=== PATIENT | male | born 1950 | race Caucasian/White ===

== ENCOUNTER 2017-09-24 17:10 | Emergency (ER) | payer OTHER, SELFPAY ==
[2017-09-24 17:11] VITALS: BP 136/81; PULSE 107; RESP 22; TEMP 36.9; O2SAT 94; BMI 23.0
--- NOTE | 2017-09-24 17:20 | EKG12_ITS ---
Test Reason : CP Blood Pressure : / mmHG Vent. Rate : 101 BPM Atrial Rate : 101 BPM P-R Int : 166 ms QRS Dur : 080 ms QT Int : 342 ms P-R-T Axes : 084 075 076 degrees QTc Int : 443 ms Sinus tachycardia Otherwise normal ECG Confirmed by MILLA AYALA, SAMMY ([id number]), editorial manager CLEO MORRISON ([id number] on 09/25/2017 2:25:14 PM Referred By: FABIAN/KRISTOPHER Confirmed By:SAMMY LOYOLA MD
[2017-09-24 17:27] VITALS: O2SAT 95
--- NOTE | 2017-09-24 17:33 | RAD_ITS ---
XR Chest 1 View INDICATION: chest pain COMPARISON: CT chest January 2017 TECHNIQUE: Portable chest x-ray FINDINGS: Severe centrilobular emphysematous changes are again noted. Markingsatthelungbasesareincreased.TherightlowerlobepulmonarynodulewhichwasseenonpriorCTisnotwellseen onplainfilm.Heartsizeiswithinnormallimits. RAD/Chest 1 View (Portable) IMPRESSION: COPD/emphysema. Subcentimeter right lower lobe pulmonary micronodule, follow-up is clinically warranted. at 1759 Reported and signed by: Elisabeth Mancilla MD Electronically Signed: Elisabeth Mancilla MD at 16:58 EST Tel , Service support ,
[2017-09-24 17:41] LABS: Absolute Lymphocyte Count 1.47 X10^3/ul (0.83-4.51); Basophil# 0.02 X10^3/uL; Basophil% 0.3 % (0-1); Eosinophil# 0.18 X10^3/uL; Eosinophils% 2.4 % (0-5); Hematocrit 42.7 % (40-54); Hemoglobin 13.9 g/dl (13.0-16.5); Lymphocyte # 1.47 X10^3/ul (4.0); Lymphocyte % 19.5 % (19-41); Mean Corp Hgb Conc 32.6 g/gl (32-36); Mean Corpuscular Hgb 29.8 pg (27.0-32.0); Mean Corpuscular Volume 91.6 fL (80-94); Mean Platelet Vol. 9.2 fl (6.2-12.0); Monocyte# 0.89 X10^3/uL; Monocyte% 11.8 % (0-10); Neutrophil # 4.98 X10^3/uL (2.7-7.7); Neutrophil % 65.9 % (47-70); POSITIVE COUNT NO; POSITIVE DIFFERENTIAL NO; POSITIVE MORPHOLOGY NO; Platelet Count 264 K/mm3 (150-450); RBC Distribution Width CV 13.2 % (11.6-14.6); RBC Distribution Width SD 43.7 fl (35.1-43.9); Red Blood Count 4.66 M/mm3 (4.6-6.2); White Blood Count 7.6 K/mm3 (4.4-11.0)
--- NOTE | 2017-09-24 17:46 | CT_ITS ---
CTA Chest WO/W Contrast INDICATION: THORACIC AORTIC ANEURYSM COMPARISON: February 01, 2016 TECHNIQUE: High resolution axial CT imaging of the chest during intravenous contrast administration, CTA protocol. Multiplanar and MIP 3D reformatted images. 100 mL of Isovue-370 were given intraveniously. Radiation dose optimization technique applied. FINDINGS: The heart size is within normal limits. Ascending aorta measures 3.2 cm in diameter, aortic arch measures 2.6 cm in diameter, descending aorta measures 3.4 cm in diameter. At the midportion of the descending thoracic aorta there is a focal outpouching up to 4.2 cm in size, the outpouching extends over 2.5 cm craniocaudal dimension. Finding is unchanged compared to January 2016. There is no evidence of pulmonary arterial filling defect to suggest PE. Multiple small mediastinal lymph nodes are again noted. Calcified granulomas again noted in the left lower lobe. A ovoid shaped well-circumscribed pulmonary micronodule in the right lower lobe measures 5 mm on today's study, similar compared to February 01, 2016 and January 15, 2015, likely benign. Diffuse centrilobular emphysematous changes are again noted. No evidence of pneumothorax or pleural effusion. No evidence of pneumonia. CT/CTA Chest W/WO Contrast IMPRESSION: Stable 4.2 cm thoracic aortic aneurysm. Stable centrilobular emphysema. Stable right lower lobe micronodule. at 1856 Reported and signed by: Elisabeth Mancilla MD Electronically Signed: Elisabeth Mancilla MD at 17:55 EST Tel , Service support ,
[2017-09-24 17:55] LABS: Anion Gap 6 (5-15); BUN 14 mg/dL (7-18); BUN/Creat Ratio 14.1 RATIO (10-20); Calcium,Total 8.8 mg/dL (8.5-10.1); Chloride 104 mmol/L (98-107); EST Glomerular Filtration Rate 79 mL/min (>60); Est Glom Filt Rate - Afr Amer 96 mL/min (>60); Glucose 112 mg/dL (74-106); Potassium 3.5 mmol/L (3.5-5.1); Sodium Level 138 mmol/L (136-145)
[2017-09-24 18:19] VITALS: PULSE 90; RESP 21; O2SAT 93
[2017-09-24] MEDS: Ipratropium/Albuterol Sulfate 3 ML AMPUL.NEB INHALATION (18:31)
--- NOTE | 2017-09-24 19:24 | ED.VISSUMM ---
- ER Visit Summary Date of Service: 09/24/17 Chief Complaint: Chest pain History of Present Illness: The patient is a [address] Hay. He reports that he has a cough that began 3 days ago. Is productive brown sputum without blood. Reports he has been short of breath with this. He denies any fever or chills. Patient reports that today at approximately 330 he had the onset of a substernal pressure at rest. 7 out of 10 at worst and 3 out of 10 currently. Is worsened by walking around or coughing. Is relieved by rest and albuterol. He does report that he is short of breath with this. He denies any associated nausea, vomiting, or diaphoresis. Reports this is similar to when he had pneumonia in the past. Physical Examination: Vitals: Stable. Afebrile. General: Well-nourished and well-developed. Head: Normocephalic atraumatic. Neck: Supple, no lymphadenopathy. No JVD. Nontender. Cardiovascular: Regular rate and rhythm. No murmurs. Respiratory: No respiratory distress. Minimal wheezing bilaterally with greatly decreased air movement. Abdominal: Soft, nontender, nondistended, normal bowel sounds. No guarding, rebound, or peritoneal signs. Back: Nontender. Extremities: Nontender, no edema. Skin: Normal color, no rash. Neurologic: Alert and oriented ?3. Cranial nerves II through XII are intact. Normal strength and sensation. Psych: Normal affect. Test Results: EKG is sinus tach at [address] changes and artifact. Troponin is negative. Chem-7 is more for glucose 112. CBC is more for monocytes 12. Chest x-ray shows a less than 1 cm right lower lobe nodule. CTA of the chest shows a thoracic aortic aneurysm that is unchanged since January 2016. Also shows right lower lobe nodule that is unchanged since December 2014 and January 2016. There is no PE or dissection. Emergency Department Course and Treatment: She was given albuterol and Atrovent aerosol with solution of his chest pain. He was treated with prednisone p.o. and Levaquin p.o. Treatment Plan: She feels well and would like to go home. He will be discharged on prednisone and Levaquin. Instructed to follow-up his primary care physician in 3-5 days if not improving. Return to emerge from for any worsening symptoms. Disposition: To home in improved and stable condition. Impression: 1. COPD exacerbation. 2. Atypical chest pain. 3. Thoracic aortic aneurysm. 4. Stable right lower lobe nodule. This note was generated with [employer] dictation software. It may contain incorrect words, spelling, and punctuation that were not noted in review of the chart prior to signing ED Disposition - Plan for ED Patient: Disposition: Home or Assisted Living Chief Complaint: Chest Pain Instructions: ED Chest Pain Atypical Unkn Cause Prescriptions: Levofloxacin [Levaquin] 750 mg PO DAILY #7 tablet Prednisone [Deltasone] 60 mg PO DAILY #15 tablet Referrals: Bashir Hay DO [Primary Care Provider] - 3-5 Days
[2017-09-24 19:31] VITALS: BP 118/82; PULSE 85; RESP 15; O2SAT 94
[2017-09-24 19:32] VITALS: BP 113/80; PULSE 82; RESP 14; O2SAT 93
[2017-09-24] MEDS: levoFLOXacin 750 MG Tablet PO (19:32)
[2017-09-24] MEDS: Albuterol 2.5 MG/3 ML VIAL.NEB. INHALATION (19:50)
[2017-09-24 19:51] VITALS: PULSE 86; RESP 18
== END 2017-09-24 20:01 | disposition home or self-care (01) ==
PROVIDERS: Emergency Provider Emergency Medicine; Family Provider Family Medicine; PCP Family Medicine
DX: J44.1 Chronic obstructive pulmonary disease with (acute) exacerbation (principal); R07.89 Other chest pain; I71.2 Thoracic aortic aneurysm, without rupture; R91.1 Solitary pulmonary nodule; Z87.01 Personal history of pneumonia (recurrent); Z87.891 Personal history of nicotine dependence
CPT/HCPCS: 71045; 71275; 80048; 84484; 85025; 93005; 94640; 99285; Q9967; A4216

== ENCOUNTER → 2018-02-08 16:06 | Outpatient (CLI) | payer OTHER, SELFPAY ==
--- NOTE | 2018-02-08 16:08 | CT_ITS ---
STUDY: CT CHEST WITHOUT CONTRAST REASON FOR EXAM: Male, 68 years old. Thoracic aneurysm RADIATION DOSAGE (If Supplied By Facility): CTDIvol = ( 11.90 ) mGy, DLP = ( 502.56 ) mGycm TECHNIQUE: Transaxial imaging was performed without the administration of intravenous contrast material. Multiplanar coronal and sagittal images were reformatted. Individualized dose optimization techniques were used for this CT. COMPARISON: 09/24/2017. FINDINGS: Right lower lung pulmonary nodule measuring 6 mm. Scattered emphysematous changes. No acute infiltrate. There is no demonstrated pleural abnormality. Normal heart and pericardium. Normal mediastinum. Normal hilar regions. Normal unenhanced pulmonary arteries. No aortic aneurysm. Ascending thoracic aorta measures 3.5 cm. Aortic arch measures 3 cm. Descending thoracic aorta measures 4.0 cm. Normal osseous structures. There is no demonstrated abnormality of the visualized upper abdomen. CT/Chest without Contrast IMPRESSION: Stable dilatation descending thoracic aorta measuring up to 4 cm. Right lower lung pulmonary nodule measuring 6 mm. Emphysematous changes. Electronically Signed: Panchito Rolon DO at 10:11 EDT , Service support ,
== END ==
PROVIDERS: Family Provider Family Medicine; PCP Family Medicine
DX: I71.2 Thoracic aortic aneurysm, without rupture (principal)
CPT/HCPCS: 71250

== ENCOUNTER → 2018-10-17 12:51 | Outpatient (CLI) | payer OTHER, SELFPAY ==
--- NOTE | 2018-10-17 13:06 | CT_ITS ---
STUDY: CTA CHEST REASON FOR EXAM: Male, 68 years old. History of abdominal aortic aneurysm. RADIATION DOSAGE (If Supplied By Facility): CTDIvol = ( 13.59 ) mGy, DLP = ( 905.52 ) mGycm TECHNIQUE: The examination was performed with the intravenous administration of 100 IV Isovue 370. Post-processing of the angiographic images was performed, with multiplanar reformation and 3D reconstruction. Individualized dose optimization techniques were used for this CT. COMPARISON: Comparison is made with prior study dated September 24, 2017. FINDINGS: Normal enhancement of the main pulmonary artery and right and left pulmonary arteries. Normal enhancement of the bilateral peripheral pulmonary arteries. There is no demonstrated pulmonary embolism. The ascending aorta measures 3.2 cm in transverse dimension. Once again, there is a focal outpouching in the midportion of the descending thoracic aorta with a transverse dimension of 4.2 cm. This is unchanged. There is no demonstrated aortic dissection. Normal heart and pericardium. There are visualized mediastinal lymph nodes, which are within normal size limits, and with normal morphology. Normal hilar regions. Normal visualized trachea and bronchi. The lungs are well expanded. Stable nodular density in the peripheral aspect of the right lower lobe as seen on axial image #91. Stable emphysematous changes in both lungs with bullous formation. Normal pleura. Normal chest wall structures. Normal osseous structures. Normal visualized upper abdomen. CT/CTA Chest W/WO Contrast IMPRESSION: Stable examination. Electronically Signed: Andrae Hopper, at 14:09 EDT , Service support ,
--- NOTE | 2018-10-17 13:06 | CT_ITS ---
STUDY: CT ABDOMEN AND PELVIS WITH CONTRAST REASON FOR EXAM: Male, 68 years old. History of abdominal aortic aneurysm. RADIATION DOSAGE (If Supplied By Facility): CTDIvol = ( 13.59 ) mGy, DLP = ( 905.52 ) mGycm TECHNIQUE: Transaxial images were obtained from the dome of the diaphragm to the symphysis pubis without oral contrast. 100 IV Isovue 370 was administered. Sagittal and coronal images were reconstructed. Individualized dose optimization techniques were used for this CT. COMPARISON: None. FINDINGS: There is a 5.4 mm noncalcified nodule in the peripheral lateral aspect of the right lower lobe as seen on axial image #2. Mild emphysematous changes at the lung bases with bullous formation in the left midlung. The visualized portions of the heart are within normal limits. There is a 1.6 cm x 1.1 cm cyst in the peripheral inferior aspect of the right lobe of the liver. Normal gallbladder and extrahepatic biliary system. Normal spleen. Normal pancreas. Normal bilateral adrenal glands. Normal right kidney. There is a 1.6 x 1.9 cm cyst in the upper lateral aspect of the left kidney. Normal visualized stomach. Normal small intestine. Normal colon. The appendix is visualized and appears normal. There is evidence of a fusiform infrarenal abdominal aortic aneurysm with a transverse dimension of 7.3 cm. There is evidence of mural clot. This extends down into the aortic bifurcation. There is evidence of calcified plaques involving the common iliac arteries bilaterally. Normal inferior vena cava. There is borderline retroperitoneal lymphadenopathy with enlarged nodes no greater than 10mm in the short axis diameter. Normal urinary bladder. There is enlargement of the prostate gland. This measures 5.2 cm by 4.5 cm. Prostatic calcification. There is a right-sided inguinal hernia containing adipose tissue. Normal osseous structures. CT/CT ANGIO ABD&PEL W/O&W/DYE IMPRESSION: Fusiform infrarenal abdominal aortic aneurysm with a transverse dimension of 7.3 cm. There is evidence of mural thrombus. 5.4 mm noncalcified nodule in the posterolateral aspect of the right lower lobe. Small hepatic cyst as well as cyst in the left kidney. Electronically Signed: Andrae Hopper, at 14:04 EDT , Service support ,
[2018-10-17 13:23] LABS: Anion Gap 3 (5-15); BUN 18 mg/dL (7-18); BUN/Creat Ratio 16.4 RATIO (10-20); Calcium,Total 8.9 mg/dL (8.5-10.1); Chloride 107 mmol/L (98-107); EST Glomerular Filtration Rate 70 mL/min (>60); Est Glom Filt Rate - Afr Amer 85 mL/min (>60); Glucose 81 mg/dL (74-106); Sodium Level 141 mmol/L (136-145)
== END ==
PROVIDERS: Family Provider Family Medicine; PCP Family Medicine; Referring Provider Surgery Vascular Surgery; Visit Provider Surgery Vascular Surgery
DX: Z01.818 Encounter for other preprocedural examination (principal); Z13.89 Encounter for screening for other disorder; I71.2 Thoracic aortic aneurysm, without rupture
CPT/HCPCS: 36415; 71275; 74174; 80048; Q9967

== ENCOUNTER → 2018-12-26 | Outpatient (CLI) | payer OTHER, SELFPAY ==
--- NOTE | 2018-12-26 15:04 | CT_ITS ---
STUDY: CT ABDOMEN AND PELVIS WITH CONTRAST REASON FOR EXAM: Male, 68 years old. History of abdominal aortic aneurysm. RADIATION DOSAGE (If Supplied By Facility): CTDIvol = ( 15.97 ) mGy, DLP = ( 882.33 ) mGycm TECHNIQUE: Transaxial images were obtained from the dome of the diaphragm to the symphysis pubis without oral contrast. 100 IV Isovue 370 was administered. Sagittal and coronal images were reconstructed. Individualized dose optimization techniques were used for this CT. COMPARISON: Comparison is made with prior examination of October 17, 2018. FINDINGS: Stable emphysematous changes at the lung bases. Stable 5.7 mm nodule in the peripheral lateral aspect of the right lower lobe as seen on axial image #89. The visualized portions of the heart are within normal limits. Normal liver. Normal gallbladder and extrahepatic biliary system. Normal spleen. Normal pancreas. Normal bilateral adrenal glands. Normal right kidney. Stable 1.7 cm cyst in the upper aspect of the left kidney. Normal visualized stomach. Normal small intestine. Normal colon. The appendix is visualized and appears normal. Stable appearance of the [place] abdominal aortic infrarenal aneurysm measuring 7.3 cm in transverse dimension. An aortic stent graft is seen from the level of the renal arteries down to the aortic bifurcation. Both limbs of the graft are seen in the common iliac arteries bilaterally and are widely patent. There is no evidence of aneurysmal leak. Normal inferior vena cava. Normal retroperitoneum. Normal urinary bladder. There is enlargement of the prostate gland. This causes indentation of the bladder base. This measures 5.2 size by 4.5 cm. There is a right-sided inguinal hernia containing adipose tissue. Normal osseous structures. IMPRESSION: Stable examination. Electronically Signed: Andrae Hopper, at 15:44 EDT , Service support , STUDY: CTA CHEST REASON FOR EXAM: Male, 68 years old. Abdominal aortic aneurysm. RADIATION DOSAGE (If Supplied By Facility): CTDIvol = ( 15.97 ) mGy, DLP = ( 882.33 ) mGycm TECHNIQUE: The examination was performed with the intravenous administration of 100 IV Isovue 370. Post-processing of the angiographic images was performed, with multiplanar reformation and 3D reconstruction. Individualized dose optimization techniques were used for this CT. COMPARISON: Comparison is made with prior study dated October 17, 2018. FINDINGS: Normal enhancement of the main pulmonary artery and right and left pulmonary arteries. Normal enhancement of the bilateral peripheral pulmonary arteries. There is no demonstrated pulmonary embolism. Stable focal outpouching in the midportion of the descending thoracic aorta. There is no demonstrated aortic dissection. Normal heart and pericardium. There are visualized mediastinal lymph nodes, which are within normal size limits, and with normal morphology. Normal hilar regions. Normal visualized trachea and bronchi. The lungs are well expanded. Stable nodular density peripheral lateral aspect of the right lower lobe. Stable emphysematous changes. Normal pleura. Normal chest wall structures. There are degenerative changes of thoracic spine. Normal visualized upper abdomen. CT/CTA Chest W/WO Contrast IMPRESSION: Stable examination. Electronically Signed: Andrae Hopper, at 15:45 EDT , Service support ,
--- NOTE | 2018-12-26 15:04 | CT_ITS ---
STUDY: CT ABDOMEN AND PELVIS WITH CONTRAST REASON FOR EXAM: Male, 68 years old. History of abdominal aortic aneurysm. RADIATION DOSAGE (If Supplied By Facility): CTDIvol = ( 15.97 ) mGy, DLP = ( 882.33 ) mGycm TECHNIQUE: Transaxial images were obtained from the dome of the diaphragm to the symphysis pubis without oral contrast. 100 IV Isovue 370 was administered. Sagittal and coronal images were reconstructed. Individualized dose optimization techniques were used for this CT. COMPARISON: Comparison is made with prior examination of October 17, 2018. FINDINGS: Stable emphysematous changes at the lung bases. Stable 5.7 mm nodule in the peripheral lateral aspect of the right lower lobe as seen on axial image #89. The visualized portions of the heart are within normal limits. Normal liver. Normal gallbladder and extrahepatic biliary system. Normal spleen. Normal pancreas. Normal bilateral adrenal glands. Normal right kidney. Stable 1.7 cm cyst in the upper aspect of the left kidney. Normal visualized stomach. Normal small intestine. Normal colon. The appendix is visualized and appears normal. Stable appearance of the [place] abdominal aortic infrarenal aneurysm measuring 7.3 cm in transverse dimension. An aortic stent graft is seen from the level of the renal arteries down to the aortic bifurcation. Both limbs of the graft are seen in the common iliac arteries bilaterally and are widely patent. There is no evidence of aneurysmal leak. Normal inferior vena cava. Normal retroperitoneum. Normal urinary bladder. There is enlargement of the prostate gland. This causes indentation of the bladder base. This measures 5.2 size by 4.5 cm. There is a right-sided inguinal hernia containing adipose tissue. Normal osseous structures. IMPRESSION: Stable examination. Electronically Signed: Andrae Hopper, at 15:44 EDT , Service support , STUDY: CTA CHEST REASON FOR EXAM: Male, 68 years old. Abdominal aortic aneurysm. RADIATION DOSAGE (If Supplied By Facility): CTDIvol = ( 15.97 ) mGy, DLP = ( 882.33 ) mGycm TECHNIQUE: The examination was performed with the intravenous administration of 100 IV Isovue 370. Post-processing of the angiographic images was performed, with multiplanar reformation and 3D reconstruction. Individualized dose optimization techniques were used for this CT. COMPARISON: Comparison is made with prior study dated October 17, 2018. FINDINGS: Normal enhancement of the main pulmonary artery and right and left pulmonary arteries. Normal enhancement of the bilateral peripheral pulmonary arteries. There is no demonstrated pulmonary embolism. Stable focal outpouching in the midportion of the descending thoracic aorta. There is no demonstrated aortic dissection. Normal heart and pericardium. There are visualized mediastinal lymph nodes, which are within normal size limits, and with normal morphology. Normal hilar regions. Normal visualized trachea and bronchi. The lungs are well expanded. Stable nodular density peripheral lateral aspect of the right lower lobe. Stable emphysematous changes. Normal pleura. Normal chest wall structures. There are degenerative changes of thoracic spine. Normal visualized upper abdomen. CT/CT ANGIO ABD&PEL W/O&W/DYE IMPRESSION: Stable examination. Electronically Signed: Andrae Hopper, at 15:45 EDT , Service support ,
[2018-12-26 15:26] LABS: CREATININE FINGERSTICK 1.3 mg/dL (0.70-1.30)
== END | disposition home or self-care (01) ==
PROVIDERS: Family Provider Family Medicine; PCP Family Medicine; Referring Provider Nurse Practitioner Primary Care; Visit Provider Nurse Practitioner Primary Care
DX: I71.4 Abdominal aortic aneurysm, without rupture (principal); I71.2 Thoracic aortic aneurysm, without rupture
CPT/HCPCS: 71275; 74174; Q9967

== ENCOUNTER → 2019-03-10 | Outpatient (CLI) | payer OTHER, SELFPAY ==
--- NOTE | 2019-03-10 14:51 | US_ITS ---
STUDY: SUPERFICIAL ULTRASOUND - LIMITED. REASON FOR EXAM: Male, 69 years old. Right groin pain and swelling status post AAA bifurcation graft. TECHNIQUE: A superficial ultrasound was performed with real-time and static bahena-scale imaging. COMPARISON: Report of CTA abdomen and pelvis December 26, 2018. FINDINGS: As per flight engineer performance qualified worksheet there is pain, swelling and a palpable lump in the area superior to the graft site in the right groin. The area of abnormality demonstrates a heterogeneous nodule measuring 1.1 x 0.9 x 0.5 cm. There is a small focus of vascularity along the periphery of the nodule. Otherwise the nodule is avascular. US/Ext Non Vasc Limited/Soft Tiss IMPRESSION: 1.1 cm solid nodule anterior to the aortic stent graft in the right groin. Electronically Signed: Pepe Collado MD at 0:06 EDT , Service support ,
== END | disposition home or self-care (01) ==
LOC: US 14:50
PROVIDERS: Family Provider Family Medicine; PCP Family Medicine; Referring Provider Nurse Practitioner Primary Care; Visit Provider Nurse Practitioner Primary Care
DX: R10.31 Right lower quadrant pain (principal); Z86.79 Personal history of other diseases of the circulatory system; Z95.828 Presence of other vascular implants and grafts
CPT/HCPCS: 76882

== ENCOUNTER 2019-04-19 14:47 | Emergency (ER) | payer OTHER, SELFPAY ==
[2019-04-19 14:48] VITALS: BP 116/89; PULSE 93; RESP 16; TEMP 36.7; O2SAT 97; BMI 24.4
--- NOTE | 2019-04-19 15:20 | CT_ITS ---
STUDY: CT ABDOMEN AND PELVIS WITH CONTRAST REASON FOR EXAM: Male, 69 years old. Left groin pain. Recent stent placement. RADIATION DOSAGE (If Supplied By Facility): CTDIvol = ( 13.08 ) mGy, DLP = ( 1065.67 ) mGycm TECHNIQUE: Transaxial images were obtained from the dome of the diaphragm to the symphysis pubis without oral contrast. IV 100mL Isovue-300 100 was administered. Sagittal and coronal images were reconstructed. Individualized dose optimization techniques were used for this CT. COMPARISON: 10/17/2018. FINDINGS: Mild emphysematous changes in the lung bases. Heart size is normal. 1.2 cm posterior segment hepatic cyst inferomedially. No significant change from the prior study. Additional low-attenuation lesions at the dome of the liver are too small to characterize. The gallbladder is unremarkable. Solitary granulomatous calcification in the spleen. The pancreas is unremarkable. The adrenal glands are normal. 1.7 cm upper pole left renal cyst. No significant change from the prior study. The kidneys are otherwise unremarkable. No stones or hydronephrosis. Infrarenal abdominal aortic aneurysm with stent in place. Stent is patent. [place] aneurysm measures 6.1 x 7.1 cm. No evidence of leak. Diverticulosis. There is mild pericolonic stranding around the distal descending colon consistent with acute diverticulitis. No free fluid, free air, or organized collection. Normal appendix. Urinary bladder is unremarkable. Normal abdominal wall. Minimal lumbar retrolisthesis at L2-3 and L3-4. Mild degenerative changes. CT/Abdomen/Pelvis W IV Cont ONLY IMPRESSION: 1. Acute, uncomplicated diverticulitis of the distal descending colon. 2. Patent aortic stent with 7.1 cm [place] aneurysm. 3. Hepatic cyst. Additional hypodensities are too small to characterize. 4. Mild emphysematous changes in the lung bases. 5. Left renal cyst. Electronically Signed: Bisi Ovalles MD at 17:20 EDT Tel , Service support ,
[2019-04-19 15:21] VITALS: BP 112/69; PULSE 71; RESP 16; O2SAT 95
[2019-04-19 15:50] LABS: Absolute Lymphocyte Count 1.99 X10^3/uL (0.83-4.51); Absolute Neutrophil Count 8.4 X10^3/uL (2.0-7.7); Basophil# 0.03 X10^3/uL; Basophil% 0.3 % (0-1); Eosinophil# 0.22 X10^3/uL; Eosinophils% 1.8 % (0-5); Hemoglobin 12.9 g/dL (13.0-16.5); Lymphocyte # 1.99 X10^3/ul (4.0); Lymphocyte % 16.7 % (19-41); Mean Corp Hgb Conc 32.3 g/dL (32-36); Mean Corpuscular Hgb 29.3 pg (27.0-32.0); Mean Corpuscular Volume 90.9 fL (80-94); Mean Platelet Vol. 8.7 fl (6.2-12.0); Monocyte# 1.24 X10^3/uL; Monocyte% 10.4 % (0-10); NRBC Flagged by Analyzer 0 % (0-5); Neutrophil # 8.38 X10^3/uL (2.7-7.7); Neutrophil % 70.5 % (47-70); Platelet Count 376 K/mm3 (150-450); RBC Distribution Width CV 12.8 % (11.6-14.6); RBC Distribution Width SD 42.5 fl (35.1-43.9); White Blood Count 11.9 K/mm3 (4.4-11.0)
[2019-04-19 15:59] LABS: Anion Gap 4 (5-15); BUN 14 mg/dL (7-18); BUN/Creat Ratio 16.8 RATIO (10-20); Calcium,Total 9.2 mg/dL (8.5-10.1); Chloride 102 mmol/L (98-107); Creatinine, Serum 0.83 mg/dL (0.70-1.30); EST Glomerular Filtration Rate 97 mL/min (>60); Est Glom Filt Rate - Afr Amer 117 mL/min (>60); Estimated Creatinine Clearance 86.94 ml/min; Glucose 84 mg/dL (74-106); Potassium 3.9 mmol/L (3.5-5.1); Sodium Level 136 mmol/L (136-145)
[2019-04-19] MEDS: 0.9% Normal Saline 1,000 ML 1000 ML IV (16:03)
[2019-04-19 17:00] LABS: Bacteria 0 SEEN /hpf (None Seen); Mucous, Urine 0 SEEN /hpf (<or=2+); Red Blood Cells-Urine 0 SEEN /hpf (0-5); Squamous Epithelial Cells - UA 0 SEEN /hpf (0-5); White Blood Cells 0 SEEN /hpf (0-5)
[2019-04-19 17:03] LABS: Color, Urine Yellow (Yellow); Glucose, Dipstick Normal (Normal); Ketone-Dipstick Negative (Negative); Leukocyte Esterase-Dipstick Negative /ul (Negative); Nitrite-Dipstick Negative (Negative); Occult Blood-Urine Negative /ul (Negative); Protein-Dipstick Negative (Negative); Urine Bilirubin Dipstick Negative (Negative); Urine Clarity Clear (Clear); Urine Urobilinogen Normal (Normal)
[2019-04-19 18:58] VITALS: BP 119/89; PULSE 85; RESP 18; O2SAT 95
--- NOTE | 2019-04-19 18:59 | ED.DCSUM_ITS ---
- ER Visit Summary Date of Service: 04/19/19 Chief Complaint: Lower quadrant abdominal pain. History of Present Illness: The patient is a 69 M history of abdominal aortic aneurysm with stent. Patient states he has had left lower quadrant abdominal pain since yesterday. Last night. He denies any nausea, vomiting, diarrhea, constipation or dysuria. No fever or chills. He describes it as stabbing. Better with sitting worse with standing better with walking. He denies any back pain. He does not feel lightheaded or dizzy. Physical Examination: Male no acute distress vital signs stable afebrile. HEENT exam unremarkable. Neck nontender. Lungs are clear. Heart regular rhythm no murmur. Abdomen is soft. The left lower quadrant with deep palpation. No pulsatile mass at this time. Right upper right lower quadrant unremarkable. No signs of obstruction. Positive bowel sounds. Patient moving all 4 extremities. There is no edema. He has positive DP pulses. Back nontender. Neurologically is awake and alert. Test Results: White count 11 hemoglobin 12 adequate 40. Electrolytes unremarkable normal creatinine gap. UA normal. CT abdomen pelvis shows a large abdominal aortic aneurysm with an infra renal stent. No leak. Acute diverticulitis in the left lower quadrant. No fluid or abscess. Normal appendix. Read by the radiologist reviewed by me. Emergency Department Course and Treatment: Repeat exam at 1900 patient doing well. All labs were gone over with the patient and family. He will be started on Cipro and Flagyl for the next 10 days. And follow-up with primary care physician. Treatment Plan: Cipro and Flagyl for 10 days. Follow-up with PCP. Return if worse. Disposition: Discharge Impression: Acute left lower quadrant diverticulitis History of known abdominal aortic aneurysm with stent This note was generated with [employer]ISUALPL[employer]ation software. It may contain incorrect words, spelling, and punctuation that were not noted in review of the chart prior to signing ED Disposition - Plan for ED Patient: Referrals: Care Physician,No Primary [Primary Care Provider] -
--- NOTE | 2019-04-19 19:01 | ED.DEP ---
ED Disposition - Plan for ED Patient: Disposition: Home or Assisted Living Instructions: Diverticulitis Prescriptions: Ciprofloxacin [Cipro] 500 mg PO BID #20 tab Prescription Printed metroNIDAZOLE [Flagyl] 500 mg PO Q6H #40 tab Prescription Printed Referrals: Care Physician,No Primary [Primary Care Provider] - 1 Week Additional Instructions: Cipro 1 pill twice a day for 10 days. Flagyl 1 pill 4 times a day for 10 days. Tylenol for pain. You have left lower quadrant diverticulitis which is an infection of your colon. Follow-up with your primary care physician if not improving or return if worse.
[2019-04-19] MEDS: Ciprofloxacin 500 MG Tablet PO (19:13)
[2019-04-19] MEDS: metroNIDAZOLE 500 MG Tablet PO (19:13)
== END 2019-04-19 19:16 | disposition home or self-care (01) ==
PROVIDERS: Emergency Provider Emergency Medicine
DX: K57.32 Diverticulitis of large intestine without perforation or abscess without bleeding (principal); I71.4 Abdominal aortic aneurysm, without rupture; I25.10 Atherosclerotic heart disease of native coronary artery without angina pectoris; Z95.828 Presence of other vascular implants and grafts; Z79.82 Long term (current) use of aspirin; Z79.02 Long term (current) use of antithrombotics/antiplatelets; Z79.899 Other long term (current) drug therapy
CPT/HCPCS: 74177; 80048; 81001; 85025; 96360; 96361; 99284; J7030; Q9967; A4216

== ENCOUNTER 2019-05-08 15:00 | Outpatient (RCR) | payer OTHER, SELFPAY ==
--- NOTE | 2019-04-14 16:01 | HP.PTEVAL_ITS ---
Patient's Visit Information SIMONE COX is a 69 year old M referred to Physical Therapy by Pipe Fernandes DO with a diagnosis of LOW BACK PAIN. Date of Evaluation: 04/14/19 Physical Therapist: Rodrigo Bolton, PT, Cert MDT, OCS - Visit Plan Frequency: 2x /Week Duration: 4 Weeks Plan: PT INTERVENTIONS LUMBAR FLEXION,DLS ,FLEXABLITY LE -HAMSTRINGS,POSTURAL EX,US/CP/MHP - Subjective Findings: This male presents to physical therapy with low back pain . Patient has had back 2 weeks ago. Patient had stent in heart [facility] on back 36 hours ,then 2 days later developed. Patient pain located L-S region posterior buttucks to hamstrinds. Patient aggravating factors bending,sitting to elevate,lifting. Alleviating factors on feet or walking for a certain distance. Denies parathesia/tingling. Coughing/sneezing -. Bowel/bladder -. Patient has h/o sciatica.Patient symptoms described as a ache. Patient seen chiropractor. No x-rays. 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 Patient pain affectS QOL. SOCIAL: . VOCATION: retired - Pain Bilateral Back Pain Intensity (Out of 10): 3 Pain Intensity Range: 10 Bilateral Lower Extremity Pain Intensity (Out of 10): 8 Pain Intensity Range: 10 Comment: bending - Objective POSTURE: mild foward posture,decrease lumbar lordosis. GAIT: reciprocal pattern. NEURO: denies parathesia/tingling,reflexes L3-4,L4-5,L5-S1 2/3. SYMMTRIES : algin. LUMBAR ROM: flexion mod loss pain,extension mod loss decfrease segmental motion,side glides mod loss. FLEXABLITY: hams mod loss. MMT: quads3+/5 + ANR,HAMS 4/5 ,HIP FLEXION 4-/5,ANKLE 4/5 - Special Tests L/S Slump test left side: Positive L/S Slump test right side: Positive L/S Left Straight Leg Raise: Positive L/S Right Straight Leg Raise: Positive Lumbar Standing: Flexion - Mechanical Response: No effect Lumbar Standing: Flexion - Symptoms During Testing: Produces Lumbar Standing: Flexion - Symptoms After Testing: No worse Comments:: HAMS Lumbar Standing: Extension - Mechanical Response: No effect Lumbar Standing: Extension - Symptoms During Testing: Increases Lumbar Standing: Extension - Symptoms After Testing: No worse Comments:: BACK Lumbar Lying: Flexion - Mechanical Response: No effect Lumbar Lying: Flexion - Symptoms During Testing: Decreases Lumbar Lying: Flexion - Symptoms After Testing: Better Lumbar Lying: Extension - Mechanical Response: No effect Lumbar Lying: Extension - Symptoms During Testing: Increases Lumbar Lying: Extension - Symptoms After Testing: Worse - Goals Goal 1:: Independant with HEP Goal Time Frame: 4-6 Weeks Goal 2:: Improve posture for ADL'S Goal Time Frame: 4-6 Weeks Goal 3:: Patient to decrease lumbar symptoms by 50% or > to improve function. Goal Time Frame: 4-6 Weeks Goal 4:: Patient to improve lumbar ROM for function of recovery Goal Time Frame: 4-6 Weeks Goal 5:: Pateint improve back owestry score by 5 points or> to improve QOL. Goal Time Frame: 4-6 Weeks Goal 6:: Patient to be d/c to prophalaxis Goal Time Frame: 4-6 Weeks - Rehabilitation Potential Physical Therapy Diagnosis: This patient has symmrical lumbar pain to hamstrings worse with bending,sitting,better with walking and standing ,causes deficits with ROM ,pain weakness thus benifit from skilled PT Rehabilitation Potential: Good - Anticipated Interventions Patient/Client Instruction: Educate patient on: Condition, Plan of Care For the Purpose of:: To decrease pain, To increase ROM, To improve muscle performance and motor function, To improve ability to perform ADL's, To increase tolerance to activity/condition/position, To improve ability of physical actions for home/community/work/leisure, To improve health of tissue, To decrease soft tissue restriction, To increase flexibility/ROM, To reduce risk of recurrence, To improve ability to perform tasks related to life management Therapeutic Exercise to Include: Strength training, Postural training, Flexibilty training, Active ROM, Dynamic Lumbar Stabilization For the Purpose of:: To decrease pain, To increase ROM, To improve muscle performance and motor function, To increase tolerance to activity/condition/position, To improve ability of physical actions for home/community/work/leisure, To improve health of tissue, To decrease soft tissue restriction, To increase flexibility/ROM, To improve ability to perform tasks related to life management TENS: Yes IF ES: Yes Cryotherapy (ice pack, ice massage): Yes Thermo therapy (hot pack): Yes Ultrasound (thermal/non thermal): Yes For the Purpose of:: To decrease pain, To increase ROM, To improve nutrient delivery to tissue, To increase oxygenation perfusion, To improve health of tissue, To decrease soft tissue restriction Thank you for the opportunity to evaluate your patient. For Medicare and Medicare HMO plans, please review the plan of care and approve it. It will need to be FAXED BACK to us at [phone] for Medicare purposes. For Medicare only, by signing this I certify the plan of care. Please let me know if there are questions or concerns regarding this plan of care. Physician S ignature: Date:
--- NOTE | 2019-08-08 13:19 | HP.PTDCNRP_ITS ---
HP - Discharge Summary (1) - Patient Information SIMONE COX was seen in my office for initial evaluation on 04/14/19. The following Plan of Care was established for this patient: Initial Frequency: 2x /Week Initial Duration: 4 Weeks - Anticipated Interventions Patient/Client Instruction: Educate patient on: Condition, Plan of Care For the Purpose of:: To decrease pain, To increase ROM, To improve muscle perfor clarissa and motor function, To improve ability to perform ADL's, To increase tolerance to activity/condition/position, To improve ability of physical actions for home/community/work/leisure, To improve health of tissue, To decrease soft tissue restriction, To increase flexibility/ROM, To reduce risk of recurrence, To improve ability to perform tasks related to life management Therapeutic Exercise to Include: Strength training, Postural training, Flexibilty training, Active ROM, Dynamic Lumbar Stabilization For the Purpose of:: To decrease pain, To increase ROM, To improve muscle performance and motor function, To increase tolerance to activity/condition/position, To improve ability of physical actions for home/community/work/leisure, To improve health of tissue, To decrease soft tissue restriction, To increase flexibility/ROM, To improve ability to perform tasks related to life management TENS: Yes IF ES: Yes Cryotherapy (ice pack, ice massage): Yes Thermo therapy (hot pack): Yes Ultrasound (thermal/non thermal): Yes For the Purpose of:: To decrease pain, To increase ROM, To improve nutrient delivery to tissue, To increase oxygenation perfusion, To improve health of tissue, To decrease soft tissue restriction This patient was last seen in our office 05/08/19. Pertinent comments regarding their Physical therapy will appear below: Patient seen for low back pain focusing on treatment with DLS,postural ex's . Patient doing well d/c to HEP. At this point I will be discontinuing this patient from physical therapy. I would be happy to see this patient again in the future if found appropriate by the physician. Thank you! Rodrigo Bolton, PT, Cert MDT, OCS
== END 2019-05-08 19:00 | disposition home or self-care (01) ==
LOC: PT 15:00
PROVIDERS: Family Provider Family Medicine; PCP Family Medicine; Referring Provider Family Medicine; Visit Provider Family Medicine
DX: M54.5 Low back pain (principal)
CPT/HCPCS: 97110; 97162

== ENCOUNTER → 2019-05-14 14:52 | Outpatient (CLI) | payer OTHER, SELFPAY ==
[2019-04-19 14:48] VITALS: BMI 24.4
--- NOTE | 2019-05-14 14:54 | CT_ITS ---
STUDY: CTA OF THE ABDOMINAL AORTA AND BILATERAL LOWER EXTREMITIES REASON FOR EXAM: Male, 69 years old. Abdominal aortic aneurysmal repair RADIATION DOSAGE (If Supplied By Facility): CTDIvol = ( 11.94 ) mGy, DLP = ( 878.17 ) mGycm TECHNIQUE: Axial CT angiography multi-detector data acquisition was obtained from the hemidiaphragm to the pubic symphysis following intravenous administration of IV Isovue 300 100ml. Axial images and MIP images were reconstructed from the axial data set. Post-processing of the angiographic images was performed, with multiplanar reformation and 3D reconstruction. Individualized dose optimization techniques were used for this CT. TECHNICAL QUALITY: Good COMPARISON: None. Descriptors of Narrowing: None (0%) Mild (< 50%) Moderate (50-70%) Severe (70-90%) Subtotal/Total Occlusion (90-100%) Non-Evaluable (technically non-diagnostic FINDINGS: Abdominal aorta: There is calcified atherosclerotic disease throughout the aorta. The patient is status post endograft repair of the infrarenal aorta with aortobiiliac graft seen, upper end of the graft seen at the level of the renal arteries. The maximum diameter at the level of the abdominal aortic aneurysm is 6.9 x 5.9 cm (previously measuring at the same level approximately 7.6 x 7.4 cm). Celiac and superior mesenteric arteries: No demonstrated narrowing. Inferior mesenteric artery: Not visualized. Right renal artery(arteries): No demonstrated narrowing. Left renal artery(arteries): No demonstrated narrowing. Right common iliac artery: 1.4 cm, no demonstrated narrowing and stable. Right external iliac artery: Mild atherosclerotic disease, no demonstrated narrowing. Right internal iliac artery: Mild calcified atherosclerotic disease, no significant narrowing. Left common iliac artery: 1.2 cm with no demonstrated narrowing and stable. Left external iliac artery: Mild atherosclerotic disease, no narrowing. Left internal iliac artery: Mild atherosclerotic disease with no evidence of significant narrowing. There is diffuse intimal thickening with no significant narrowing involving the bilateral common femoral arteries. No significant narrowing involving the proximal superficial femoral arteries. The visualized lung bases reveal bilateral emphysematous changes. Heart maintains normal size. Normal liver. Normal gallbladder and extrahepatic biliary system. Normal spleen. Normal pancreas. Normal bilateral adrenal glands. Normal right kidney. Normal left kidney. The stomach is decompressed otherwise unremarkable. Normal small intestine. There is diverticulosis throughout the colon with no signs of diverticulitis. There is non-visualization of the appendix. Normal inferior vena cava. Normal retroperitoneum. Incompletely distended urinary bladder. Enlargement the prostate gland and seminal vesicles. Minimal bilateral fat-containing inguinal for hernia seen. There are diffuse degenerative changes of the visualized lumbar spine along with osteopenia. CT/CT ANGIO ABD&PEL W/O&W/DYE IMPRESSION: Abdominal aortic aneurysm as described above with endograft stent, overall slightly decreased in size in the interval. No evidence of endoleak visualized. Electronically Signed: Zoya Gaston MD at 6:14 EDT , Service support ,
--- NOTE | 2019-05-14 14:54 | CT_ITS ---
STUDY: CTA CHEST REASON FOR EXAM: Male, 69 years old. Thoracicoabdominal aortic aneurysm repair. RADIATION DOSAGE (If Supplied By Facility): CTDIvol = ( 11.94 ) mGy, DLP = ( 878.17 ) mGycm TECHNIQUE: The examination was performed with the intravenous administration of IV Isovue 300 100ml. Post-processing of the angiographic images was performed, with multiplanar reformation and 3D reconstruction. Individualized dose optimization techniques were used for this CT. COMPARISON: 12/26/2018. FINDINGS: Normal enhancement of the main pulmonary artery and right and left pulmonary arteries. Normal enhancement of the bilateral peripheral pulmonary arteries. There is no demonstrated pulmonary embolism. Interval thoracic abdominal aneurysmal repair with vascular endograft seen. Maximum aneurysmal dilatation of the descending thoracic aorta reaches 4.4 x 3.7 cm at the site of previous maximum dilatation of 4.3 x 3.6 cm. The opacified portion of the descending thoracic aorta at the level of the aneurysmal dilatation measures approximately 3.6 x 3.2 cm. The thoracic aorta below the endograft measures 3.1 x 3.2 cm. The ascending thoracic aorta measures approximately 3.1 x 3.5 cm. There is no demonstrated aortic dissection. There are calcifications of the coronary arteries. Heart maintains normal size. Normal mediastinum. Normal hilar regions. Normal visualized trachea and bronchi. The lungs are slightly overexpanded. There are diffuse bullous disease/emphysema involving the lung parenchyma, more severe in the lung apices. Otherwise lung albright are clear. Normal pleura. Normal chest wall structures. Diffuse osteopenia along with multilevel degenerative disease. Unchanged calcification along the right side of the thecal sac the upper thoracic spine. Upper abdominal structures are described in detail the accompanying CT angiogram of the abdomen and pelvis. CT/CTA Chest W/WO Contrast IMPRESSION: Postoperative changes of previously demonstrated focal aneurysmal dilatation of the descending thoracic aorta with ivonne or minimal change in the diameter at the site of initial aneurysm. Otherwise negative CTA chest examination, without a demonstrated pulmonary embolism or arterial dissection. Diffuse emphysematous changes otherwise no acute cardiac pulmonary process seen. Electronically Signed: Zoya Gaston MD at 6:00 EDT , Service support ,
== END ==
PROVIDERS: Referring Provider Nurse Practitioner Primary Care; Visit Provider Nurse Practitioner Primary Care
DX: I71.2 Thoracic aortic aneurysm, without rupture (principal); I71.4 Abdominal aortic aneurysm, without rupture; Z95.828 Presence of other vascular implants and grafts; Z98.890 Other specified postprocedural states; Z86.79 Personal history of other diseases of the circulatory system; I71.6 Thoracoabdominal aortic aneurysm, without rupture; Z13.89 Encounter for screening for other disorder
CPT/HCPCS: 71275; 74174; Q9967

== ENCOUNTER 2019-07-21 01:52 | Emergency (ER) | payer OTHER, SELFPAY ==
[2019-07-21] VITALS (7 sets, daily range): BP systolic 114–122; BP diastolic 70–77; PULSE 98–114; RESP 13–24; TEMP 37.6; O2SAT 89–94; BMI 24.7
--- NOTE | 2019-07-21 02:10 | RAD_ITS ---
HISTORY: INCREASED SOBHX OF COPD EXAM: XR Chest 1 View: COMPARISON: September 24, 2017 FINDINGS: # of images incl. paperwork: 2 Stent graft device within the descending thoracic aorta is new Pulmonary hyperexpansion persists. Interstitial lung disease persists. Heart is not enlarged. Degenerative disc disease remains. Pulmonary vascularity is distinct. No effusions. RAD/Chest 1 View (Portable) IMPRESSION: No acute cardiopulmonary disease. Interval placement of descending thoracic aorta stent graft device. Emphysema.. at 0306 Reported and signed by: Isaac Padgett MD Electronically Signed: Isaac Padgett MD at 3:05 EST Tel , Service support ,
--- NOTE | 2019-07-21 03:15 | EKG12_ITS ---
Test Reason : SOB Blood Pressure : / mmHG Vent. Rate : 096 BPM Atrial Rate : 096 BPM P-R Int : 160 ms QRS Dur : 076 ms QT Int : 324 ms P-R-T Axes : 084 063 070 degrees QTc Int : 409 ms Normal sinus rhythm Normal ECG Confirmed by MILLA AYALA, SAMMY ([id number]), image editor MURPHY GALVEZ ([id number]) on 07/22/2019 9:49:43 AM Referred By: REBECCA Confirmed By:SAMMY LOYOLA MD
--- NOTE | 2019-07-21 03:16 | ED.VIS.GEN ---
History of Present Illness Chief Complaint: Shortness of Breath Informant: Patient Narrative: Stated he has had cough nasal congestion and shortness of breath for the last 2 and half days. He has been using [id number]. No sick contacts. History of COPD. Having dyspnea on exertion. Has been using his inhaler. No sick contacts. No flu shot this year. No fevers or chills. Current severity is moderate. Past Medical History - Allergies and Home Meds Allergies/Adverse Reactions: Allergies No Known Allergies Allergy (Verified 07/21/19 01:52) Primary Care Physician: Pipe Fernandes DO [Primary Care Provider] - Prior records reviewed: Yes Past Medical History: - - Thoracic aortic aneurysm, COPD Surgical History: - - Reviewed Lives: With Family Smoking Status: Former smoker Alcohol: None Drugs: None Review of Systems General: Denies: Chills, Fever, Sweats Eyes: Denies: Visual changes - bilaterally, Diplopia ENT: Denies: Rhinorrhea, Sore throat Cardiovascular: Denies: Chest pain, Palpitations Respiratory: Reports: Dyspnea, Cough. Denies: Dyspnea on exertion Gastrointestinal: Denies: Abdominal pain, Nausea, Vomiting, Diarrhea, Melena, Hematochezia Genitourinary: Denies: Dysuria, Hematuria, Frequency Musculoskeletal: Reports: Myalgias. Denies: Back pain, Extremity Pain Skin: Denies: Rash, Wounds Neurological: Denies: Headache, Weakness, Numbness Physical Exam Vital Signs/Narrative: Vital Signs Temp Pulse Resp BP Pulse Ox 07/21/19 02:12 89 07/21/19 01:55 99.6 F H 105 H 19 H 114/70 94 07/21/19 01:53 99.6 F H 114 H 24 H 114/70 89 General: Well nourished, Well developed, No Acute Distress Head: Normocephalic, Atraumatic Eyes: Perrl, EOMI ENT: Moist mucous membranes, No rhinorrhea Neck: Supple, Nontender Cardiovascular: Regular rate, Regular rhythm, No murmurs Respiratory: No distress, CTA bilaterally, Chest nontender Abdomen: Soft, Nontender, Nondistended, Normal bowel sounds Back: Nontender, Normal Inspection Extremities: Nontender, No edema Skin: Normal color, No rash Neurological: Alert, Oriented x3, Cranial nerves II-XII grossly intact, Normal Strength, Normal Sensation Psychological: Normal affect, Normal Mood Diagnostic/Tx/Re-eval - Medical Decision Making Chest x-ray shows nothing acute. Patient given a breathing treatment. Lab work obtained. Showed mild leukocytosis. Troponin negative. EKG shows sinus rhythm at a rate of 96 with no ischemia. Patient felt much better after breathing treatment DuoNeb. Given prednisone and levofloxacin for home for COPD exacerbation. Rapid flu negative. We will follow-up as an outpatient. ED Disposition - Plan for ED Patient: Disposition: Home or Assisted Living Diagnosis: COPD exacerbation Instructions: Copd Flare Prescriptions: Levofloxacin [Levaquin] 750 mg PO DAILY #7 tab Prescription Printed predniSONE tablet 60 mg PO DAILY #15 tab Prescription Printed Referrals: Pipe Fernandes DO [Primary Care Provider] -
[2019-07-21 03:29] LABS: Absolute Lymphocyte Count 1.34 X10^3/uL (0.83-4.51); Absolute Neutrophil Count 11.8 X10^3/uL (2.0-7.7); Basophil# 0.02 X10^3/uL; Basophil% 0.1 % (0-1); Eosinophil# 0.05 X10^3/uL; Eosinophils% 0.3 % (0-5); Hematocrit 40.8 % (40-54); Hemoglobin 13.5 g/dL (13.0-16.5); Lymphocyte # 1.34 X10^3/ul (4.0); Lymphocyte % 9.1 % (19-41); Mean Corp Hgb Conc 33.1 g/dL (32-36); Mean Corpuscular Hgb 29.3 pg (27.0-32.0); Mean Corpuscular Volume 88.7 fL (80-94); Mean Platelet Vol. 9.1 fl (6.2-12.0); Monocyte# 1.46 X10^3/uL; NRBC Flagged by Analyzer 0 % (0-5); Neutrophil # 11.75 X10^3/uL (2.7-7.7); Neutrophil % 80.2 % (47-70); Platelet Count 298 K/mm3 (150-450); RBC Distribution Width CV 12.9 % (11.6-14.6); RBC Distribution Width SD 41.7 fl (35.1-43.9); White Blood Count 14.7 K/mm3 (4.4-11.0)
[2019-07-21] MEDS: Ipratropium/Albuterol Sulfate 3 ML AMPUL.NEB INHALATION (03:29)
[2019-07-21 03:43] LABS: Anion Gap 6 (5-15); BUN 16 mg/dL (7-18); BUN/Creat Ratio 17.3 RATIO (10-20); Chloride 102 mmol/L (98-107); Creatinine, Serum 0.93 mg/dL (0.70-1.30); EST Glomerular Filtration Rate 85 mL/min (>60); Est Glom Filt Rate - Afr Amer 103 mL/min (>60); Estimated Creatinine Clearance 77.59 ml/min; Glucose 118 mg/dL (74-106); Potassium 4.1 mmol/L (3.5-5.1); Sodium Level 135 mmol/L (136-145)
[2019-07-21] MEDS: levoFLOXacin 750 MG Tablet PO (04:24)
[2019-07-21] MEDS: predniSONE 20 MG Tablet 40 MG PO (04:24)
== END 2019-07-21 04:32 | disposition home or self-care (01) ==
PROVIDERS: Emergency Provider Emergency Medicine; Family Provider Family Medicine; PCP Family Medicine
DX: J44.1 Chronic obstructive pulmonary disease with (acute) exacerbation (principal); Z79.82 Long term (current) use of aspirin; Z79.899 Other long term (current) drug therapy; Z87.891 Personal history of nicotine dependence
CPT/HCPCS: 71045; 80048; 84484; 85025; 87804; 93005; 94640; 94760; 99285; A4216

== ENCOUNTER → 2019-12-09 13:29 | Outpatient (CLI) | payer OTHER, SELFPAY ==
[2019-07-21 01:53] VITALS: BMI 24.7
--- NOTE | 2019-12-09 13:39 | CT_ITS ---
STUDY: CTA OF THE ABDOMINAL AORTA REASON FOR EXAM: Male, 69 years old. TAA REPAIR 6 MONTHS AGO, AAA REPAIR 1 YEAR AGO RADIATION DOSAGE (If Supplied By Facility): CTDIvol = ( 12.74 ) mGy, DLP = ( 764.53 ) mGycm TECHNIQUE: Axial CT angiography multi-detector data acquisition was obtained from the lung bases to the pubic symphysis following intravenous administration of 100 CC ISOVUE 300. Axial images and MIP images were reconstructed from the axial data set. Post-processing of the angiographic images was performed, with multiplanar reformation and 3D reconstruction. Individualized dose optimization techniques were used for this CT. TECHNICAL QUALITY: Good COMPARISON: 05/14/2019 Descriptors of Narrowing: None (0%) Mild (< 50%) Moderate (50-70%) Severe (70-90%) Subtotal/Total Occlusion (90-100%) Non-Evaluable (technically non-diagnostic FINDINGS: Abdominal aorta: No change in the 7.0 cm aneurysm of the infrarenal by order treated with an aortic stent graft with mural thrombus surrounding the graft. Both iliac limbs appear widely patent. No abnormal contrast enhancement used just endoleak. Celiac and superior mesenteric arteries: No demonstrated narrowing. Inferior mesenteric artery: Excluded by the aneurysm. Right renal artery(arteries): No demonstrated narrowing. Left renal artery(arteries): No demonstrated narrowing. Right common iliac artery: No demonstrated narrowing. Right external iliac artery: No demonstrated narrowing. Right internal iliac artery: There is mild diffuse narrowing. Left common iliac artery: No demonstrated narrowing. Left external iliac artery: No demonstrated narrowing. Left internal iliac artery: There is mild diffuse narrowing. CT/CT ANGIO ABD&PEL W/O&W/DYE IMPRESSION: No change in 7.0 cm aneurysm of the infrarenal abdominal aorta treated with an aortic stent graft without evidence of endoleak. Electronically Signed: Ramo Perdue MD at 14:46 EDT Tel , Service support ,
--- NOTE | 2019-12-09 13:43 | CT_ITS ---
STUDY: CTA CHEST REASON FOR EXAM: Male, 69 years old. TAA REPAIR 6 MONTHS AGO, AAA REPAIR 1 YEAR AGO RADIATION DOSAGE (If Supplied By Facility): CTDIvol = ( 12.74 ) mGy, DLP = ( 764.53 ) mGycm TECHNIQUE: The examination was performed with the intravenous administration of 100 CC ISOVUE 300. Post-processing of the angiographic images was performed, with multiplanar reformation and 3D reconstruction. Individualized dose optimization techniques were used for this CT. COMPARISON: 05/14/2019 FINDINGS: Normal enhancement of the main pulmonary artery and right and left pulmonary arteries. Normal enhancement of the bilateral peripheral pulmonary arteries. There is no demonstrated pulmonary embolism. Short stent graft in the mid descending thoracic aorta with a maximal diameter 3.5 cm which is unchanged. No evidence of endoleak. There is no demonstrated aortic dissection. Normal heart and pericardium. Normal mediastinum. Normal hilar regions. Normal visualized trachea and bronchi. The lungs are well expanded. Moderate emphysematous changes. Moderate right apical scarring which is unchanged. Focal alveolar density within the anterior right upper lobe the lungs consistent with pneumonitis. There is no change in a 6 mm noncalcified nodule peripherally in the right lower lobe lungs on image 85 and follow-up CT the chest is recommended in 6 months document stability. Normal pleura. Normal chest wall structures. Normal osseous structures. Normal visualized upper abdomen. CT/CTA Chest W/WO Contrast IMPRESSION: 1. Stent graft in the mid descending thoracic aorta with a maximal diameter 3.5 cm which is unchanged. No evidence of endoleak. 2. Moderate emphysema with some focal right upper lobe pneumonitis. 3. No change in 6 cm noncalcified right lower lobe nodule and follow-up CT is recommended in 6 months document stability. Electronically Signed: Ramo Perdue MD at 14:37 EDT Tel , Service support ,
[2019-12-09 14:00] LABS: CREATININE FINGERSTICK 0.9 mg/dL (0.70-1.30); EGFR FINGERSTICK > 60.0000 mL/min (>60)
== END ==
PROVIDERS: PCP Family Medicine; Referring Provider Nurse Practitioner Primary Care; Visit Provider Nurse Practitioner Primary Care
DX: I71.6 Thoracoabdominal aortic aneurysm, without rupture (principal)
CPT/HCPCS: 71275; 74174; Q9967

== ENCOUNTER → 2019-12-31 13:22 | Outpatient (CLI) | payer OTHER, SELFPAY ==
[2019-07-21 01:53] VITALS: BMI 24.7
--- NOTE | 2019-12-31 13:55 | RAD_ITS ---
STUDY: X-RAY - RIGHT HAND REASON FOR EXAM: Male, 69 years old. DISTAL 3RD PHALANX STS AND PAIN X4 DAYS, NKI TECHNIQUE: 3 view(s) of the hand. COMPARISON: None. FINDINGS: Normal radiocarpal articulation. Normal distal radioulnar joint. Normal visualized carpal bones. Normal carpal articulations Normal carpometacarpal articulation of the thumb. Normal second through fifth carpometacarpal joints. Normal metacarpi. Normal metacarpophalangeal joint of the thumb. Normal interphalangeal joint of the thumb. Normal proximal and distal phalanges of the thumb. Normal metacarpophalangeal joints of the second through fifth fingers. Normal proximal and distal interphalangeal joints of the second through fifth fingers. Normal phalanges of the second through fifth fingers. Soft tissue swelling. RAD/Hand Min 3 Views IMPRESSION: Soft tissue swelling. Electronically Signed: Andrae Hopper, at 15:35 EDT , Service support ,
[2019-12-31 14:53] LABS: Hematocrit 43.6 % (40-54); Hemoglobin 13.8 g/dL (13.0-16.5); Mean Corp Hgb Conc 31.7 g/dL (32-36); Mean Corpuscular Hgb 29.2 pg (27.0-32.0); Mean Corpuscular Volume 92.2 fL (80-94); Mean Platelet Vol. 9.3 fl (6.2-12.0); Platelet Count 329 K/mm3 (150-450); RBC Distribution Width CV 13.5 % (11.6-14.6); RBC Distribution Width SD 45.7 fl (35.1-43.9); Red Blood Count 4.73 M/mm3 (4.6-6.2); White Blood Count 7.7 K/mm3 (4.4-11.0)
== END ==
LOC: LAB.FUTURE 13:24 → LAB 13:25
PROVIDERS: PCP Family Medicine; Referring Provider Student in an Organized Health Care Education/Training Program; Visit Provider Student in an Organized Health Care Education/Training Program
DX: M79.89 Other specified soft tissue disorders (principal)
CPT/HCPCS: 36415; 73130; 84550; 85027

== ENCOUNTER → 2020-09-20 14:54 | Outpatient (CLI) | payer OTHER, SELFPAY ==
[2019-07-21 01:53] VITALS: BMI 24.7
--- NOTE | 2020-09-20 14:56 | CT_ITS ---
STUDY: CT CHEST WITHOUT CONTRAST REASON FOR EXAM: Male, 70 years old. Worsening shortness of breath, pulmonary nodule RADIATION DOSAGE (If Supplied By Facility): CTDIvol = ( 11.03 ) mGy, DLP = ( 443.74 ) mGycm TECHNIQUE: Transaxial imaging was performed without the administration of intravenous contrast material. Multiplanar coronal and sagittal images were reformatted. Individualized dose optimization techniques were used for this CT. COMPARISON: 12/09/2019 FINDINGS: There is severe underlying emphysema with stable fibrotic scarring in the right apex. There is nonspecific pleural thickening in both hemithoraces. A previously described noncalcified pleural-based nodule in the left lower lobe on axial image 82 is not seen on current study. Stable appearance of a 6 mm noncalcified nodule in the right lower lobe on axial image 84. There is a new noncalcified 0.8 cm nodule in the left lower lobe also seen on axial image 84. Normal heart and pericardium. Normal mediastinum. Normal hilar regions. Normal unenhanced pulmonary arteries. Stable descending thoracic aortic stent. There are multi-level degenerative changes of the thoracic spine. Limited cuts through the upper abdomen do not show any suspicious abnormality CT/Chest without Contrast IMPRESSION: Severe underlying emphysema with new noncalcified 8 mm noncalcified nodule in the left lower lobe on axial image 84. Stable 6 mm nodule in the right lower lobe also seen on axial image 84. Six-month follow-up recommended to share stability No organized infiltrate, or effusion Aortic stent graft remains stable Degenerative bony changes Electronically Signed: Brady Reddy MD at 17:17 EST , Service support ,
== END ==
PROVIDERS: PCP Student in an Organized Health Care Education/Training Program; Referring Provider Student in an Organized Health Care Education/Training Program; Visit Provider Student in an Organized Health Care Education/Training Program
DX: R91.1 Solitary pulmonary nodule (principal)
CPT/HCPCS: 71250

== ENCOUNTER → 2020-11-03 16:32 | Outpatient (CLI) | payer OTHER, SELFPAY ==
[2019-07-21 01:53] VITALS: BMI 24.7
--- NOTE | 2020-11-03 16:34 | US_ITS ---
STUDY: SCROTUM ULTRASOUND REASON FOR EXAM: Male, 70 years old. SWELLING/MASS LT TESTICLE TECHNIQUE: Ultrasound evaluation of the scrotum was performed with color Doppler and static bahena-scale imaging. COMPARISON: None. FINDINGS: RIGHT TESTICLE INTRATESTICULAR: There is a normal size of the right testicle. The right testicle measures 4.1 x 3.1 x 2.3 cm. There is a homogenous echotexture. There is normal arterial and normal venous vascularity. There is no demonstrated right testicular mass or cyst. EXTRATESTICULAR: The epididymis is normal in size. The epididymis head measures 1.0 x 0.8 x 0.8 cm. There is normal vascularity of the epididymis. 3 x 2 x 2 mm simple cyst of the epididymis. There is a small hydrocele. There is no demonstrated varicocele. There is no demonstrated extratesticular mass or cyst. LEFT TESTICLE INTRATESTICULAR: There is a normal size of the left testicle. The left testicle measures 4.4 x 3.4 x 2.1 cm. There is a homogenous echotexture. There is normal arterial and normal venous vascularity. There is no demonstrated left testicular mass or cyst. EXTRATESTICULAR: The epididymis is enlarged. The epididymis head measures 1.4 x 1.7 x 1.3 cm. There is normal vascularity of the epididymis. There is a loculated cystic space with low level internal debris measuring 4.3 x 4.3 x 1.7 cm that is juxtaposed and partially surrounded by the epididymal head on the testicular surface. There is a small hydrocele. There is no demonstrated varicocele. There is no demonstrated extratesticular mass or cyst. US/Testicular with Arterial Flow IMPRESSION: Normal size of the testicles bilaterally with normal DOPPLER flow. Normal size of the right epididymis with a 3 x 2 x 2 mm simple cyst of the epididymis. Small right hydrocele. Normal size of the left epididymis. There is a cystic collection with low level debris that is loculated in appearance and measures 4.3 x 4.3 x 1.7 cm which occurs primarily above the testicle and epididymis and is more closely associated with the epididymis which is partially wrapped around the cystic collection. This has low level internal echoes unlike the small hydrocele present which is entirely anechoic. It is uncertain whether this represents a encysted or funicular hydrocele (identified usually in infants and children) versus a large cyst of the epididymis, probably the latter. Negative for varicocele. Electronically Signed: Kaitlin Dai MD at 23:27 EDT , Service support ,
== END ==
PROVIDERS: PCP Student in an Organized Health Care Education/Training Program; Referring Provider Student in an Organized Health Care Education/Training Program; Visit Provider Student in an Organized Health Care Education/Training Program
DX: N50.89 Other specified disorders of the male genital organs (principal)
CPT/HCPCS: 76870; 93976

== ENCOUNTER → 2021-01-26 16:02 | Outpatient (CLI) | payer OTHER, SELFPAY ==
[2019-07-21 01:53] VITALS: BMI 24.7
--- NOTE | 2021-01-26 16:07 | CT_ITS ---
HISTORY: ASCENDING AORTA DILATION/THORACIC ANEURYSM WITHOUT RUPTURE EXAMINATION: CTA Chest W/ Contrast Injection TECHNIQUE: Helically acquired images were obtained of the chest following IV contrast as per chest angiogram protocol with MIP reconstructions. A radiation dose optimization technique was used for this scan. IV Contrast dosage and agent: 100mL Isovue-370 COMPARISON: Unenhanced chest CT from 09/20/20 and CTA chest from 10/17/18. FINDINGS: Patient is status post stenting of the descending thoracic aorta. 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 Incompletely imaged infrarenal abdominal aortic aneurysm measuring up to 5.5 cm AP diameter, status post abdominal aortic endo-stenting. No thoracic aortic dissection, periaortic inflammation or periaortic hematoma. Great vessels are patent. Heart normal size. No significant pericardial effusion. No pathologically enlarged mediastinal or hilar lymph nodes. No pulmonary arterial filling defects identified. Hyperexpanded lungs and severe centrilobular pulmonary emphysematous changes again noted. Mild right apical scarring. Well-circumscribed 7 mm nodule within lateral right lower lobe is stable. 5 mm nodule within anterolateral left lower lobe measures 3 mm on most recent exam and was not present on exam from 2019. Stable small scarlike nodular opacity within anterolateral left lower lobe abutting pulmonary fissure. No pulmonary edema or consolidation. No pneumothorax or pleural effusion. No acute findings within the imaged upper abdomen. Small exophytic simple appearing cyst at upper pole left kidney. Osseous structures are intact. CT/CTA Chest W/WO Contrast IMPRESSION: 1. Postop changes of thoracic and abdominal aorta with stable thoracic aortic ectasia, abdominal aortic aneurysm and no aortic dissection. 2. Pulmonary emphysema with stable 7 mm right lower lobe pulmonary nodule and interval increased size of 5 mm left lower lobe pulmonary nodule. Recommend repeat chest CT imaging in 6-12 months to reassess left lower lobe pulmonary nodule. Individualized dose optimization techniques were used for this CT. at 2232 Reported and signed by: Roberto Carlos Tripathi MD Electronically Signed: Roberto Carlos Tripathi MD at 22:31 EDT Tel , Service support ,
[2021-01-26 16:20] LABS: EGFR FINGERSTICK > 60.0000 mL/min (>60)
== END ==
PROVIDERS: PCP Student in an Organized Health Care Education/Training Program; Referring Provider Nurse Practitioner Primary Care; Visit Provider Nurse Practitioner Primary Care
DX: I77.810 Thoracic aortic ectasia (principal); I71.6 Thoracoabdominal aortic aneurysm, without rupture; Z76.89 Persons encountering health services in other specified circumstances; Z98.890 Other specified postprocedural states
CPT/HCPCS: 71275; Q9967

== ENCOUNTER 2021-10-21 16:11 | Outpatient (CLI) | payer OTHER, SELFPAY ==
--- NOTE | 2021-10-21 16:20 | CT_ITS ---
STUDY: CT Chest W/O Contrast Injection 10/21/2021 8:30 PM REASON FOR EXAM: Male, 71 years old. PULM NODULE Individualized dose optimization techniques were used for this CT. TECHNIQUE: Transaxial imaging was performed withoutIV contrast material. COMPARISON: Jan 26 2021 4:16pm FINDINGS: There are degenerative changes of the shoulders. There is no pneumothorax. There is no demonstrated pleural abnormality. There are scattered blebs and bullae. This can be seen in pulmonary emphysema. stable 6.1 mm right lower lobe pulmonary nodule and interval increased size of 3.5 mm left lower lobe pulmonary nodule (se 4 IM: 93). 2.6 mm left lower lobe nodule. SE 4 IM: 106. 4.3 mm left lower lobe nodule. SE 4 IM: 99. There are calcifications of the coronary arteries. Normal mediastinum. Normal hilar regions. Normal pulmonary arteries. There is atherosclerotic calcification of the aortic arch with tortuosity and elongation of the aortic arch and descending thoracic aorta. There is aneurysmal dilatation of the descending aorta. The transverse diameter of the descending aorta measures (in mm): 36. There is a stent graft of the descending thoracic aorta. There are multi-level degenerative changes of the thoracic spine. There are no acute findings of the upper abdomen. CT/Chest without Contrast IMPRESSION: There is aneurysmal dilatation of the descending Thoracic aorta. There is a stent graft of the descending thoracic aorta. There are stable bilateral pulmonary nodules. Electronically Signed: Donavan Yepez MD at 20:36 EDT ,
--- NOTE | 2021-10-21 16:20 | CT_ITS ---
STUDY: CTA Abdomen and Pelvis WO/W Contrast Injection REASON FOR EXAM: Male, 71 years old. AAA W/O RUPTURE History: AAA W/O RUPTURE ABDOMINAL STENTS TECHNIQUE: Axial CT angiography multi-detector data acquisition was obtained following intravenous administration of IV 100mL Isovue-370 contrast. Axial images and MIP images were reconstructed from the axial data set. Post-processing of the angiographic images was performed, with multiplanar reformation and 3D reconstruction. MIPS images were obtained. Individualized dose optimization techniques were used for this CT. COMPARISON: 12.09.19 Descriptors of Narrowing: None (0%) Mild (< 50%) Moderate (50-70%) Severe (70-90%) Subtotal/Total Occlusion (90-100%) Non-Evaluable (technically non-diagnostic FINDINGS: The visualized lung bases are unremarkable. The visualized portions of the heart are within normal limits. Normal liver. Normal gallbladder and extrahepatic biliary system. Normal spleen. Normal pancreas. Normal bilateral adrenal glands. Normal right kidney. Normal left kidney. Normal visualized stomach. Normal small intestine. There are multiple colonic diverticula consistent with diverticulosis. The appendix is visualized and appears normal. Normal inferior vena cava. Normal retroperitoneum. Normal urinary bladder. There is enlargement of the prostate gland. There is a small umbilical hernia containing fat. There are diffuse degenerative changes of the visualized lumbar spine. There is an unremarkable-appearing IVC. Abdominal aorta: There are calcifications of the abdominal aorta. This is consistent for atherosclerotic disease. There is 69 mm [place] abdominal aortic aneurysm. Patent aorto bi iliac stent. Celiac and superior mesenteric arteries: No demonstrated narrowing. Inferior mesenteric artery: Not seen Right renal artery(arteries): No demonstrated narrowing. Left renal artery(arteries): No demonstrated narrowing. Right common iliac artery: There is mild diffuse narrowing. Right external iliac artery: There is mild diffuse narrowing. Right internal iliac artery: There is mild diffuse narrowing. Left common iliac artery: There is mild diffuse narrowing. Left external iliac artery: There is mild diffuse narrowing. Left internal iliac artery: There is mild diffuse narrowing. IMPRESSION: (NOT LISTED IN ORDER OF SIGNIFICANCE) 69 mm [place] abdominal aortic aneurysm. There are multiple colonic diverticula consistent with diverticulosis. Patent aorto bi iliac stent. No endoleak. Other findings as above. Electronically Signed: Donavan Yepez MD at 21:57 EDT , CT/CT ANGIO ABD&PEL W/O&W/DYE
[2021-10-21 16:37] LABS: CREATININE FINGERSTICK 0.9 mg/dL (0.70-1.30); EGFR FINGERSTICK > 60.0000 mL/min (>60)
== END 2021-10-21 23:59 | disposition home or self-care (01) ==
LOC: CT 16:14
PROVIDERS: PCP Family Medicine; Referring Provider Internal Medicine Pulmonary Disease; Visit Provider Internal Medicine Pulmonary Disease
DX: I71.4 Abdominal aortic aneurysm, without rupture (principal); R91.1 Solitary pulmonary nodule
CPT/HCPCS: 71250; 74174; Q9967; A4216

== ENCOUNTER 2021-11-10 07:04 | Outpatient (CLI) | payer OTHER, SELFPAY ==
--- NOTE | 2021-11-10 10:11 | STRESSREP_ITS ---
Stress Test Report Date: 11-10-2021 Procedure: Pharmacologic stress nuclear imaging study Indications: Shortness of breath/dyspnea on exertion; CAD; PCI Consent: Per the patient Procedure: The patient underwent pharmacologic (Regadenoson 0.4mg ) evaluation as the patient was reported as unable to adequately walk on the treadmill with a peak heart rate of 94 beats per minute (63%predicted maximal heart rate) and a peak blood pressure of 122/80 mmHg. The baseline ECG demonstrated normal sinus rhythm. The peak pharmacologic ECG demonstrated no obvious ECG changes. There were no cardiac dysrhythmias pretest, during pharmacologic infusion, or recovery. There was no complaint of chest discomfort during pharmacologic infusion or recovery. The examination was discontinued secondary to completion of protocol. Impression: 1. Pharmacologic (Regadenoson) evaluation 2. Peak pharmacologic ECG with no obvious ECG changes. 3. There were no cardiac dysrhythmias pretest, during pharmacologic infusion, or recovery. 4. Nuclear images pending Myocardial perfusion imaging study: Technique: The patient was injected with 11.9 millicuries of technetium 99m Cardiolite and subsequently rest SPECT Cardiolite nuclear imaging was obtained in the horizontal long, vertical long, and short axis views. The patient underwent pharmacologic (Regadenoson) evaluation with a peak heart rate of 94 beats per minute (63% percent predicted maximal heart rate) and a peak blood pressure of 122/80 mmHg. The patient was injected with 33.5 millicuries of technetium 99m Cardiolite and subsequently stress SPECT Cardiolite nuclear imaging was obtained in the horizontal long, vertical long, and short axis views. A gated Cardiolite study at peak stress was obtained. Interpretation: Rest and stress SPECT Cardiolite nuclear imaging status post realignment, normalization, and attenuation correction demonstrate the appearance of body motion during image acquisition and otherwise relative uniform tracer uptake and myocardial perfusion appearing within normal limits. There is end systolic thickening and brightening. The gated Cardiolite study demonstrates myocardial thickening and inward wall motion. The reported LVEF is 74%. Impression: 1. Rest and stress SPECT Cardiolite nuclear imaging demonstrate relative uniform tracer uptake and myocardial perfusion appearing within normal limits. 2. The gated Cardiolite study reports an LVEF of 74%. This note was generated with Windationation software. It may contain incorrect words, spelling, and punctuation that were not noted in checking the note before signing.
== END 2021-11-10 23:59 | disposition home or self-care (01) ==
LOC: CVS 07:04
PROVIDERS: PCP Family Medicine; Referring Provider Family Medicine; Visit Provider Family Medicine
DX: R06.02 Shortness of breath (principal)
CPT/HCPCS: 78452; 93017; A9500; A4216; J2785

== ENCOUNTER → 2021-12-01 | Outpatient (CLI) | payer OTHER, SELFPAY ==
[2021-12-01 15:17] LABS: Absolute Lymphocyte Count 1.61 X10^3/uL (0.83-4.51); Absolute Neutrophil Count 4.1 X10^3/uL (2.0-7.7); Basophil# 0.02 X10^3/uL; Basophil% 0.3 % (0-1); Eosinophil# 0.17 X10^3/uL; Eosinophils% 2.5 % (0-5); Hematocrit 43.6 % (40-54); Hemoglobin 14.1 g/dL (13.0-16.5); Lymphocyte # 1.61 X10^3/ul (0.83-4.51); Lymphocyte % 23.9 % (19-41); Mean Corp Hgb Conc 32.3 g/dL (32-36); Mean Corpuscular Hgb 29.6 pg (27.0-32.0); Mean Corpuscular Volume 91.4 fL (80-94); Mean Platelet Vol. 9.6 fl (6.2-12.0); Monocyte# 0.85 X10^3/uL; Monocyte% 12.6 % (0-10); NRBC Flagged by Analyzer 0 % (0-5); Neutrophil # 4.07 X10^3/uL (2.7-7.7); Neutrophil % 60.6 % (47-70); Platelet Count 257 K/mm3 (150-450); RBC Distribution Width CV 12.8 % (11.6-14.6); RBC Distribution Width SD 42.8 fl (35.1-43.9); Red Blood Count 4.77 M/mm3 (4.6-6.2); White Blood Count 6.7 K/mm3 (4.4-11.0)
[2021-12-01 15:42] LABS: ALB/GLOB Ratio 0.9 RATIO (0.9-2.4); AST(SGOT) 16 U/L (15-37); Alanine Aminotransfer ALT/SGPT 21 U/L (16-61); Albumin, Serum 3.5 g/dL (3.2-5.0); Alkaline Phosphatase 49 U/L (45-117); Anion Gap 5 (5-15); BUN 27 mg/dL (7-18); BUN/Creat Ratio 29.2 RATIO (10-20); Chloride 107 mmol/L (98-107); Creatinine, Serum 0.92 mg/dL (0.70-1.30); EST Glomerular Filtration Rate 85 mL/min (>60); Est Glom Filt Rate - Afr Amer 103 mL/min (>60); Globulin 3.9 g/dL (2.2-4.2); Glucose 116 mg/dL (74-106); Potassium 3.5 mmol/L (3.5-5.1); Protein, Total 7.4 g/dL (6.4-8.2); Sodium Level 140 mmol/L (136-145)
== END | disposition home or self-care (01) ==
LOC: MFPLAB 11:33
PROVIDERS: PCP Family Medicine; Referring Provider Family Medicine; Visit Provider Family Medicine
DX: R10.32 Left lower quadrant pain (principal)
CPT/HCPCS: 36415; 80053; 85025

== ENCOUNTER → 2021-12-01 | Outpatient (CLI) | payer OTHER, SELFPAY ==
--- NOTE | 2021-12-01 11:42 | CT_ITS ---
STUDY: CT ABDOMEN AND PELVIS WITH CONTRAST REASON FOR EXAM: Male, 71 years old. LLQ ABDOMINAL PAIN RADIATION DOSAGE (If Supplied By Facility): CTDIvol = ( 18.69 ) mGy, DLP = ( 870.30 ) mGycm TECHNIQUE: Transaxial images were obtained from the dome of the diaphragm to the symphysis pubis with oral contrast. Oral and amp; IV Gastrografin and amp; 100mL Isovue-300 was administered. Sagittal and coronal images were reconstructed. Individualized dose optimization techniques were used for this CT. COMPARISON: Comparison is made with prior study 04/19/2019. FINDINGS: Stable 3 cm x 4 cm bulla in the medial aspect of the right lower lobe. The visualized portions of the heart are within normal limits. Stable 1.2 cm cyst in the posterior medial aspect of the lower right lobe of the liver. Normal gallbladder and extrahepatic biliary system. Normal spleen. Normal pancreas. Normal bilateral adrenal glands. Normal right kidney. Stable small left renal cyst. There is a small hiatal hernia. Normal small intestine. There are scattered colonic diverticula consistent with diverticulosis. No radiographic and subcutaneous inflammatory changes at this time. The appendix is visualized and appears normal. The patient is status post covered stent placement of the abdominal aortic aneurysm. The distal limbs are in the common iliac arteries. The [place] aorta has a transverse dimension of 7 cm. This is unchanged. There is no evidence of a perigraft leak. Normal inferior vena cava. Normal retroperitoneum. Normal urinary bladder. There is enlargement of the prostate gland. The prostate is lobulated and causes indentation of the bladder base. The prostate measures 5.6 cm x 4.8 cm. There is also evidence of a enlargement of the seminal vesicles bilaterally. Normal abdominal wall. There are diffuse degenerative changes of the visualized lumbar spine. CT/Abdomen/Pelvis WITH Contrast IMPRESSION: Sigmoid diverticulosis. No evidence of diverticulitis at this time. The remainder of the examination is unchanged. Enlargement of the prostate gland with indentation at the bladder base. Prominence of the seminal vesicles bilaterally. Electronically Signed: Andrae Hopper MD at 14:39 EDT ,
[2021-12-01 14:21] LABS: CREATININE FINGERSTICK < 0.9 mg/dL (0.70-1.30); EGFR FINGERSTICK > 60.0000 mL/min (>60)
== END | disposition home or self-care (01) ==
LOC: CT 11:40
PROVIDERS: PCP Family Medicine; Referring Provider Family Medicine; Visit Provider Family Medicine
DX: R10.32 Left lower quadrant pain (principal)
CPT/HCPCS: 74177; Q9967

== ENCOUNTER → 2022-03-06 | Outpatient (CLI) | payer OTHER, SELFPAY | END | disposition home or self-care (01) | LOC: LAB 15:37 | PROVIDERS: PCP Family Medicine; Visit Provider Urology | DX: Z12.5 Encounter for screening for malignant neoplasm of prostate (principal) | CPT/HCPCS: 36415; 84153; G0103 ==

== ENCOUNTER → 2022-05-03 | Outpatient (CLI) | payer OTHER, SELFPAY ==
[2022-05-03 10:15] LABS: Absolute Lymphocyte Count 2.61 X10^3/uL (0.83-4.51); Basophil# 0.04 X10^3/uL; Basophil% 0.6 % (0-1); Eosinophil# 0.24 X10^3/uL; Eosinophils% 3.6 % (0-5); Hematocrit 45.6 % (40-54); Hemoglobin 14.5 g/dL (13.0-16.5); Lymphocyte # 2.61 X10^3/ul (0.83-4.51); Lymphocyte % 38.7 % (19-41); Mean Corp Hgb Conc 31.8 g/dL (32-36); Mean Corpuscular Hgb 29.5 pg (27.0-32.0); Mean Corpuscular Volume 92.7 fL (80-94); Mean Platelet Vol. 9.2 fl (6.2-12.0); Monocyte# 0.84 X10^3/uL; Monocyte% 12.5 % (0-10); NRBC Flagged by Analyzer 0 % (0-5); Neutrophil # 2.99 X10^3/uL (2.7-7.7); Neutrophil % 44.3 % (47-70); Platelet Count 289 K/mm3 (150-450); RBC Distribution Width CV 13.1 % (11.6-14.6); RBC Distribution Width SD 44.5 fl (35.1-43.9); Red Blood Count 4.92 M/mm3 (4.6-6.2); White Blood Count 6.7 K/mm3 (4.4-11.0)
[2022-05-03 11:04] LABS: Anion Gap 4 (5-15); BUN 18 mg/dL (7-18); BUN/Creat Ratio 19.3 RATIO (10-20); Calcium,Total 9.3 mg/dL (8.5-10.1); Chloride 104 mmol/L (98-107); Cholesterol 186 mg/dL (200); Creatinine, Serum 0.93 mg/dL (0.70-1.30); EST Glomerular Filtration Rate 84 mL/min (>60); Est Glom Filt Rate - Afr Amer 102 mL/min (>60); Glucose 95 mg/dL (74-106); High Density Lipoprotein 55 mg/dL; Potassium 4.3 mmol/L (3.5-5.1); Sodium Level 138 mmol/L (136-145); Thyroid Stim Hormone (TSH) 2.91 uIU/mL (0.358-3.74); Triglycerides 85 mg/dL; Very Low Density Lipoprotein 17 mg/dL (5-40)
== END | disposition home or self-care (01) ==
LOC: MFPLAB 08:11
PROVIDERS: PCP Family Medicine; Referring Provider Family Medicine; Visit Provider Family Medicine
DX: R06.02 Shortness of breath (principal)
CPT/HCPCS: 36415; 80048; 80061; 84443; 85025

== ENCOUNTER → 2022-07-14 | Outpatient (CLI) | payer OTHER, SELFPAY ==
--- NOTE | 2022-07-14 10:47 | RAD_ITS ---
STUDY: X-RAY - UNILATERAL RIBS ( RIGHT ) REASON FOR EXAM: Male, 72 years old. Right anterior rib pain for 5 days. No history of trauma. TECHNIQUE: 4 view(s) of the ribs. COMPARISON: None. FINDINGS: Normal visualized ribs without a demonstrated fracture. Increased markings seen in the lateral aspect of the right lower lobe. RAD/Ribs Unil 2V No CXR IMPRESSION: Normal x-ray examination of the ribs. Increased markings in the peripheral lateral aspect of the right lower lobe. Electronically Signed: Andrae Hopper MD at 14:36 EST ,
== END | disposition home or self-care (01) ==
LOC: MTRAD 10:41
PROVIDERS: PCP Family Medicine; Referring Provider Family Medicine; Visit Provider Family Medicine
DX: R07.81 Pleurodynia (principal)
CPT/HCPCS: 71100

== ENCOUNTER → 2022-10-17 | Outpatient (CLI) | payer OTHER, SELFPAY ==
--- NOTE | 2022-10-17 15:47 | CT_ITS ---
INDICATION: HX OF ABDOMINAL AORTIC ANEURYSM AND THORACIC AORTIC ANEURYSM. FORMER SMOKER. EMPHYSEMA. EXAMINATION: CTA CHEST, ABDOMEN AND PELVIS WITH CONTRAST - TECHNIQUE: A CTA of the chest, abdomen, and pelvis is obtained with sagittal and coronal reconstructed MIP views. Three-dimensional surface rendered sequence of the thoracic and abdominal aorta was obtained. A radiation dose optimization technique was used for this scan. 100 mL of Isovue-370. Oral contrast: None. COMPARISON: Comparison is made with prior study dated January 26, 2021. FINDINGS: CT CHEST: THORACIC AORTA: Once again, the patient is status post endoluminal stent grafting of the descending thoracic aorta from the proximal thoracic aorta just distal to the aortic arch down to its distal portion. The transverse dimension measures 4.7 cm. There is evidence of mural thrombus. There is no evidence of endoluminal stent leakage. There has been a progression of the mural thrombus as compared to prior study. ABDOMINAL AORTA: The patient is status post endoluminal stent grafting of the abdominal aorta from just distal to the origin of the superior mesenteric artery down to the aortic bifurcation. The distal limbs of the stent graft are seen within the common iliac arteries. The [place] abdominal aorta as a transverse dimension of 6.8 cm. There is no evidence of endoluminal stent leakage. LUNGS: Hyperinflation. Diffuse emphysematous changes worse in the upper lobes with evidence of bullous formation. Stable linear scarring in the anterior aspect of the right upper lobe. Stable 7 mm nodule in the lateral aspect of the right lower lobe as seen on axial image #90. Stable 5 mm noncalcified nodule within the anterolateral aspect of the left lower lobe MEDIASTINUM: The thyroid gland is normal. No mediastinal or hilar adenopathy. HEART: Heart is normal size. No pericardial effusion. No CAD. CT ABDOMEN AND PELVIS: LIVER: The liver enhances homogeneously. No masses identified. GALLBLADDER: The CBD is normal. Normal gallbladder. SPLEEN: Normal. PANCREAS: No masses or inflammation. ADRENAL GLANDS: Normal. KIDNEYS AND URETERS: The kidneys both enhance appropriately. There are normal size and shape. No hydronephrosis or nephrolithiasis. No renal masses or cysts. STOMACH: Normal. SMALL BOWEL: No abnormal distention of the small bowel. MESENTERY: No mesenteric inflammation. No ascites. COLON: No significant diverticulosis, masses or inflammation. The colon otherwise is normal. There is a large fatty ileocecal valve. APPENDIX: The appendix is visualized and normal. IVC: Normal. RETROPERITONEUM: No retroperitoneal lymphadenopathy. PELVIC STRUCTURES: Normal bladder. Prostatic enlargement with indentation of the bladder base. SOFT TISSUES ABDOMEN: The anterior abdominal wall is normal. SOFT TISSUE CHEST: The extrathoracic soft tissues are normal. BONES: No fractures or significant degenerative disease. CT/CTA Chst, Abd, Pel W and/or WO IMPRESSION: Status post endoluminal stent grafting of the descending thoracic aorta with a transverse dimension of 4.7 cm. Status post endoluminal stent grafting of the abdominal aorta as described. No endoluminal stent leakage is seen. Electronically Signed: Andrae Hopper MD at 11:09 EDT ,
[2022-10-17 16:31] LABS: CREATININE FINGERSTICK < 0.9 mg/dL (0.70-1.30); EGFR FINGERSTICK > 60.0000 mL/min (>60)
== END | disposition home or self-care (01) ==
LOC: CT 15:44
PROVIDERS: PCP Family Medicine; Visit Provider Nurse Practitioner Primary Care
DX: Z98.890 Other specified postprocedural states (principal); I71.60 Thoracoabdominal aortic aneurysm, without rupture, unspecified; I71.40 Abdominal aortic aneurysm, without rupture, unspecified; Z86.79 Personal history of other diseases of the circulatory system
CPT/HCPCS: 71275; 74174; Q9967; A4216

== ENCOUNTER → 2022-11-11 | Outpatient (CLI) | payer OTHER, SELFPAY ==
--- NOTE | 2022-11-11 08:03 | CT_ITS ---
EXAM: CT CHEST WITHOUT INTRAVENOUS CONTRAST CLINICAL INDICATION: Worsening pain. X-ray negative. TECHNIQUE: Helically acquired images were obtained of the chest without intravenous contrast. This CT exam was performed using one or more of the following dose reduction techniques: automated exposure control, adjustment of the mA and/or kV according to patient size, and/or use of iterative reconstruction technique. This report was created using [employer] report generation technology. RADIATION DOSE: CTDIvol = 11.33 mGy, DLP = 467.23 mGy-cm COMPARISON: CTA chest 10/17/2022 and 01/26/2021. FINDINGS: LUNGS AND PLEURAL SPACES: 6.4 mm noncalcified and indeterminate pulmonary nodule in the superior segment of the right lower lobe. 6 mm noncalcified and indeterminate pulmonary nodule underneath a small fissure in the left anterior lung base (series 602, image 78; series 2, image 107; series 601, image 256). Pulmonary hyperinflation. Coalescence in the upper lobes. Prominent thin-walled cyst in the right medial lung base. No pleural effusion or thickening. No pneumothorax. HEART: Unremarkable. Heart size is normal. No pericardial effusion. No significant coronary artery calcifications. MEDIASTINUM: Unremarkable. No mediastinal or hilar adenopathy. Esophagus is unremarkable. No hiatal hernia. THYROID: Unremarkable. No thyroid lesions. BONES/JOINTS: Unremarkable. No suspicious lytic or blastic abnormality. VASCULATURE: Unremarkable. Thoracic aorta is non-dilated. LIVER: Small cyst in the posterior surface of the right lower hepatic lobe is unchanged. CT/Chest without Contrast IMPRESSION: 1. 6.4 mm noncalcified and indeterminate pulmonary nodule in the superior segment of the right lower and 6 mm noncalcified and indeterminate pulmonary nodule in the left anterior lung base. These were present previously and are unchanged. Fleischner Society Guidelines (MacMahon, et al. Radiology 2017; 284(1):228-43) suggest no follow-up is necessary for patients with low or high risk of malignancy. 2. Coalescent centrilobular emphysema predominant type of COPD. 3. No significant interval change when compared to 10/17/2022 and 01/26/2021. Electronically Signed: Clyde Stapleton MD at 11:53 EDT ,
== END | disposition home or self-care (01) ==
LOC: CT 08:02
PROVIDERS: PCP Family Medicine
DX: I77.810 Thoracic aortic ectasia (principal); R07.81 Pleurodynia
CPT/HCPCS: 71250

== ENCOUNTER → 2023-04-17 | Outpatient (CLI) | payer OTHER, SELFPAY ==
--- NOTE | 2023-04-17 11:00 | PET_ITS ---
PROCEDURE: WHOLE BODY PET/CT SCAN, MID SKULL TO MID THIGH REASON FOR EXAM: Pulmonary nodule, new. COMPARISON EXAMINATION: 11/11/2022. TECHNIQUE: Following the intravenous administration of 14.5 mCi of F-18 FDG, multiplanar imaging acquisitions of the neck, chest, abdomen/pelvis to the mid thigh, obtained at 1 hour post radiopharmaceutical administration. Interpretation is with co-registeration of similar anatomic distribution of CT. Findings: Normal and physiologic distribution of radioisotope identified in the expected intensity of the hepatic and splenic parenchyma, urinary tract and gastrointestinal structures. There is gross anatomic distribution of the intracranial contents. INDEX LESION SIZE SUV INTERPRETATION: 1. 1 mm focal activity (SUV 10.7) along the posterior hilum is seen on image 101 of series 301), although a correlating soft tissue nodules not seen. CT portion of the exam: Round 6 mm nodule in the right lower lobe on image 224 of series 201 without associated FDG activity (below size limitations). Triangular nodule in the anterior left lower lobe abutting the major fissure is not significantly changed without associated FDG activity (below site limitations of PET scan. Calcified granuloma left lower lobe. The spiculated nodule in the left lower lobe evident on prior CT is no longer identified. Focal triangular nodule with adjacent groundglass opacity in the anterior left upper lobe on image 97 of series 202 measures 5.1 mm is stable. There is no demonstrated pleural abnormality. Normal heart and pericardium. Normal mediastinum. Normal hilar regions. Normal unenhanced pulmonary arteries. Thoracic aortic stent. Normal liver. Normal gallbladder and extrahepatic biliary system. Normal spleen. Normal pancreas. Normal bilateral adrenal glands. No hydronephrosis. Normal visualized stomach. No dilated small bowel. There are multiple colonic diverticula consistent with diverticulosis. The appendix is visualized and appears normal. Abdominal aortic aneurysm with aortobiiliac stent graft is not significantly changed. Normal inferior vena cava. Normal urinary bladder. There is enlargement of the prostate gland. No destructive bony process. PET/PET/CT Tumor Base -Thigh Init IMPRESSION: 1. Left lower lobe nodule seen on prior chest CT is NO longer identified (completely resolved) indicating resolution of infection/inflammation. 2. 1 cm focal activity along the posterior left hilum without correlating enlarged lymph node/soft tissue nodule. Recommend correlating with CT of chest with IV contrast in 3 months. 3. Chronic changes, as detailed above. Electronically Signed: Jovan Hollis MD ([place]) at 9:59 EDT ,
== END | disposition home or self-care (01) ==
LOC: ONC 10:39
PROVIDERS: PCP Family Medicine; Referring Provider Nurse Practitioner Family; Visit Provider Nurse Practitioner Family
DX: R91.1 Solitary pulmonary nodule (principal)
CPT/HCPCS: 78815; A9552

== ENCOUNTER → 2023-07-31 | Outpatient (CLI) | payer OTHER, SELFPAY ==
--- NOTE | 2023-07-31 13:33 | CT_ITS ---
STUDY: CT CHEST WITHOUT CONTRAST REASON FOR EXAM: Male, 73 years old. Pulmonary nodule. Former smoker. Emphysema. RADIATION DOSAGE (If Supplied By Facility): CTDIvol = ( 12.10 ) mGy, DLP = ( 492.78 ) mGycm TECHNIQUE: Transaxial imaging was performed without the administration of intravenous contrast material. Individualized dose optimization techniques were used for this CT. COMPARISON: Comparison is made with prior study November 11, 2022. FINDINGS: CHEST Stable 6.4 mm noncalcified nodule in the superior segment of the right lower lobe as seen on axial image #86. The previously seen 6 mm nodule in the superior aspect of the left lower lobe is not seen at this time. Emphysematous changes. Stable linear scarring in the right lung apex. Mild stable scarring in the posterior aspect of the superior aspect of the left lower lobe. There is no demonstrated pleural abnormality. Minimal anterior pericardial thickening. No significant coronary artery calcification is seen. Normal mediastinum. Normal hilar regions. Normal unenhanced pulmonary arteries. Endoluminal stent grafting is seen within the descending thoracic aorta. 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 This is unchanged. Normal osseous structures. The stomach is distended with food particles. Stable cyst in the posterior aspect of the right lobe of the liver. CT/Chest without Contrast IMPRESSION: Hyperinflation and emphysematous changes with scarring in the right lung apex. Stable 6.4 mm noncalcified nodule in the superior segment of the right lower lobe. Electronically Signed: Andrae Hopper MD at 14:28 EST ,
== END | disposition home or self-care (01) ==
LOC: CT 13:31
PROVIDERS: PCP Family Medicine; Referring Provider Internal Medicine Pulmonary Disease; Visit Provider Internal Medicine Pulmonary Disease
DX: R91.1 Solitary pulmonary nodule (principal)
CPT/HCPCS: 71250

== ENCOUNTER → 2023-08-27 | Outpatient (CLI) | payer OTHER, SELFPAY ==
--- OUTSIDE RECORDS SUMMARY | 2023-08-27 20:14 | XMS RPT_ITS | CCD ---
Author Name Unknown Address [address] [place] [address] Organization [facility] Care Team Providers Care Construction Supervisor Name Role Phone Carlitos AYALA, Qasim Gaytan Unavailable Lamont Pereira DO Primary Care Provider [phone] Diaz AYALA, Alexander Conn Primary Care Provider Qasim Hernandez MD Unavailable Alexander Nguyen MD Primary Care Provider [phone] Alexander Nguyen MD Primary Care Provider QASIM HERNANDEZ Attending Unavaila ALEXANDER Schaeffer Primary Care Unavailable ALEXANDER NGUYEN Primary Care Unavailable MERLIN LINDSEY Attending Unavailable Allergies Allergy Classification Reported Allergen(s) Allergy Type Date of Onset Reaction(s) Facility (8 sources) Dust; Translations: [DUST] Propensity to adverse reactions 6 Other: See Comments [facility] Medications Current Medications Medication Drug Class(es) Dates Sig (Normalized) Sig (Original) iv contrast (will be provided with radiology test) (1 source) Start: 11-17-2021 End: 11-18-2021 inject 1 dose intravenously once iv contrast (will be provided with radiology test) Indications: History of AAA (abdominal aortic aneurysm) repair , 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 Discontinue saline lock post exam. If Pt. has a central line or IVAD, may access for administration according to line specific nursing protocol. Once exam is complete flush line and de-access according to line specific nursing protocol in the CT contrast administration guidelines link. 1 Each 0 11/17/2021 11/18/2021 Active Completed/Discontinued Medications Medication Drug Class(es) Dates Sig (Normalized) Sig (Original) [id number] 200 actuat albuterol 0.09 mg/actuat metered dose inhaler (7 sources) beta2-Adrenergic Agonist albuterol HFA (PROVENTIL HFA, VENTOLIN HFA) 90 mcg/actuation inhaler 1 or 2 inhalation(s) By mouth Every 6 Hours prn 0 Active Problems Problem Classification Problem Date Documented Date Episodic/Chronic Aortic; peripheral; and visceral artery aneurysms (20 sources) Aneurysm of descending thoracic aorta; Translations: [Thoracic aortic aneurysm, without rupture] Onset: 02-21-2016 02-21-2016 Chronic Chronic obstructive pulmonary disease and bronchiectasis (7 sources) Chronic obstructive lung disease; Translations: [Chronic obstructive pulmonary disease, unspecified] 06-13-2005 Chronic Other circulatory disease (2 sources) H/O: major vascular surgery; Translations: [Presence of other vascular implants and grafts] Onset: 01-08-2019 01-08-2019 Chronic Other circulatory disease (5 sources) History of repair of aneurysm of abdominal aorta; Translations: [Presence of other vascular implants and grafts] Onset: 01-08-2019 01-08-2019 Chronic Other lower respiratory disease (1 source) Nodule of lung; Translations: [Solitary pulmonary nodule] 03-16-2023 Episodic Residual codes; unclassified (1 source) History of repair of aneurysm of abdominal aorta; Translations: [Other specified postprocedural states] Episodic Residual codes; unclassified (1 source) History of repair of thoracic aortic aneurysm; Translations: [Other specified postprocedural states] Episodic Results Test Name Value Interpretation Reference Range Facil ity Vital Signs Date Time Vital Sign Value Performing Clinician Faci litzehra 11-17-2021 13:16-0400 Body height 180.3 cm Merlin Lindsey APRN.CNP Work Phone: [facility] 11-17-2021 13:16-0400 Body weight 85.28 kg Merlin Lindsey APRN.CNP Work Phone: [facility] 11-17-2021 13:16-0400 Diastolic blood pressure 68 mm[Hg] Merlin Lindsey APRN.CNP Work Phone: [facility] 11-17-2021 13:16-0400 Heart rate 70 /min Merlin Lindsey APRN.CNP Work Phone: [facility] 11-17-2021 13:16-0400 Respiratory rate 16 /min Merlin Lindsey APRN.RECEPTIONIST SECRETARY Work Phone: [facility] 11-17-2021 13:16-0400 SaO2% (BldA) [Mass fraction] 95 % Merlin Lindsey APRN.RECEPTIONIST SECRETARY Work Phone: [facility] 11-17-2021 13:16-0400 Systolic blood pressure 118 mm[Hg] Merlin Lindsey APRN.RECEPTIONIST SECRETARY Work Phone: [facility] Encounters Encounter Date Encounter Type Care Provider Facility Start: 04-06-2023 Telephone encounter Stacy Donovan APRN.RECEPTIONIST SECRETARY Work Phone: [facility] Procedures Date Procedure Procedure Detail Performing Clinician Start: 02-28-2019 Antibody screen Plan of Treatment Date Care Activity Detail Author Start: 03-23-2023 Influenza vaccination C [facility] Start: 03-16-2023 End: 04-14-2024 Ct thorax w/o contrast material CT CHEST WO IVCON Radiology Routine Lung nodule Expected: 03/16/2023, Expires: 04/14/2024 [facility] Work Phone: Immunizations Immunization Date Immunization Notes Care Provider Fa [facility] 07-29-2019 influenza virus vacc ine, unspecified formulation Stacy Donovan APRN.RECEPTIONIST SECRETARY Work Phone: [facility] Payers Date Payer Category Payer Private Health Insurance [employer] [id number] 2022-Present [phone] [address] [place] [address] PPO [id number] 2022 Private Health Insurance [id number] 2019 Unknown MMO MMO [employer]PA [id number] 2019-Present [address] [place] [address] PPO [id number] 2012 Medicare MEDICARE MEDICAR E A [id number] 2012-Present [phone] [address] [place] [address] Medicare [id number] 2012 Medicare MEDICARE MEDICAR E A [id number] 2012-Present [phone] [address] [place] [address] Medicare [id number] Social History Date Type Detail Facility Start: 02-14-2018 End: 12-05-2022 Tobacco smoking status NHIS Ex-smoker [facility] Start: 02-20-1963 End: 02-21-2004 History of tobacco use Current smoker [facility] Start: 02-20-1963 End: 02-21-2004 History of tobacco use Cigarette Smoker [facility] Start: 01-28-2021 End: 12-05-2022 Alcohol intake Current drinker of alcohol (finding) [facility] Start: 02-21-2016 History SDOH Alcohol Comment rarely [facility] Start: 1950 Sex Assigned At Not on file C [facility] Start: 11-07-2021 End: 11-17-2021 Exposure to SARS-CoV-2 (event) Not sure [facility] Start: 02-14-2018 End: 12-05-2022 Cigarettes smoked current (pack per day) - Reported 1.5 [facility] Start: 02-14-2018 End: 12-05-2022 Tobacco use and exposure Smokeless tobacco non-user [facility] Start: 03-26-2019 End: 12-05-2022 Tobacco use panel [facility] PHQ2 Score 0 [facility] Start: 12-05-2022 Tobacco Comment December [facility] Procedure Code Equipment Code Equipment Origin al Text Equipment Identifier Dates Graft Endurant I i 16-13mm 14fr Polyester Nitinol 124mm Stent System - [id number] Start: 11-18-2018 Ohz-Zf-H-Kind Implant - [id number] Start: 11-18-2018 Clinical Notes 02-10-2021 to 04-06-2023 Telephone Encounter - Stacy Donovan APRN.CNP - 04/06/2023 11:28 AM EDTTelephone Encounter - Stacy Donovan APRN.CNP - 04/06/2023 11:11 AM EDT Note Date & Type Note Facility 04-06-2023 Miscellaneous Notes . documented in this encounter [facility] 04-06-2023 Miscellaneous Notes 03/16: Received phone call from reading radiologist, Dr. Clyde Stapleton ([place]). He called to updated on ammended results of CT chest that was previously completed and interpreted 11/11/22. He reports that these images were under board review and it was brought to his attention that there was a new nodule on CT scan 11/11/22 that was not identified or reported. This nodule was not present on CT chest 10/19/22. It is observed to be a 1.7 spiculated posterior left lower lobe nodule thought to be infectious vs neoplastic. He recommends a repeat CT chest without contrast DAILY, with attention for him to read. Case discussed with Dr. Hernandez. CT chest ordered as recommended. Our office scrap crane operator called the patient to relay the order for repeat CT chest. 03/29: pt called in stating he wanted the CT chest to be performed at [facility] for insurance reasons. Order was faxed to their centralized scheduling. TODAY: Called pt to inquire if he was able to get the CT chest done yet. He passed the phone onto his immediately, who questioned why this was ordered and necessity. I explained all of the above. She reports that the pt continues to follow with his forming roll operator Dr. Mas at [facility], and he has a PET scan scheduled for 04/16. At this point I told the patient's that I would call to discuss with Dr. Mas before proceeding further. Phone call placed to Dr. Mas [phone]. Discussed with his RN and requested call back. Provided my [facility] work phone for communication. Received phone call back from Dr. Mas who reports he was aware of the 1.7 spiculated posterior left lower lobe nodule because he personally reviewed the films from 11/11/22, and pt is actually scheduled for PET and CXR at [place] 04/16/23, and continues to follow with him as his forming roll operator. No need for repeat CT chest at this time. Messaged Dr. Clyde Stapleton to provide update, awaiting return call. Called pt/and his to discuss the above and will DC CT chest. They verbalized understanding. Stacy Donovan APRN.DOROTHY documented in this encounter [facility] 03-29-2023 Miscellaneous Notes Pt wants CT Chest wo contrast performed at [facility] for insurance reasons. I faxed order to their Centralized Scheduling [phone] on 03/29/23. They will contact pt for scheduling. [employer] [phone] states no prior auth required for CPT 82725 documented in this encounter [facility] 03-16-2023 Miscellaneous Notes Received phone call from reading radiologist, Dr. Clyde Stapleton ([place]). He called to updated on ammended results of CT chest that was previously completed and interpreted 11/11/22. He reports that these images were under board review and it was brought to his attention that there was a new nodule on CT scan 11/11/22 that was not identified or reported. This nodule was not present on CT chest 10/19/22. It is observed to be a 1.7 spiculated posterior left lower lobe nodule thought to be infectious vs neoplastic. He recommends a repeat CT chest without contrast DAILY, with attention for him to read. Will order CT chest as recommended, and share the above with Dr. Hernandez. Stayc Donovan APRN.CNP documented in this encounter [facility] 12-05-2022 Note HNO ID: [id number] Author: Merlin Lindsey APRN.CNP Service: ? Author Type: Nurse Practitioner Type: Progress Notes Filed: 12/05/2022 1:33 PM Note Text: James Arreaga 72 year old male who presents in follow up. This patient underwent repair of a descending thoracic pseudoaneurysm AND infrarenal abdominal aortic aneurysm using a aortobi-iliac replacement graft [place] [address] Quiroga. James is recovering from a shingles outbreak on his forehead. Thought initially that it was poison marisa. Was seen early and started on the antiviral medication. Plans to get shingles shot once he is fully recovered and it is safe to do so. No new vascular problems have occurred since that time, and he now returns for his annual follow-up exam. Pt just had office visit with Dr. Hernandez for his ascending aorta dilation, and was advised that it is stable and is recommended continued annual surveillance. PAST MEDICAL HISTORY Diagnosis Date AAA (abdominal aortic aneurysm) (HCC) Acute maxillary sinusitis Acute upper respiratory infection of multiple sites Aneurysm of thoracic aorta (HCC) proximal,focal, descending stable 01/15/15 Chronic airway obstruction, not elsewhere classified COPD (chronic obstructive pulmonary disease) (HCC) Displacement of lumbar intervertebral disc without myelopathy Dysfunction of eustachian tube Emphysema lung (HCC) History of repair of aneurysm of abdominal aorta using endovascular stent graft 11/18/2018 at [facility] by Dr. Quiroga Spasm of back muscles PAST SURGICAL HISTORY Procedure Laterality Date ENDOVASC AAA STENT REPAIR 11/18/2018 at [facility] by Dr. Quiroga PAST SURGICAL HISTORY OF Left 2017 index finger Current Outpatient Medications on File Prior to Visit Medication Sig koijrnwgyld-cliwueyrk-jtqkwzlb (TRELEGY ELLIPTA) 100-62.5-25 mcg Inhale 1 Puff as instructed once daily. aspirin, enteric coated (ASPIR-LOW) 81 mg EC tablet Take 1 tablet by mouth once daily. clopidogrel (PLAVIX) 75 mg tablet Take 1 tablet by mouth once daily. albuterol HFA (VENTOLIN HFA) 90 mcg/actuation inhaler 1 or 2 inhalation(s) By mouth Every 6 Hours prn No current facility-administered medications on file prior to visit. ALLERGIES Allergen Reactions Dust Other: See Comments Shortness of breath There were no vitals taken for this visit. PHYSICAL EXAM: General Appearance: Well appearing, alert, in no acute distress, well-hydrated, well nourished. Skin: Skin color, texture, turgor normal, no suspicious rashes or lesions. Head: Normocephalic, no masses, lesions, tenderness or abnormalities. Eyes: Anicteric sclera. Extraocular movements are intact. Ears: External ears normal, hearing is adequate. Lungs: Breathing is easy and unlabored. Extremities: No deformities, edema, skin discoloration, clubbing or cyanosis. No lower extremity aneurysms are palpable. Peripheral Pulses: Capillary refill <2secs, peripheral pulses palpable B. Neurologic: Gait normal. Sensation AND strength grossly intact. Current CTA c/a/p @[facility] done 10/19/22 S/p endoluminal stent grafting of the descending thoracic aorta. S/p endoluminal stent grafting of the abdominal aorta. No endoluminal stent leakage seen. ASSESSMENT/PLAN: (Z98.890) History of AAA (abdominal aortic aneurysm) repair (primary encounter diagnosis), (Z98.890, Z86.79) History of repair of thoracic aortic aneurysm, (I71.6) Comment: Asymptomatic and stable with patent endograft and no evidence of endoleaks on current CTA Plan: Will repeat CTA c/a/p in [address] - [facility] NOT [facility] FOLLOW-UP: James will follow-up in 1 year, after testing. Encouraged pt to call with any question, problems, concerns, or changes. The patient is currently taking a statin: No. Reason: Refer to PCP to initiate and monitor therapy The patient is currently taking aspirin: Yes I spent a total of 30 minutes on the date of the service which included preparing to see the patient, yizg-id-subc patient care, completing clinical documentation, obtaining and/or reviewing separately obtained history, performing a medically appropriate examination, counseling and educating the patient/family/caregiver, ordering medications, tests, or procedures, communicating with other HCPs (not separately reported), independently interpreting results (not separately reported), communicating results to the patient/family/caregiver, and care coordination (not separately reported). Merlin Lindsey APRN.[facility] 12-05-2022 Note HNO ID: [id number] Author: Qasim Hernandez MD Service: ? Author Type: Physician Type: Progress Notes Filed: 12/05/2022 1:25 PM Note Text: Subjective HPI: James Arreaga is a 72 year old year old male that returns to the office today for cardiac surgery continued surveillance of a mildly dilated ascending aorta in a patient with previously stent grafted descending aortic aneurysm and abdominal aortic aneurysm. Remains asymptomatic. Current Outpatient Medications Medication Sig gabapentin (NEURONTIN) 300 mg capsule Take 300 mg by mouth three times daily. tadalafil (CIALIS ORAL) Take by mouth. pcttsdgeyos-loipubafo-yihmoogl (TRELEGY ELLIPTA) 100-62.5-25 mcg Inhale 1 Puff as instructed once daily. aspirin, enteric coated (ASPIR-LOW) 81 mg EC tablet Take 1 tablet by mouth once daily. albuterol HFA (PROVENTIL HFA, VENTOLIN HFA) 90 mcg/actuation inhaler 1 or 2 inhalation(s) By mouth Every 6 Hours prn No current facility-administered medications for this visit. Dust OBJECTIVE PHYSICAL EXAM: BP 130/70 (BP Site: Left Arm, BP Position: Sitting) Pulse 72 Resp 16 Ht 5' 11 (1.803 m) Wt 184 lb (83.5 kg) SpO2 95% BMI 25.66 kg/m? Body mass index is 25.66 kg/m?. Body surface area is 2.05 meters squared. General Appearance: well appearing, in no acute distress, alert and oriented. Lungs: Lungs clear to auscultation. No wheezing, rhonchi, rales.. Heart: Regular Rhythm no pathologic murmur. ASSESSMENT/PLAN: 1. Ascending aorta dilatation (HCC) - ICD9: 447.71, ICD10: I77.810 Stable at 3.6 cm by my measurement. I spent a total of 25 minutes on the date of the service which included preparing to see the patient, lght-gy-qydr patient care, completing clinical documentation, obtaining and/or reviewing separately obtained history, performing a medically appropriate examination, counseling and educating the patient/family/caregiver, and communicating results to the patient/family/caregiver. Qasim Hernandez MD IMPRESSION: James Arreaga has evidence of a minimally dilated ascending aorta. The maximum dimension is 3.6 cm. The aortic size index is 1.76 cm/m2 and the aortic cross-sectional area to height ratio is 5.65. Given this calculation surgical resection and replacement of the ascending aorta is not indicated at this time. I recommend serial surveillance of the aorta with periodic CT scans of the chest, the next scan to be performed in 12 months or whenever he is rescanned by vascular surgery would be fine. Addition of a beta leigh to the medical regimen should be considered. He has been advised to avoid strenuous heavy lifting; to seek immediate medical attention for any episode of severe chest or back pain; and to advise caregivers of the presence of an enlarged thoracic aorta. [facility] 09-25-2022 Miscellaneous Notes CTA Chest, Abdomen, & Pelvis orders faxed to Central Scheduling at [facility] fax [phone]. [facility] not able to schedule these test at their location. Central Scheduling at [facility] protocol is to receive orders and they will contact pt to schedule testing. documented in this encounter [facility] 11-17-2021 History of Presen t illness Narrative James Arreaga 71 year old male who presents in follow up Patient presents with: Follow Up Tests Results This patient underwent repair of a descending thoracic pseudoaneurysm & infrarenal abdominal aortic aneurysm using a aortobi-iliac replacement graft [place] [address] Quiroga. No new vascular problems have occurred since that time, and he now returns for his annual follow-up exam. Pt just had office visit with Dr. Hernandez for his ascending aorta dilation, and was advised that it is stable and is recommended continued annual surveillance. PAST MEDICAL HISTORY Diagnosis Date AAA (abdominal aortic aneurysm) (HCC) Acute maxillary sinusitis Acute upper respiratory infection of multiple sites Aneurysm of thoracic aorta (HCC) proximal,focal, descending stable 01/15/15 Chronic airway obstruction, not elsewhere classified COPD (chronic obstructive pulmonary disease) (HCC) Displacement of lumbar intervertebral disc without myelopathy Dysfunction of eustachian tube Emphysema lung (HCC) History of repair of aneurysm of abdominal aorta using endovascular stent graft 11/18/2018 at [facility] by Dr. Quiroga Spasm of back muscles PAST SURGICAL HISTORY Procedure Laterality Date ENDOVASC AAA STENT REPAIR 11/18/2018 at [facility] by Dr. Quiroga PAST SURGICAL HISTORY OF Left 2017 index finger Current Outpatient Medications on File Prior to Visit Medication Sig nrrdncjkgel-ryxxfhvyg-hakqpvpi (TRELEGY ELLIPTA) 100-62.5-25 mcg Inhale 1 Puff as instructed once daily. aspirin, enteric coated (ASPIR-LOW) 81 mg EC tablet Take 1 tablet by mouth once daily. clopidogrel (PLAVIX) 75 mg tablet Take 1 tablet by mouth once daily. albuterol HFA (VENTOLIN HFA) 90 mcg/actuation inhaler 1 or 2 inhalation(s) By mouth Every 6 Hours prn No current facility-administered medications on file prior to visit. ALLERGIES Allergen Reactions Dust Other: See Comments Shortness of breath BP 118/68 (BP Site: Left Arm, BP Position: Sitting, BP Cuff Size: Large Adult) Pulse 70 Resp 16 Ht 5' 11 (1.803 m) Wt 188 lb (85.3 kg) SpO2 95% BMI 26.22 kg/m PHYSICAL EXAM: General Appearance: Well appearing, alert, in no acute distress, well-hydrated, well nourished. Skin: Skin color, texture, turgor normal, no suspicious rashes or lesions. Head: Normocephalic, no masses, lesions, tenderness or abnormalities. Eyes: Anicteric sclera. Extraocular movements are intact. Ears: External ears normal, hearing is adequate. Lungs: Breathing is easy and unlabored. Extremities: No deformities, edema, skin discoloration, clubbing or cyanosis. No lower extremity aneurysms are palpable. Peripheral Pulses: Capillary refill <2secs, peripheral pulses palpable B. Neurologic: Gait normal. Sensation & strength grossly intact. Current CTA c/a/p @[facility] findings: 10/21/21 IMPRESSION: There is aneurysmal dilation of the descending thoracic aorta. There is a stent graft of the descending thoracic aorta. There are stable bilateral pulmonary nodules. 69mm ekuk abdominal aortic aneurysm. There are multiple colonic diverticula consistent with diverticulosis. Patent aorto bi iliac stent. No endoleak. 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 Encouraged pt to call with any question, problems, concerns, or changes. The patient is currently taking a statin: No. Reason: Refer to PCP to initiate and monitor therapy The patient is currently taking aspirin: Yes I spent 20 minutes in the visit, with more than 50% of the total rirx-bu-nwuk time of the visit in counseling / coordination of care. Merlin Lindsey APRN.RECEPTIONIST SECRETARY documented in this encounter [facility] 10-31-2021 Miscellaneous Notes Left detailed message regarding future appt. Office visit 11/08/21 1:30pm with Dr. Hernandez. Received 10/21/21 CT Chest report and images from [facility]. Report scanned into chart. documented in this encounter [facility] 02-10-2021 Note HNO ID: [id number] Author: Steven Lewis Service: ? Author Type: Rotary Cutter Type: Progress Notes Filed: 02/10/2021 1:59 PM Note Text: Radiology Service Progress Note DATE OF SERVICE: February 10, 2021 TIME: 1:59 PM PATIENT IDENTITY VERIFICATION COMPLETED USING TWO (2) STANDARD IDENTIFIERS: Name and Date of confirmed by patient verbally. FALL SCREENING: Has the patient had 2 falls in the last year or 1 fall with injury or currently using an Ambulatory Assistive Device (Walker, Cane, Wheelchair, Crutches, etc.)? No PATIENT GENDER DATA: Male PATIENT RELEVANT IMPLANT DATA REVIEWED: Yes ALLERGIES: Reviewed and unchanged CONTRAST ALLERGY: NO. EXAM: CT -CONTRAST INDUCED NEPHROPATHY RISK FACTORS: Patient age > 60 years CREATININE: Creatinine Date Value Ref Range Status 03/28/2019 0.68 0.67 - 1.17 mg/dL Final 03/27/2019 0.72 0.67 - 1.17 mg/dL Final 02/27/2019 0.96 0.67 - 1.17 mg/dL Final P.O.C.T. RESULTS: POC done: Yes, See Lab Tab February 10, 2021 TREATMENT: N/A PERIPHERAL IV DATA: Ambulatory: A peripheral IV was started in the Left antecubital site with a Angio cath: 18 gauge. RADIOLOGY DEPARTMENT: CT; Exam(s) Completed: CTA Abdomen Pelvis SIGNATURE: Steven Clemons PATIENT NAME: James Arreaga DATE: February 10, 2021 TIME: 1:59 PM [facility] Lung nodule- Primary Solitary pulmonary nodule documented [facility] this encounter [facility] Summary Purpose Family History No Family History Records FoundNo Family History Records FoundNo Family History Records FoundNo Family History Records FoundNo Family History Records Found Advance Directives No Advanced Directives Records FoundDocuments on File Type Date Recorded Patient Clothes Designer Expl anation Advance Directive(s) 03/26/2019 6:12 AM Documents on File Type Date Recorded Patient Clothes Designer Expl anation Advance Directive(s) 03/26/2019 6:12 AM Reason for Referral Specialty Diagnoses / Procedures Referred By Contac t Referred To Contact CT IMAGING Diagnoses History of AAA (abdominal aortic aneurysm) repair 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) History of repair of thoracic aortic aneurysm Procedures CTA ABD/PEL WO/W IVCON CT ANGIO ABD&PLVIS CNTRST MTRL W/WO CNTRST Merlin Maria, FULL SERVICE SUPERVISOR.RECEPTIONIST SECRETARY [address] [facility] [address] [place] [address] Ct Imaging Referral ID Status Reason Start Date Expiration Date Visits Requested Visits Authorized [id number] Pending Review Auto-Generat ed Referral 11/17/2022 12/17/2022 1 1 Specialty Diagnoses / Procedures Referred By Contac t Referred To Contact CT IMAGING Diagnoses History of AAA (abdominal aortic aneurysm) repair 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) History of repair of thoracic aortic aneurysm Ascending aorta dilatation (HCC) Procedures CTA CHEST (NONGATED) WO/W IVCON CT ANGIOGRAPHY CHEST W/CONTRAST/NONCONTRAST Merlin Lindsey, FULL SERVICE SUPERVISOR.RECEPTIONIST SECRETARY [address] [facility] [address] [place] [address] Ct Imaging Referral ID Status Reason Start Date Expiration Date Visits Requested Visits Authorized [id number] Pending Review Auto-Generat ed Referral 11/17/2022 12/17/2022 1 1 Specialty Diagnoses / Procedures Referred By Contac t Referred To Contact CT IMAGING Diagnoses Lung nodule Procedures CT CHEST WO IVCON DIAGNOSTIC COMPUTED TOMOGRAPHY THORAX W/O CNTRST Stacy Donovan, FULL SERVICE SUPERVISOR.RECEPTIONIST SECRETARY [address] [facility] [employer] [address] [place] [address] [place] [id number] Referral ID Status Reason Start Date Expiration Date Visits Requested Visits Authorized [id number] Pending Review Auto-Generat ed Referral 03/16/2023 04/14/2024 1 1 Additional Source Comments (unrecognized sect ion and content) No Status Records FoundNo Status Records FoundNo Status Records FoundNo Status Records FoundNo Status Records Found INFORMATION SOURCE (unrecogn ized section and content) DATE CREATED AUTHOR AUTHOR'S ORGANIZ ATION 10/09/2019 [facility] ([place]) DATE CREATED AUTHOR AUTHOR'S ORGANIZ ATION 02/27/2020 [facility] DATE CREATED AUTHOR AUTHOR'S ORGANIZ ATION 10/18/2021 [facility] DATE CREATED AUTHOR AUTHOR'S ORGANIZ ATION 04/08/2023 [facility] Source Comments (unrecognize d section and content) In the event this informatio n is protected by the Federal Confidentiality of Alcohol and Drug Abuse Patient Records regulations: The Federal rules restrict any use of the information to criminally investigate or prosecute any alcohol or drug abuse patient.[facility] the event this information is protected by the Federal Confidentiality of Alcohol and Drug Abuse Patient Records regulations: The Federal rules restrict any use of the information to criminally investigate or prosecute any alcohol or drug abuse patient.[facility] System[facility] the event this information is protected by the Federal Confidentiality of Alcohol and Drug Abuse Patient Records regulations: The Federal rules restrict any use of the information to criminally investigate or prosecute any alcohol or drug abuse patient.[facility] System[facility] the event this information is protected by the Federal Confidentiality of Alcohol and Drug Abuse Patient Records regulations: The Federal rules restrict any use of the information to criminally investigate or prosecute any alcohol or drug abuse patient.[facility] System[facility] the event this information is protected by the Federal Confidentiality of Alcohol and Drug Abuse Patient Records regulations: The Federal rules restrict any use of the information to criminally investigate or prosecute any alcohol or drug abuse patient.[facility] System[facility] the event this information is protected by the Federal Confidentiality of Alcohol and Drug Abuse Patient Records regulations: The Federal rules restrict any use of the information to criminally investigate or prosecute any alcohol or drug abuse patient.[facility] System[facility] the event this information is protected by the Federal Confidentiality of Alcohol and Drug Abuse Patient Records regulations: The Federal rules restrict any use of the information to criminally investigate or prosecute any alcohol or drug abuse patient.[facility] Reason for Visit (unrecogniz ed section and content) Reason Comments Follow Up Tests Results Specialty Diagnoses / Procedures Referred By Contac t Referred To Contact Vascular Surgery / VASCULAR SURGERY AG Diagnoses Follow-up exam AAA 10/21/21 CTA A/P @ Jen images were sent electronically Procedures OFFICE/OUTPATIENT ESTABLISHED MOD MDM 30-39 MIN EST PATIENT Randall DO [place] [address] [place] [address] Merlin Lindsey APRN.RECEPTIONIST SECRETARY [address] [facility] [address] [place] [address] Referral ID Status Reason Start Date Expiration Date Visits Re quested Visits Authorized [id number] Closed 07/23/2021 07/22/2022 1 1 Reason Comments Patient Update Reason Comments Results Reason Comments Opened In Error Care Teams (unrecognized sec tion and content) Construction Supervisor Relationship Specialty Start Date End Date Alexander Nguyen MD [address] [facility] [address] [place], [place] [id number] PCP - General Family Practice 11/17/21 Qasim Hernandez MD [address] [place] [address] [place] [phone] Thoracic Surgery 02/21/16 Construction Supervisor Relationship Specialty Start Date End Date Alexander Nguyen MD [address] [facility] [address] [place], [place] [id number] PCP - General Family Medicine 11/17/21 Qasim Hernandez MD [address] [place] [address] [place] [phone] Thoracic Surgery 02/21/16 Construction Supervisor Relationship Specialty Start Date End Date Alexander Nguyen MD [address] [place] [address] [address] [place], [place] [phone] PCP - General Family Medicine 11/17/21 Qasim Hernandez MD [address] [place] [address] [place] [phone] Thoracic Surgery 02/21/16 Construction Supervisor Relationship Specialty Start Date End Date Alexander Nguyen MD [address] [place] [address] [address] [place], [place] [id number] PCP - General Family Medicine 11/17/21 Qasim Hernandez MD [address] [place] [address] [place] [address] Thoracic Surgery 02/21/16 Construction Supervisor Relationship Specialty Start Date End Date Alexander Nguyen MD [address] [facility] [address] [place] [address] PCP - General Family Medicine 11/17/21 Qasim Hernandez MD [address] [facility] [address] [place] [address] Thoracic Surgery 02/21/16 FOR RECORDS PERTAINING TO PATIENTS WHO ARE OR HAVE BEEN ENROLLED IN A CHEMICAL DEPENDENCY/SUBSTANCEABUSE PROGRAM, SOME INFORMATION MAY BE OMITTED. This clinical summary was aggregated from multiple sources. Caution should be exercised in using it in the provision of clinical care. This summary normalizes information from multiple sources, and as a consequence, information in this document may materially change the coding, format and clinical context of patient data. In addition, data may be omitted in some cases. CLINICAL DECISIONS SHOULD BE BASED ON THE PRIMARY CLINICAL RECORDS. [employer] [facility]. provides no warranty or guarantee of the accuracy or completeness of information in this document.
== END | disposition home or self-care (01) ==
LOC: SL 20:11
PROVIDERS: PCP Family Medicine; Referring Provider Internal Medicine Pulmonary Disease; Visit Provider Internal Medicine Pulmonary Disease
DX: G47.10 Hypersomnia, unspecified (principal)
CPT/HCPCS: 95810

== ENCOUNTER → 2023-12-21 | Outpatient (CLI) | payer OTHER, SELFPAY ==
[2023-12-21 17:54] LABS: Absolute Lymphocyte Count 1.78 X10^3/uL (0.83-4.51); Absolute Neutrophil Count 3.5 X10^3/uL (2.0-7.7); Basophil# 0.04 X10^3/uL; Basophil% 0.6 % (0-1); Eosinophil# 0.27 X10^3/uL; Eosinophils% 4.2 % (0-5); Hematocrit 45.3 % (40-54); Hemoglobin 14.3 g/dL (13.0-16.5); Lymphocyte # 1.78 X10^3/ul (0.83-4.51); Lymphocyte % 27.5 % (19-41); Mean Corp Hgb Conc 31.6 g/dL (32-36); Mean Corpuscular Hgb 29.7 pg (27.0-32.0); Mean Platelet Vol. 9.4 fl (6.2-12.0); Monocyte# 0.85 X10^3/uL; Monocyte% 13.1 % (0-10); NRBC Flagged by Analyzer 0 % (0-5); Neutrophil # 3.51 X10^3/uL (2.7-7.7); Neutrophil % 54.3 % (47-70); Platelet Count 290 K/mm3 (150-450); RBC Distribution Width CV 12.7 % (11.6-14.6); Red Blood Count 4.82 M/mm3 (4.6-6.2); White Blood Count 6.5 K/mm3 (4.4-11.0)
[2023-12-21 18:09] LABS: Vitamin D,25 Hydroxy 27.9 ng/mL
[2023-12-21 18:31] LABS: ALB/GLOB Ratio 0.9 RATIO (0.9-2.4); AST(SGOT) 37 U/L (15-37); Alanine Aminotransfer ALT/SGPT 38 U/L (16-61); Albumin, Serum 3.6 g/dL (3.2-5.0); Alkaline Phosphatase 66 U/L (45-117); Anion Gap 5 (5-15); BUN 17 mg/dL (7-18); BUN/Creat Ratio 18.7 RATIO (10-20); Chloride 106 mmol/L (98-107); Cholesterol 170 mg/dL (200); Creatinine, Serum 0.91 mg/dL (0.70-1.30); EST Glomerular Filtration Rate 86 mL/min (>60); Est Glom Filt Rate - Afr Amer 105 mL/min (>60); Globulin 4.1 g/dL (2.2-4.2); Glucose 92 mg/dL (74-106); High Density Lipoprotein 51 mg/dL; PSA,Total - Annual Screen 4.08 ng/mL (0.00-4.00); Protein, Total 7.7 g/dL (6.4-8.2); Sodium Level 140 mmol/L (136-145); Thyroid Stim Hormone (TSH) 1.84 uIU/mL (0.358-3.74); Triglycerides 187 mg/dL; Very Low Density Lipoprotein 37 mg/dL (5-40)
== END | disposition home or self-care (01) ==
LOC: MFPLAB 14:58
PROVIDERS: PCP Family Medicine; Visit Provider Family Medicine
DX: J43.9 Emphysema, unspecified (principal)
CPT/HCPCS: 36415; 80053; 80061; 82306; 84153; 84443; 85025; G0103

== ENCOUNTER → 2024-05-21 | Outpatient (CLI) | payer OTHER, SELFPAY ==
--- NOTE | 2024-05-21 14:30 | CT_ITS ---
HISTORY: COPD SURVEILLANCE. TECHNIQUE: Helically acquired images were obtained of the chest without contrast. A radiation dose optimization technique was used for this scan. 916 images. COMPARISON: 07/31/2023, 04/17/2023, 11/11/2022, 01/26/2021. FINDINGS: LARGE AIRWAYS: Patent. LUNGS: Moderate-severe centrilobular emphysema with mild right apical, right lower lobe, and lingular scarring. Stable 6-7 mm right lower lobe, lingular, and left lower lobe fissural nodules on images 86, 103, and 110 of series 4. New linear 3 to 4 mm opacities in the right upper lobe laterally on images 69 and 76. PLEURA: No pneumothorax or significant pleural effusion. HEART/PERICARDIUM: Heart within normal limits in size with mild coronary artery calcification. Unchanged trace pericardial effusion. VESSELS: Unchanged appearance of 4.1 cm descending thoracic aortic aneurysm stent repair. MEDIASTINUM/JULI: No pathologically enlarged adenopathy. UPPER ABDOMEN: Colonic diverticulosis observed. Calcified splenic granuloma. BONES: Degenerative change. CT/Chest without Contrast IMPRESSION: New 3 to 4 mm right upper lobe nodules. Lung-RADS category 3: Recommend 6 month follow-up low dose CT. Electronically Signed: Mercy Cruz MD at 11:19 EDT ,
== END | disposition home or self-care (01) ==
LOC: CT 14:27
PROVIDERS: PCP Family Medicine
DX: J44.89 Other specified chronic obstructive pulmonary disease (principal)
CPT/HCPCS: 71250

== ENCOUNTER → 2024-07-29 | Outpatient (CLI) | payer OTHER, SELFPAY ==
--- NOTE | 2024-07-29 17:53 | CT_ITS ---
STUDY: CTA ABDOMEN AND PELVIS WITH CONTRAST REASON FOR EXAM: Male, 74 years old. AAA, POST OP RADIATION DOSAGE (If Supplied By Facility): CTDIvol = ( 29.98 ) mGy, DLP = ( 886.45 ) mGycm TECHNIQUE: Transaxial images were obtained from the dome of the diaphragm to the symphysis pubis without oral contrast. IV 100mL Isovue-370 was administered. Sagittal and coronal images were reconstructed. 3-D images were reconstructed. Individualized dose optimization techniques were used for this CT. COMPARISON: Comparison is made with prior study dated October 21, 2021. FINDINGS: There is a new 6 mm noncalcified nodule peripheral aspect of the right lower lobe as seen on axial image #1. Correlation with a CT scan of the thorax recommended for further evaluation. The visualized portions of the heart are within normal limits. Stable 1.7 cm cyst in the inferior medial aspect of the right lobe of the liver. Normal gallbladder and extrahepatic biliary system. Normal spleen. Normal pancreas. Normal bilateral adrenal glands. Normal right kidney. There is a 2.1 cm cyst in the upper lateral aspect of the left kidney. Normal visualized stomach. Normal small intestine. There are scattered colonic diverticula consistent with diverticulosis. The appendix is visualized and appears normal. Endoluminal stent grafting is seen in the abdominal aorta. The distal limbs are seen in the distal portion of the [place] abdominal aorta and proximal portions of the common iliac arteries bilaterally. The [place] aorta as a transverse dimension of 6.6 cm. There is no evidence of endoluminal leakage. Normal inferior vena cava. Normal retroperitoneum. Normal urinary bladder. Heterogeneous enlargement of the prostate with indentation of the bladder base. There is a small umbilical hernia containing fat. There are degenerative changes of the visualized lumbar spine. CT/CTA Abd/Pelvis W/WO Contrast IMPRESSION: Status post endoluminal stent grafting of the infrarenal abdominal aortic aneurysm with a stent. No evidence of endoleak. The [place] abdominal aortic aneurysm measures 6.6 cm transverse dimension. Small left renal cyst and the cyst in the inferior medial portion of the right lobe of the liver. Electronically Signed: Andrae Hopper MD at 13:39 EST ,
[2024-07-29 18:19] LABS: CREATININE FINGERSTICK < 1.0 mg/dL (0.70-1.30); EGFR FINGERSTICK > 60.0000 mL/min (>60)
== END | disposition home or self-care (01) ==
LOC: CT 17:51
PROVIDERS: PCP Family Medicine; Referring Provider Nurse Practitioner Primary Care; Visit Provider Nurse Practitioner Primary Care
DX: I71.40 Abdominal aortic aneurysm, without rupture, unspecified (principal); Z98.890 Other specified postprocedural states
CPT/HCPCS: 74174; Q9967

== ENCOUNTER → 2024-08-07 | Outpatient (CLI) | payer OTHER, SELFPAY ==
[2024-08-07 11:16] LABS: EST Glomerular Filtration Rate 88 mL/min (>60); Est Glom Filt Rate - Afr Amer 106 mL/min (>60)
== END | disposition home or self-care (01) ==
PROVIDERS: PCP Family Medicine; Referring Provider Nurse Practitioner Primary Care; Visit Provider Nurse Practitioner Primary Care
DX: Z98.890 Other specified postprocedural states (principal); J43.2 Centrilobular emphysema; I71.40 Abdominal aortic aneurysm, without rupture, unspecified
CPT/HCPCS: 36415; 82565

== ENCOUNTER → 2024-08-14 | Outpatient (CLI) | payer OTHER, SELFPAY ==
--- NOTE | 2024-08-14 08:05 | PCM.PR.HP ---
History of Present Illness General Arrival date:: 08/14/24 Arrival time:: 08:05 Date of Referral:: 08/08/24 Date of Evaluation: 08/14/24 Referring Physician: Dr. erin Mas Primary Diagnosis: COPD History of Present Pulmonary Event [facility] Breathless Scale: When is the patient short of breath? Y/N Grade: Description of Breathlessness: 0 I only get breathless with strenuous exercise. 1 I get short of breath when hurrying on level ground or walking up a slight hill. 2 On level ground, I walk slower than people of the same age because of breathless, or have to stop for breath when walking at my own pace. 3 I stop for breath after walking 100 yards or after a few minutes on level ground. 4 I am too breathless to leave the house or I am breathless when dressing. Respiratory Problems: Yes Fatigue, Able to Speak in Full Sentences, Ankle Swelling, Anxiety, Panic, Dyspnea with Activity and Cough with Secretions; No Retain Secretions, Limited Range of Motion, Chest Pain, Wheezing, Dizziness, Hoarseness, Dyspnea at Rest or Dyspnea Lying Down Flat Medications Home Medications albuterol sulfate 90 mcg/actuation aerosol inhaler (Ventolin HFA) 2 puff inhalation Q6H PRN PRN Sob &/Or Wheezing 06/26/14 fluticasone 100 mcg-salmeterol 50 mcg/dose blistr powdr for inhalation (Advair Diskus) 1 puff inhalation BID 06/26/14 aspirin 81 mg tablet,delayed release 81 mg PO DAILY@0800 04/19/19 clopidogrel 75 mg tablet 75 mg PO DAILY 04/19/19 levofloxacin 750 mg tablet 750 mg PO DAILY #7 tabs 07/21/19 prednisone 20 mg tablet 60 mg (3 x 20 mg) PO DAILY #15 tabs 07/21/19 gabapentin 100 mg capsule 100 mg PO BID #30 caps 10/29/22 valacyclovir 1 gram tablet 1,000 mg PO Q8H #21 tabs 10/29/22 Allergies Allergies No Known Allergies Allergy (Verified 10/29/22 12:21) Secretions Normal Color:: green or yellow Thick:: Yes Amount/Day:: random PM: Yes Night Time: Yes Sleep Disorder Evaluation Hx of Sleep Apnea: Yes Do you snore loudly (louder than talking or can be heard through closed doors)?: No Do you often feel tired/ fatigued/ sleepy during daytime?: No Has anyone observed you stop breathing during sleep?: No History of Hypertension (for STOP score): No STOP Results: Negative Medical Utilization Medical Devices Do you use a peak flow meter at home?: No Do you use a spacer device with your inhalers?: No Medical Utilization Number of hospital visits in the last year?: 0 Number of emergency room visits in the last year?: 0 Do you see your physician on a regular schedule?: Yes How often?: 4X year Advanced Directives Advanced Directives Power of Director Investor Relations: No Living Will: No Advance Directives Information Provided: No Advance Directives on File: No DNR Order?:: No Past Medical History Covid-19 Screening Physicial Symptoms Other Clinical Concerns Exposure Risk Pertinent Comorbidities 65 years or older:: Yes Has a chronic lung disease or moderate to severe asthma:: Yes Has a serious heart condition:: Yes Social History Smoking History Smoking Status: Former smoker Years Smokin Packs Smoked per Day: 2 (stopped 20 years ago) Occupation Occupation (List type of work in comments):: Employed Hours worked per day:: 4 Functioning ADL/IADL Current Ability Current Ability: Independent: Self-Care (e.g.,grooming, dressing, & bathing), Independent: Ambulation, Independent: Transfer and Independent: Household tasks (e.g., light meal prep, laundry, shopping) Pt Functioning Prior to Problem Prior Functioning: Self-Care (e.g.,grooming, dressing, & bathing): Independent, Ambulation: Independent, Transfer: Independent and Household tasks (e.g., light meal prep, laundry, shopping): Independent Social Environment Status Marital Status: Current Living Arrangements Living Environment:: Spouse Children How many children do you have?: 4 Do any of your children live nearby?: Yes Safety Do you feel safe in your surroundings?: Yes Assistance Do you need any assistance at home?: no Review of Systems Review of Systems Review of Systems Respiratory: Reports Cough, SOB upon Exertion, Sputum production, Appetite, Normal and Fatigue; Denies Hemoptysis, Pleuritic Pain, SOB at Rest, Wheezing, Dizziness/Lightheadedness, PVD, Sexual changes or Sleep, Normal Pain Is Patient Pain Free?: Yes Risk Factor Assessment Chief Complaint Chief Complaint: COPD Vital Signs Pulse Rate: 70 Pulse Ox: 93 Blood Pressure: 104/62 Obesity Height: 5 ft 11 in Weight:: 154 lb Weight in Pounds: 154.0 lbs Body Mass Index (BMI): 21.4 Nutritional Referral for Obesity: No Physical Activity Physical Inactivity: None Risk Stratification Risk Guidelines: Moderate Risk: Risk Factor for Smoking, Risk Factor for Dyslipidemia, Risk Factor for Diabetes, Risk Factor for Obesity, Risk Factor for Hypertension, Risk Factor for Sedentary Lifestyle and Risk Factor for Depression For Smoking Smoking Risk Guidelines For Dyslipidemia Dyslipidemia Risk Guidelines For Diabetes Mellitus Diabetes Risk Guidelines For Obesity/Overweight Obesity/Overweight Risk Guidelines For Hypertension Hypertension Risk Guidelines For Sedentary Lifestyle Sedentary Lifestyle Risk Guidelines For Depression Depression Risk Guidelines Motivation Motivation to Participate On a scale of 1 to 10, how prepared are you to commit to attending program?: 10 What do you see as barriers to successfully being able to complete the program?: nothing What do you see as the benefits of succesfully completing the program? In other words, what do you hope to get out of participating in the program?: breath easier Are there issues you are dealing with that will interfere with completing the program?: no Do you have a spouse or signficant other, family or friends who will help support you to complete the program?: yes
--- NOTE | 2024-08-14 08:10 | PCM.PR.TP ---
General Information2 General Information Admitting Diagnosis: COPD Secondary Diagnosis: centrilobular emphysema Gold Classification:: GOLD 3: Severe PFT FEV1:: 36 FVC:: 87 FEV1/FVC%:: 40 Personal Learning Style/Barriers Personal Learning Style:: Audio/Visual Barriers to Learning: None Stage of change r/t lifestyle modifications: Contemplation Education/Goals CO Patient Goals: Increase muscle strength: Initial Assessment, Experience less dyspnea: Initial Assessment, Improve energy level: Initial Assessment, Participate in home exercise: Initial Assessment, Improve the ability to cope with ADLs: Initial Assessment, Improve knowledge of lung disease: Initial Assessment, Increase knowledge of oxygen use: Initial Assessment, Control panic/anxiety: Initial Assessment, Improve diet and nutrition: Initial Assessment and Improve my quality of life: Initial Assessment Exercise - Initial Assessment Visit Date of Eval: 08/14/24 (initial eval ) Problem/Goals Problems: Deconditioning Goals:: Aerobic exercise 30-60 mins x 12 weeks [36 sessions] Functional Capacity Test Number of feet walked: 1,015 Lowest SPO2 %: 94 (room air) Physician Prescribed Exercise Modalities: Treadmill, Rower, Schwinn Airdyne AD-7, GTIFit Stepper, SeeMore Interactive Pro-II Ergometer and SeeMore Interactive Lateral Back Panel Padder Frequency (days/week): 3 Duration (Minutes):: 30-45 Intensity: 60-80% of age predicted maximum heart rate reserve Current METSs:: 2 Target HR:: 108 (86-108) Resting Blood Pressure: 104/62 Minimum SpO2 with exercise: 93 EKG Type: NSR Plan Plan and Plan to Review:: Benefits of exercise, Core components of exercise, How to measure dyspnea level, How to monitor dyspnea level, Exercise intensity, Exercise safety guideline, Home exercise guidelines and [place]: 3-4/-13 Nutrition/Wt Mgmt - Initial Visit Date of Eval: 08/14/24 (initial eval) Problems/Goals Goals: BMI 21-25 Weight Management Admit Height:: 5 ft 11 in Admit Weight:: 154 lb Admit BMI:: 21.4 Intervention Referral to dietitian:: No Will attend diet classes:: Yes Intervention/Plan: Instruct on ideal BMI & set weight loss goal w/patient, Assist pt to ID & incorporate diet changes for weight loss by S9, Refer to Structured Weight Loss program as appropriate, Encourage goal of using 250-300dcal per session for weight loss and Other additional plan/interventions Plan Nutrition Plan: Yes: Review BMI or WC & identify target wt & strategies for wt control, Yes: Nutrition education class:, Yes: Medication education class [Prednisone]:, Yes: Weight control education class:, Yes: Education re: Need for ongoing weight monitoring, Yes: Food diary: and Yes: Physical activity log: Nutrition/Wt Mgmt - 30-Day Weight Management Height: 5 ft 11 in Weight:: 154 lb BMI: 21.4 Nutrition/Wt Mgmt - 60-Day Weight Management Height: 5 ft 11 in Weight:: 154 lb BMI: 21.4 Nutrition/Wt Mgmt - 90-Day Weight Management Height: 5 ft 11 in Weight:: 154 lb BMI: 21.4 Nutrition/Wt Mgmt - Final Weight Management Height: 5 ft 11 in Weight:: 154 lb BMI: 21.4 Psychosocial - Initial Assess Visit Date of Eval: 08/14/24 (initial eval) Problems/Goals History of Emotional Disorders: Anxious (due to breathing) Psychosocial Goals: 1. Patient is free from overwhelming symtoms of depression (or anxiety, 2. Identifies personal stressors & states the strategies for managing, 3. Identifies activities to decrease isolation and/or symptoms of, 4. Improved psychosocial coping skills., 5. Verbalizes coping strategies., 6. Adequate treatment of depression. and 7. Improved Q.O.L. Self-reported stressors: Recent Illness Psychosocial Test Tool Used:: Pulmonary QOL and PHQ-9 Questionnaire Referred to MD for counseling:: No Referral to Behavioral Health PS - Interventions: Yes: Attend Stress Management Classes Intervention/Plan: See List Interventions/Plan:: Assess stressors,coping strategies & signs of derpression on admission, Instruct/assist pt to develop coping & personal stress Mgt strategies, Refer to Behavioral Health if appropriate, Refer to Physician if appropriate, Instruct patient to recognize signs & symptoms of depression and Instruct patient to recog Psychosocial - 30-Day Problems/Goals History of Emotional Disorders: Anxious (due to breathing) Psychosocial Goals: 1. Patient is free from overwhelming symtoms of depression (or anxiety, 2. Identifies personal stressors & states the strategies for managing, 3. Identifies activities to decrease isolation and/or symptoms of, 4. Improved psychosocial coping skills., 5. Verbalizes coping strategies., 6. Adequate treatment of depression. and 7. Improved Q.O.L. Self-reported stressors: Recent Illness Psychosocial Test Tool Used:: Pulmonary QOL and PHQ-9 Questionnaire Referred to MD for counseling:: No Referral to Behavioral Health PS - Interventions: Yes: Attend Stress Management Classes Plan Interventions/Plan:: Assess stressors,coping strategies & signs of derpression on admission, Instruct/assist pt to develop coping & personal stress Mgt strategies, Refer to Behavioral Health if appropriate, Refer to Physician if appropriate, Instruct patient to recognize signs & symptoms of depression and Instruct patient to recog Psychosocial - 60-Day Problems/Goals History of Emotional Disorders: Anxious (due to breathing) Psychosocial Goals: 1. Patient is free from overwhelming symtoms of depression (or anxiety, 2. Identifies personal stressors & states the strategies for managing, 3. Identifies activities to decrease isolation and/or symptoms of, 4. Improved psychosocial coping skills., 5. Verbalizes coping strategies., 6. Adequate treatment of depression. and 7. Improved Q.O.L. Self-reported stressors: Recent Illness Psychosocial Test Tool Used:: Pulmonary QOL and PHQ-9 Questionnaire Referred to MD for counseling:: No Referral to Behavioral Health PS - Interventions: Yes: Attend Stress Management Classes Plan Interventions/Plan:: Assess stressors,coping strategies & signs of derpression on admission, Instruct/assist pt to develop coping & personal stress Mgt strategies, Refer to Behavioral Health if appropriate, Refer to Physician if appropriate, Instruct patient to recognize signs & symptoms of depression and Instruct patient to recog Psychosocial - 90-Day Problems/Goals History of Emotional Disorders: Anxious (due to breathing) Psychosocial Goals: 1. Patient is free from overwhelming symtoms of depression (or anxiety, 2. Identifies personal stressors & states the strategies for managing, 3. Identifies activities to decrease isolation and/or symptoms of, 4. Improved psychosocial coping skills., 5. Verbalizes coping strategies., 6. Adequate treatment of depression. and 7. Improved Q.O.L. Self-reported stressors: Recent Illness Psychosocial Test Tool Used:: Pulmonary QOL and PHQ-9 Questionnaire Referred to MD for counseling:: No Referral to Behavioral Health PS - Interventions: Yes: Attend Stress Management Classes Plan Interventions/Plan:: Assess stressors,coping strategies & signs of derpression on admission, Instruct/assist pt to develop coping & personal stress Mgt strategies, Refer to Behavioral Health if appropriate, Refer to Physician if appropriate, Instruct patient to recognize signs & symptoms of depression and Instruct patient to recog Psychosocial - Final Assess Problems/Goals History of Emotional Disorders: Anxious (due to breathing) Psychosocial Goals: 1. Patient is free from overwhelming symtoms of depression (or anxiety, 2. Identifies personal stressors & states the strategies for managing, 3. Identifies activities to decrease isolation and/or symptoms of, 4. Improved psychosocial coping skills., 5. Verbalizes coping strategies., 6. Adequate treatment of depression. and 7. Improved Q.O.L. Self-reported stressors: Recent Illness Psychosocial Test Tool Used:: Pulmonary QOL and PHQ-9 Questionnaire Referred to MD for counseling:: No Referral to Behavioral Health PS - Interventions: Yes: Attend Stress Management Classes Plan Interventions/Plan:: Assess stressors,coping strategies & signs of derpression on admission, Instruct/assist pt to develop coping & personal stress Mgt strategies, Refer to Behavioral Health if appropriate, Refer to Physician if appropriate, Instruct patient to recognize signs & symptoms of depression and Instruct patient to recog Oxygen & Oxygen Titration Init Visit Date of Eval: 08/14/24 (initial eval) Initial Assessment Oxygen on Admission: None SpO2:: 93 Patient Reports:: Prod cough daily <1 Tbsp Goal Oxygen & Oxygen Tritration Goals: Effective hypoxemia control Plans Plan: Monitor SpO2 rest & with exercise, Recommend appropriate FiO2 to Pt/MD, Assist to contact DME for O2, Train appropriate O2 use at rest, Train appropriate O2 use with exercise and Train O2 safety & systems Reviewed prescribed medications:: Purpose, Schedule, Side effects and Importance of compliance Instruct correct technique/timing & care:: MDI, DPI, Nebulizer and Return demo use of inhaler Bronchial Hygiene Plan: Controlled cough, CPT, Vibratory PEP device, VEST, Role of exercise in secretion clearance, NS Nasal spray, Hydration, Hand hygiene, Evaluate sputum, When to call MD, Signs/symptoms to report:, Influenza/Pneumovax vaccines and Cleaning of respiratory equipment Oxygen & Oxygen Titration 30D Reassessment SpO2:: 93 Oxygen & Oxygen Titration 60D Reassessment SpO2:: 93 Oxygen & Oxygen Titration 90D Reassessment SpO2:: 93 Oxygen & Oxygen Titration SHERI Reassessment SpO2:: 93 Core Components - Initial Visit Date of Eval: 08/14/24 (initial eval) Hypertension BP: 104/62 [employer] Hypertension Guidelines Outcomes/Goals: Able to verbalize/achieve optimal blood pressure <130/80 and Incorporates diet changes & exercise for blood pressure control by DC Tobacco - Initial Assessment Tobacco Program Goals Stages of Change:: Maintenance Do you have family support?: Yes Tobacco Use: Non-smoker How long ago did you quit using tobacco products?: Greater than or equal to 6 months ago Years Smokin (stopped 20 years ago) Gave Education Materials For:: Tobacco Triggers, Pulmonary Disease, Risk Factors, Breathing Techniques, Medical Compliance, Pulmonary A&P, Exacerbation Signs & Symptoms and Stress & Relaxation Exacerbation Mgmt & Airway Clearance Problems:: Hypoxemia Hypoxemia Goals:: Hypoxemia managed Goals: Pt demonstrates effective cough, effective secretion clearance. and Pt describes signs and symptoms of infection. Patient Reports:: Prod cough daily <1 Tbsp Plan: Monitor SpO2 rest & with exercise, Recommend appropriate FiO2 to Pt/MD, Assist to contact DME for O2, Train appropriate O2 use at rest, Train appropriate O2 use with exercise and Train O2 safety & systems Instruct correct technique/timing & care:: MDI, DPI, Nebulizer and Return demo use of inhaler Bronchial Hygiene Plan: Controlled cough, CPT, Vibratory PEP device, VEST, Role of exercise in secretion clearance, NS Nasal spray, Hydration, Hand hygiene, Evaluate sputum, When to call MD, Signs/symptoms to report:, Influenza/Pneumovax vaccines and Cleaning of respiratory equipment Medication Interventions/plans: Instruct on medication effects & side effects, Review medication list w/patient every two weeks and Instruct importance of taking meds as ordered & assist problem solving Medication Goals: Adherence to prescribed medications and Correct technique/timing & care of MDI, DPI, nebulizer, and spacer. Does pt report taking home meds as prescribed?: Yes Reviewed prescribed medications:: Purpose, Schedule, Side effects and Importance of compliance Diabetes Diabetes:: No Referral to dietitian:: No Will attend diet classes:: Yes Core Components - 30 DAYS Hypertension Resting Blood Pressure:: 104/62 [employer] Hypertension Guidelines Outcomes/Goals: Able to verbalize/achieve optimal blood pressure <130/80 and Incorporates diet changes & exercise for blood pressure control by MD Tobacco - 30-Day Tobacco Program Goals Stages of Change:: Maintenance Do you have family support?: Yes Tobacco Use: Non-smoker Gave Education Materials For:: Tobacco Triggers, Pulmonary Disease, Risk Factors, Breathing Techniques, Medical Compliance, Pulmonary A&P, Exacerbation Signs & Symptoms and Stress & Relaxation Diabetes Diabetes:: No Core Components - 60 DAYS Hypertension Resting Blood Pressure:: 104/62 [employer] Hypertension Guidelines Outcomes/Goals: Able to verbalize/achieve optimal blood pressure <130/80 and Incorporates diet changes & exercise for blood pressure control by DC Tobacco - 60-Day Tobacco Program Goals Stages of Change:: Maintenance Do you have family support?: Yes Tobacco Use: Non-smoker Gave Education Materials For:: Tobacco Triggers, Pulmonary Disease, Risk Factors, Breathing Techniques, Medical Compliance, Pulmonary A&P, Exacerbation Signs & Symptoms and Stress & Relaxation Diabetes Diabetes:: No Core Components - 90 DAYS Hypertension Resting Blood Pressure:: 104/62 [employer] Hypertension Guidelines Outcomes/Goals: Able to verbalize/achieve optimal blood pressure <130/80 and Incorporates diet changes & exercise for blood pressure control by DC Tobacco - 90-Day Tobacco Program Goals Stages of Change:: Maintenance Do you have family support?: Yes Tobacco Use: Non-smoker Gave Education Materials For:: Tobacco Triggers, Pulmonary Disease, Risk Factors, Breathing Techniques, Medical Compliance, Pulmonary A&P, Exacerbation Signs & Symptoms and Stress & Relaxation Diabetes Diabetes:: No Core Components - Final Hypertension Resting Blood Pressure:: 104/62 [employer] Hypertension Guidelines Outcomes/Goals: Able to verbalize/achieve optimal blood pressure <130/80 and Incorporates diet changes & exercise for blood pressure control by MD Tobacco - Final Tobacco Program Goals Stages of Change:: Maintenance Do you have family support?: Yes Tobacco Use: Non-smoker Diabetes Diabetes:: No Patient Health Questionnaire PHQ-9 Screening Initial Assessment: 1. Little interest or pleasure in doing things: Several days 2. Feeling down, depressed, or hopeless: Nearly every day 3. Trouble falling or staying asleep, or sleeping too much: More than half the days 4. Feeling tired or having little energy: Nearly every day 5. Poor appetite or overeating: More than half the days 6. Feeling bad about yourself -- or that you are a failure or have let yourself or your family down: Several days 7. Trouble concentrating on things, such as reading the newspaper or watching television: Not at all 8. Moving or speaking so slowly that other people could have noticed. Or the opposite - being so fidgety or restless that you have been moving around a lot more than usual: Not at all 9. Thoughts that you would be better off , or of hurting yourself in some way: Not at all How difficult have these problems made it for you to do your work, take care of things at home, or get along with other people?: Very difficult Total Score: 12 Knowledge Questionaire (BCKQ) Information Information: [employer] COPD Knowledge Questionnaire (BCKQ) This questionnaire is designed to find out what you know about your lung problem. It should be completed without help form anyone else. This usually takes between 10 and 20 minutes. Your answers will help us to find out what information you need to help you to understand and manage your lung condition. Roberto [employer] the [facility] [facility] which you think is the correct answer. Questions 1. In COPD: b. COPD can only be confirmed by breathing tests: True c. In COPD ther is usually gradual worsening over time: True d. In COPD oxygen levels in the blood are always low: True e. COPD is usually in people less than 40 years old: False 2. COPD: Diana than 80% of COPD cases are caused by cigarette smoking: True b. COPD can be caused by occupational dust exposure: True c. Longstanding asthma can develop into COPD: True d. COPD is commonly an inherited disease: False e. Women are less vunerable to the effects of cigarette than men: False 3. The following symptoms are Common in COPD: a. Swelling of the ankles is common in COPD:: True b. Fatigue [tiredness] is common in COPD: True c. Wheezing is common in COPD: True d. Crushing chest pain is common in COPD: Don't know e. Rapid weight loss is common in COPD: Don't know 4. Breathlessness in COPD: a. Severe breathlessness prevents travel by air: True b. Breathlessness can be worsened by eating large meals: True c. Breathlessness means that your oxygen levels are low: True d. Breathlessness is a normal response to exercise: True e. Breathlessness is primarily caused by a narrowing of the bronchial tubes: Don't know 5. Phlegm (sputum): a. Coughing phlegm is a common symptom in COPD: False b. Clearing phlegm is more difficult if you get dehydrated: True c. Bronchodilator inhalers can help clear phlegm: True d. Phlegm causes harm if swallowed: False e. Clearing phlegm can be assisted by breathing exercises: True 6. Chest infections / exacerbations: a. Chest infections often cause coughing of blood: Don't know b. Chest infection phlegm usually becomes coloured (ylw/grn): True cExerbations (episodes of worsening) can occur in the absence of chest infection: Don't know d. Chest infections are always accompanied by a high temperature: Don't know e. Steroid tablets should be taken whenever there is an exacerbation: Don't know 7. Excercise in COPD: aWalking excercises better than breathing to improve fitness: Don't know b. Exercise should be avoided as it strains the lungs: False c. Exercise can help maintain your bone density: Don't know d. Exercise helps relieve depression: False e. Exercise should be stopped if it makes you breathless: False 8. Smoking: a. Stopping smoking will reduce the risk of heart disease: True b. Stopping smoking will slow down further lung damage: True c. Stopping smoking is pointless as the damage is done: True d.Stopping smoking usually results in improved lung function: Don't know eNicotine replacement therapy only available on prescription: False 9. Vaccination: a. A flu jab is recommended every year: Don't know b. You can get flu from having a flu jab: True c. You can only have a flu jab if you are 65 or over: True d. A pneumonia jab protects against all forms of pneumonia: Don't know e.You can have a pneumonia jab and a flu job on the same day: True 10. Inhaled bronchodilators: a. Bronchodilators act quickly (within 10 minutes): Don't know b. Both short & long acting bronchodilators can be taken on the same day: True c. Spacers (volumatic,nebuhaler,serochamber)should be dried w/atowel after washing: Don't know d. A spacer device increases the medication to the lungs: True e. Tremor may be a side effect of bronchodilators: Don't know 11. Antibiotic treatment in COPD: a. To be effective, the course should last at least 10 days: Don't know b. Excessive use of antibiotics can cause resistant bacteria (germs): Don't know c. Antibiotics will clear all chest infections: Don't know d. Antibiotic treatment is necessary for an exacerbation (worsening) however mild: Don't know e. Seek advice if antibiotics cause severe diarrhoea: Don't know 12. Steroid tablets given for COPD (eg Prednisolone): a. Steroid tablets help strengthen muscles: True b. Steroid tablets should be avoided if there is a chest infection: Don't know c. The risk of long-term side effects due to steroids is less w/short courses then w/continous treatment: Don't know dIndigestion is common side effect from using steroid tablet: Don't know e. Steroid tablets can increase your appetite: Don't know 13. Inhaled steroids (brown, red or orange): a. Inhaled steroids should be stopped if you are given steroid tablets: False bSteroid inhalers can be used for rapid relief breathlessnes: True c. Spacer devices reduce the risk of getting thrush in the mouth: Don't know d.Steroid inhaler should be taken before your bronchodilator: Don't know e. Inhaled steroids improve lung function in COPD: True COPD Assessment Test [CAT] Questions Never cough = 0, Cough all the time = 5: 1 No phlegm = 0, Chest full of phlegm = 5: 3 No chest tightness = 0, Chest very tight = 5: 3 No breathless w/exertion = 0, Very breathless w/exertion = 5: 5 No limitations w/activity = 0, Very limited w/activity = 5: 4 Confident leaving home = 0, Not at all confident = 5: 1 Sleep soundly = 0, Don't sleep soundly = 5: 0 Lots of energy = 0, No energy at all = 5: 5 Total CAT score:: 22 Self-Efficacy 6-Item Scale Initial Assessment: We would like to know how confident you are in doing certain activities. Please select your confidence level for: Fatigue Select Number: 1 Physical Discomfort or Pain Select Number: 1 Emotional Distress Select Number: 6 Other Symptoms or Health Problems Select Number: 4 Different Tasks and Activities Select Number: 1 Medication Select Number: 1 Total Score:: 2 Nutrition Survey Nutrition Survey Instructions Scoring Instructions Nutrition Survey Initial: Have you lost >10 lbs over the past 2 months without trying?: No Are you following a special diet at home for diabetes, low fat, or low salt?: No Are you interested in meeting with a dietitian for help understanding your diet?: No Do you eat less than 3 meals a day?: Yes Do you eat fatty meats (jade, sausage, ribs, etc), fried foods, desserts, large amounts of salad dressings, margarine, butter, or cheese most days?: Yes Do you eat in restaurants more than 3 times a week?: No Do you season food with salt, seasoning salt, or garlic salt?: Yes Do you used canned, boxed, frozen meals, or soups, seasoning packets?: Yes
[2024-08-14 09:04] VITALS: BP 104/62; PULSE 70; O2SAT 93
[2024-08-14 09:09] VITALS: BP 104/62; O2SAT 93; BMI 21.4
[2024-08-14 09:36] VITALS: BMI 21.4
== END | disposition home or self-care (01) ==
LOC: PR 07:58
PROVIDERS: PCP Family Medicine; Referring Provider Internal Medicine Pulmonary Disease; Visit Provider Internal Medicine Pulmonary Disease
DX: J44.9 Chronic obstructive pulmonary disease, unspecified (principal); J43.2 Centrilobular emphysema

== ENCOUNTER 2024-08-22 13:00 | Outpatient (RCR) | payer OTHER, SELFPAY ==
[2024-08-14 09:09] VITALS: BMI 21.4
== END 2024-08-22 23:59 ==
LOC: PR 13:00
PROVIDERS: PCP Family Medicine; Referring Provider Internal Medicine Pulmonary Disease; Visit Provider Internal Medicine Pulmonary Disease
DX: J43.2 Centrilobular emphysema (principal)
CPT/HCPCS: 97150; 94626

== ENCOUNTER 2024-09-17 13:00 | Outpatient (RCR) | payer OTHER, SELFPAY ==
[2024-08-14 09:09] VITALS: BMI 21.4
--- NOTE | 2024-09-11 09:07 | PCM.PR.TP ---
Exercise - Initial Assessment Visit Session Number:: 8 Physician Prescribed Exercise Modalities: Treadmill, [employer] Airdyne AD-7 and Sci[employer] Stepper Current METSs:: 4.9 Target HR:: 108 (86-108) Current RPD:: 2-3 Maximum Exercise HR:: 103 Resting Blood Pressure: 130/70 Maximum Exercise Blood Pressure: 152/80 Minimum SpO2 with exercise: 90 EKG Type: NSR to ST Nutrition/Wt Mgmt - Initial Visit Session Number:: 8 Weight Management Admit Height:: 5 ft 11 in Admit Weight:: 189 lb Admit BMI:: 26.3 Nutrition/Wt Mgmt - 30-Day Visit Date of Eval: 09/11/24 Session Number:: 8 Weight Management Height: 5 ft 11 in Weight:: 189 lb BMI: 26.3 Weight Goals Progress:: Goal met (Pt is at a healthy weight.) Nutrition/Wt Mgmt - 60-Day Visit Session Number:: 8 Weight Management Height: 5 ft 11 in Weight:: 189 lb BMI: 26.3 Nutrition/Wt Mgmt - 90-Day Visit Session Number:: 8 Weight Management Height: 5 ft 11 in Weight:: 189 lb BMI: 26.3 Nutrition/Wt Mgmt - Final Visit Session Number:: 8 Weight Management Height: 5 ft 11 in Weight:: 189 lb BMI: 26.3 Psychosocial - Initial Assess Visit Session Number:: 8 Problems/Goals History of Emotional Disorders: Anxious (due to breathing) Psychosocial Goals: 1. Patient is free from overwhelming symtoms of depression (or anxiety, 2. Identifies personal stressors & states the strategies for managing, 3. Identifies activities to decrease isolation and/or symptoms of, 4. Improved psychosocial coping skills., 5. Verbalizes coping strategies., 6. Adequate treatment of depression. and 7. Improved Q.O.L. Self-reported stressors: Recent Illness Psychosocial Test Tool Used:: Pulmonary QOL Referral to Behavioral Health PS - Interventions: Yes: Attend Stress Management Classes Intervention/Plan: See List Interventions/Plan:: Assess stressors,coping strategies & signs of derpression on admission, Instruct/assist pt to develop coping & personal stress Mgt strategies, Refer to Behavioral Health if appropriate, Refer to Physician if appropriate, Instruct patient to recognize signs & symptoms of depression, Instruct patient to recog and Other additional plan/intervention Psychosocial - 30-Day Visit Date of Eval: 09/11/24 Session Number:: 8 Problems/Goals History of Emotional Disorders: Anxious (due to breathing) Psychosocial Goals: 1. Patient is free from overwhelming symtoms of depression (or anxiety, 2. Identifies personal stressors & states the strategies for managing, 3. Identifies activities to decrease isolation and/or symptoms of, 4. Improved psychosocial coping skills., 5. Verbalizes coping strategies., 6. Adequate treatment of depression. and 7. Improved Q.O.L. Self-reported stressors: Recent Illness Psychosocial Test Tool Used:: Pulmonary QOL Referral to Behavioral Health PS - Interventions: Yes: Attend Stress Management Classes Plan Interventions/Plan:: Assess stressors,coping strategies & signs of derpression on admission, Instruct/assist pt to develop coping & personal stress Mgt strategies, Refer to Behavioral Health if appropriate, Refer to Physician if appropriate, Instruct patient to recognize signs & symptoms of depression, Instruct patient to recog and Other additional plan/intervention Psychosocial - 60-Day Visit Session Number:: 8 Problems/Goals History of Emotional Disorders: Anxious (due to breathing) Psychosocial Goals: 1. Patient is free from overwhelming symtoms of depression (or anxiety, 2. Identifies personal stressors & states the strategies for managing, 3. Identifies activities to decrease isolation and/or symptoms of, 4. Improved psychosocial coping skills., 5. Verbalizes coping strategies., 6. Adequate treatment of depression. and 7. Improved Q.O.L. Self-reported stressors: Recent Illness Psychosocial Test Tool Used:: Pulmonary QOL Referral to Behavioral Health PS - Interventions: Yes: Attend Stress Management Classes Plan Interventions/Plan:: Assess stressors,coping strategies & signs of derpression on admission, Instruct/assist pt to develop coping & personal stress Mgt strategies, Refer to Behavioral Health if appropriate, Refer to Physician if appropriate, Instruct patient to recognize signs & symptoms of depression, Instruct patient to recog and Other additional plan/intervention Psychosocial - 90-Day Visit Session Number:: 8 Problems/Goals History of Emotional Disorders: Anxious (due to breathing) Psychosocial Goals: 1. Patient is free from overwhelming symtoms of depression (or anxiety, 2. Identifies personal stressors & states the strategies for managing, 3. Identifies activities to decrease isolation and/or symptoms of, 4. Improved psychosocial coping skills., 5. Verbalizes coping strategies., 6. Adequate treatment of depression. and 7. Improved Q.O.L. Self-reported stressors: Recent Illness Psychosocial Test Tool Used:: Pulmonary QOL Referral to Behavioral Health PS - Interventions: Yes: Attend Stress Management Classes Plan Interventions/Plan:: Assess stressors,coping strategies & signs of derpression on admission, Instruct/assist pt to develop coping & personal stress Mgt strategies, Refer to Behavioral Health if appropriate, Refer to Physician if appropriate, Instruct patient to recognize signs & symptoms of depression, Instruct patient to recog and Other additional plan/intervention Psychosocial - Final Assess Visit Session Number:: 8 Problems/Goals History of Emotional Disorders: Anxious (due to breathing) Psychosocial Goals: 1. Patient is free from overwhelming symtoms of depression (or anxiety, 2. Identifies personal stressors & states the strategies for managing, 3. Identifies activities to decrease isolation and/or symptoms of, 4. Improved psychosocial coping skills., 5. Verbalizes coping strategies., 6. Adequate treatment of depression. and 7. Improved Q.O.L. Self-reported stressors: Recent Illness Psychosocial Test Tool Used:: Pulmonary QOL Referral to Behavioral Health PS - Interventions: Yes: Attend Stress Management Classes Plan Interventions/Plan:: Assess stressors,coping strategies & signs of derpression on admission, Instruct/assist pt to develop coping & personal stress Mgt strategies, Refer to Behavioral Health if appropriate, Refer to Physician if appropriate, Instruct patient to recognize signs & symptoms of depression, Instruct patient to recog and Other additional plan/intervention Oxygen & Oxygen Titration Init Visit Session Number:: 8 Initial Assessment SpO2:: 90 Oxygen & Oxygen Titration 30D Visit Date of Ev: 09/11/24 Session Number:: 8 Reassessment Reassessment- 30 Days: Demonstrate knowledge of O2 Rx at rest & w/exercise and Using O2 as Rx'd SpO2:: 90 Oxygen & Oxygen Titration 60D Visit Date of Eval: 09/11/24 Session Number:: 8 Reassessment SpO2:: 90 Oxygen & Oxygen Titration 90D Visit Date of Eval: 09/11/24 Session Number:: 8 Reassessment SpO2:: 90 Oxygen & Oxygen Titration SHERI Visit Date of : 09/11/24 Session Number:: 8 Reassessment SpO2:: 90 Core Components - Initial Visit Session Number:: 8 Hypertension BP: 130/70 [employer] [employer] Hypertension Guidelines Blood Pressure: 152/80 Outcomes/Goals: Able to verbalize/achieve optimal blood pressure <130/80 and Incorporates diet changes & exercise for blood pressure control by DC Core Components - 30 DAYS Visit Date of Ev: 09/11/24 Session Number:: 8 Hypertension Resting Blood Pressure:: 130/70 [employer] [employer] Hypertension Guidelines Peak Exercise Blood Pressure:: 152/80 Outcomes/Goals: Able to verbalize/achieve optimal blood pressure <130/80 and Incorporates diet changes & exercise for blood pressure control by DC Interventions/plan: Instruct on optimal blood pressure, hypertension & medications and Instruct on effects of sodium, alcohol, stress, exercise &hypertension 30 day Reassessments:: Progressing Reassessment Notes & Comments:: Pt's BP's are slightly elevated on most days. Will continue to monitor and send report if necessary. Core Components - 60 DAYS Visit Session Number:: 8 Hypertension Resting Blood Pressure:: 130/70 [employer] [employer] Hypertension Guidelines Peak Exercise Blood Pressure:: 152/80 Outcomes/Goals: Able to verbalize/achieve optimal blood pressure <130/80 and Incorporates diet changes & exercise for blood pressure control by DC Interventions/plan: Instruct on optimal blood pressure, hypertension & medications and Instruct on effects of sodium, alcohol, stress, exercise &hypertension 60 day Reassessments:: Progressing Reassessment Notes & Comments:: Pt's BP's are slightly elevated on most days. Will continue to monitor and send report if necessary. Core Components - 90 DAYS Visit Session Number:: 8 Hypertension Resting Blood Pressure:: 130/70 [employer] [employer] Hypertension Guidelines Peak Exercise Blood Pressure:: 152/80 Outcomes/Goals: Able to verbalize/achieve optimal blood pressure <130/80 and Incorporates diet changes & exercise for blood pressure control by DC Interventions/plan: Instruct on optimal blood pressure, hypertension & medications and Instruct on effects of sodium, alcohol, stress, exercise &hypertension 90 day Reassessments:: Progressing Reassessment Notes & Comments:: Pt's BP's are slightly elevated on most days. Will continue to monitor and send report if necessary. Core Components - Final Visit Session Number:: 8 Hypertension Resting Blood Pressure:: 130/70 [employer] [employer] Hypertension Guidelines Peak Exercise Blood Pressure:: 152/80 Outcomes/Goals: Able to verbalize/achieve optimal blood pressure <130/80 and Incorporates diet changes & exercise for blood pressure control by DC Patient Health Questionnaire PHQ-9 Screening 30-Day Re-eval Assessment: 1. Little interest or pleasure in doing things: Several days 2. Feeling down, depressed, or hopeless: Nearly every day 3. Trouble falling or staying asleep, or sleeping too much: More than half the days 4. Feeling tired or having little energy: Nearly every day 5. Poor appetite or overeating: More than half the days 6. Feeling bad about yourself -- or that you are a failure or have let yourself or your family down: Several days 7. Trouble concentrating on things, such as reading the newspaper or watching television: Not at all 8. Moving or speaking so slowly that other people could have noticed. Or the opposite - being so fidgety or restless that you have been moving around a lot more than usual: Not at all 9. Thoughts that you would be better off , or of hurting yourself in some way: Not at all How difficult have these problems made it for you to do your work, take care of things at home, or get along with other people?: Very difficult Total Score: 12 Knowledge Questionaire (BCKQ) Information Information: [place] COPD Knowledge Questionnaire (BCKQ) This questionnaire is designed to find out what you know about your lung problem. It should be completed without help form anyone else. This usually takes between 10 and 20 minutes. Your answers will help us to find out what information you need to help you to understand and manage your lung condition. [place] the [place] which you think is the correct answer. Self-Efficacy 6-Item Scale 30-Day Re-eval Assessment: We would like to know how confident you are in doing certain activities. Please select your confidence level for: Fatigue Select Number: 1 Physical Discomfort or Pain Select Number: 1 Emotional Distress Select Number: 6 Other Symptoms or Health Problems Select Number: 4 Different Tasks and Activities Select Number: 1 Medication Select Number: 1 Total Score:: 2 Nutrition Survey Nutrition Survey Instructions Scoring Instructions
[2024-09-11 09:19] VITALS: BP 130/70; BP 152/80; O2SAT 90; BMI 26.3
== END 2024-09-19 23:59 ==
LOC: PR 13:00
PROVIDERS: PCP Family Medicine; Referring Provider Internal Medicine Pulmonary Disease; Visit Provider Internal Medicine Pulmonary Disease
DX: J44.9 Chronic obstructive pulmonary disease, unspecified (principal); J43.2 Centrilobular emphysema
CPT/HCPCS: 97150; 94626

== ENCOUNTER 2024-10-03 13:00 | Outpatient (RCR) | payer OTHER, SELFPAY ==
[2024-09-11 09:19] VITALS: BMI 26.3
[2024-09-20 00:57] VITALS: BP 130/70; BP 152/80; BMI 26.3
--- NOTE | 2024-10-08 11:22 | PCM.PR.TP ---
Exercise - Initial Assessment Visit Session Number:: 16 Physician Prescribed Exercise Modalities: Treadmill, [employer] Airdyne AD-7 and Sci[employer] Stepper Target HR:: 108 (86-108) Current RPD:: 2 Maximum Exercise HR:: 110 Resting Blood Pressure: 132/80 Maximum Exercise Blood Pressure: 140/70 Minimum SpO2 with exercise: 89 EKG Type: NSR to ST Nutrition/Wt Mgmt - Initial Visit Session Number:: 16 Weight Management Admit Height:: 5 ft 11 in Admit Weight:: 185 lb 14.4 oz Admit BMI:: 25.9 Nutrition/Wt Mgmt - 30-Day Visit Date of Eval: 10/08/24 Session Number:: 16 Weight Management Height: 5 ft 11 in Weight:: 185 lb 14.4 oz BMI: 25.9 Nutrition/Wt Mgmt - 60-Day Visit Date of Eval: 10/08/24 Session Number:: 16 Weight Management Height: 5 ft 11 in Weight:: 185 lb 14.4 oz BMI: 25.9 Weight Goals Progress:: Progressing (Pt has attended nutrition class and understands the importance of a low sodium heart healthy diet.) Nutrition/Wt Mgmt - 90-Day Visit Session Number:: 16 Weight Management Height: 5 ft 11 in Weight:: 185 lb 14.4 oz BMI: 25.9 Weight Goals Progress:: Progressing (Pt has attended nutrition class and understands the importance of a low sodium heart healthy diet.) Nutrition/Wt Mgmt - Final Visit Session Number:: 16 Weight Management Height: 5 ft 11 in Weight:: 185 lb 14.4 oz BMI: 25.9 Psychosocial - Initial Assess Visit Session Number:: 16 Problems/Goals History of Emotional Disorders: Anxious (due to breathing) Self-reported stressors: Recent Illness Psychosocial Test Tool Used:: Pulmonary QOL and PHQ-9 Questionnaire Referral to Behavioral Health PS - Interventions: Yes: Attend Stress Management Classes Intervention/Plan: See List Interventions/Plan:: Assess stressors,coping strategies & signs of derpression on admission, Instruct/assist pt to develop coping & personal stress Mgt strategies, Refer to Behavioral Health if appropriate, Refer to Physician if appropriate, Instruct patient to recognize signs & symptoms of depression and Instruct patient to recog Psychosocial - 30-Day Visit Date of Eval: 10/08/24 Session Number:: 16 Problems/Goals History of Emotional Disorders: Anxious (due to breathing) Self-reported stressors: Recent Illness Psychosocial Test Tool Used:: Pulmonary QOL and PHQ-9 Questionnaire Referral to Behavioral Health PS - Interventions: Yes: Attend Stress Management Classes Plan Interventions/Plan:: Assess stressors,coping strategies & signs of derpression on admission, Instruct/assist pt to develop coping & personal stress Mgt strategies, Refer to Behavioral Health if appropriate, Refer to Physician if appropriate, Instruct patient to recognize signs & symptoms of depression and Instruct patient to recog Psychosocial - 60-Day Visit Date of Eval: 10/08/24 Session Number:: 16 Problems/Goals History of Emotional Disorders: Anxious (due to breathing) Self-reported stressors: Recent Illness Psychosocial Test Tool Used:: Pulmonary QOL and PHQ-9 Questionnaire Referral to Behavioral Health PS - Interventions: Yes: Attend Stress Management Classes Plan Interventions/Plan:: Assess stressors,coping strategies & signs of derpression on admission, Instruct/assist pt to develop coping & personal stress Mgt strategies, Refer to Behavioral Health if appropriate, Refer to Physician if appropriate, Instruct patient to recognize signs & symptoms of depression and Instruct patient to recog Psychosocial - 90-Day Visit Session Number:: 16 Problems/Goals History of Emotional Disorders: Anxious (due to breathing) Self-reported stressors: Recent Illness Psychosocial Test Tool Used:: Pulmonary QOL and PHQ-9 Questionnaire Referral to Behavioral Health PS - Interventions: Yes: Attend Stress Management Classes Plan Interventions/Plan:: Assess stressors,coping strategies & signs of derpression on admission, Instruct/assist pt to develop coping & personal stress Mgt strategies, Refer to Behavioral Health if appropriate, Refer to Physician if appropriate, Instruct patient to recognize signs & symptoms of depression and Instruct patient to recog Psychosocial - Final Assess Visit Session Number:: 16 Problems/Goals History of Emotional Disorders: Anxious (due to breathing) Self-reported stressors: Recent Illness Psychosocial Test Tool Used:: Pulmonary QOL and PHQ-9 Questionnaire Referral to Behavioral Health PS - Interventions: Yes: Attend Stress Management Classes Plan Interventions/Plan:: Assess stressors,coping strategies & signs of derpression on admission, Instruct/assist pt to develop coping & personal stress Mgt strategies, Refer to Behavioral Health if appropriate, Refer to Physician if appropriate, Instruct patient to recognize signs & symptoms of depression and Instruct patient to recog Oxygen & Oxygen Titration Init Visit Session Number:: 16 Initial Assessment SpO2:: 89 Oxygen & Oxygen Titration 30D Visit Date of Eval: 10/08/24 Session Number:: 16 Reassessment SpO2:: 89 Oxygen & Oxygen Titration 60D Visit Date of Eval: 10/08/24 Session Number:: 16 Reassessment Reassessment- 60 Days: Demonstrate knowledge of O2 Rx at rest & w/exercise and Using O2 as Rx'd SpO2:: 89 Oxygen & Oxygen Titration 90D Visit Date of Eval: 10/08/24 Session Number:: 16 Reassessment SpO2:: 89 Oxygen & Oxygen Titration SHERI Visit Date of Eval: 10/08/24 Session Number:: 16 Reassessment SpO2:: 89 Core Components - Initial Visit Session Number:: 16 Hypertension BP: 132/80 [employer] Hypertension Guidelines Blood Pressure: 140/70 Outcomes/Goals: Able to verbalize/achieve optimal blood pressure <130/80 and Incorporates diet changes & exercise for blood pressure control by DC Tobacco - Initial Assessment Tobacco Program Goals Stages of Change:: Maintenance (Pt stopped smoking 20 years ago.) Do you have family support?: Yes Tobacco Use: Non-smoker Core Components - 30 DAYS Visit Date of Eval: 10/08/24 Session Number:: 16 Hypertension Resting Blood Pressure:: 132/80 [employer] Hypertension Guidelines Peak Exercise Blood Pressure:: 140/70 Change in medication: No Outcomes/Goals: Able to verbalize/achieve optimal blood pressure <130/80 and Incorporates diet changes & exercise for blood pressure control by DC Interventions/plan: Instruct on optimal blood pressure, hypertension & medications, Instruct on effects of sodium, alcohol, stress, exercise &hypertension and Other additional plan/interventions 30 day Reassessments:: Progressing (Low sodium diet encouraged to help lower BP) Tobacco - 30-Day Tobacco Program Goals Stages of Change:: Maintenance (Pt stopped smoking 20 years ago.) Learning Barriers: Participates in education Do you have family support?: Yes Tobacco Use: Non-smoker 30-day Reassessments:: Met Reassessment Notes & Comments:: Pt is currently a nonsmoker Exacerbation Mgmt & Airway Clearance Reassessment: Demonstrates knowledge of O2 Rx at rest, Demonstrates knowledge of O2 Rx with exercise and Using O2 as prescribed Bronchial Hygiene Plan: Yes: Pt demonstrates correctly for effective cough, Yes: Pt demo correct for CPT, Yes: Pt demo correct for device, Yes: Pt demo correct for NS nasal spray, Yes: Pt demo correct for sputum management, Yes: Pt demo correct for improved hydration, Yes: Pt demo correct for hand hygiene, Yes: Pt demo correct for evalute sputum, Yes: Pt demo correct for verbalize when to call MD and Yes: Pt demo correct for cleaning of respiratory equipment Medication Medication reassessment: Yes: Pt demonstrates correct technique timing for MDI, Yes: Pt demonstrates correct technique timing for DPI, Yes: Pt demonstrates correct technique timing for NEB and Yes: Pt demonstrates correct technique timing for spacer Core Components - 60 DAYS Visit Date of Eval: 10/08/24 Session Number:: 16 Hypertension Resting Blood Pressure:: 132/80 [employer] Hypertension Guidelines Peak Exercise Blood Pressure:: 140/70 Change in medication: No Outcomes/Goals: Able to verbalize/achieve optimal blood pressure <130/80 and Incorporates diet changes & exercise for blood pressure control by DC Interventions/plan: Instruct on optimal blood pressure, hypertension & medications, Instruct on effects of sodium, alcohol, stress, exercise &hypertension and Other additional plan/interventions 60 day Reassessments:: Progressing (Low sodium diet encouraged to help lower BP) Tobacco - 60-Day Tobacco Program Goals Stages of Change:: Maintenance (Pt stopped smoking 20 years ago.) Learning Barriers: Participates in education Do you have family support?: Yes Tobacco Use: Non-smoker 60-day Reassessments:: Met Reassessment Notes & Comments:: Pt is currently a nonsmoker Exacerbation Mgmt & Airway Clearance Reassessment: Demonstrates knowledge of O2 Rx at rest, Demonstrates knowledge of O2 Rx with exercise and Using O2 as prescribed Bronchial Hygiene Plan: Yes: Pt demonstrates correctly for effective cough, Yes: Pt demo correct for CPT, Yes: Pt demo correct for device, Yes: Pt demo correct for NS nasal spray, Yes: Pt demo correct for sputum management, Yes: Pt demo correct for improved hydration, Yes: Pt demo correct for hand hygiene, Yes: Pt demo correct for evalute sputum, Yes: Pt demo correct for verbalize when to call MD and Yes: Pt demo correct for cleaning of respiratory equipment Medication Medication list reviewed:: Yes Taking medications 100% of the time:: Met Medication reassessment: Yes: Pt demonstrates correct technique timing for MDI, Yes: Pt demonstrates correct technique timing for DPI, Yes: Pt demonstrates correct technique timing for NEB and Yes: Pt demonstrates correct technique timing for spacer Core Components - 90 DAYS Visit Session Number:: 16 Hypertension Resting Blood Pressure:: 132/80 [employer] Hypertension Guidelines Peak Exercise Blood Pressure:: 140/70 Outcomes/Goals: Able to verbalize/achieve optimal blood pressure <130/80 and Incorporates diet changes & exercise for blood pressure control by DC Interventions/plan: Instruct on optimal blood pressure, hypertension & medications, Instruct on effects of sodium, alcohol, stress, exercise &hypertension and Other additional plan/interventions 90 day Reassessments:: Progressing (Low sodium diet encouraged to help lower BP) Tobacco - 90-Day Tobacco Program Goals Stages of Change:: Maintenance (Pt stopped smoking 20 years ago.) Learning Barriers: Participates in education Do you have family support?: Yes Tobacco Use: Non-smoker 90-day Reassessments:: Met Reassessment Notes & Comments:: Pt is currently a nonsmoker Exacerbation Mgmt & Airway Clearance Bronchial Hygiene Plan: Yes: Pt demonstrates correctly for effective cough, Yes: Pt demo correct for CPT, Yes: Pt demo correct for device, Yes: Pt demo correct for NS nasal spray, Yes: Pt demo correct for sputum management, Yes: Pt demo correct for improved hydration, Yes: Pt demo correct for hand hygiene, Yes: Pt demo correct for evalute sputum, Yes: Pt demo correct for verbalize when to call MD and Yes: Pt demo correct for cleaning of respiratory equipment Medication Medication reassessment: Yes: Pt demonstrates correct technique timing for MDI, Yes: Pt demonstrates correct technique timing for DPI, Yes: Pt demonstrates correct technique timing for NEB and Yes: Pt demonstrates correct technique timing for spacer Core Components - Final Visit Session Number:: 16 Hypertension Resting Blood Pressure:: 132/80 [employer] Hypertension Guidelines Peak Exercise Blood Pressure:: 140/70 Outcomes/Goals: Able to verbalize/achieve optimal blood pressure <130/80 and Incorporates diet changes & exercise for blood pressure control by DC Tobacco - Final Tobacco Program Goals Stages of Change:: Maintenance (Pt stopped smoking 20 years ago.) Learning Barriers: Participates in education Do you have family support?: Yes Tobacco Use: Non-smoker Exacerbation Mgmt & Airway Clearance Bronchial Hygiene Plan: Yes: Pt demonstrates correctly for effective cough, Yes: Pt demo correct for CPT, Yes: Pt demo correct for device, Yes: Pt demo correct for NS nasal spray, Yes: Pt demo correct for sputum management, Yes: Pt demo correct for improved hydration, Yes: Pt demo correct for hand hygiene, Yes: Pt demo correct for evalute sputum, Yes: Pt demo correct for verbalize when to call MD and Yes: Pt demo correct for cleaning of respiratory equipment Medication Medication reassessment: Yes: Pt demonstrates correct technique timing for MDI, Yes: Pt demonstrates correct technique timing for DPI, Yes: Pt demonstrates correct technique timing for NEB and Yes: Pt demonstrates correct technique timing for spacer Patient Health Questionnaire PHQ-9 Screening 60-Day Re-eval Assessment: 1. Little interest or pleasure in doing things: Several days 2. Feeling down, depressed, or hopeless: Nearly every day 3. Trouble falling or staying asleep, or sleeping too much: More than half the days 4. Feeling tired or having little energy: Nearly every day 5. Poor appetite or overeating: More than half the days 6. Feeling bad about yourself -- or that you are a failure or have let yourself or your family down: Several days 7. Trouble concentrating on things, such as reading the newspaper or watching television: Not at all 8. Moving or speaking so slowly that other people could have noticed. Or the opposite - being so fidgety or restless that you have been moving around a lot more than usual: Not at all 9. Thoughts that you would be better off , or of hurting yourself in some way: Not at all How difficult have these problems made it for you to do your work, take care of things at home, or get along with other people?: Very difficult Total Score: 12 Knowledge Questionaire (BCKQ) Information Information: [place] COPD Knowledge Questionnaire (BCKQ) This questionnaire is designed to find out what you know about your lung problem. It should be completed without help form anyone else. This usually takes between 10 and 20 minutes. Your answers will help us to find out what information you need to help you to understand and manage your lung condition. Roberto Carlos the yurok which you think is the correct answer. Self-Efficacy 6-Item Scale 60-Day Re-eval Assessment: We would like to know how confident you are in doing certain activities. Please select your confidence level for: Fatigue Select Number: 1 Physical Discomfort or Pain Select Number: 1 Emotional Distress Select Number: 6 Other Symptoms or Health Problems Select Number: 4 Different Tasks and Activities Select Number: 1 Medication Select Number: 1 Total Score:: 2 Nutrition Survey Nutrition Survey Instructions Scoring Instructions
[2024-10-08 11:37] VITALS: BP 132/80; BP 140/70; O2SAT 89; BMI 25.9
== END 2024-10-20 23:59 ==
LOC: PR 13:00
PROVIDERS: PCP Family Medicine; Referring Provider Internal Medicine Pulmonary Disease; Visit Provider Internal Medicine Pulmonary Disease
DX: J44.9 Chronic obstructive pulmonary disease, unspecified (principal); J43.2 Centrilobular emphysema
CPT/HCPCS: 97150; 94626

== ENCOUNTER 2024-11-12 13:00 | Outpatient (RCR) | payer OTHER, SELFPAY ==
[2024-10-08 11:37] VITALS: BMI 25.9
[2024-10-21 00:17] VITALS: BP 132/80; BP 140/70; BMI 25.9
--- NOTE | 2024-11-06 07:14 | PR.ITP_ITS ---
Exercise - Initial Assessment Visit Session Number:: 22 Physician Prescribed Exercise Modalities: Treadmill, [employer] Airdyne AD-7 and [employer] Stepper Current METSs:: 2.7 Target HR:: 115 (86-115) Current RPD:: 2 Maximum Exercise HR:: 105 Resting Blood Pressure: 118/64 Maximum Exercise Blood Pressure: 140/70 Minimum SpO2 with exercise: 90 (0-3 L with exercise) EKG Type: NSR to ST with rare ectopy Nutrition/Wt Mgmt - Initial Visit Session Number:: 22 Weight Management Admit Height:: 5 ft 11 in Admit Weight:: 185 lb 14.4 oz Admit BMI:: 25.9 Nutrition/Wt Mgmt - 30-Day Visit Date of Eval: 11/06/24 Session Number:: 22 Weight Management Height: 5 ft 11 in Weight:: 185 lb 14.4 oz BMI: 25.9 Nutrition/Wt Mgmt - 60-Day Visit Session Number:: 22 Weight Management Height: 5 ft 11 in Weight:: 185 lb 14.4 oz BMI: 25.9 Weight Goals Progress:: Goal met (Pt is at a healthy weight.) Nutrition/Wt Mgmt - 90-Day Visit Date of Eval: 11/06/24 Session Number:: 22 Weight Management Height: 5 ft 11 in Weight:: 185 lb 14.4 oz BMI: 25.9 Weight Goals Progress:: Goal met (Pt is at a healthy weight.) Nutrition/Wt Mgmt - Final Visit Session Number:: 22 Weight Management Height: 5 ft 11 in Weight:: 185 lb 14.4 oz BMI: 25.9 Psychosocial - Initial Assess Visit Session Number:: 22 Problems/Goals History of Emotional Disorders: Anxious (Due to breathing) Psychosocial Goals: 1. Patient is free from overwhelming symtoms of depression (or anxiety, 2. Identifies personal stressors & states the strategies for managing, 3. Identifies activities to decrease isolation and/or symptoms of, 4. Improved psychosocial coping skills., 5. Verbalizes coping strategies., 6. Adequate treatment of depression. and 7. Improved Q.O.L. Self-reported stressors: Recent Illness Psychosocial Test Tool Used:: Pulmonary QOL and PHQ-9 Questionnaire PHQ-9 Score: 12 Referral to Behavioral Health PS - Interventions: Yes: Attend Stress Management Classes Intervention/Plan: See List Interventions/Plan:: Assess stressors,coping strategies & signs of derpression on admission, Instruct/assist pt to develop coping & personal stress Mgt strategies, Refer to Behavioral Health if appropriate, Refer to Physician if appropriate, Instruct patient to recognize signs & symptoms of depression, Instruct patient to recog and Other additional plan/intervention Comments:: Pt appears to be doing well at this time. Pt attended stress management class. Psychosocial - 30-Day Visit Date of Eval: 11/06/24 Session Number:: 22 Problems/Goals History of Emotional Disorders: Anxious (Due to breathing) Psychosocial Goals: 1. Patient is free from overwhelming symtoms of depression (or anxiety, 2. Identifies personal stressors & states the strategies for managing, 3. Identifies activities to decrease isolation and/or symptoms of, 4. Improved psychosocial coping skills., 5. Verbalizes coping strategies., 6. Adequate treatment of depression. and 7. Improved Q.O.L. Self-reported stressors: Recent Illness Psychosocial Test Tool Used:: Pulmonary QOL and PHQ-9 Questionnaire PHQ-9 Score: 12 Referral to Behavioral Health PS - Interventions: Yes: Attend Stress Management Classes Plan Interventions/Plan:: Assess stressors,coping strategies & signs of derpression on admission, Instruct/assist pt to develop coping & personal stress Mgt strategies, Refer to Behavioral Health if appropriate, Refer to Physician if appropriate, Instruct patient to recognize signs & symptoms of depression, Instruct patient to recog and Other additional plan/intervention Comments:: Pt appears to be doing well at this time. Pt attended stress management class. Psychosocial - 60-Day Visit Session Number:: 22 Problems/Goals History of Emotional Disorders: Anxious (Due to breathing) Psychosocial Goals: 1. Patient is free from overwhelming symtoms of depression (or anxiety, 2. Identifies personal stressors & states the strategies for managing, 3. Identifies activities to decrease isolation and/or symptoms of, 4. Improved psychosocial coping skills., 5. Verbalizes coping strategies., 6. Adeq uate treatment of depression. and 7. Improved Q.O.L. Self-reported stressors: Recent Illness Psychosocial Test Tool Used:: Pulmonary QOL and PHQ-9 Questionnaire PHQ-9 Score: 12 Referral to Behavioral Health PS - Interventions: Yes: Attend Stress Management Classes Plan Interventions/Plan:: Assess stressors,coping strategies & signs of derpression on admission, Instruct/assist pt to develop coping & personal stress Mgt strategies, Refer to Behavioral Health if appropriate, Refer to Physician if appropriate, Instruct patient to recognize signs & symptoms of depression, Instruct patient to recog and Other additional plan/intervention Comments:: Pt appears to be doing well at this time. Pt attended stress management class. Psychosocial - 90-Day Visit Date of Eval: 11/06/24 Session Number:: 22 Problems/Goals History of Emotional Disorders: Anxious (Due to breathing) Psychosocial Goals: 1. Patient is free from overwhelming symtoms of depression (or anxiety, 2. Identifies personal stressors & states the strategies for managing, 3. Identifies activities to decrease isolation and/or symptoms of, 4. Improved psychosocial coping skills., 5. Verbalizes coping strategies., 6. Adequate treatment of depression. and 7. Improved Q.O.L. Self-reported stressors: Recent Illness Psychosocial Test Tool Used:: Pulmonary QOL and PHQ-9 Questionnaire PHQ-9 Score: 12 Referral to Behavioral Health PS - Interventions: Yes: Attend Stress Management Classes Plan Interventions/Plan:: Assess stressors,coping strategies & signs of derpression on admission, Instruct/assist pt to develop coping & personal stress Mgt strat egies, Refer to Behavioral Health if appropriate, Refer to Physician if appropriate, Instruct patient to recognize signs & symptoms of depression, Instruct patient to recog and Other additional plan/intervention Comments:: Pt appears to be doing well at this time. Pt attended stress management class. Psychosocial - Final Assess Visit Session Number:: 22 Problems/Goals History of Emotional Disorders: Anxious (Due to breathing) Psychosocial Goals: 1. Patient is free from overwhelming symtoms of depression (or anxiety, 2. Identifies personal stressors & states the strategies for managing, 3. Identifies activities to decrease isolation and/or symptoms of, 4. Improved psychosocial coping skills., 5. Verbalizes coping strategies., 6. Adequate treatment of depression. and 7. Improved Q.O.L. Self-reported stressors: Recent Illness Psychosocial Test Tool Used:: Pulmonary QOL and PHQ-9 Questionnaire PHQ-9 Score: 12 Referral to Behavioral Health PS - Interventions: Yes: Attend Stress Management Classes Plan Interventions/Plan:: Assess stressors,coping strategies & signs of derpression on admission, Instruct/assist pt to develop coping & personal stress Mgt strategies, Refer to Behavioral Health if appropriate, Refer to Physician if appropriate, Instruct patient to recognize signs & symptoms of depression, Instruct patient to recog and Other additional plan/intervention Comments:: Pt appears to be doing well at this time. Pt attended stress management class. Oxygen & Oxygen Titration Init Visit Session Number:: 22 Initial Assessment SpO2:: 90 (0-3 L with exercise) Oxygen & Oxygen Titration 30D Visit Date of Eval: 11/06/24 Session Number:: 22 Reassessment SpO2:: 90 (0-3 L with exercise) Oxygen & Oxygen Titration 60D Visit Date of Eval: 11/06/24 Session Number:: 22 Reassessment SpO2:: 90 (0-3 L with exercise) Oxygen & Oxygen Titration 90D Visit Date of Eval: 11/06/24 Session Number:: 22 Reassessment Oxygen & Oxygen Titration 90 days: Oxygen w/activity SpO2:: 90 (0-3 L with exercise) Oxygen & Oxygen Titration SHERI Visit Date of Eval: 11/06/24 Session Number:: 22 Reassessment SpO2:: 90 (0-3 L with exercise) Core Components - Initial Visit Session Number:: 22 Hypertension BP: 118/64 [employer] Hypertension Guidelines Blood Pressure: 140/70 Outcomes/Goals: Able to verbalize/achieve optimal blood pressure <130/80, Incorporates diet changes & exercise for blood pressure control by DC and Other additional outcomes/goals Core Components - 30 DAYS Visit Date of Eval: 11/06/24 Session Number:: 22 Hypertension Resting Blood Pressure:: 118/64 [employer] Hypertension Guidelines Peak Exercise Blood Pressure:: 140/70 Outcomes/Goals: Able to verbalize/achieve optimal blood pressure <130/80, Incorporates diet changes & exercise for blood pressure control by DC and Other additional outcomes/goals Interventions/plan: Instruct on optimal blood pressure, hypertension & medications, Instruct on effects of sodium, alcohol, stress, exercise &hypertension and Other additional plan/interventions 30 day Reassessments:: Met (Pt's BP's are within AHA normal limits on most days.) Core Components - 60 DAYS Visit Session Number:: 22 Hypertension Resting Blood Pressure:: 118/64 [employer] Hypertension Guidelines Peak Exercise Blood Pressure:: 140/70 Outcomes/Goals: Able to verbalize/achieve optimal blood pressure <130/80, Incorporates diet changes & exercise for blood pressure control by DC and Other additional outcomes/goals Interventions/plan: Instruct on optimal blood pressure, hypertension & medications, Instruct on effects of sodium, alcohol, stress, exercise &hypertension and Other additional plan/interventions 60 day Reassessments:: Met (Pt's BP's are within AHA normal limits on most days.) Core Components - 90 DAYS Visit Date of Eval: 11/06/24 Session Number:: 22 Hypertension Resting Blood Pressure:: 118/64 [employer] Hypertension Guidelines Peak Exercise Blood Pressure:: 140/70 Outcomes/Goals: Able to verbalize/achieve optimal blood pressure <130/80, Incorporates diet changes & exercise for blood pressure control by DC and Other additional outcomes/goals Interventions/plan: Instruct on optimal blood pressure, hypertension & medications, Instruct on effects of sodium, alcohol, stress, exercise &hypertension and Other additional plan/interventions 90 day Reassessments:: Met (Pt's BP's are within AHA normal limits on most days.) Core Components - Final Visit Session Number:: 22 Hypertension Resting Blood Pressure:: 118/64 [employer] Hypertension Guidelines Peak Exercise Blood Pressure:: 140/70 Outcomes/Goals: Able to verbalize/achieve optimal blood pressure <130/80, Incorporates diet changes & exercise for blood pressure control by DC and Other additional outcomes/goals Patient Health Questionnaire PHQ-9 Screening 90-Day Re-eval Assessment: 1. Little interest or pleasure in doing things: Several days 2. Feeling down, depressed, or hopeless: Nearly every day 3. Trouble falling or staying asleep, or sleeping too much: More than half the days 4. Feeling tired or having little energy: Nearly every day 5. Poor appetite or overeating: More than half the days 6. Feeling bad about yourself -- or that you are a failure or have let yourself or your family down: Several days 7. Trouble concentrating on things, such as reading the newspaper or watching television: Not at all 8. Moving or speaking so slowly that other people could have noticed. Or the opposite - being so fidgety or restless that you have been moving around a lot more than usual: Not at all 9. Thoughts that you would be better off , or of hurting yourself in some way: Not at all How difficult have these problems made it for you to do your work, take care of things at home, or get along with other people?: Very difficult Total Score: 12 Knowledge Questionaire (BCKQ) Information Information: [employer] COPD Knowledge Questionnaire (BCKQ) This questionnaire is designed to find out what you know about your lung problem. It should be completed without help form anyone else. This usually takes between 10 and 20 minutes. Your answers will help us to find out what information you need to help you to understand and manage your lung condition. [employer] the pilot station which you think is the correct answer. Self-Efficacy 6-Item Scale 90-Day Re-eval Assessment: We would like to know how confident you are in doing certain activities. Please select your confidence level for: Fatigue Select Number: 1 Physical Discomfort or Pain Select Number: 1 Emotional Distress Select Number: 6 Other Symptoms or Health Problems Select Number: 4 Different Tasks and Activities Select Number: 1 Medication Select Number: 1 Total Score:: 2 Nutrition Survey Nutrition Survey Instructions Scoring Instructions
[2024-11-06 07:25] VITALS: BP 118/64; BP 140/70; O2SAT 90; BMI 25.9
== END 2024-11-19 23:59 ==
LOC: PR 13:00
PROVIDERS: PCP Family Medicine; Referring Provider Internal Medicine Pulmonary Disease; Visit Provider Internal Medicine Pulmonary Disease
DX: J44.9 Chronic obstructive pulmonary disease, unspecified (principal); J43.2 Centrilobular emphysema
CPT/HCPCS: 97150; 94626

== ENCOUNTER 2024-12-17 13:00 | Outpatient (RCR) | payer OTHER, SELFPAY ==
[2024-11-06 07:25] VITALS: BMI 25.9
[2024-11-20 00:09] VITALS: BP 118/64; BP 140/70; BMI 25.9
--- NOTE | 2024-12-05 10:46 | PR.ITP_ITS ---
Exercise - Initial Assessment Visit Session Number:: 32 Physician Prescribed Exercise Modalities: Treadmill, [employer]inn Airdyne AD-7 and [employer] Stepper Current METSs:: 3 Resting Blood Pressure: 138/66 Maximum Exercise Blood Pressure: 146/78 Minimum SpO2 with exercise: 88 EKG Type: NSR to ST with rare PVC's Nutrition/Wt Mgmt - Initial Visit Session Number:: 32 Weight Management Admit Height:: 5 ft 11 in Admit Weight:: 185 lb 14.4 oz Admit BMI:: 25.9 Nutrition/Wt Mgmt - 30-Day Visit Date of Eval: 12/05/24 Session Number:: 32 Weight Management Height: 5 ft 11 in Weight:: 185 lb 14.4 oz BMI: 25.9 Nutrition/Wt Mgmt - 60-Day Visit Session Number:: 32 Weight Management Height: 5 ft 11 in Weight:: 185 lb 14.4 oz BMI: 25.9 Nutrition/Wt Mgmt - 90-Day Visit Session Number:: 32 Weight Management Height: 5 ft 11 in Weight:: 185 lb 14.4 oz BMI: 25.9 Nutrition/Wt Mgmt - Final Visit Date of Eval: 12/05/24 Session Number:: 32 Weight Management Height: 5 ft 11 in Weight:: 185 lb 14.4 oz BMI: 25.9 Weight Goals Progress:: Goal met (Pt is at a healthy weight) Psychosocial - Initial Assess Visit Session Number:: 32 Problems/Goals History of Emotional Disorders: Anxious (due to his breathing) Psychosocial Goals: 1. Patient is free from overwhelming symtoms of depression (or anxiety, 2. Identifies personal stressors & states the strategies for managing, 3. Identifies activities to decrease isolation and/or symptoms of, 4. Improved psychosocial coping skills., 5. Verbalizes coping strategies., 6. Adequate treatment of depression. and 7. Improved Q.O.L. Self-reported stressors: Recent Illness Psychosocial Test Tool Used:: PHQ-9 Questionnaire Pulmonary QOL Score: 12 Referral to Behavioral Health PS - Interventions: Yes: Attend Stress Management Classes Intervention/Plan: See List Interventions/Plan:: Assess stressors,coping strategies & signs of derpression on admission, Instruct/assist pt to develop coping & personal stress Mgt strategies, Refer to Behavioral Health if appropriate, Refer to Physician if appropriate, Instruct patient to recognize signs & symptoms of depression and Instruct patient to recog Comments:: Pt has attended stress management class and is doing well. Psychosocial - 30-Day Visit Date of Eval: 12/05/24 Session Number:: 32 Problems/Goals History of Emotional Disorders: Anxious (due to his breathing) Psychosocial Goals: 1. Patient is free from overwhelming symtoms of depression (or anxiety, 2. Identifies personal stressors & states the strategies for managing, 3. Identifies activities to decrease isolation and/or symptoms of, 4. Improved psychosocial coping skills., 5. Verbalizes coping strategies., 6. Adequate treatment of depression. and 7. Improved Q.O.L. Self-reported stressors: Recent Illness Psychosocial Test Tool Used:: PHQ-9 Questionnaire Pulmonary QOL Score: 12 Referral to Behavioral Health PS - Interventions: Yes: Attend Stress Management Classes Plan Interventions/Plan:: Assess stressors,coping strategies & signs of derpression on admission, Instruct/assist pt to develop coping & personal stress Mgt strategies, Refer to Behavioral Health if appropriate, Refer to Physician if appropriate, Instruct patient to recognize signs & symptoms of depression and Instruct patient to recog Comments:: Pt has attended stress management class and is doing well. Psychosocial - 60-Day Visit Session Number:: 32 Problems/Goals History of Emotional Disorders: Anxious (due to his breathing) Psychosocial Goals: 1. Patient is free from overwhelming symtoms of depression (or anxiety, 2. Identifies personal stressors & states the strategies for managing, 3. Identifies activities to decrease isolation and/or symptoms of, 4. Improved psychosocial coping skills., 5. Verbalizes coping strategies., 6. Adequate treatment of depression. and 7. Improved Q.O.L. Self-reported stressors: Recent Illness Psychosocial Test Tool Used:: PHQ-9 Questionnaire Pulmonary QOL Score: 12 Referral to Behavioral Health PS - Interventions: Yes: Attend Stress Management Classes Plan Interventions/Plan:: Assess stressors,coping strategies & signs of derpression on admission, Instruct/assist pt to develop coping & personal stress Mgt strategies, Refer to Behavioral Health if appropriate, Refer to Physician if appropriate, Instruct patient to recognize signs & symptoms of depression and Instruct patient to recog Comments:: Pt has attended stress management class and is doing well. Psychosocial - 90-Day Visit Session Number:: 32 Problems/Goals History of Emotional Disorders: Anxious (due to his breathing) Psychosocial Goals: 1. Patient is free from overwhelming symtoms of depression (or anxiety, 2. Identifies personal stressors & states the strategies for managing, 3. Identifies activities to decrease isolation and/or symptoms of, 4. Improved psychosocial coping skills., 5. Verbalizes coping strategies., 6. Adequate treatment of depression. and 7. Improved Q.O.L. Self-reported stressors: Recent Illness Psychosocial Test Tool Used:: PHQ-9 Questionnaire Pulmonary QOL Score: 12 Referral to Behavioral Health PS - Interventions: Yes: Attend Stress Management Classes Plan Interventions/Plan:: Assess stressors,coping strategies & signs of derpression on admission, Instruct/assist pt to develop coping & personal stress Mgt strategies, Refer to Behavioral Health if appropriate, Refer to Physician if appropriate, Instruct patient to recognize signs & symptoms of depression and Instruct patient to recog Comments:: Pt has attended stress management class and is doing well. Psychosocial - Final Assess Visit Date of Eval: 12/05/24 Session Number:: 32 Problems/Goals History of Emotional Disorders: Anxious (due to his breathing) Psychosocial Goals: 1. Patient is free from overwhelming symtoms of depression (or anxiety, 2. Identifies personal stressors & states the strategies for managing, 3. Identifies activities to decrease isolation and/or symptoms of, 4. Improved psychosocial coping skills., 5. Verbalizes coping strategies., 6. Adequate treatment of depression. and 7. Improved Q.O.L. Self-reported stressors: Recent Illness Psychosocial Test Tool Used:: PHQ-9 Questionnaire Pulmonary QOL Score: 12 Referral to Behavioral Health PS - Interventions: Yes: Attend Stress Management Classes Plan Interventions/Plan:: Assess stressors,coping strategies & signs of derpression on admission, Instruct/assist pt to develop coping & personal stress Mgt strategies, Refer to Behavioral Health if appropriate, Refer to Physician if appropriate, Instruct patient to recognize signs & symptoms of depression and Instruct patient to recog Comments:: Pt has attended stress management class and is doing well. Oxygen & Oxygen Titration Init Visit Session Number:: 32 Initial Assessment SpO2:: 88 Oxygen & Oxygen Titration 30D Visit Date of Eval: 12/05/24 Session Number:: 32 Reassessment SpO2:: 88 Oxygen & Oxygen Titration 60D Visit Date of Eval: 12/05/24 Session Number:: 32 Reassessment SpO2:: 88 Oxygen & Oxygen Titration 90D Visit Date of Eval: 12/05/24 Session Number:: 32 Reassessment SpO2:: 88 Oxygen & Oxygen Titration SHERI Visit Date of Eval: 12/05/24 Session Number:: 32 Reassessment Oxygen & Oxygen Titration Final: Oxygen w/activity (0-3 L with exercise.) SpO2:: 88 Core Components - Initial Visit Session Number:: 32 Hypertension BP: 138/66 [employer] [employer] Hypertension Guidelines Blood Pressure: 146/78 Outcomes/Goals: Able to verbalize/achieve optimal blood pressure <130/80, Incorporates diet changes & exercise for blood pressure control by DC and Other additional outcomes/goals Tobacco - Initial Assessment Tobacco Program Goals Stages of Change:: Maintenance Do you have family support?: Yes Tobacco Use: Non-smoker Diabetes Diabetes:: No Core Components - 30 DAYS Visit Date of Eval: 12/05/24 Session Number:: 32 Hypertension Resting Blood Pressure:: 138/66 [employer] [employer] Hypertension Guidelines Peak Exercise Blood Pressure:: 146/78 Outcomes/Goals: Able to verbalize/achieve optimal blood pressure <130/80, Incorporates diet changes & exercise for blood pressure control by DC and Other additional outcomes/goals Tobacco - 30-Day Tobacco Program Goals Stages of Change:: Maintenance Do you have family support?: Yes Tobacco Use: Non-smoker Exacerbation Mgmt & Airway Clearance Bronchial Hygiene Plan: Yes: Pt demonstrates correctly for effective cough, Yes: Pt demo correct for CPT, Yes: Pt demo correct for device, Yes: Pt demo correct for NS nasal spray, Yes: Pt demo correct for sputum management, Yes: Pt demo correct for improved hydration, Yes: Pt demo correct for hand hygiene, Yes: Pt demo correct for evalute sputum, Yes: Pt demo correct for verbalize when to call MD and Yes: Pt demo correct for cleaning of respiratory equipment Medication Medication reassessment: Yes: Pt demonstrates correct technique timing for MDI, Yes: Pt demonstrates correct technique timing for DPI, Yes: Pt demonstrates correct technique timing for NEB and Yes: Pt demonstrates correct technique timing for spacer Diabetes Diabetes:: No Core Components - 60 DAYS Visit Session Number:: 32 Hypertension Resting Blood Pressure:: 138/66 [employer] [employer] Hypertension Guidelines Peak Exercise Blood Pressure:: 146/78 Outcomes/Goals: Able to verbalize/achieve optimal blood pressure <130/80, Incorporates diet changes & exercise for blood pressure control by DC and Other additional outcomes/goals Tobacco - 60-Day Tobacco Program Goals Stages of Change:: Maintenance Do you have family support?: Yes Tobacco Use: Non-smoker Exacerbation Mgmt & Airway Clearance Bronchial Hygiene Plan: Yes: Pt demonstrates correctly for effective cough, Yes: Pt demo correct for CPT, Yes: Pt demo correct for device, Yes: Pt demo correct for NS nasal spray, Yes: Pt demo correct for sputum management, Yes: Pt demo correct for improved hydration, Yes: Pt demo correct for hand hygiene, Yes: Pt demo correct for evalute sputum, Yes: Pt demo correct for verbalize when to call MD and Yes: Pt demo correct for cleaning of respiratory equipment Medication Medication reassessment: Yes: Pt demonstrates correct technique timing for MDI, Yes: Pt demonstrates correct technique timing for DPI, Yes: Pt demonstrates correct technique timing for NEB and Yes: Pt demonstrates correct technique timing for spacer Diabetes Diabetes:: No Core Components - 90 DAYS Visit Session Number:: 32 Hypertension Resting Blood Pressure:: 138/66 [employer] [employer] Hypertension Guidelines Peak Exercise Blood Pressure:: 146/78 Outcomes/Goals: Able to verbalize/achieve optimal blood pressure <130/80, Incorporates diet changes & exercise for blood pressure control by DC and Other additional outcomes/goals Tobacco - 90-Day Tobacco Program Goals Stages of Change:: Maintenance Do you have family support?: Yes Tobacco Use: Non-smoker Exacerbation Mgmt & Airway Clearance Bronchial Hygiene Plan: Yes: Pt demonstrates correctly for effective cough, Yes: Pt demo correct for CPT, Yes: Pt demo correct for device, Yes: Pt demo correct for NS nasal spray, Yes: Pt demo correct for sputum management, Yes: Pt demo correct for improved hydration, Yes: Pt demo correct for hand hygiene, Yes: Pt demo correct for evalute sputum, Yes: Pt demo correct for verbalize when to call MD and Yes: Pt demo correct for cleaning of respiratory equipment Medication Medication reassessment: Yes: Pt demonstrates correct technique timing for MDI, Yes: Pt demonstrates correct technique timing for DPI, Yes: Pt demonstrates correct technique timing for NEB and Yes: Pt demonstrates correct technique timing for spacer Diabetes Diabetes:: No Core Components - Final Visit Date of Eval: 12/05/24 Session Number:: 32 Hypertension Resting Blood Pressure:: 138/66 [employer] [employer] Hypertension Guidelines Peak Exercise Blood Pressure:: 146/78 Outcomes/Goals: Able to verbalize/achieve optimal blood pressure <130/80, Incorporates diet changes & exercise for blood pressure control by DC and Other additional outcomes/goals Tobacco - Final Tobacco Program Goals Stages of Change:: Maintenance Do you have family support?: Yes Tobacco Use: Non-smoker Exacerbation Mgmt & Airway Clearance Bronchial Hygiene Plan: Yes: Pt demonstrates correctly for effective cough, Yes: Pt demo correct for CPT, Yes: Pt demo correct for device, Yes: Pt demo correct for NS nasal spray, Yes: Pt demo correct for sputum management, Yes: Pt demo correct for improved hydration, Yes: Pt demo correct for hand hygiene, Yes: Pt demo correct for evalute sputum, Yes: Pt demo correct for verbalize when to call MD and Yes: Pt demo correct for cleaning of respiratory equipment Medication Medication list reviewed:: Yes Taking medications 100% of the time:: Met (Pt taking meds as prescribed.) Medication reassessment: Yes: Pt demonstrates correct technique timing for MDI, Yes: Pt demonstrates correct technique timing for DPI, Yes: Pt demonstrates correct technique timing for NEB and Yes: Pt demonstrates correct technique timing for spacer Diabetes Diabetes:: No Patient Health Questionnaire PHQ-9 Screening Discharge Assessment: 1. Little interest or pleasure in doing things: Several days 2. Feeling down, depressed, or hopeless: Nearly every day 3. Trouble falling or staying asleep, or sleeping too much: More than half the days 4. Feeling tired or having little energy: Nearly every day 5. Poor appetite or overeating: More than half the days 6. Feeling bad about yourself -- or that you are a failure or have let yourself or your family down: Several days 7. Trouble concentrating on things, such as reading the newspaper or watching television: Not at all 8. Moving or speaking so slowly that other people could have noticed. Or the opposite - being so fidgety or restless that you have been moving around a lot more than usual: Not at all 9. Thoughts that you would be better off , or of hurting yourself in some way: Not at all Total Score: 12 Knowledge Questionaire (BCKQ) Information Information: [place] COPD Knowledge Questionnaire (BCKQ) This questionnaire is designed to find out what you know about your lung problem. It should be completed without help form anyone else. This usually takes between 10 and 20 minutes. Your answers will help us to find out what information you need to help you to understand and manage your lung condition. [employer] [place] which you think is the correct answer. Self-Efficacy 6-Item Scale Discharge Assessment: We would like to know how confident you are in doing certain activities. Please select your confidence level for: Fatigue Select Number: 1 Physical Discomfort or Pain Select Number: 1 Emotional Distress Select Number: 6 Other Symptoms or Health Problems Select Number: 4 Different Tasks and Activities Select Number: 1 Medication Select Number: 1 Total Score:: 2 Nutrition Survey Nutrition Survey Instructions Scoring Instructions
[2024-12-05 10:56] VITALS: BP 138/66; O2SAT 88; BMI 25.9
[2024-12-05 11:33] VITALS: BP 138/66; BP 146/78
== END 2024-12-20 23:59 ==
LOC: PR 13:00
PROVIDERS: PCP Family Medicine; Referring Provider Internal Medicine Pulmonary Disease; Visit Provider Internal Medicine Pulmonary Disease
DX: J44.9 Chronic obstructive pulmonary disease, unspecified (principal); J43.2 Centrilobular emphysema
CPT/HCPCS: 97150; 94626

== ENCOUNTER 2025-02-10 13:50 | Outpatient (CLI) | payer OTHER, SELFPAY ==
[2024-12-05 10:56] VITALS: BMI 25.9
--- NOTE | 2025-02-10 13:52 | ECHOD_ITS ---
Reason For Study Reason For Study: Chronic Ischemic Heart Disease Procedure This was a 2D Doppler, Color Flow transthoracic echocardiogram. Exam performed in department. Left Ventricle Normal LV size. The left ventricular ejection fraction is 65 %. Stage 1 diastolic dysfunction. No regional wall motion abnormalities noted. Right Ventricle Normal RV size. Normal systolic function. Atria Normal left atrium. Normal right atrium. Mitral Valve Normal mitral valve. Tricuspid Valve Normal tricuspid valve. Mild eccentric tricuspid valve insufficiency. Pulmonary artery systolic pressure is 25 mmHg. Aortic Valve Normal aortic valve. Pulmonic Valve Normal pulmonic valve. Great Vessels Normal aortic root. The pulmonary artery is normal size. Inferior vena cava collapse with respiration. Pericardium/Pleural No pericardial effusion. MMode/2D Measurements & Calculations LVIDd: 3.8 cm IVSd: 1.1 cm Ao root diam: 2.7 cm LVIDs: 2.7 cm LVPWd: 1.2 cm RVDd: 3.7 cm FS: 29.6 % LAV(MOD-bp): 28.7 ml LVAd ap4: 24.8 cm2 SV(MOD-sp4): 43.7 ml LAV(MOD-bp) Indexed: 14.2 ml/m2 LVLd ap4: 7.8 cm SI(MOD-sp4): 21.6 ml/m2 LAV(MOD-sp2): 44.2 ml EDV(MOD-sp4): 66.9 ml LAV(MOD-sp4): 17.5 ml EDV(sp4-el): 66.8 ml LVAs ap4: 13.4 cm2 LVLs ap4: 6.7 cm ESV(MOD-sp4): 23.2 ml ESV(sp4-el): 22.8 ml EF(MOD-sp4): 65.3 % EF(sp4-el): 65.9 % SV(sp4-el): 44.0 ml LA A4 area: 10.7 cm2 RA A4 area: 13.2 cm2 TAPSE: 2.2 cm Time Measurements MV dec time: 0.20 sec Doppler Measurements & Calculations MV E max reese: 66.6 cm/sec Lat Peak E' Reese: 9.3 cm/sec Med Peak E' Reese: 8.0 cm/sec MV A max reese: 84.2 cm/sec E/E' lat: 7.1 E/E' med: 8.3 MV E/A: 0.79 MV dec slope: 332.5 cm/sec2 Ao V2 max: 129.9 cm/sec LV V1 max: 100.1 cm/sec Ao max P.7 mmHg LV V1 max P.0 mmHg Ao V2 mean: 87.1 cm/sec LV V1 mean P.4 mmHg Ao mean P.5 mmHg LV V1 mean: 74.2 cm/sec Ao V2 VTI: 28.5 cm LV V1 VTI: 22.4 cm AV (velocity ratio): 0.79 PA V2 max: 67.9 cm/sec TR max reese: 238.3 cm/sec TR max P.7 mmHg ECHO/Echo Complete Interpretation Summary Normal LV size. The left ventricular ejection fraction is 65 %. Stage 1 diastolic dysfunction. Structurally normal valves. Ordering Physician: Hugo Torres Referring Physician: Alexander Perales Performed By: Theresa Morrison RVT, RDCS and Student
== END 2025-02-10 23:59 | disposition home or self-care (01) ==
PROVIDERS: PCP Family Medicine; Referring Provider Chiropractor; Visit Provider Chiropractor
DX: I25.9 Chronic ischemic heart disease, unspecified (principal)
CPT/HCPCS: 93306

== ENCOUNTER → 2025-07-15 | Outpatient (CLI) | payer OTHER, SELFPAY ==
[2024-12-05 10:56] VITALS: BMI 25.9
--- OUTSIDE RECORDS SUMMARY | 2025-07-15 13:26 | XMS RPT_ITS | CCD ---
Author Organization [facility] CliniSynh Care Team Providers Care Day Care Provider Name Role Phone Asa Hernandez MD Unavailable Lamont Pereira DO Primary Care Provider Alexander Perales MD Primary Care Provider [phone] Dr. Alexander Perales Primary Care Provider Dr. Alexander Perales Referring Provider Dr. Alexander Perales Other Provider Dr. Alexander Del Toro Attending Provider Asa Hernandez MD Unavailable Alexander Perales MD Primary Care Provider Dr. Alexander Perales Primary Care Provider Dr. Alexander Perales Referring Provider Ruthann KNIFE GRINDER, KNIFE GRINDER-C Bambi Attending Provider Alexander Perales MD Primary Care Provider Alexander Perales MD Primary Care Provider Dr. Alexander Perales MD Primary Care Provider Ayden KNIFE GRINDER-C, Blanca Attending Provider Ayden KNIFE GRINDER-C, Blanca Referring Provider Dr. Fabien Mas MD, V Attending Provider Dr. Fabien Mas MD, V Referring Provider Dr. Alexander Perales MD Primary Care Provider Dr. Fabien Mas MD, V Attending Provider Dr. Fabien Mas MD, V Referring Provider Asa Hernandez MD Unavailable Unava ilable Diaz AYALA, Alexander Huitron Primary Care Provider DELMYA, DARBY R Referring Unavailable PERALES, ALEXANDER R Primary Care Unavailable GILDEA, DARBY R Referring Unavailable PERALES, ALEXANDER R Primary Care Unavailable GILDEA, DARBY R Referring Unavailable PERALES, ALEXANDER R Primary Care Unavailable GILDEA, DARBY R Attending Unavailable GILDEA, DARBY R Referring Unavailable PERALES, ALEXANDER R Primary Care Unavailable LEXI, TOSHA Attending Unavailable LEXI, TOSHA Referring Unavailable PERALES, ALEXANDER R Primary Care Unavailable PERALES, ALEXANDER R Primary Care Unavailable GILDEA, DARBY R Referring Unavailable GILDEA, DARBY R Referring Unavailable PERALES, ALEXANDER R Primary Care Unavailable Diaz AYALA, Dr. Munoz Primary Care Provider Tg AYALA, Dr. Fabien Nazario Attending Provider Tg AYALA, Dr. Fabien Nazario Referring Provider [phone] Melissa YATES, Dr. Arias Attending Provider Melissa YATES, Dr. Arias Referring Provider Tracy AYALA, Dr. Miller Attending Provider Tg, Fabien V Attending Unavailable Perales, Alexander Primary Care Unavailable Sibilia, Fabien V Referring Unavailable Sibilia, Fabien Nazario Attending Unavailable Perales, Alexander Primary Care Unavailable Sibilia, Fabien Nazario Referring Unavailable Sibilia, Fabien Nazario Attending Unavailable Perales, Alexander Primary Care Unavailable Sibilia, Fabien Nazario Referring Unavailable Sibilia, Fabien Nazario Attending Unavailable Perales, Alexander Primary Care Unavailable Sibilia, Fabine V Referring Unavailable Sibilia, Fabien Nazario Attending Unavailable Perales, Alexander Primary Care Unavailable Sibilia, Fabien Nazario Referring Unavailable Perales, Alexander Primary Care Unavailable Hugo Torres Attending Unavailable Hugo Torres Referring Unavailable Paul Molina Attending Unavailable Perales, Alexander Primary Care Unavailable BROOKE, Artie Attending Unavailable BROOKE, S Referring Unavailable Perales, Alexander Primary Care Unavailable Perales, Alexander Primary Care Unavailable Ayden KNIFE GRINDER, Blanca Attending Unavailable Ayden KNIFE GRINDER, Blanca Referring Unavailable Perales, Alexander Primary Care Unavailable Ayden KNIFE GRINDER, Blanca Attending Unavailable Ayden KNIFE GRINDER, Blanca Referring Unavailable Sibilia, Fabien Nazario Attending Unavailable Perales, Alexander Primary Care Unavailable Sibilia, Fabien V Referring Unavailable Fabien Mas V Attending Unavailable Alexander Perales Primary Care Unavailable Fabien Mas V Referring Unavailable Allergies Allergy Classification Reported Allergen(s) Allergy Type Date of Onset Reaction(s) Facility (20 sources) Dust; Translations: [DUST] Propensity to adverse reactions 6 Other: See Comments [facility] Medications Current Medications Medication Drug Class(es) Dates Sig (Normalized) Sig (Original) Albuterol Sulfate (20 sources) beta2-Adrenergic Agonist Start: 06-26-2014 take 1 puff(s) by inhalation every six hours as needed Albuterol Sulfate (Ventolin Hfa) 1 INHALER inhaler Active 2 PUFF INHALATION EVERY 6 HOURS NEEDED June 26, 2014 4:05pm Start: 06-26-2014 Albuterol Sulf ate (Ventolin Hfa) 1 INHALER inhaler Active 2 NMA INHALATION EVERY 6 HOURS NEEDED as needed for Sob &/Or Wheezing June 26, 2014 1:00am Start: 06-26-2014 take 1 puff(s) by in halation every six hours as needed Albuterol Sulfate (Ventolin Hfa) 1 INHALER inhaler Active 2 PUFF INHALATION EVERY 6 HOURS NEEDED June 26, 2014 12:00am Start: 06-26-2014 take 1 puff(s) by in halation every six hours as needed Albuterol Sulfate (Ventolin Hfa) 1 INHALER inhaler Active 2 PUFF INHALATION EVERY 6 HOURS NEEDED June 26, 2014 1:00am albuterol HFA (P ROVENTIL HFA, VENTOLIN HFA) 90 mcg/actuation inhaler 1 or 2 inhalation(s) By mouth Every 6 Hours prn Active Comment on above: 1 or 2 inhalation(s) By mouth Every 6 Hours prn aspirin 81 mg delayed release oral tablet (20 sources) Platelet Aggregation Inhibitor, Nonsteroidal Anti-inflammatory Drug Start: 9 take 1 tablet by mouth once daily Aspirin 81 MG tablet Active 81 mg PO DAILY@0800 April 19, 2019 12:00am Comment on above: Take 1 tablet by eufemia th once daily. clopidogrel 75 mg oral tablet (15 sources) P2Y12 Platelet Inhibitor Start: 9 End: 2 take 1 tablet by mouth once daily Clopidogrel 75 MG tablet Active 75 mg PO DAILY April 19, 2019 12:00am Comment on above: Take 1 tablet by eufemia once daily. Fluticasone Propion-Salmeterol (13 sources) Corticosteroid, beta2-Adrenergic Agonist Start: 4 Fluticasone Propion-Salmeterol (Advair 100/50 Diskus) 1 PUFF inhaler Active 1 PUFF INHALATION TWICE A DAY June 26, 2014 4:05pm Start: 06-26-2014 Fluticasone Pr opion-Salmeterol (Advair 100/50 Diskus) 1 PUFF inhaler Active 1 NMA INHALATION TWICE A DAY June 26, 2014 1:00am Start: 06-26-2014 Fluticasone Pr opion-Salmeterol (Advair 100/50 Diskus) 1 PUFF inhaler Active 1 PUFF INHALATION TWICE A DAY June 26, 2014 12:00am Start: 06-26-2014 Fluticasone Pr opion-Salmeterol (Advair 100/50 Diskus) 1 PUFF inhaler Active 1 PUFF INHALATION TWICE A DAY June 26, 2014 1:00am 30 actuat fluticasone furoate 0.1 mg/actuat / umeclidinium 0.0625 mg/actuat / vilanterol 0.025 mg/actuat dry powder inhaler (20 sources) Anticholinergic, Corticosteroid, beta2-Adrenergic Agonist take 1 puff(s) by inhalation once daily uxbpnwgphvh-zbofnuuhn-bhgifbpe (TRELEGY ELLIPTA) 100-62.5-25 mcg Inhale 1 Puff as instructed once daily. Active Comment on above: Inhale 1 Puff as instructed once daily. gabapentin 100 mg oral capsule (20 sources) Anti-epileptic Agent Sta rt: 3 take 1 capsule by mouth twice daily Gabapentin 100 mg capsule Active 100 mg PO TWICE A DAY 30 0 October 29, 2022 12:00am Herpes zoster Zoster without complications take 1 capsule by mo [facility] three times daily gabapentin (NEURONTIN) 300 mg capsule Ta ke 300 mg by mouth three times daily. Active Comment on above: Take 300 mg by mouth three times daily. iv contrast (will be provided with radiology test) (6 sources) Start: 5 End: 5 inject 1 dose intravenously once iv contrast (will be provided with radiology test) Indications: History of abdominal aortic aneurysm (AAA) repair CTA ABD/PEL - No IV access, insert saline lock prior to the sedation, infusion, injection for imaging exam. Discontinue saline lock post exam. If Pt. has a central line or IVAD, may access for administration according to line specific nursing protocol. Once exam is complete flush line and de-access according to line specific nursing protocol in the CT contrast administration guidelines link. 1 each 01/19/2025 01/20/2025 Active Start: 01-19-2025 End: 01-20-2025 inject 1 dose intravenously once iv contrast (will be provided with radiology test) Indications: History of thoracic aortic aneurysm repair , Aneurysm of descending thoracic aorta without rupture CTA CHEST - No IV access, insert saline lock prior to the sedation, infusion, injection for imaging exam. Discontinue saline lock post exam. If Pt. has a central line or IVAD, may access for administration according to line specific nursing protocol. Once exam is complete flush line and de-access according to line specific nursing protocol in the CT contrast administration guidelines link. 1 each 01/19/2025 01/20/2025 Active Start: 07-02-2024 End: 07-03-2024 inject 1 dose intravenously once iv contrast (will be provided with radiology test) Indications: History of AAA (abdominal aortic aneurysm) repair , Abdominal aortic aneurysm (AAA) without rupture, unspecified part (HCC) CTA ABD/PEL - No IV access, insert [...] CT contrast administration guidelines link. 1 Each 07/02/2024 07/03/2024 Active Start: 11-17-2021 End: 11-18-2021 inject 1 dose [...] link. 1 Each 0 11/17/2021 11/18/2021 Active Comment on above: CTA ABD/PEL - No IV access, insert saline lock prior to the sedation, infusion, injection for imaging exam. Discontinue saline lock post exam. If Pt. has a central line or IVAD, may access for administration according to line specific nursing protocol. Once exam is complete flush line and de-access according to line specific nursing protocol in the CT contrast administration guidelines link. levoFLOXacin 750 mg oral tablet (13 sources) Quinolone Antimicrobial Start: 07-21-20 take 1 tablet by mouth once daily Levofloxacin 750 MG tablet Active 750 mg PO DAILY 7 July 21, 2019 1:00am predniSONE 20 mg oral tablet (13 sources) Start: 07-21-20 take 3 tablets by mouth once daily Prednisone 20 MG tablet Active 60 mg PO DAILY 15 July 21, 2019 1:00am Start: 07-21-2019 take 60 mg by mouth once daily Prednisone Active 60 MG PO DAILY July 21, 2019 12:00am tadalafil (20 sources) Phosphodiesterase 5 Inhibitor ta dalafil (CIALIS ORAL) Take by mouth. Active tadalafil (CIALI S ORAL) Take by mouth. 0 Active Comment on above: Take by mouth. valACYclovir 1000 mg oral tablet (7 sources) Herpesvirus Nucleoside Analog DNA Polymerase Inhibitor, Herpes Simplex Virus Nucleoside Analog DNA Polymerase Inhibitor, Herpes Zoster Virus Nucleoside Analog DNA Polymerase Inhibitor Start: 10-29-2022 Valacyclovir 1 gram tablet Active 1000 mg PO Q8H October 29, 2022 12:00am Herpes zoster Zoster without complications Start: 10-29-2022 take 1000 mg by mout h every eight hours Valacyclovir Active 1000 MG PO Q8H October 28, 2022 11:00pm vitamin b12 2 mg oral tablet (4 sources) Vitamin B12 Start: 06-26-2014 cyanocobalamin , vitamin B-12, 2,000 mcg tab Take by mouth. 06/26/2014 Active Problems Active Problems Problem Classification Problem Date Documented Da te Episodic/Chronic Aortic; peripheral; and visceral artery aneurysms (20 sources) Aneurysm of descending thoracic aorta; Translations: [Thoracic aortic aneurysm, without rupture] Onset: 02-21-2016 02-21-2016 Chronic Asthma (7 sources) Asthma; Translations: [Unspecified asthma, uncomplicated] 10-29-2022 Chronic Chronic obstructive pulmonary disease and bronchiectasis (20 sources) Chronic obstructive lung disease; Translations: [Chronic obstructive pulmonary disease, unspecified] Onset: 09-05-2024 06-13-2005 Chronic Chronic obstructive pulmonary disease and bronchiectasis (2 sources) Chronic obstructive pulmonary disease and bronchiectasis; Translations: [Other specified chronic obstructive pulmonary disease (HCC)] Onset: 04-22-2024 Coronary atherosclerosis and other heart disease (1 source) Chronic ischemic heart disease, unspecified; Translations: [Chronic ischemic heart disease, unspecified] Onset: 02-16-2025 Chronic Other circulatory disease (2 sources) H/O: major vascular surgery; Translations: [Presence of other vascular implants and grafts] Onset: 01-08-2019 01-08-2019 Chronic Other circulatory disease (20 sources) History of repair of aneurysm of abdominal aorta; Translations: [Presence of other vascular implants and grafts] Onset: 01-08-2019 01-08-2019 Chronic Other lower respiratory disease (4 sources) Nodule of lung; Translations: [Solitary pulmonary nodule] 03-16-2023 Episodic Residual codes; unclassified (4 sources) History of repair of aneurysm of abdominal aorta; Translations: [Other specified postprocedural states] Episodic Residual codes; unclassified (2 sources) History of repair of thoracic aortic aneurysm; Translations: [Other specified postprocedural states] Episodic Unclassified (1 source) New Patient Onset: 12-25-2024 Unclassified (1 source) Abdominal aortic aneurysm, without rupture, unspecified; Translations: [Abdominal aortic aneurysm, without rupture, unspecified] Onset: 08-22-2024 Viral infection (8 sources) Herpes zoster; Translations: [Zoster without complications] 10-29-2022 Episodic Past or Other Problems Problem Classification Problem Date Documented Date Episodic/Chronic Residual codes; unclassified (1 source) Other specified postprocedural states; Translations: [Other specified postprocedural states] Onset: 08-28-2024 Episodic Unclassified (1 source) History of repair of thoracic aortic aneurysm 01-19-2025 Results Test Name Value Interpretation Reference Range Facility Echo Completeon 02-10-2025 Echo Complete [facility] [place] [address] Echo Complete 02/10/25 1405 MR#: [id number] Acct: [id number] Name: SIMONE ARREAGA Rep #: [id number] : 1950 75 From: Paul Molina MD Attending Dr: Dr. Hugo Torres, Status: REG CLI Ordering Dr: Hugo Torres DO Date: 02/10/25 Location: [facility] Sex: M C Admitted: Reason For Study Reason For Study: Chronic Ischemic Heart Disease Procedure This was a 2D Doppler, Color Flow transthoracic echocardiogram. Exam performed in department. Left Ventricle Normal LV size. The left ventricular ejection fraction is 65 %. Stage 1 diastolic dysfunction. No regional wall motion abnormalities noted. Right Ventricle Normal RV size. Normal systolic function. Atria Normal left atrium. Normal right atrium. Mitral Valve Normal mitral valve. Tricuspid Valve Normal tricuspid valve. Mild eccentric tricuspid valve insufficiency. Pulmonary artery systolic pressure is 25 mmHg. Aortic Valve Normal aortic valve. Pulmonic Valve Normal pulmonic valve. Great Vessels Normal aortic root. The pulmonary artery is normal size. Inferior vena cava collapse with respiration. Pericardium/Pleural No pericardial effusion. MMode/2D Measurements Calculations LVIDd: 3.8 cm IVSd: 1.1 cm Ao root diam: 2.7 cm LVIDs: 2.7 cm LVPWd: 1.2 cm RVDd: 3.7 cm FS: 29.6 % LAV(MOD-bp): 28.7 ml LVAd ap4: 24.8 cm2 SV(MOD-sp4): 43.7 ml LAV(MOD-bp) Indexed: 14.2 ml/m2 LVLd ap4: 7.8 cm SI(MOD-sp4): 21.6 ml/m2 LAV(MOD-sp2): 44.2 ml EDV(MOD-sp4): 66.9 ml LAV(MOD-sp4): 17.5 ml EDV(sp4-el): 66.8 ml LVAs ap4: 13.4 cm2 LVLs ap4: 6.7 cm ESV(MOD-sp4): 23.2 ml ESV(sp4-el): 22.8 ml EF(MOD-sp4): 65.3 % EF(sp4-el): 65.9 % SV(sp4-el): 44.0 ml LA A4 area: 10.7 cm2 RA A4 area: 13.2 cm2 TAPSE: 2.2 cm Time Measurements MV dec time: 0.20 sec Doppler Measurements Calculations MV E max sher: 66.6 cm/sec Lat Peak E' Sher: 9.3 cm/sec Med Peak E' Sher: 8.0 cm/sec MV A max sher: 84.2 cm/sec E/E' lat: 7.1 E/E' med: 8.3 MV E/A: 0.79 MV dec slope: 332.5 cm/sec2 Ao V2 max: 129.9 cm/sec LV V1 max: 100.1 cm/sec Ao max P.7 mmHg LV V1 max P.0 mmHg Ao V2 mean: 87.1 cm/sec LV V1 mean P.4 mmHg Ao mean P.5 mmHg LV V1 mean: 74.2 cm/sec Ao V2 VTI: 28.5 cm LV V1 VTI: 22.4 cm AV (velocity ratio): 0.79 PA V2 max: 67.9 cm/sec TR max sher: 238.3 cm/sec TR max P.7 mmHg ECHO/Echo Complete Interpretation Summary Normal LV size. The left ventricular ejection fraction is 65 %. Stage 1 diastolic dysfunction. Structurally normal valves. Ordering Physician: Hugo Torres Referring Physician: Alexander Perales Performed By: Theresa Morrison RVT, RDCS and Student 02/10/25 1803 Date Paul Molina MD CC: Dr. Hugo Torres DO; Dr. Alexander Perales MD Date Dictated: 02/10/25 1405 Date Transcribed: 02/10/25 180 Implementation Advisor: Signed Normal [facility] Echocardiogram study reportO rdered By: Paul Molina on 02-10-2025 Study report [facility] [place] [address] Echo Complete 02/10/25 1405 MR#: [id number] Acct: [id number] Name: SIMONE ARREAGA Rep #:[id number] : 1950 75 From: Paul Stanford Attending Dr: Dr. Hugo Torres DO Status: REG CLI Ordering Dr: Hugo Torres DO Teofilo e: 02/10/25 Location: [facility] Sex: M C Admitted: Reason For Study Reason For Study: Chronic Ischemic Heart Disease Procedure This was a 2D Doppler, Color Flow transthoracic echocardiogram. Exam performed in department. Left Ventricle Normal LV size. The left ventricular ejection fraction is 65 %. Stage 1 diastolic dysfunction. No regional wall motion abnormalities noted. Right Ventricle Normal RV size. Normal systolic function. Atria Normal left atrium. Normal right atrium. Mitral Valve Normal mitral valve. Tricuspid Valve Normal tricuspid valve. Mild eccentric tricuspid valve insufficiency. Pulmonary artery systolic pressure is 25 mmHg. Aortic Valve Normal aortic valve. Pulmonic Valve Normal pulmonic valve. Great Vessels Normal aortic root. The pulmonary artery is normal size. Inferior vena cava collapse with respiration. Pericardium/Pleural No pericardial effusion. MMode/2D Measurements & Calculations LVIDd: 3.8 cm IVSd: 1.1 cm Ao root diam: 2.7 cm LVIDs: 2.7 cm LVPWd: 1.2 cm RVDd: 3.7 cm FS: 29.6 % LAV(MOD-bp): 28.7 ml LVAd ap4: 24.8 cm2 SV(MOD-sp4): 43.7 ml LAV(MOD-bp) Indexed: 14.2 ml/m2 LVLd ap4: 7.8 cm SI(MOD-sp4): 21.6 ml/m2 LAV(MOD-sp2): 44.2 ml EDV(MOD-sp4): 66.9 ml LAV(MOD-sp4): 17.5 ml EDV(sp4-el): 66.8 ml LVAs ap4: 13.4 cm2 LVLs ap4: 6.7 cm ESV(MOD-sp4): 23.2 ml ESV(sp4-el): 22.8 ml EF(MOD-sp4): 65.3 % EF(sp4-el): 65.9 % SV(sp4-el): 44.0 ml LA A4 area: 10.7 cm2 RA A4 area: 13.2 cm2 TAPSE: 2.2 cm Time Measurements MV dec time: 0.20 sec Doppler Measurements & Calculations MV E max sher: 66.6 cm/sec Lat Peak E' Sher: 9.3 cm/sec Med Peak E' Sher: 8.0 cm/sec MV A max sher: 84.2 cm/sec E/E' lat: 7.1 E/E' med: 8.3 MV E/A: 0.79 MV dec slope: 332.5 cm/sec2 Ao V2 max: 129.9 cm/sec LV V1 max: 100.1 cm/sec Ao max P.7 mmHg LV V1 max P.0 mmHg Ao V2 mean: 87.1 cm/sec LV V1 mean P.4 mmHg Ao mean P.5 mmHg LV V1 mean: 74.2 cm/sec Ao V2 VTI: 28.5 cm LV V1 VTI: 22.4 cm AV (velocity ratio): 0.79 PA V2 max: 67.9 cm/sec TR max sher: 238.3 cm/sec TR max P.7 mmHg ECHO/Echo Complete Interpretation Summary Normal LV size. The left ventricular ejection fraction is 65 %. Stage 1 diastolic dysfunction. Structurally normal valves. Ordering Physician: Hugo Torres Referring Physician: Alexander Perales Performed By: Theresa Morrison RVT, RDCS and Student 02/10/251802 Date _ Paul Molina MD CC: Dr. Hugo Torres, DO; Dr. Alexander Perales MD ~ Date Dictated: 02/10/25 1405 Date Transcribed: 02/10/251802 Implementation Advisor: Signed [facility] Work Phone: CNPNon 01-06-2025 [facility]PULMMN[facility] SIMONE ARREAGA ([id number]) 1950 M Date Time Provider Department 01/06/25 [facility] During your visit today, we recorded the following information about you: Anna Kahn 01/06/2025 10:05 AM Signed [employer] Report received and scanned in Allergies As of Date: 01/06/2025 (No Active Allergies) Date Reviewed: 12/25/2024 Reviewed by: Joseph Alex MA - Fully Assessed Reason for Visit: Outside Results [Other] Prescriptions as of 01/06/2025 - cyanocobalamin, vitamin B-12, 2,000 mcg tab Take by mouth. - gabapentin (NEURONTIN) 300 mg capsule Take 300 mg by mouth three times daily. - tadalafil (CIALIS ORAL) Take by mouth. - fluticasone-umeclidin- vilanter (TRELEGY ELLIPTA) 100-62.5-25 mcg Inhale 1 Puff as instructed once daily. - aspirin, enteric coated (ASPIR-LOW) 81 mg EC tablet Take 1 tablet by mouth once daily. 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] 11/17/2021 Encounter Status:Closed by ANNA KAHN on 01/06/25 [facility] 12-31-2024 CNPN Telephone (PULMMN) SIMONE ARREAGA ([id number]) 1950 M Date Time Provider Department 12/31/24 ANNA KAHN PULN During your visit today, we recorded the following information about you: Anna Kahn 12/31/2024 11:04 AM Signed Facesheet and insurance card faxed to [employer] at [phone] Allergies As of Date: 12/31/2024 (No Active Allergies) Date Reviewed: 12/25/2024 Reviewed by: Joseph Aelx MA - Fully Assessed Reason for Visit: Insurance Cards Faxed [Other] Prescriptions as of 12/31/2024 - cyanocobalamin, vitamin B-12, 2,000 mcg tab Take by mouth. - gabapentin (NEURONTIN) 300 mg capsule Take 300 mg by mouth three times daily. - tadalafil (CIALIS ORAL) Take by mouth. - fluticasone-umeclidin- vilanter (TRELEGY ELLIPTA) 100-62.5-25 mcg Inhale 1 Puff as instructed once daily. - aspirin, enteric coated (ASPIR-LOW) 81 mg EC tablet Take 1 tablet by mouth once daily. 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] 11/17/2021 Encounter Status:Closed by ANNA KAHN on 12/31/24 [facility] CNOVon 12-25-2024 CNOV Office Visit ([id number] ) SIMONE ARREAGA ([id number]) 1950 M Date Time Provider Department 12/25/24 10:00 AM TOSHA ELLIOTT [id number] During your visit today, we recorded the following information about you: Temperature Pulse Respiration Blood pressure 97.8 degrees 77/minute 16/minute 127/69 Weight 84.6 kg Tosha Elliott MD 01/26/2025 8:36 PM Signed INTERVENTIONAL PULMONARY MEDICINE FOLLOW UP PATIENT VISIT Patient Name: Simone Arreaga PRIMARY CARE PHYSICIAN: Alexander Perales MD CHIEF COMPLAINT: BLVR assessment HISTORY OF PRESENT ILLNESS: Mr. Arreaga presents for evaluation of COPD/emphysema to consider bronchoscopic lung volume reduction. Has known aortic vascular disease, including a thoracic aortic aneurysm and a history of endovascular repair of an abdominal aortic aneurysm in 2019. Reports progressive dyspnea on exertion as his primary concern, limiting his daily activities significantly. Wants to be able to get back to golfing. Reports daily production of small amounts of sputum - mostly at night. Has difficulty taking a deep breath in and notices chest tightness with activity. No chest pain/pressure at rest. He completed 36 sessions of pulm rehab. He has not noticed a significant change since completing rehab. However, his spouse mentioned that she has noticed a considerable improvement and thinks he is able to walk for longer distances without having to stop and while he still has to stop frequently, does not seem to be as often. Per previously documentation; has a history of traumatic lung injury approximately 50 years ago, presumed to be a pneumothorax (PTX) that resolved spontaneously without surgical intervention. He has no history of nicotine use beyond quitting smoking in 2003. He smoked 1.5 packs per day for 35 years, resulting in a smoking history of >20 pack-years. He denies recent COPD exacerbations or hospital admissions. He denies any history of mechanical ventilation or chronic prednisone use. Uses 2L nasal cannula (NC) oxygen at night, started 2023 He denies fevers, chills, night sweats, weight loss, exertional chest pain, or palpitations. 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 He does report possible exposure to Agent [employer] during service in [facility]. PMHx/PSHx: PAST MEDICAL HISTORY Diagnosis Date AAA (abdominal aortic aneurysm) Acute maxillary sinusitis Acute upper respiratory infection of multiple sites Aneurysm of thoracic aorta proximal,focal, descending stable 01/15/15 Chronic airway obstruction, not elsewhere classified COPD (chronic obstructive pulmonary disease) (HCC) Displacement of lumbar intervertebral disc without myelopathy Dysfunction of eustachian tube Emphysema lung (HCC) History of repair of aneurysm of abdominal aorta using endovascular stent graft 11/18/2018 at [facility] by Dr. Romero Spasm of back muscles PAST SURGICAL HISTORY Procedure Laterality Date ENDOVASC AAA STENT REPAIR 11/18/2018 at [facility] by Dr. Romero PAST SURGICAL HISTORY OF Left 2017 index finger FAMILY HISTORY: FAMILY HISTORY Problem Relation Age of Onset Asthma Father Coronary Artery Disease Father Breast Cancer Sister Prostate Cancer Brother SOCIAL HISTORY: Social History Tobacco Use Smoking status: Former Current packs/day: 0.00 Average packs/day: 1.5 packs/day for 44.0 years (66.0 ttl pk-yrs) Types: Cigarettes Start date: 02/20/1963 Quit date: 02/21/2004 Years since quittin.8 Smokeless tobacco: Never Tobacco comments: December 2004 Vaping Use Vaping status: Never Used Substance Use Topics Alcohol use: Yes Comment: rarely Drug use: No ALLERGIES: ALLERGIES No Active Allergies CURRENT OUTPATIENT MEDICATIONS: cyanocobalamin, vitamin B-12, 2,000 mcg tab Take by mouth. gabapentin (NEURONTIN) 300 mg capsule Take 300 mg by mouth three times daily. tadalafil (CIALIS ORAL) Take by mouth. fluticasone-umeclidin- vilanter (TRELEGY ELLIPTA) 100-62.5-25 mcg Inhale 1 Puff as instructed once daily. aspirin, enteric coated (ASPIR-LOW) 81 mg EC tablet Take 1 tablet by mouth once daily. albuterol HFA (PROVENTIL HFA, VENTOLIN HFA) 90 mcg/actuation inhaler 1 or 2 inhalation(s) By mouth Every 6 Hours prn REVIEW OF SYSTEMS GENERAL: No weight loss, malaise or fevers HEENT: Negative for frequent or significant headaches, No changes in hearing or vision NECK: Negative for lumps, pain and significant neck swelling RESPIRATORY: See HPI CARDIOVASCULAR: See HPI GI: No nausea, vomiting, or diarrhea MUSCULOSKELETAL: Negative for joint pain or swelling, back pain or muscle pain SKIN: Negative for lesions, rash, and itching The remainder of the ROS was negative. PHYSICAL EXAMINATIO (more content not included)... Normal [facility] 12-22-2024 [facility] Telephone (RIQ) SIMONE ARREAGA ([id number]) 1950 M Date Time Provider Department 12/22/24 JORGE GIORDANO During your visit today, we recorded the following information about you: Allergies As of Date: 12/22/2024 Noted Allergy Reaction DUST 01/20/2016 14 - Other: See Comments Comments: Shortness of breath Date Reviewed: 06/03/2024 Reviewed by: Kylah Mauricio CT - Fully Assessed Reason for Visit: Appointment [186] Cmt: SM 12/22/24: Pt accepted 12/25/24 at 10 am w/Dr MORTON. Prescriptions as of 12/22/2024 - gabapentin (NEURONTIN) 300 mg capsule Take 300 mg by mouth three times daily. - tadalafil (CIALIS ORAL) Take by mouth. - fluticasone-umeclidin- vilanter (TRELEGY ELLIPTA) 100-62.5-25 mcg Inhale 1 Puff as instructed once daily. - aspirin, enteric coated (ASPIR-LOW) 81 mg EC tablet Take 1 tablet by mouth once daily. 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 Alexander Perales MD Exercise - Initial Assessment Visit Session Number:: 32 Physician Prescribed Exercise Modalities: Treadmill, Schwinn Airdyne AD-7 and SciFit Stepper Current METSs:: 3 Resting Blood Pressure: 138/66 Maximum Exercise Blood Pressure: 146/78 Minimum SpO2 with exercise: 88 EKG Type: NSR to ST with rare PVC's Nutrition/Wt Mgmt - Initial Visit Session Number:: 32 Weight Management Admit Height:: 5 ft 11 in Admit Weight:: 185 lb 14.4 oz Admit BMI:: 25.9 Nutrition/Wt Mgmt - 30-Day Visit Date of Eval: 12/05/24 Session Number:: 32 Weight Management Height: 5 ft 11 in Weight:: 185 lb 14.4 oz BMI: 25.9 Nutrition/Wt Mgmt - 60-Day Visit Session Number:: 32 Weight Management Height: 5 ft 11 in Weight:: 185 lb 14.4 oz BMI: 25.9 Nutrition/Wt Mgmt - 90-Day Visit Session Number:: 32 Weight Management Height: 5 ft 11 in Weight:: 185 lb 14.4 oz BMI: 25.9 Nutrition/Wt Mgmt - Final Visit Date of Eval: 12/05/24 Session Number:: 32 Weight Management Height: 5 ft 11 in Weight:: 185 lb 14.4 oz BMI: 25.9 Weight Goals Progress:: Goal met (Pt is at a healthy weight) Psychosocial - Initial Assess Visit Session Number:: 32 Problems/Goals History of Emotional Disorders: Anxious (due to his breathing) Psychosocial Goals: 1. Patient is free from overwhelming symtoms of depression (or anxiety, 2. Identifies personal stressors states the strategies for managing, 3. Identifies activities to decrease isolation and/or symptoms of, 4. Improved psychosocial coping skills., 5. Verbalizes coping strategies., 6. Adequate treatment of depression. and 7. Improved Q.O.L. Self-reported stressors: Recent Illness Psychosocial Test Tool Used:: PHQ-9 Questionnaire Pulmonary QOL Score: 12 Referral to Behavioral Health PS - Interventions: Yes: Attend Stress Management Classes Intervention/Plan: See List Interventions/Plan:: Assess stressors,coping strategies signs of derpression on admission, Instruct/assist pt to develop coping personal stress Mgt strategies, Refer to Behavioral Health if appropriate, Refer to Physician if appropriate, Instruct patient to recognize signs symptoms of depression and Instruct patient to recog Comments:: Pt has attended stress management class and is doing well. Psychosocial - 30-Day Visit Date of Eval: 12/05/24 Session Number:: 32 Problems/Goals History of Emotional Disorders: Anxious (due to his breathing) Psychosocial Goals: 1. Patient is free from overwhelming symtoms of depression (or anxiety, 2. Identifies personal stressors states the strategies for managing, 3. Identifies activities to decrease isolation and/or symptoms of, 4. Improved psychosocial coping skills., 5. Verbalizes coping strategies., 6. Adequate treatment of depression. and 7. Improved Q.O.L. Self-reported stressors: Recent Illness Psychosocial Test Tool Used:: PHQ-9 Questionnaire Pulmonary QOL Score: 12 Referral to Behavioral Health PS - Interventions: Yes: Attend Stress Management Classes Plan Interventions/Plan:: Assess stressors,coping strategies signs of derpression on admission, Instruct/assist pt to develop coping personal stress Mgt strategies, Refer to Behavioral Health if appropriate, Refer to Physician if appropriate, Instruct patient to recognize signs symptoms of depression and Instruct patient to recog Comments:: Pt has attended stress management class and is doing well. Psychosocial - 60-Day Visit Session Number:: 32 Problems/Goals History of Emotional Disorders: Anxious (due to his breathing) Psychosocial Goals: 1. Patient is free from overwhelming symtoms of depression (or anxiety, 2. Identifies personal stressors states the strategies for managing, 3. Identifies activities to decrease isolation and/or symptoms of, 4. Improved psychosocial coping skills., 5. Verbalizes coping strategies., 6. Adequate treatment of depression. and 7. Improved Q.O.L. Self-reported stressors: Recent Illness Psychosocial Test Tool Used:: PHQ-9 Questionnaire Pulmonary QOL Score: 12 Referral to Behavioral Health PS - Interventions: Yes: Attend Stress Management Classes Plan Interventions/Plan:: Assess stressors,coping strategies signs of derpression on admission, Instruct/assist pt to develop coping personal stress Mgt strategies, Refer to Behavioral Health if appropriate, Refer to Physician if appropriate, Instruct patient to recognize signs symptoms of depression and Instruct patient to recog Comments:: Pt has attended stress management class and is doing well. Psychosocial - 90-Day Visit Session Number:: 32 Problems/Goals (more content not included)... Normal [facility] [place] - Individual Treatment Pl anon 11-06-2024 [place] - Individual Treatment Plan [facility] Pulmonary Rehab Reports [address] [place] [address] [place] - Individual Treatment Plan MR#: [id number] Acct: [id number] Name: SIMONE ARREAGA Rep #: [id number] : 1950 74 From: Markell Dubose BS, RVT PCP: Dr. Alexander Perales MD Exercise - Initial Assessment Visit Session Number:: 22 Physician Prescribed Exercise Modalities: Treadmill, Schwinn Airdyne AD-7 and SciFit Stepper Current METSs:: 2.7 Target HR:: 115 (86-115) Current RPD:: 2 Maximum Exercise HR:: 105 Resting Blood Pressure: 118/64 Maximum Exercise Blood Pressure: 140/70 Minimum SpO2 with exercise: 90 (0-3 L with exercise) EKG Type: NSR to ST with rare ectopy Nutrition/Wt Mgmt - Initial Visit Session Number:: 22 Weight Management Admit Height:: 5 ft 11 in Admit Weight:: 185 lb 14.4 oz Admit BMI:: 25.9 Nutrition/Wt Mgmt - 30-Day Visit Date of Eval: 11/06/24 Session Number:: 22 Weight Management Height: 5 ft 11 in Weight:: 185 lb 14.4 oz BMI: 25.9 Nutrition/Wt Mgmt - 60-Day Visit Session Number:: 22 Weight Management Height: 5 ft 11 in Weight:: 185 lb 14.4 oz BMI: 25.9 Weight Goals Progress:: Goal met (Pt is at a healthy weight.) Nutrition/Wt Mgmt - 90-Day Visit Date of Eval: 11/06/24 Session Number:: 22 Weight Management Height: 5 ft 11 in Weight:: 185 lb 14.4 oz BMI: 25.9 Weight Goals Progress:: Goal met (Pt is at a healthy weight.) Nutrition/Wt Mgmt - Final Visit Session Number:: 22 Weight Management Height: 5 ft 11 in Weight:: 185 lb 14.4 oz BMI: 25.9 Psychosocial - Initial Assess Visit Session Number:: 22 Problems/Goals History of Emotional Disorders: Anxious (Due to breathing) Psychosocial Goals: 1. Patient is free from overwhelming symtoms of depression (or anxiety, 2. Identifies personal stressors states the strategies for managing, 3. Identifies activities to decrease isolation and/or symptoms of, 4. Improved psychosocial coping skills., 5. Verbalizes coping strategies., 6. Adequate treatment of depression. and 7. Improved Q.O.L. Self-reported stressors: Recent Illness Psychosocial Test Tool Used:: Pulmonary QOL and PHQ-9 Questionnaire PHQ-9 Score: 12 Referral to Behavioral Health PS - Interventions: Yes: Attend Stress Management Classes Intervention/Plan: See List Interventions/Plan:: Assess stressors,coping strategies signs of derpression on admission, Instruct/assist pt to develop coping personal stress Mgt strategies, Refer to Behavioral Health if appropriate, Refer to Physician if appropriate, Instruct patient to recognize signs symptoms of depression, Instruct patient to recog and Other additional plan/intervention Comments:: Pt appears to be doing well at this time. Pt attended stress management class. Psychosocial - 30-Day Visit Date of Eval: 11/06/24 Session Number:: 22 Problems/Goals History of Emotional Disorders: Anxious (Due to breathing) Psychosocial Goals: 1. Patient is free from overwhelming symtoms of depression (or anxiety, 2. Identifies personal stressors states the strategies for managing, 3. Identifies activities to decrease isolation and/or symptoms of, 4. Improved psychosocial coping skills., 5. Verbalizes coping strategies., 6. Adequate treatment of depression. and 7. Improved Q.O.L. Self-reported stressors: Recent Illness Psychosocial Test Tool Used:: Pulmonary QOL and PHQ-9 Questionnaire PHQ-9 Score: 12 Referral to Behavioral Health PS - Interventions: Yes: Attend Stress Management Classes Plan Interventions/Plan:: Assess stressors,coping strategies signs of derpression on admission, Instruct/assist pt to develop coping personal stress Mgt strategies, Refer to Behavioral Health if appropriate, Refer to Physician if appropriate, Instruct patient to recognize signs symptoms of depression, Instruct patient to recog and Other additional plan/intervention Comments:: Pt appears to be doing well at this time. Pt attended stress management class. Psychosocial - 60-Day Visit Session Number:: 22 Problems/Goals History of Emotional Disorders: Anxious (Due to breathing) Psychosocial Goals: 1. Patient is free from overwhelming symtoms of depression (or anxiety, 2. Identifies personal stressors states the strategies for managing, 3. Identifies activities to decrease isolation and/or symptoms of, 4. Improved psychosocial coping skills., 5. Verbalizes coping strategies., 6. Adequate treatment of depression. and 7. Improved Q.O.L. Self-reported stressors: Recent Illness Psychosocial Test Tool Used:: Pulmonary QOL and PHQ-9 Questionnaire PHQ-9 Score: 12 Referral to Behavioral Health PS - Interventions: Yes: Attend Stress Management Classes Plan Interventions/Plan:: Assess stressors,coping strategies signs of derpression on admission, Instruct/assist pt to develop coping personal stress Mgt strategies, Refer to Behavioral Healt (more content not included)... [facility] 10-15-2024 [facility] Telephone (PULN) BROOKESIMONE ([id number]) 1950 M Date Time Provider Department 10/15/24 DARBY MAXWELL During your visit today, we recorded the following information about you: Anna Kahn 10/15/2024 11:13 AM Signed Pulmonary Rehab Report received and uploaded Allergies As of Date: 10/15/2024 Noted Allergy Reaction DUST 01/20/2016 14 - Other: See Comments Comments: Shortness of breath Date Reviewed: 06/03/2024 Reviewed by: Kylah Mauricio, CT - Fully Assessed Reason for Visit: Pulmonary Rehab Report [Other] Prescriptions as of 10/15/2024 - gabapentin (NEURONTIN) 300 mg capsule Take 300 mg by mouth three times daily. - tadalafil (CIALIS ORAL) Take by mouth. - fluticasone-umeclidin- vilanter (TRELEGY ELLIPTA) 100-62.5-25 mcg Inhale 1 Puff as instructed once daily. - aspirin, enteric coated (ASPIR-LOW) 81 mg EC tablet Take 1 tablet by mouth once daily. 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 Alexander Perales MD Exercise - Initial Assessment Visit Session Number:: 16 Physician Prescribed Exercise Modalities: Treadmill, Schwinn Airdyne AD-7 and SciFit Stepper Target HR:: 108 (86-108) Current RPD:: 2 Maximum Exercise HR:: 110 Resting Blood Pressure: 132/80 Maximum Exercise Blood Pressure: 140/70 Minimum SpO2 with exercise: 89 EKG Type: NSR to ST Nutrition/Wt Mgmt - Initial Visit Session Number:: 16 Weight Management Admit Height:: 5 ft 11 in Admit Weight:: 185 lb 14.4 oz Admit BMI:: 25.9 Nutrition/Wt Mgmt - 30-Day Visit Date of Eval: 10/08/24 Session Number:: 16 Weight Management Height: 5 ft 11 in Weight:: 185 lb 14.4 oz BMI: 25.9 Nutrition/Wt Mgmt - 60-Day Visit Date of Eval: 10/08/24 Session Number:: 16 Weight Management Height: 5 ft 11 in Weight:: 185 lb 14.4 oz BMI: 25.9 Weight Goals Progress:: Progressing (Pt has attended nutrition class and understands the importance of a low sodium heart healthy diet.) Nutrition/Wt Mgmt - 90-Day Visit Session Number:: 16 Weight Management Height: 5 ft 11 in Weight:: 185 lb 14.4 oz BMI: 25.9 Weight Goals Progress:: Progressing (Pt has attended nutrition class and understands the importance of a low sodium heart healthy diet.) Nutrition/Wt Mgmt - Final Visit Session Number:: 16 Weight Management Height: 5 ft 11 in Weight:: 185 lb 14.4 oz BMI: 25.9 Psychosocial - Initial Assess Visit Session Number:: 16 Problems/Goals History of Emotional Disorders: Anxious (due to breathing) Self-reported stressors: Recent Illness Psychosocial Test Tool Used:: Pulmonary QOL and PHQ-9 Questionnaire Referral to Behavioral Health PS - Interventions: Yes: Attend Stress Management Classes Intervention/Plan: See List Interventions/Plan:: Assess stressors,coping strategies signs of derpression on admission, Instruct/assist pt to develop coping personal stress Mgt strategies, Refer to Behavioral Health if appropriate, Refer to Physician if appropriate, Instruct patient to recognize signs symptoms of depression and Instruct patient to recog Psychosocial - 30-Day Visit Date of Eval: 10/08/24 Session Number:: 16 Problems/Goals History of Emotional Disorders: Anxious (due to breathing) Self-reported stressors: Recent Illness Psychosocial Test Tool Used:: Pulmonary QOL and PHQ-9 Questionnaire Referral to Behavioral Health PS - Interventions: Yes: Attend Stress Management Classes Plan Interventions/Plan:: Assess stressors,coping strategies signs of derpression on admission, Instruct/assist pt to develop coping personal stress Mgt strategies, Refer to Behavioral Health if appropriate, Refer to Physician if appropriate, Instruct patient to recognize signs symptoms of depression and Instruct patient to recog Psychosocial - 60-Day Visit Date of Eval: 10/08/24 Session Number:: 16 Problems/Goals History of Emotional Disorders: Anxious (due to breathing) Self-reported stressors: Recent Illness Psychosocial Test Tool Used:: Pulmonary QOL and PHQ-9 Questionnaire Referral to Behavioral Health PS - Interventions: Yes: Attend Stress Management Classes Plan Interventions/Plan:: Assess stressors,coping strategies signs of derpression on admission, Instruct/assist pt to develop coping personal stress Mgt strategies, Refer to Behavioral Health if appropriate, Refer to Physician if appropriate, Instruct patient to recognize signs symptoms of depression and Instruct patient to recog Psychosocial - 90-Day Visit Session Number:: 16 Problems/Goals History of Emotional Disorders: Anxious (due to breathing) Self-reported stressors: Recent Illness Psychosocial Test Tool Used:: Pulmonary QOL and PHQ-9 Questionnaire Referral to Behavioral Health PS - Interventions: Yes: Attend Stress Management Classes Plan Interventions/Plan:: Assess stressors,coping strategies signs of derpression on admission, Instruct/assist pt to develop coping personal stress Mgt strategies, Refer to Behavioral Health if appropriate, Refer to Physician if appropriate, Instruct patient to recognize signs symptoms of depression and Instruct patient to recog Psychosocial - Final Assess Visit Session Number:: 16 Problems/Goals History of Emotional Disorders: Anxious (due to breathing) Self-reported stressors: Recent Illness Psychosocial Test Tool Used:: Pulmonary QOL and PHQ-9 Questionnaire Referral to Behavioral Health PS - Interventions: Yes: Attend Stress Management Classes Plan Interventions/Plan:: Assess stressors,coping strategies signs of derpression on admission, Instruct/assist pt to develop (more content not included)... [facility] 09-17-2024 [facility] Telephone ([place]) SIMONE ARRAEGA ([id number]) 1950 M Date Time Provider Department 09/17/24 DARBY MAXWELL During your visit today, we recorded the following information about you: Anna Kahn 09/17/2024 3:09 PM Signed External Pulmonary Rehab Notes received and uploaded Allergies As of Date: 09/17/2024 Noted Allergy Reaction DUST 01/20/2016 14 - Other: See Comments Comments: Shortness of breath Date Reviewed: 06/03/2024 Reviewed by: Kylah Mauricio, CT - Fully Assessed Reason for Visit: Pulmonary Rehab Notes [Other] Prescriptions as of 09/23/2024 - gabapentin (NEURONTIN) 300 mg capsule Take 300 mg by mouth three times daily. - tadalafil (CIALIS ORAL) Take by mouth. - fluticasone-umeclidin- vilanter (TRELEGY ELLIPTA) 100-62.5-25 mcg Inhale 1 Puff as instructed once daily. - aspirin, enteric coated (ASPIR-LOW) 81 mg EC tablet Take 1 tablet by mouth once daily. 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 Alexander Perales MD Exercise - Initial Assessment Visit Session Number:: 8 Physician Prescribed Exercise Modalities: Treadmill, Schwinn Airdyne AD-7 and SciFit Stepper Current METSs:: 4.9 Target HR:: 108 (86-108) Current RPD:: 2-3 Maximum Exercise HR:: 103 Resting Blood Pressure: 130/70 Maximum Exercise Blood Pressure: 152/80 Minimum SpO2 with exercise: 90 EKG Type: NSR to ST Nutrition/Wt Mgmt - Initial Visit Session Number:: 8 Weight Management Admit Height:: 5 ft 11 in Admit Weight:: 189 lb Admit BMI:: 26.3 Nutrition/Wt Mgmt - 30-Day Visit Date of Eval: 09/11/24 Session Number:: 8 Weight Management Height: 5 ft 11 in Weight:: 189 lb BMI: 26.3 Weight Goals Progress:: Goal met (Pt is at a healthy weight.) Nutrition/Wt Mgmt - 60-Day Visit Session Number:: 8 Weight Management Height: 5 ft 11 in Weight:: 189 lb BMI: 26.3 Nutrition/Wt Mgmt - 90-Day Visit Session Number:: 8 Weight Management Height: 5 ft 11 in Weight:: 189 lb BMI: 26.3 Nutrition/Wt Mgmt - Final Visit Session Number:: 8 Weight Management Height: 5 ft 11 in Weight:: 189 lb BMI: 26.3 Psychosocial - Initial Assess Visit Session Number:: 8 Problems/Goals History of Emotional Disorders: Anxious (due to breathing) Psychosocial Goals: 1. Patient is free from overwhelming symtoms of depression (or anxiety, 2. Identifies personal stressors states the strategies for managing, 3. Identifies activities to decrease isolation and/or symptoms of, 4. Improved psychosocial coping skills., 5. Verbalizes coping strategies., 6. Adequate treatment of depression. and 7. Improved Q.O.L. Self-reported stressors: Recent Illness Psychosocial Test Tool Used:: Pulmonary QOL Referral to Behavioral Health PS - Interventions: Yes: Attend Stress Management Classes Intervention/Plan: See List Interventions/Plan:: Assess stressors,coping strategies signs of derpression on admission, Instruct/assist pt to develop coping personal stress Mgt strategies, Refer to Behavioral Health if appropriate, Refer to Physician if appropriate, Instruct patient to recognize signs symptoms of depression, Instruct patient to recog and Other additional plan/intervention Psychosocial - 30-Day Visit Date of Eval: 09/11/24 Session Number:: 8 Problems/Goals History of Emotional Disorders: Anxious (due to breathing) Psychosocial Goals: 1. Patient is free from overwhelming symtoms of depression (or anxiety, 2. Identifies personal stressors states the strategies for managing, 3. Identifies activities to decrease isolation and/or symptoms of, 4. Improved psychosocial coping skills., 5. Verbalizes coping strategies., 6. Adequate treatment of depression. and 7. Improved Q.O.L. Self-reported stressors: Recent Illness Psychosocial Test Tool Used:: Pulmonary QOL Referral to Behavioral Health PS - Interventions: Yes: Attend Stress Management Classes Plan Interventions/Plan:: Assess stressors,coping strategies signs of derpression on admission, Instruct/assist pt to develop coping personal stress Mgt strategies, Refer to Behavioral Health if appropriate, Refer to Physician if appropriate, Instruct patient to recognize signs symptoms of depression, Instruct patient to recog and Other additional plan/intervention Psychosocial - 60-Day Visit Session Number:: 8 Problems/Goals History of Emotional Disorders: Anxious (due to breathing) Psychosocial Goals: 1. Patient is free from overwhelming symtoms of depression (or anxiety, 2. Identifies personal stressors states the strategies for managing, 3. Identifies activities to decrease isolation and/or symptoms of, 4. Improved psychosocial coping skills., 5. Verbalizes coping strategies., 6. Adequate treatment of depression. and 7. Improved Q.O.L. Self-reported stressors: Recent Illness Psychosocial Test Tool Used:: Pulmonary QOL Referral to Behavioral Health PS - Interventions: Yes: Attend Stress Management Classes Plan Interventions/Plan:: Assess stressors,coping strategies signs of derpression on admission, Instruct/assist pt to develop coping personal stress Mgt strategies, Refer to Behavioral Health if appropriate, Refer to Physician if appropriate, Instruct patient to recognize signs symptoms of depression, Instruct patient to recog and Other additional plan/intervention Psychosocial - 90-Day Visit Session Number:: 8 Problems/Goals History of Emotional Disorders: Anxious (due to breathing) Psychosocial Goals: 1. Patient is free from overwhelming symtoms of depression (or anxiety, 2. Identifies personal stressors states the strategies for managing, 3. Id (more content not included)... Normal [facility] L3410.9999on 08-21-2024 [facility] Mis. COMMENT Normal . [facility] Comment on above: Order Comment: [id number] 3 a1-Antitryp Pheno SERUM RED RT Result Comment: Test Ordered: [id number] Indbg-8-Xscsjxdrori Phenotyp Fbzow-8-Lcdryogasii, Serum 152 mg/dL CB Reference Range: 101-187 Phenotype (PI) MM BN Reference Range: . MM Phenotype is considered to be normal, producing normal serum levels of rxoil-3-sdnufanf inhibitor and not associated with clinical disease. Associated A1A total serum levels in other phenotypes and their incidence in the general population are shown in the table below. Phenotype Population % function A-1-AT Conc.* Incidence % compared to MM (Typical Range) MM 86.5% 100% (96 - 189) MS 8.0% 86% (83 - 161) MZ 3.9% 61% (60 - 111) FM 0.4% 100% (93 - 191) SZ 0.3% 41% (42 - 75) SS 0.1% 64% (62 - 119) ZZ 0.05% 19% (16 - 38) FS 0.05% 70% (70 - 128) FZ Unknown 46% (44 - 88) FF Unknown Unknown *A-1-AT concentration in the homozygous MM phenotype is taken as the reference normal. Percent deficiency in each phenotype is reported relative to this reference. Ranges used to confirm phenotype. Performed at: - [facility] [id number] Supervisor Machining: Krzysztof Velasquez PhD, Phone: [phone] Performed at: - [facility] [id number] Supervisor Machining: Edouard Ceja MD, Phone: [phone] Performed By: #### L 501.1105, L3410.9999 #### [facility] [address] [place], [place], [id number] [place] - History AND Physicalon 08-14-2024 [place] - History & Physical [facility] Pulmonary Rehab Reports [address] [place] [address] [place] - History Physical MR#: [id number] Acct: [id number] Name: SIMONE ARREAGA Rep #: [id number] : 1950 74 From: Markell Dubose BS, RVT PCP: Dr. Alexander Perales MD History of Present Illness General Arrival date:: 08/14/24 Arrival time:: 08:05 Date of Referral:: 08/08/24 Date of Evaluation: 08/14/24 Referring Physician: Dr. fabien Mas Primary Diagnosis: COPD History of Present Pulmonary Event mMRC Breathless Scale: When is the patient short of breath? Y/N Grade: Description of Breathlessness: 0 I only get breathless with strenuous exercise. 1 I get short of breath when hurrying on level ground or walking up a slight hill. 2 On level ground, I walk slower than people of the same age because of breathless, or have to stop for breath when walking at my own pace. 3 I stop for breath after walking 100 yards or after a few minutes on level ground. 4 I am too breathless to leave the house or I am breathless when dressing. Respiratory Problems: Yes Fatigue, Able to Speak in Full Sentences, Ankle Swelling, Anxiety, Panic, Dyspnea with Activity and Cough with Secretions; No Retain Secretions, Limited Range of Motion, Chest Pain, Wheezing, Dizziness, Hoarseness, Dyspnea at Rest or Dyspnea Lying Down Flat Medications Home Medications albuterol sulfate 90 mcg/actuation aerosol inhaler (Ventolin HFA) 2 puff inhalation Q6H PRN PRN Sob /Or Wheezing 06/26/14 fluticasone 100 mcg-salmeterol 50 mcg/dose blistr powdr for inhalation (Advair Diskus) 1 puff inhalation BID 06/26/14 aspirin 81 mg tablet,delayed release 81 mg PO DAILY@0800 04/19/19 clopidogrel 75 mg tablet 75 mg PO DAILY 04/19/19 levofloxacin 750 mg tablet 750 mg PO DAILY #7 tabs 07/21/19 prednisone 20 mg tablet 60 mg (3 x 20 mg) PO DAILY #15 tabs 07/21/19 gabapentin 100 mg capsule 100 mg PO BID #30 caps 10/29/22 valacyclovir 1 gram tablet 1,000 mg PO Q8H #21 tabs 10/29/22 Allergies Allergies No Known Allergies Allergy (Verified 10/29/22 12:21) Secretions Normal Color:: green or yellow Thick:: Yes Amount/Day:: random PM: Yes Night Time: Yes Sleep Disorder Evaluation Hx of Sleep Apnea: Yes Do you snore loudly (louder than talking or can be heard through closed doors)?: No Do you often feel tired/ fatigued/ sleepy during daytime?: No Has anyone observed you stop breathing during sleep?: No History of Hypertension (for STOP score): No STOP Results: Negative Medical Utilization Medical Devices Do you use a peak flow meter at home?: No Do you use a spacer device with your inhalers?: No Medical Utilization Number of hospital visits in the last year?: 0 Number of emergency room visits in the last year?: 0 Do you see your physician on a regular schedule?: Yes How often?: 4X year Advanced Directives Advanced Directives Power of Inspector Multifocal Lens: No Living Will: No Advance Directives Information Provided: No Advance Directives on File: No DNR Order?:: No Past Medical History Covid-19 Screening Physicial Symptoms Other Clinical Concerns Exposure Risk Pertinent Comorbidities 65 years or older:: Yes Has a chronic lung disease or moderate to severe asthma:: Yes Has a serious heart condition:: Yes Social History Smoking History Smoking Status: Former smoker Years Smokin Packs Smoked per Day: 2 (stopped 20 years ago) Occupation Occupation (List type of work in comments):: Employed Hours worked per day:: 4 Functioning ADL/IADL Current Ability Current Ability: Independent: Self-Care (e.g.,grooming, dressing, bathing), Independent: Ambulation, Independent: Transfer and Independent: Household tasks (e.g., light meal prep, laundry, shopping) Pt Functioning Prior to Problem Prior Functioning: Self-Care (e.g.,grooming, dressing, bathing): Independent, Ambulation: Independent, Transfer: Independent and Household tasks (e.g., light meal prep, laundry, shopping): Independent Social Environment Status Marital Status: Current Living Arrangements Living Environment:: Spouse Children How many children do you have?: 4 Do any of your children live nearby?: Yes Safety Do you feel safe in your surroundings?: Yes Assistance Do you need any assistance at home?: no Review of Systems Review of Systems Review of Systems Respiratory: Reports Cough, SOB upon Exertion, Sputum production, Appetite, Normal and Fatigue; Denies Hemoptysis, Pleuritic Pain, SOB at Rest, Wheezing, Dizziness/Lightheadedn ess, PVD, Sexual changes or Sleep, Normal Pain Is Patient Pain Free?: Yes Risk Factor Assessment Chief Complaint Chief Complaint: COPD Vital Signs Pulse Rate: 70 Pulse Ox: 93 Blood Pressure: 104/62 Obesity Height: 5 ft 11 in Weight:: 154 lb Weight in Pounds: 154.0 lbs Body Mass Index (BM (more content not included)... Normal [facility] [place] - Individual Treatment Pl anon 08-14-2024 [place] - Individual Treatment Plan [facility] Pulmonary Rehab Reports [address] [place] [address] [place] - Individual Treatment Plan MR#: [id number] Acct: [id number] Name: SIMONE ARREAGA Rep #: [id number] : 1950 74 From: Markell Dubose BS, RVT PCP: Dr. Alexander Perales MD General Information2 General Information Admitting Diagnosis: COPD Secondary Diagnosis: centrilobular emphysema Gold Classification:: GOLD 3: Severe PFT FEV1:: 36 FVC:: 87 FEV1/FVC%:: 40 Personal Learning Style/Barriers Personal Learning Style:: Audio/Visual Barriers to Learning: None Stage of change r/t lifestyle modifications: Contemplation Education/Goals [place] Patient Goals: Increase muscle strength: Initial Assessment, Experience less dyspnea: Initial Assessment, Improve energy level: Initial Assessment, Participate in home exercise: Initial Assessment, Improve the ability to cope with ADLs: Initial Assessment, Improve knowledge of lung disease: Initial Assessment, Increase knowledge of oxygen use: Initial Assessment, Control panic/anxiety: Initial Assessment, Improve diet and nutrition: Initial Assessment and Improve my quality of life: Initial Assessment Exercise - Initial Assessment Visit Date of Eval: 08/14/24 (initial eval ) Problem/Goals Problems: Deconditioning Goals:: Aerobic exercise 30-60 mins x 12 weeks [36 sessions] Functional Capacity Test Number of feet walked: 1,015 Lowest SPO2 %: 94 (room air) Physician Prescribed Exercise Modalities: Treadmill, Rower, Schwinn Airdyne AD-7, SciFit Stepper, SciFit Pro-II Ergometer and SciFit Lateral Mcbee Frequency (days/week): 3 Duration (Minutes):: 30-45 Intensity: 60-80% of age predicted maximum heart rate reserve Current METSs:: 2 Target HR:: 108 (86-108) Resting Blood Pressure: 104/62 Minimum SpO2 with exercise: 93 EKG Type: NSR Plan Plan and Plan to Review:: Benefits of exercise, Core components of exercise, How to measure dyspnea level, How to monitor dyspnea level, Exercise intensity, Exercise safety guideline, Home exercise guidelines and Dinorah: 3-4/11-13 Nutrition/Wt Mgmt - Initial Visit Date of Eval: 08/14/24 (initial eval) Problems/Goals Goals: BMI 21-25 Weight Management Admit Height:: 5 ft 11 in Admit Weight:: 154 lb Admit BMI:: 21.4 Intervention Referral to dietitian:: No Will attend diet classes:: Yes Intervention/Plan: Instruct on ideal BMI set weight loss goal w/patient, Assist pt to ID incorporate diet changes for weight loss by S9, Refer to Structured Weight Loss program as appropriate, Encourage goal of using 250-300dcal per session for weight loss and Other additional plan/interventions Plan Nutrition Plan: Yes: Review BMI or WC identify target wt strategies for wt control, Yes: Nutrition education class:, Yes: Medication education class [Prednisone]:, Yes: Weight control education class:, Yes: Education re: Need for ongoing weight monitoring, Yes: Food diary: and Yes: Physical activity log: Nutrition/Wt Mgmt - 30-Day Weight Management Height: 5 ft 11 in Weight:: 154 lb BMI: 21.4 Nutrition/Wt Mgmt - 60-Day Weight Management Height: 5 ft 11 in Weight:: 154 lb BMI: 21.4 Nutrition/Wt Mgmt - 90-Day Weight Management Height: 5 ft 11 in Weight:: 154 lb BMI: 21.4 Nutrition/Wt Mgmt - Final Weight Management Height: 5 ft 11 in Weight:: 154 lb BMI: 21.4 Psychosocial - Initial Assess Visit Date of Eval: 08/14/24 (initial eval) Problems/Goals History of Emotional Disorders: Anxious (due to breathing) Psychosocial Goals: 1. Patient is free from overwhelming symtoms of depression (or anxiety, 2. Identifies personal stressors states the strategies for managing, 3. Identifies activities to decrease isolation and/or symptoms of, 4. Improved psychosocial coping skills., 5. Verbalizes coping strategies., 6. Adequate treatment of depression. and 7. Improved Q.O.L. Self-reported stressors: Recent Illness Psychosocial Test Tool Used:: Pulmonary QOL and PHQ-9 Questionnaire Referred to MD for counseling:: No Referral to Behavioral Health PS - Interventions: Yes: Attend Stress Management Classes Intervention/Plan: See List Interventions/Plan:: Assess stressors,coping strategies signs of derpression on admission, Instruct/assist pt to develop coping personal stress Mgt strategies, Refer to Behavioral Health if appropriate, Refer to Physician if appropriate, Instruct patient to recognize signs symptoms of depression and Instruct patient to recog Psychosocial - 30-Day Problems/Goals History of Emotional Disorders: Anxious (due to breathing) Psychosocial Goals: 1. Patient is free from overwhelming symtoms of depression (or anxiety, 2. Identifies personal stressors states the strategies for managing, 3. Identifies activities to decrease isolation and/or symptoms of, 4. Improved psychosocial coping skills., 5. Verbalizes coping strat (more content not included)... Normal [facility] Estimated glomerular filtrat ion rate (GFR) AmericanOrdered By: Blanca Hensley on 08-07-2024 Estimated GFR (MDRD) Amer 106 mL/min >60 [facility] Comment on above: GFR Calc Glomerular filtration rate ( GFR) estimationOrdered By: Blanca Hensley on 08-07-2024 Estimated GFR (MDRD) Non-Af Amer 88 mL/min >60 [facility] Comment on above: Non- GFR Calc No Panel InformationOrdered By: Blanca Hensley on 08-07-2024 Miscellaneous Test COMMENT . [facility] Comment on above: Test Ordered: [id number] Qtfmg-0-Dnqwzuwwsli JwqbppmgMqjzb-3-Saruzsvcuth, Serum 152 mg/dL CB Reference Range: 101-187Phenotype (PI) MM BN Reference Range: .MM Phenotype is considered to be normal, producingnormal serum levels of hiszt-3-pbffaxrj inhibitor andnot associated with clinical disease. Associated O8Cjfnkv serum levels in other phenotypes and theirincidence in the general population are shown in thetable below.Phenotype Population % function A-1-AT Conc.* Incidence % compared to MM (Typical Range) MM 86.5% 100% (96 - 189) MS 8.0% 86% (83 - 161) MZ 3.9% 61% (60 - 111) FM 0.4% 100% (93 - 191) SZ 0.3% 41% (42 - 75) SS 0.1% 64% (62 - 119) ZZ 0.05% 19% (16 - 38) FS 0.05% 70% (70 - 128) FZ Unknown 46% (44 - 88) FF Unknown Unknown*A-1-AT concentration in the homozygous MM phenotype is taken as the reference normal. Percent deficiency in each phenotype is reported relative to this reference. Ranges used to confirm phenotype.Performed at: [employer] [address] [id number] Director: Krzysztof Velasquez PhD, Phone: [phone] at: - [facility] [id number] Director: Edouard Ceja MD, Phone: [phone] Serum Creatinine AND GFRon 0 08-07-2024 Creatinine [Mass/Vol] 0.90 mg/dL Normal 0.70-1.30 [facility] Comment on above: Result Comment: The validity of the calculated GFR GFRAA in patients over 70 years has not been determined. Clinical correlation is essential. Performed By: #### L 501.1105, L3410.9999 #### [facility] [address] [place], [place], [id number] EST GFR - AA 106 mL/min Normal >60 [facility] Comment on above: Result Comment: Afri can Slovak GFR Calc Performed By: #### L 501.1105, L3410.9999 #### [facility] [address] [place], [address] GFR/1.73 sq M.predicted among non-blacks MDRD (S/P/Bld) [Vol rate/Area] 88 mL/min/{1.73_m2} Normal >60 [facility] Comment on above: Result Comment: Non- GFR Calc Performed By: #### L 501.1105, L3410.9999 #### [facility] [address] [place], [address] Serum or plasma creatinine m easurement (mass/volume)Ordered By: Blanca Hensley on 08-07-2024 Creatinine [Mass/Vol] 0.90 mg/dL 0.70-1.30 [facility] Comment on above: The validity of the calculated GFR & GFRAA in patients over 70 years has not been determined. Clinical correlation is essential. Arben 08-04-2024 [facility] Tele[facility] (PULMMN) SIMONE ARREAGA ([id number]) 1950 M Date Time Provider Department 08/04/24 DARBY MAXWELL During your visit today, we recorded the following information about you: Anna Kahn 08/04/2024 1:04 PM Signed Per [employer] message from patient, pulmonary rehab and lab orders faxed to [phone] Allergies As of Date: 08/04/2024 Noted Allergy Reaction DUST 01/20/2016 14 - Other: See Comments Comments: Shortness of breath Date Reviewed: 06/03/2024 Reviewed by: Kylah Mauricio, EDB - Fully Assessed Reason for Visit: Orders [681] Prescriptions as of 08/04/2024 - gabapentin (NEURONTIN) 300 mg capsule Take 300 mg by mouth three times daily. - tadalafil (CIALIS ORAL) Take by mouth. - fluticasone-umeclidin- vilanter (TRELEGY ELLIPTA) 100-62.5-25 mcg Inhale 1 Puff as instructed once daily. - aspirin, enteric coated (ASPIR-LOW) 81 mg EC tablet Take 1 tablet by mouth once daily. 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] 11/17/2021 Encounter Status:Closed by ANNA KAHN on 08/04/24 [facility] Arben 07-29-2024 [facility] Telephone (PULLAYLAN) SIMONE ARREAGA ([id number]) 1950 M Date Time Provider Department 07/29/24 DARBY MAXWELL During your visit today, we recorded the following information about you: Anna Kahn 07/29/2024 12:56 PM Signed Pulmonary rehab and lab orders faxed to [facility] at [phone] Allergies As of Date: 07/29/2024 Noted Allergy Reaction DUST 01/20/2016 14 - Other: See Comments Comments: Shortness of breath Date Reviewed: 06/03/2024 Reviewed by: Kylah Mauricio CT - Fully Assessed Reason for Visit: Orders Faxed [Other] Prescriptions as of 07/29/2024 - gabapentin (NEURONTIN) 300 mg capsule Take 300 mg by mouth three times daily. - tadalafil (CIALIS ORAL) Take by mouth. - fluticasone-umeclidin- vilanter (TRELEGY ELLIPTA) 100-62.5-25 mcg Inhale 1 Puff as instructed once daily. - aspirin, enteric coated (ASPIR-LOW) 81 mg EC tablet Take 1 tablet by mouth once daily. 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] 11/17/2021 Encounter Status:Closed by ANNA KAHN on 07/29/24 Normal [facility] CREATININE FINGERSTICKon CREATININE WB < 1.0 Normal 0.70-1.30 [facility] Comment on above: Performed By: #### L 9100.0200 #### [facility] [address], [place], [id number] EGFR WB > 60.0000 Normal >60 [facility] Comment on above: Performed By: #### L 9100.0200 #### [facility] [address] [place], [address] CTA Abd/Pelvis W/WO Contrast on 07-29-2024 CTA Abd/Pelvis W/WO Contrast [facility] Imaging Services [address] [place] [address] CTA Abd/Pelvis W/WO Contrast MR#: [id number] Acct: [id number] Name: SIMONE ARREAGA Rep #: [id number] : 1950 M 74 From: Andrae long MD PCP: Dr. Alexander Perales MD Status: REG CLI Study: CTA Abd/Pelvis W/WO Contrast Date of Exam: 02/13 Exam# [id number] Ordering Dr: Blanca Hensley NP KNIFE GRINDER-C [id number] STUDY: CTA ABDOMEN AND PELVIS WITH CONTRAST REASON FOR EXAM: Male, 74 years old. AAA, POST OP RADIATION DOSAGE (If Supplied By Facility): CTDIvol = ( 29.98 ) mGy, DLP = ( 886.45 ) mGycm TECHNIQUE: Transaxial images were obtained from the dome of the diaphragm to the symphysis pubis without oral contrast. IV 100mL Isovue-370 was administered. Sagittal and coronal images were reconstructed. 3-D images were reconstructed. Individualized dose optimization techniques were used for this CT. COMPARISON: Comparison is made with prior study dated October 21, 2021. FINDINGS: There is a new 6 mm noncalcified nodule peripheral aspect of the right lower lobe as seen on axial image #1. Correlation with a CT scan of the thorax recommended for further evaluation. The visualized portions of the heart are within normal limits. Stable 1.7 cm cyst in the inferior medial aspect of the right lobe of the liver. Normal gallbladder and extrahepatic biliary system. Normal spleen. Normal pancreas. Normal bilateral adrenal glands. Normal right kidney. There is a 2.1 cm cyst in the upper lateral aspect of the left kidney. Normal visualized stomach. Normal small intestine. There are scattered colonic diverticula consistent with diverticulosis. The appendix is visualized and appears normal. Endoluminal stent grafting is seen in the abdominal aorta. The distal limbs are seen in the distal portion of the belkofski abdominal aorta and proximal portions of the common iliac arteries bilaterally. The belkofski aorta as a transverse dimension of 6.6 cm. There is no evidence of endoluminal leakage. Normal inferior vena cava. Normal retroperitoneum. Normal urinary bladder. Heterogeneous enlargement of the prostate with indentation of the bladder base. There is a small umbilical hernia containing fat. There are degenerative changes of the visualized lumbar spine. CT/CTA Abd/Pelvis W/WO Contrast IMPRESSION: Status post endoluminal stent grafting of the infrarenal abdominal aortic aneurysm with a stent. No evidence of endoleak. The belkofski abdominal aortic aneurysm measures 6.6 cm transverse dimension. Small left renal cyst and the cyst in the inferior medial portion of the right lobe of the liver. Electronically Signed: Andrae Hopper MD at 13:39 EST , CC: PALMIRA Hensley; Dr. Alexander Perales MD Implementation Advisor: Signed Normal [facility] Creatinine measurement at be dsideOrdered By: Blanca Hensley on 07-29-2024 Bedside Creatinine < 1.0 mg/dL 0.70-1.30 [facility] EGFROrdered By: Blanca bess on 07-29-2024 Bedside Estimated GFR (eGFR) > 60.0000 mL/min >60 [facility] CNPNon 07-18-2024 [facility] Telephone (EUGENE) SIMONE ARREAGA ([id number]) 1950 M Date Time Provider Department 07/18/24 DARBY MAXWELL During your visit today, we recorded the following information about you: Anna Kahn 07/18/2024 3:59 PM Signed Pulmonary rehab and lab orders faxed to [facility] at [phone] Allergies As of Date: 07/18/2024 Noted Allergy Reaction DUST 01/20/2016 14 - Other: See Comments Comments: Shortness of breath Date Reviewed: 06/03/2024 Reviewed by: Kylah Mauricio, CT - Fully Assessed Reason for Visit: Orders [681] Prescriptions as of 07/18/2024 - gabapentin (NEURONTIN) 300 mg capsule Take 300 mg by mouth three times daily. - tadalafil (CIALIS ORAL) Take by mouth. - fluticasone-umeclidin- vilanter (TRELEGY ELLIPTA) 100-62.5-25 mcg Inhale 1 Puff as instructed once daily. - aspirin, enteric coated (ASPIR-LOW) 81 mg EC tablet Take 1 tablet by mouth once daily. 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 Fax number [phone] Labs Image Orders Consult to Pulmonary Rehab Allergies As of Date: 07/07/2024 Noted Allergy Reaction DUST 01/20/2016 14 - Other: See Comments Comments: Shortness of breath Date Reviewed: 06/03/2024 Reviewed by: Kylah Mauricio CT - Fully Assessed Reason for Visit: Orders [681] Prescriptions as of 07/07/2024 - gabapentin (NEURONTIN) 300 mg capsule Take 300 mg by mouth three times daily. - tadalafil (CIALIS ORAL) Take by mouth. - fluticasone-umeclidin- vilanter (TRELEGY ELLIPTA) 100-62.5-25 mcg Inhale 1 Puff as instructed once daily. - aspirin, enteric coated (ASPIR-LOW) 81 mg EC tablet Take 1 tablet by mouth once daily. 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 Annual F/up - History of AAA (abdominal aortic aneurysm) repair *CTA A/P PRIOR* Allergies As of Date: 07/02/2024 Noted Allergy Reaction DUST 01/20/2016 14 - Other: See Comments Comments: Shortness of breath Date Reviewed: 06/03/2024 Reviewed by: Kylah Mauricio, CT - Fully Assessed Reason for Visit: Appointment [186] Cmt: Appointment Prescriptions as of 07/02/2024 - iv contrast (will be provided with radiology test) CTA ABD/PEL - No IV access, insert saline lock prior to the sedation, infusion, injection for imaging exam. Discontinue saline lock post exam. If Pt. has a central line or IVAD, may access for administration according to line specific nursing protocol. Once exam is complete flush line and de-access according to line specific nursing protocol in the CT contrast administration guidelines link. - gabapentin (NEURONTIN) 300 mg capsule Take 300 mg by mouth three times daily. - tadalafil (CIALIS ORAL) Take by mouth. - fluticasone-umeclidin- vilanter (TRELEGY ELLIPTA) 100-62.5-25 mcg Inhale 1 Puff as instructed once daily. - aspirin, enteric coated (ASPIR-LOW) 81 mg EC tablet Take 1 tablet by mouth once daily. 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] 11/17/2021 Encounter Status:Closed by ARSENIO WHITE on 07/02/24 [facility] CNOVon 06-03-2024 CNOV Office Visit (PMNA11 ) SIMONE ARREAGA ([id number]) 1950 M Date Time Provider Department 06/03/24 11:00 AM DARBY MAXWELL PMNA11 During your visit today, we recorded the following information about you: Temperature Pulse Respiration Blood pressure 97.3 degrees 69/minute 16/minute 144/79 Weight 86.3 kg Darby Maxwell MD 06/03/2024 1:00 PM Signed INTERVENTIONAL PULMONARY MEDICINE PLEASE DO NOT REMOVE FROM THE CHART OR MODIFY PRINTED COPY Patient Name: Simone Arreaga : 1950 PCP: Alexander Perales MD Chief Complaint: SOB/Emphysema Visit Type: This is an in-person visit. Consultation requested by Dr. Mas for an opinion regarding LVRS. My final recommendations will be communicated back to the requesting physician by way of shared Medical record or letter to requesting physician via US mail. Here for evaluaton of COPD/Emphysema to consider BLVR Former smoker Uses 2L NC at night Had recent PSG- not BILL Has daily small volume sputum production. No exacerbations, no hospital admits Interesting history of traumatic lung injury but did not require any surgery 50 years ago. (Presume PTX that resolved without intervention) Now main issue is BARKER Never completed rehab Never been tested for AATD No Nicotine Has known aortic vascular diisease (not CAD) stent in the aortia We are missing some recent notes in CareEverywhere. Past Medical and Surgical History PAST MEDICAL HISTORY Diagnosis Date AAA (abdominal aortic aneurysm) ([facility]) Acute maxillary sinusitis Acute upper respiratory infection of multiple sites Aneurysm of thoracic aorta (HCC) proximal,focal, descending stable 01/15/15 Chronic airway obstruction, not elsewhere classified COPD (chronic obstructive pulmonary disease) (HCC) Displacement of lumbar intervertebral disc without myelopathy Dysfunction of eustachian tube Emphysema lung (HCC) History of repair of aneurysm of abdominal aorta using endovascular stent graft 11/18/2018 at [facility] by Dr. Romero Spasm of back muscles PAST SURGICAL HISTORY Procedure Laterality Date ENDOVASC AAA STENT REPAIR 11/18/2018 at [facility] by Dr. Romero PAST SURGICAL HISTORY OF Left 2017 index finger Family History There is no history of lung disease Social History Mr. Arreaga smoked 1.5 packs a day for 35 years, but quit in 2003. There is no history of drug or alcohol abuse. 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 There are no significant occupational exposures to inhaled toxins or irritants. There was possible post exposure to Agent orange in [facility] Review of Symptoms See HPI. There are no fevers, chills, night sweats or weight loss. There is no exertional chest pain or palpations. Not known to snore and has no daytime somnolence. There are no arthralgias or myalgias. No trouble moving bowels or bladder noted. No new rashes noted. No inappropriate bleeding noted. The patient has no headaches. Review of systems is otherwise negative. Medications Current Outpatient Medications Medication Sig gabapentin (NEURONTIN) 300 mg capsule Take 300 mg by mouth three times daily. tadalafil (CIALIS ORAL) Take by mouth. fluticasone-umeclidin- vilanter (TRELEGY ELLIPTA) 100-62.5-25 mcg Inhale 1 Puff as instructed once daily. albuterol HFA (PROVENTIL HFA, VENTOLIN HFA) 90 mcg/actuation inhaler 1 or 2 inhalation(s) By mouth Every 6 Hours prn aspirin, enteric coated (ASPIR-LOW) 81 mg EC tablet Take 1 tablet by mouth once daily. No current facility-administered medications for this visit. Allergy ALLERGIES Allergen Reactions Dust Other: See Comments Shortness of breath Vital Signs BP 144/79 Pulse 69 Temp 36.3 ?C (97.3 ?F) (Temporal) Resp 16 Wt 86.3 kg (190 lb 4.1 oz) SpO2 93% BMI 27.70 kg/m? Physical Examination On my physical examination today, Mr. Arreaga appears in no respiratory distress. No new skin rashes or lesions are apparent. The nose is patent. Neck is supple and without jugular venous distention. No palpable lymph nodes were appreciated in the cervical, supraclavicular or axillary positions. The trachea is midline. There is no asymmetric dullness to percussion. Lungs are clear on auscultation. Heart sounds are regular. Normal muscle strength and motion. [place] and station are normal. Extremities are without cyanosis, clubbing, or edema. Fully alert and interactive. Normal affect. Data Latest Ref Rng AND Units 06/03/2024 Lung Volumes FRC Box (L) L 7.44 P RV Box (L) L 6.46 P ERV BOX (L) L 0.97 P VC (L) BOX L 3.33 P IC BOX (L) L 2.23 P TLC Box (L) L 9.66 P RV/TLC Box (%) % 67 P P Preliminary result Latest Ref Rng AND Units 06/03/2024 Spirometry Data FVC PRE (L) L 3.18 P FVC POST (L) L 3.33 P FEV1 PRE (L) L 1.02 P FEV1_POST (L) L 1.02 P FEV1/FVC PRE (%) % 32 P FEV1 (more content not included)... Normal [facility] SIX MINUTE WALKon 06-03-2024 Lukas Oh MD 06/03/2024 10:14 AM RESPIRATORY THERAPY SIX MINUTE WALK TEST OXIMETRY REPORT Six Minute Walk Test for This Encounter Oxygen Device Liters FIO2 SpO2% HR Activity Feet Speed (MPH) Flag R/A 97 74 Resting R/A 85 91 Six Minute Walk 1015 1.9 R/A 94 87 Recovery 1 minute post R/A 97 80 Recovery 2 minute post R/A 99 80 Recovery 3 minute post General Information Height Weight Pulse Oximetry Site Oximeter Pre Blood Pressure Post Blood Pressure Total Time Spent (min) 176.5 cm (5' 9.49) 86.3 kg (190 lb 4.1 oz) Forehead Masimo 137/89 150/78 30 _ Distance Walked (meters) Distance Walked (feet) Male Predicted Walk Distance (feet) Male Lower Limit of Normal (feet) Male % Predicted Total Duration Of The Stops (seconds) 309.37 1015 1619.75 1117.75 62.7 -- _ Lowest SpO2 During 6 Minute Walk Pre-Dinorah Dyspnea Rating Pre-Dinorah Fatigue Rating Post Dinorah Dyspnea Rating Post Dinorah Fatigue Rating 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 . The patient required Room Air to complete the test. The distance the patient walked in six minutes is moderately reduced. This is the first time patient takes the six minute walk test. The patient perceived their dyspnea during the six minute walk test to be 5-Severe on the modified Dinorah scale. The patient perceived their fatigue during the six minute walk test to be 7-Very severe on the modified Dinorah scale. I have reviewed the findings and made appropriate revisions as needed. SIGNATURE: Lukas Oh MD PATIENT NAME: Simone Arreaga DATE: June 03, 2024 TIME: 10:14 AM [facility] SIX MINUTE WALKOrdered By: Fifi Oh on 06-03-2024 [facility] Work Phone: [facility] Telephone (PULMMN) BROOKESIMONE ([id number]) 1950 M Date Time Provider Department 05/27/24 DARBY MAXWELL During your visit today, we recorded the following information about you: Anna Kahn 05/27/2024 3:19 PM Signed Per [facility], images pushed today at 1:15 p.m. Allergies As of Date: 05/27/2024 Noted Allergy Reaction DUST 01/20/2016 14 - Other: See Comments Comments: Shortness of breath Date Reviewed: 12/05/2022 Reviewed by: Tamera Maldonado LPN - Fully Assessed Reason for Visit: Images Update [Other] Prescriptions as of 05/27/2024 - gabapentin (NEURONTIN) 300 mg capsule Take 300 mg by mouth three times daily. - tadalafil (CIALIS ORAL) Take by mouth. - fluticasone-umeclidin- vilanter (TRELEGY ELLIPTA) 100-62.5-25 mcg Inhale 1 Puff as instructed once daily. - aspirin, enteric coated (ASPIR-LOW) 81 mg EC tablet Take 1 tablet by mouth once daily. 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 Alexander Perales MD Status: REG CLI Study: Chest without Contrast Date of Exam: 05/21/24 Exam# [id number] Ordering Dr: DARBY MAXWELL [id number] HISTORY: COPD SURVEILLANCE. TECHNIQUE: Helically acquired images were obtained of the chest without contrast. A radiation dose optimization technique was used for this scan. 916 images. COMPARISON: 07/31/2023, 04/17/2023, 11/11/2022, 01/26/2021. FINDINGS: LARGE AIRWAYS: Patent. LUNGS: Moderate-severe centrilobular emphysema with mild right apical, right lower lobe, and lingular scarring. Stable 6-7 mm right lower lobe, lingular, and left lower lobe fissural nodules on images 86, 103, and 110 of series 4. New linear 3 to 4 mm opacities in the right upper lobe laterally on images 69 and 76. PLEURA: No pneumothorax or significant pleural effusion. HEART/PERICARDIUM: Heart within normal limits in size with mild coronary artery calcification. Unchanged trace pericardial effusion. VESSELS: Unchanged appearance of 4.1 cm descending thoracic aortic aneurysm stent repair. MEDIASTINUM/JULI: No pathologically enlarged adenopathy. UPPER ABDOMEN: Colonic diverticulosis observed. Calcified splenic granuloma. BONES: Degenerative change. CT/Chest without Contrast IMPRESSION: New 3 to 4 mm right upper lobe nodules. Lung-RADS category 3: Recommend 6 month follow-up low dose CT. Electronically Signed: Mercy Cruz MD at 11:19 EDT , CC: Dr. Alexander Perales MD; DARBY MAXWELL Implementation Advisor: Signed [facility] 04-18-2024 [facility] Telephone (EUGENE) SIMONE ARREAGA ([id number]) 1950 M Date Time Provider Department 04/18/24 DARBY MAXWELL During your visit today, we recorded the following information about you: Mu Kahnita 04/18/2024 3:59 PM Signed Referring Physician: Dr Fabien Mas Address: [address] [place] [address] Phone #: Fax #: Reason for referral: Dawson Valve Is there CareEverywhere Records: Yes Is there Imaging available: Yes - Recent CT: Yes - Date of CT: 04/04/2023 Admin will request images Allergies As of Date: 04/18/2024 Noted Allergy Reaction DUST 01/20/2016 14 - Other: See Comments Comments: Shortness of breath Date Reviewed: 12/05/2022 Reviewed by: Tamera Maldonado LPN - Fully Assessed Prescriptions as of 04/24/2024 - gabapentin (NEURONTIN) 300 mg capsule Take 300 mg by mouth three times daily. - tadalafil (CIALIS ORAL) Take by mouth. - fluticasone-umeclidin- vilanter (TRELEGY ELLIPTA) 100-62.5-25 mcg Inhale 1 Puff as instructed once daily. - aspirin, enteric coated (ASPIR-LOW) 81 mg EC tablet Take 1 tablet by mouth once daily. 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0000 mL/min >60 [facility] Absolute lymphocyte counton 05-03-2022 Lymphocytes Auto (Unsp spec) [#/Vol] 2.61 10*3/uL 0.83-4.51 [facility] Work Phone: [phone] Basophil percentageon 2021 Basophils/100 WBC (Bld) 0.6 % 0-1 [facility] Work Phone: [phone] Chloride [Moles/Vol] 104 mmol/L 98-107 [facility] Work Phone: [phone] Cholesterol [Mass/Vol] 186 mg/dL <200 [facility] Work Phone: [phone] Comment on above: <200 mg/dL Desirable 200-240 mg/dL Borderline >240 mg/dL High Risk Eosinophils/100 WBC (Bld) 3.6 % 0-5 [facility] Work Phone: [phone] Glucose [Mass/Vol] 95 mg/dL 74-106 [facility] Work Phone: [phone] Neutrophils (Bld) [#/Vol] 3.0 10*3/uL 2.0-7.7 [facility] Work Phone: [phone] Neutrophils/100 WBC (Bld) 44.3 % 47-70 [facility] Work Phone: [phone] Potassium [Moles/Vol] 4.3 mmol/L 3.5-5.1 [facility] Work Phone: [phone] Sodium [Moles/Vol] 138 mmol/L 136-145 [facility] Work Phone: [phone] Triglyceride [Mass/Vol] 85 mg/dL <199 [facility] Work Phone: [phone] Comment on above: The drugs N-Acetylcy steine and Metamizole may falsely depress this assay.Serum Triglycerides Reference Interval Normal <150 mg/dL Borderline high 150 - 199 mg/dL High 200 - 499 mg/dL Very High > or = 500 mg/dL WBC (Bld) [#/Vol] 6.7 10*3/uL 4.4-11.0 [facility] Work Phone: Blood erythrocytes count (nu mber/volume)on 05-03-2022 RBC (Bld) [#/Vol] 4.92 10*6/uL 4.6-6.2 [facility] Work Phone: Blood hemoglobin measurement (mass/volume)on 05-03-2022 Hemoglobin (Bld) [Mass/Vol] 14.5 g/dL 13.0-16.5 [facility] Work Phone: Blood lymphocytes/100 leukoc yteson 05-03-2022 Lymphocytes/100 WBC (Bld) 38.7 % 19-41 [facility] Work Phone: Blood monocytes/100 leukocyt eson 05-03-2022 Monocytes/100 WBC (Bld) 12.5 % 0-10 [facility] Work Phone: Blood platelet mean volumeon 05-03-2022 Platelet mean volume (Bld) [Entitic vol] 9.2 fL 6.2-12.0 [facility] Work Phone: Determination of erythrocyte mean corpuscular volume (MCV)on 05-03-2022 MCV (RBC) [Entitic vol] 92.7 fL 80-94 [facility] Work Phone: Hematocrit Auto (Bld) [Volum e fraction]on 05-03-2022 Hematocrit (Bld) [Volume fraction] 45.6 % 40-54 [facility] Work Phone: Laboratory - Chemistry and C hemistry - challengeon 05-03-2022 CO2 [Moles/Vol] 30.0 mmol/L 21.0-32.0 [facility] Work Phone: Urea nitrogen/Creatinine [Mass ratio] 19.3 mg/mg 10-20 [facility] Work Phone: Laboratory - Hematology and Cell countson 05-03-2022 Erythrocyte distribution width (RBC) [Entitic vol] 44.5 fL 35.1-43.9 [facility] Work Phone: Erythrocyte distribution width (RBC) [Ratio] 13.1 % 11.6-14.6 [facility] Work Phone: Immature granulocytes/100 WBC (Bld) 0.300 % 0.0-0.9 [facility] Work Phone: Comment on above: IG% - Immature Granu locytes (promyelocytes, myelocytes and metamyelocytes) > 1% indicates that a LEFT SHIFT is Present. MCH (RBC) [Entitic mass] 29.5 pg 27.0-32.0 [facility] Work Phone: Nucleated RBC/100 WBC (Bld) [Ratio] 0 % 0-5 [facility] Work Phone: MCHC Auto (RBC) [Mass/Vol]on 05-03-2022 MCHC (RBC) [Mass/Vol] 31.8 g/dL 32-36 [facility] Work Phone: No Panel Informationon 05-03 Estimated GFR (MDRD) Amer 102 mL/min >60 [facility] Work Phone: Comment on above: GFR Calc Estimated GFR (MDRD) Non-Af Amer 84 mL/min >60 [facility] Work Phone: Comment on above: Non- GFR Calc Thyroid Stimulating Hormone (TSH) 2.91 uIU/mL 0.358-3.74 [facility] Work Phone: Platelets bldon 05-03-2022 Platelets (Bld) [#/Vol] 289 10*3/uL 150-450 [facility] Work Phone: Serum or plasma calcium apple urement (mass/volume)on 05-03-2022 Calcium [Mass/Vol] 9.3 mg/dL 8.5-10.1 [facility] Work Phone: Serum or plasma cholesterol in HDL measurement (mass/volume)on 05-03-2022 Cholesterol in HDL [Mass/Vol] 55 mg/dL >40 [facility] Work Phone: Comment on above: The drugs N-Acetylcy steine and Metamizole may falsely depress this assay. Reference Range HDL <40 mg/dL Low HDL Cholesterol HDL >or= 60 mg/dL High HDL Cholesterol Serum or plasma cholesterol in VLDL measurement (mass/volume)on 05-03-2022 Cholesterol in VLDL [Mass/Vol] 17 mg/dL 5-40 [facility] Work Phone: Serum or plasma creatinine m easurement (mass/volume)on 05-03-2022 Creatinine [Mass/Vol] 0.93 mg/dL 0.70-1.30 [facility] Work Phone: Comment on above: The validity of the calculated GFR & GFRAA in patients over 70 years has not been determined. Clinical correlation is essential. Serum or plasma low density lipoprotein (LDL) cholesterol measurement (mass/volume)on 05-03-2022 Cholesterol in LDL [Mass/Vol] 114 mg/dL 0-130 [facility] Work Phone: Serum or plasma urea nitroge n measurement (mass/volume)on 05-03-2022 Urea nitrogen [Mass/Vol] 18 mg/dL 7-18 [facility] Work Phone: Thin prep Papanicolaou smear with manual screeningon 05-03-2022 Thin prep Papanicolaou smear with manual screening 4 5-15 [facility] Work Phone: No Panel Informationon 03-06 Prostate Specific Antigen Screen 5.80 ng/mL 0.00-4.00 [facility] Work Phone: Comment on above: This test was perfor med using the TPSA assay method [facility]. Values obtained with differentassay methods cannot be used interchangably.When changing PSA assays in the course of monitoring apatient, additional sequential testing should be carriedout to confirm baseline values. Absolute lymphocyte counton 12-01-2021 Lymphocytes Auto (Unsp spec) [#/Vol] 1.61 10*3/uL 0.83-4.51 [facility] Work Phone: Basophil percentageon 2021 Basophil percentage < 0.9 mg/dL 0.70-1.30 [facility] Work Phone: [phone] Basophils/100 WBC (Bld) 0.3 % 0-1 [facility] Work Phone: [phone] Bilirubin [Mass/Vol] 0.90 mg/dL 0.20-1.00 [facility] Work Phone: Comment on above: For patients on eltr ombopag therapy, use of Dimension [place] TBIL is not recommended. Chloride [Moles/Vol] 107 mmol/L 98-107 [facility] Work Phone: [phone] Eosinophils/100 WBC (Bld) 2.5 % 0-5 [facility] Work Phone: Glucose [Mass/Vol] 116 mg/dL 74-106 [facility] Work Phone: Comment on above: Fasting Glucose resu lt from 100 to 125 mg/dL suggests IMPAIRED HOMEOSTASIS per A.D.A. criteria. Neutrophils (Bld) [#/Vol] 4.1 10*3/uL 2.0-7.7 [facility] Work Phone: Neutrophils/100 WBC (Bld) 60.6 % 47-70 [facility] Work Phone: [phone] Potassium [Moles/Vol] 3.5 mmol/L 3.5-5.1 [facility] Work Phone: [phone] Protein [Mass/Vol] 7.4 g/dL 6.4-8.2 [facility] Work Phone: [phone] Sodium [Moles/Vol] 140 mmol/L 136-145 [facility] Work Phone: [phone] WBC (Bld) [#/Vol] 6.7 10*3/uL 4.4-11.0 [facility] Work Phone: Blood erythrocytes count (nu mber/volume)on 12-01-2021 RBC (Bld) [#/Vol] 4.77 10*6/uL 4.6-6.2 [facility] Work [facility]: Blood hemoglobin measurement (mass/volume)on 12-01-2021 Hemoglobin (Bld) [Mass/Vol] 14.1 g/dL 13.0-16.5 [facility] Work Phone: Blood lymphocytes/100 leukoc yteson 12-01-2021 Lymphocytes/100 WBC (Bld) 23.9 % 19-41 [facility] Work Phone: Blood monocytes/100 leukocyt eson 12-01-2021 Monocytes/100 WBC (Bld) 12.6 % 0-10 [facility] Work Phone: Blood platelet mean volumeon 12-01-2021 Platelet mean volume (Bld) [Entitic vol] 9.6 fL 6.2-12.0 [facility] Work Phone: Determination of erythrocyte mean corpuscular volume (MCV)on 12-01-2021 MCV (RBC) [Entitic vol] 91.4 fL 80-94 [facility] Work Phone: Hematocrit Auto (Bld) [Volum e fraction]on 12-01-2021 Hematocrit (Bld) [Volume fraction] 43.6 % 40-54 [facility] Work Phone: Laboratory - Chemistry and C hemistry - challengeon 12-01-2021 ALP [Catalytic activity/Vol] 49 U/L 45-117 [facility] Work Phone: ALT [Catalytic activity/Vol] 21 U/L 16-61 [facility] Work Phone: CO2 [Moles/Vol] 28.0 mmol/L 21.0-32.0 [facility] Work Phone: Globulin (S) [Mass/Vol] 3.9 g/dL 2.2-4.2 [facility] Work Phone: Urea nitrogen/Creatinine [Mass ratio] 29.2 mg/mg 10-20 [facility] Work Phone: Laboratory - Hematology and Cell countson 12-01-2021 Erythrocyte distribution width (RBC) [Entitic vol] 42.8 fL 35.1-43.9 [facility] Work Phone: Erythrocyte distribution width (RBC) [Ratio] 12.8 % 11.6-14.6 [facility] Work Phone: Immature granulocytes/100 WBC (Bld) 0.100 % 0.0-0.9 [facility] Work Phone: Comment on above: IG% - Immature Granu locytes (promyelocytes, myelocytes and metamyelocytes) > 1% indicates that a LEFT SHIFT is Present. MCH (RBC) [Entitic mass] 29.6 pg 27.0-32.0 [facility] Work Phone: Nucleated RBC/100 WBC (Bld) [Ratio] 0 % 0-5 [facility] Work Phone: MCHC Auto (RBC) [Mass/Vol]on 12-01-2021 MCHC (RBC) [Mass/Vol] 32.3 g/dL 32-36 [facility] Work Phone: No Panel Informationon 12-01 Bedside Estimated GFR (eGFR) > 60.0000 mL/min >60 [facility] Work Phone: Estimated GFR (MDRD) Amer 103 mL/min >60 [facility] Work Phone: Comment on above: GFR Calc Estimated GFR (MDRD) Non-Af Amer 85 mL/min >60 [facility] Work Phone: Comment on above: Non- GFR Calc Platelets bldon 12-01-2021 Platelets (Bld) [#/Vol] 257 10*3/uL 150-450 [facility] Work Phone: Serum or plasma albumin apple urement (mass/volume)on 12-01-2021 Albumin [Mass/Vol] 3.5 g/dL 3.2-5.0 [facility] Work Phone: Serum or plasma albumin/glob ulin mass ratioon 12-01-2021 Albumin/Globulin [Mass ratio] 0.9 {ratio} 0.9-2.4 [facility] Work Phone: Serum or plasma calcium apple urement (mass/volume)on 12-01-2021 Calcium [Mass/Vol] 9.0 mg/dL 8.5-10.1 [facility] Work Phone: Serum or plasma creatinine m easurement (mass/volume)on 12-01-2021 Creatinine [Mass/Vol] 0.92 mg/dL 0.70-1.30 [facility] Work Phone: Comment on above: The validity of the calculated GFR & GFRAA in patients over 70 years has not been determined. Clinical correlation is essential. Serum or plasma urea nitroge n measurement (mass/volume)on 12-01-2021 Urea nitrogen [Mass/Vol] 27 mg/dL 7-18 [facility] Work Phone: Thin prep Papanicolaou smear with manual screeningon 12-01-2021 Thin prep Papanicolaou smear with manual screening 16 U/L 15-37 [facility] Work Phone: Thin prep Papanicolaou smear with manual screening 5 5-15 [facility] Work Phone: Basophil percentageon 2021 Creatinine [Mass/Vol] 0.9 mg/dL 0.70-1.30 [facility] Work Phone: No Panel Informationon 10-21 Bedside Estimated GFR (eGFR) > 60.0000 mL/min >60 [facility] Work Phone: MISCNBon 10-09-2019 Misc. lab Send Out (Non Blood) See Comments Normal [facility] ([place]) Comment on above: Order Comment: covid 19 Result Comment: Comp lete reference lab report scanned to EMR. Performed By: #### M ISCNB #### [place] [address] RESPIDon 10-03-2019 Adenovirus Not Detected Normal Not Detected [facility] ([place]) Comment on above: Order Comment: Provi melinda would like Coronavirus/Covid19 completed if RESP panel is negative Performed By: #### R ESPID #### [place] [address] Bordetella Parapertussis Not Detected Normal Not Detected [facility] ([place]) Comment on above: Order Comment: Provi melinda would like Coronavirus/Covid19 completed if RESP panel is negative Performed By: #### R ESPID #### [place] [address] Bordetella Pertussis Not Detected Normal Not Detected [facility] ([place]) Comment on above: Order Comment: Provi melinda would like Coronavirus/Covid19 completed if RESP panel is negative Performed By: #### R ESPID #### [place] [address] Chlamydophila pneumoniae Not Detected Normal Not Detected [facility] ([place]) Comment on above: Order Comment: Provi melinda would like Coronavirus/Covid19 completed if RESP panel is negative Performed By: #### R ESPID #### [place] [address] Coronavirus 229E Not Detected Normal Not Detected [facility] ([place]) Comment on above: Order Comment: Provi melinda would like Coronavirus/Covid19 completed if RESP panel is negative Performed By: #### R ESPID #### [place] [address] Coronavirus HKU1 Not Detected Normal Not Detected [facility] ([place]) Comment on above: Order Comment: Provi melinda would like Coronavirus/Covid19 completed if RESP panel is negative Performed By: #### R ESPID #### [place] [address] Coronavirus NL63 Not Detected Normal Not Detected [facility] ([place]) Comment on above: Order Comment: Provi melinda would like Coronavirus/Covid19 completed if RESP panel is negative Performed By: #### R ESPID #### [facility] [address] [place] [address] Coronavirus OC43 Not Detected Normal Not Detected [facility] ([place]) Comment on above: Order Comment: Provi melinda would like Coronavirus/Covid19 completed if RESP panel is negative Performed By: #### R ESPID #### [facility] [address] [place] [address] Human Metapneumovirus Not Detected Normal Not Detected [facility] ([place]) Comment on above: Order Comment: Provi melinda would like Coronavirus/Covid19 completed if RESP panel is negative Performed By: #### R ESPID #### [facility] [address] [place] [address] Influenza A Not Detected Normal Not Detected [facility] ([place]) Comment on above: Order Comment: Provi melinda would like Coronavirus/Covid19 completed if RESP panel is negative Performed By: #### R ESPID #### [place] [address] Influenza B Not Detected Normal Not Detected [facility] ([place]) Comment on above: Order Comment: Provi melinda would like Coronavirus/Covid19 completed if RESP panel is negative Performed By: #### R ESPID #### [place] [address] Mycoplasma pneumoniae Not Detected Normal Not Detected [facility] ([place]) Comment on above: Order Comment: Provi melinda would like Coronavirus/Covid19 completed if RESP panel is negative Performed By: #### R ESPID #### [place] [address] Parainfluenza 1 Not Detected Normal Not Detected [facility] ([place]) Comment on above: Order Comment: Provi melinda would like Coronavirus/Covid19 completed if RESP panel is negative Performed By: #### R ESPID #### [place] [address] Parainfluenza 2 Not Detected Normal Not Detected [facility] ([place]) Comment on above: Order Comment: Provi melinda would like Coronavirus/Covid19 completed if RESP panel is negative Performed By: #### R ESPID #### [place] [address] Parainfluenza 3 Not Detected Normal Not Detected [facility] ([place]) Comment on above: Order Comment: Provi melinda would like Coronavirus/Covid19 completed if RESP panel is negative Performed By: #### R ESPID #### [place] [address] Parainfluenza 4 Not Detected Normal Not Detected [facility] ([place]) Comment on above: Order Comment: Provi mleinda would like Coronavirus/Covid19 completed if RESP panel is negative Performed By: #### R ESPID #### [place] [address] Respiratory Syncytial Virus Not Detected Normal Not Detected [facility] ([place]) Comment on above: Order Comment: Provi melinda would like Coronavirus/Covid19 completed if RESP panel is negative Performed By: #### R ESPID #### [place] [address] Rhinovirus/Enterovirus Not Detected Normal Not Detecte d [facility] ([place]) Comment on above: Order Comment: Provi melinda would like Coronavirus/Covid19 completed if RESP panel is negative Performed By: #### R ESPID #### [place] [address] Basic Panelon 03-28-2019 Creatinine [Mass/Vol] 0.68 mg/dL Normal 0.67-1.17 [facility] Comment on above: Performed By: #### P 8 #### [place] [address] Glucose [Mass/Vol] 98 mg/dL Normal 70-99 [facility] Comment on above: Performed By: #### P 8 #### [address] [address] Urea nitrogen [Mass/Vol] 12 mg/dL Normal 7-18 [facility] Comment on above: Performed By: #### P 8 #### [address] [address] Anion gap [Moles/Vol] 9 mmol/L Normal 8-16 [facility] Comment on above: Performed By: #### P 8 #### [facility] [address] [place], [place] [address] Calcium [Mass/Vol] 8.4 mg/dL Low 8.5-10.1 [facility] Comment on above: Performed By: #### P 8 #### [facility] [address] [place], [place] [address] CO2 [Moles/Vol] 30 mmol/L Normal 21-32 [facility] Comment on above: Performed By: #### P 8 #### [facility] [address] [place] [address] Chloride [Moles/Vol] 99 mmol/L Normal 98-107 [facility] Comment on above: Performed By: #### P 8 #### [facility] [address] [place] [address] Potassium [Moles/Vol] 4.2 mmol/L Normal 3.5-5.1 [facility] Comment on above: Performed By: #### P 8 #### [facility] [address] [place] [address] Sodium [Moles/Vol] 134 mmol/L Low 136-145 [facility] Comment on above: Performed By: #### P 8 #### [facility] [address] [place] [address] Hemogramon 03-28-2019 Erythrocyte distribution width (RBC) [Ratio] 13.2 % Normal 11.6-14.4 [facility] Comment on above: Performed By: #### P 8 #### [facility] [address] [place], [place] [address] Hematocrit (Bld) [Volume fraction] 36.7 % Low 40.1-51.0 [facility] Comment on above: Performed By: #### P 8 #### [facility] [address] [place], [place] [address] Hemoglobin (Bld) [Mass/Vol] 11.9 g/dL Low 13.7-17.5 [facility] Comment on above: Performed By: #### P 8 #### [facility] [address] [place] [address] [place], [place] [address] MCH (RBC) [Entitic mass] 29.7 pg Normal 25.7-32.2 [facility] Comment on above: Performed By: #### P 8 #### [facility] [address] [place], [place] [address] MCHC (RBC) [Mass/Vol] 32.4 % Normal 32.3-36.5 [facility] Comment on above: Performed By: #### P 8 #### [facility] [address] [place] [address] MCV (RBC) [Entitic vol] 91.5 fL Normal 83.2-95.6 [facility] Comment on above: Performed By: #### P 8 #### [facility] [address] [place] [address] Platelet mean volume (Bld) [Entitic vol] 9.4 fL Normal 8.7-12.0 [facility] Comment on above: Performed By: #### P 8 #### [facility] [address] [place] [address] Platelets (Bld) [#/Vol] 217 thou/cmm Normal 141-365 [facility] Comment on above: Performed By: #### P 8 #### [facility] [address] [place] [address] RBC (Bld) [#/Vol] 4.01 mil/cmm Low 4.63-6.08 [facility] Comment on above: Performed By: #### P 8 #### [facility] [address] [place] [address] RDW SD 44.4 fl Normal 36.1-45.8 [facility] Comment on above: Performed By: #### P 8 #### [facility] [address] [place], [place] [address] WBC (Bld) [#/Vol] 7.94 thou/cmm Normal 4.23-9.07 [facility] Comment on above: Performed By: #### P 8 #### [facility] [address] [place], [place] [address] IR REM TUNNEL INTRAPERI CATH on 03-28-2019 IR REM TUNNEL INTRAPERI CATH * * *Final Report* * * DATE OF EXAM: Mar 28 2019 12:00PM LINDA 0968 - IR REM TUNNEL INTRAPERI CATH / PROCEDURE REASON: Aneurysm (HCC) * * * * Physician Interpretation * * * * SUBARACHNOID DRAIN REMOVAL DATE: 03/28/2019 12:00 PM HISTORY: Subarachnoid drain placement for CSF monitoring following thoracic aortic endograft stent placement. COMPARISON: Images from subarachnoid drain placement performed on 03/26/2019. ENCOUNTER: Subsequent TECHNIQUE: Patient was brought to the angiography suite and placed in prone position on the angiography table. The site of the indwelling subarachnoid drain at the posterior aspect of lower back was then prepped and draped in the usual sterile fashion. Under fluoroscopic guidance, the subarachnoid drain was removed in its entirety. The drain was confirmed to be intact. Manual pressure was applied at the skin site. Sterile dressings were applied. FINDINGS: Successful removal of lumbar subarachnoid drain. IMPRESSION: Successful fluoroscopic guided removal of lumbar subarachnoid drain. Implementation Advisor: [facility] Transcribe Date/Time: Mar 28 2019 5:23P Dictated by : KWADWO COSTELLO MD This examination was interpreted and the report reviewed and electronically signed by: KWADWO COSTELLO MD on Mar 28 2019 5:25PM EST Normal [facility] MDRD GFRon 03-28-2019 GFR/1.73 sq M predicted among non-blacks MDRD (S/P/Bld) [Vol rate/Area] mL/min/{1.73_m2} Normal >60mL/min/1.7 3m2 [facility] Comment on above: Result Comment: If t he patient is , multiply the result by 1.210. Performed By: #### P 8 #### [place] [id number] Magnesium Bloodon 03-28-2019 Magnesium [Mass/Vol] 2.0 mg/dL Normal 1.6-2.6 [facility] Comment on above: Performed By: #### P 8 #### [facility] [address] [place] [id number] Phosphorus Bloodon 9 Phosphate [Mass/Vol] 2.4 mg/dL Low 2.5-4.9 [facility] Comment on above: Performed By: #### P 8 #### [facility] [address] [place], [place] [address] Basic Panelon 03-27-2019 Creatinine [Mass/Vol] 0.72 mg/dL Normal 0.67-1.17 [facility] Comment on above: Performed By: #### P 8 #### [facility] [address] [place], [place] [address] Anion gap [Moles/Vol] 10 mmol/L Normal 8-16 [facility] Comment on above: Performed By: #### P 8 #### [facility] [address] [place], [place] [address] Calcium [Mass/Vol] 8.3 mg/dL Low 8.5-10.1 [facility] Comment on above: Performed By: #### P 8 #### [facility] [address] [place], [place] [address] CO2 [Moles/Vol] 29 mmol/L Normal 21-32 [facility] Comment on above: Performed By: #### P 8 #### [facility] [address] [place], [place] [address] Glucose [Mass/Vol] 104 mg/dL High 70-99 [facility] Comment on above: Performed By: #### P 8 #### [facility] [address] [place], [place] [address] Urea nitrogen [Mass/Vol] 14 mg/dL Normal 7-18 [facility] Comment on above: Performed By: #### P 8 #### [facility] [address] [place], [place] [address] Chloride [Moles/Vol] 102 mmol/L Normal 98-107 [facility] Comment on above: Performed By: #### P 8 #### [facility] [address] [place], [place] [address] Potassium [Moles/Vol] 4.2 mmol/L Normal 3.5-5.1 [facility] Comment on above: Performed By: #### P 8 #### [facility] [address] [place], [place] [address] Sodium [Moles/Vol] 137 mmol/L Normal 136-145 [facility] Comment on above: Performed By: #### P 8 #### [facility] [address] [place] [address] Hemogramon 03-27-2019 Erythrocyte distribution width (RBC) [Ratio] 13.0 % Normal 11.6-14.4 [facility] Comment on above: Performed By: #### C BC1 #### [facility] [address] [place] [address] Hematocrit (Bld) [Volume fraction] 40.8 % Normal 40.1-51.0 [facility] Comment on above: Performed By: #### C BC1 #### [facility] [address] [place] [address] Hemoglobin (Bld) [Mass/Vol] 13.0 g/dL Low 13.7-17.5 [facility] Comment on above: Performed By: #### C BC1 #### [facility] [address] [place] [address] MCH (RBC) [Entitic mass] 29.2 pg Normal 25.7-32.2 [facility] Comment on above: Performed By: #### C BC1 #### [facility] [address] [place] [address] MCHC (RBC) [Mass/Vol] 31.9 % Low 32.3-36.5 [facility] Comment on above: Performed By: #### C BC1 #### [facility] [address] [place] [address] MCV (RBC) [Entitic vol] 91.7 fL Normal 83.2-95.6 [facility] Comment on above: Performed By: #### C BC1 #### [facility] [address] [place] [address] Platelet mean volume (Bld) [Entitic vol] 9.1 fL Normal 8.7-12.0 [facility] Comment on above: Performed By: #### C BC1 #### [facility] [address] [place], [place] [address] Platelets (Bld) [#/Vol] 256 thou/cmm Normal 141-365 [facility] Comment on above: Performed By: #### C BC1 #### [facility] [address] [place], [place] [address] RBC (Bld) [#/Vol] 4.45 mil/cmm Low 4.63-6.08 [facility] Comment on above: Performed By: #### C BC1 #### [facility] [address] [place], [place] [address] RDW SD 43.9 fl Normal 36.1-45.8 [facility] Comment on above: Performed By: #### C BC1 #### [facility] [address] [place], [place] [address] WBC (Bld) [#/Vol] 12.20 thou/cmm High 4.23-9.07 [facility] Comment on above: Performed By: #### C BC1 #### [place] [address] Magnesium Bloodon 03-27-2019 Magnesium [Mass/Vol] 1.9 mg/dL Normal 1.6-2.6 [facility] Comment on above: Performed By: #### M AG #### [facility] [address] [place], [place] [address] Phosphorus Bloodon 9 Phosphate [Mass/Vol] 2.7 mg/dL Normal 2.5-4.9 [facility] Comment on above: Performed By: #### P 8 #### [address] [address] ACT Arterial Panel (i-STAT)o n 03-26-2019 Kaolin ACT ( i-STAT) 180 sec High 74-137 [facility] Comment on above: Performed By: #### A CTIA #### [place] [address] IR ENDO REPR THOR NC/LT SUBC Edna 03-26-2019 IR ENDO REPR THOR NC/LT SUBCLAV * * *Final Report* * * DATE OF EXAM: Mar 26 2019 12:00PM [facility]DA 1005 - IR ENDO REPR THOR NC/LT SUBCLAV / PROCEDURE REASON: aaa * * * * Physician Interpretation * * * * EXAM TITLE: DESCENDING THORACIC ANEURYSM ENDOVASCULAR REPAIR DATE: 03/26/2019 CLINICAL INDICATION/HISTORY: Patient is a 69-year-old male with 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 He previously underwent repair of a large infrarenal abdominal aortic aneurysm with a endovascular stent graft and presents today for repair of his thoracic pseudoaneurysm. TECHNIQUE: Please see the operative report for full details of access. FINDINGS: After access was obtained of bilateral common femoral artery a long pigtail catheter and stiff wire was placed within the descending thoracic aorta. This was used to identify the location of the pseudoaneurysm within the mid descending thoracic aorta. Stent graft was placed across the pseudoaneurysm and aortogram showed no evidence of endoleak. Stent graft was not ballooned at this time as there is no evidence of endoleak and there is good wall apposition. Sheaths were removed and access points were closed. IMPRESSION: Successful repair of descending thoracic aortic pseudoaneurysm with stent graft. Implementation Advisor: [employer] Transcribe Date/Time: Apr 11 2019 11:39A Dictated by : RONNI ROMERO MD This examination was interpreted and the report reviewed and electronically signed by: RONNI ROMERO MD on Apr 11 2019 11:41AM EST Normal [facility] IR EPID CATH PLCMT LUMBARon 03-26-2019 IR EPID CATH PLCMT LUMBAR * * *Final Report* * * DATE OF EXAM: Mar 26 2019 9:34AM [facility] 0925 - IR EPID CATH PLCMT LUMBAR / PROCEDURE REASON: pre surg for Endo repair * * * * Physician Interpretation * * * * PROCEDURE: FLUOROSCOPIC GUIDED LUMBAR SUBARACHNOID DRAIN PLACEMENT DATE: 03/26/2019 INDICATION: Pending thoracic aortic stent graft repair. Drain requested for monitoring CSF pressures and for possible CSF drainage. ENCOUNTER: Initial COMPARISON: CT angiography of the abdomen and pelvis dated 12/26/2018. TECHNIQUE: The procedure was performed in the VIR Suite following informed consent and a Time Out. Informed consent was obtained from the patient. The patient was evaluated for the safety and appropriateness of conscious sedation and the Moderate Sedation Record was completed. The patient was sedated with intravenous Fentanyl and Versed administered by the radiology nurses. Please refer to nursing notes for medication dosages. The patient's vital signs were monitored during the procedure by the radiology nurses. ILN-PROCEDURE DISCUSSION: The appropriate elements of the pre-procedure discussion, safety check list and sign-out were performed. Patient position: Prone Anesthesia: Moderate conscious sedation. Continuous cardiopulmonary monitoring was performed throughout the procedure during which the patient received IV Versed and IV Fentanyl for conscious sedation. Local anesthesia: 2% lidocaine Total intraservice time (monitoring for moderate sedation) was 25 minutes. Patient monitoring: Supervised observer Image guidance: Fluoroscopic guidance. Total Fluoroscopy time: 2.7 Minutes Fluoroscopy dose: 103 mGy 4 separate fluoroscopic spot images were saved and placed in the PACS system. Fluoroscopic examination of the lumbar spine was performed to identify the site for intrathecal drainage catheter placement. Skin site was marked at the L3-L4 region. The back was then prepped and draped in usual sterile fashion. Under fluoroscopic guidance, 2% lidocaine was used to anesthetize the skin and anticipated catheter tract. 14-gauge Touhy needle was advanced into the intrathecal space at the level of the L3-L4 intervertebral disc space, at the midline. Lumbar drain was then advanced via the needle into the intrathecal space with the tip of the catheter at the level of the T10 vertebral body. Catheter was secured to the skin with 2-0 Ethilon suture. Drainage catheter was capped. Sterile dressings were applied. No immediate complication. Images were saved and placed in the PACS system. FINDINGS: Successful placement of intrathecal drainage catheter at the level of the L3-L4 interspace with tip of the catheter at the level of the T10 vertebral body. IMPRESSION: Successful fluoroscopic guided placement of lumbar intrathecal drain, as described above. Implementation Advisor: [employer] Transcribe Date/Time: Mar 26 2019 11:35A Dictated by : KWADWO COSTELLO MD This examination was interpreted and the report reviewed and electronically signed by: KWADWO COSTELLO MD on Mar 26 2019 11:46AM EST Normal [place] [facility] XR CHEST 1V FRONTALon 2018 XR CHEST 1V FRONTAL * * *Final Report* * * DATE OF EXAM: Mar 26 2019 1:09PM AKX [id number] - XR CHEST 1V FRONTAL / PROCEDURE REASON: Acute respiratory illness * * * * Physician Interpretation * * * * EXAMINATION: CHEST RADIOGRAPH (SINGLE VIEW AP OR PA) CLINICAL HISTORY: Acute respiratory illness status post endograft repair of the descending thoracic aorta. MQ: [id number] Comparison: CT angiogram dated 12/26/2018 RESULT: Lines, tubes, and devices: satellite project site monitor leads. Lungs and pleura: No consolidation. No lung mass. No pleural effusion. Cardiomediastinal silhouette: Heart size normal. Aortic stent graft within the proximal and mid descending thoracic aorta. Other: None. IMPRESSION: Status post placement of descending thoracic aorta stent graft. Implementation Advisor: [employer] Transcribe Date/Time: Mar 26 2019 1:45P Dictated by : DARBY MAYES MD This examination was interpreted and the report reviewed and electronically signed by: DARBY MAYES MD on Mar 26 2019 1:48PM EST Normal [facility] Type and Screenon 02-28-2019 ABO group Nom (Bld) A Normal [facility] Comment on above: Performed By: #### T &S #### [place] [address] Comment PAT specimen Normal [facility] Comment on above: Performed By: #### T &S #### [place] [address] RH Type Positive Normal [facility] Comment on above: Performed By: #### T &S #### [place] [address] Basic Panelon 02-27-2019 Creatinine [Mass/Vol] 0.96 mg/dL Normal 0.67-1.17 [facility] Comment on above: Performed By: #### P 8 #### [place] [address] Glucose [Mass/Vol] 103 mg/dL High 70-99 [facility] Comment on above: Performed By: #### P 8 #### [facility] [address] [place] [address] Anion gap [Moles/Vol] 6 mmol/L Low 8-16 [facility] Comment on above: Performed By: #### P 8 #### [facility] [address] [place] [address] CO2 [Moles/Vol] 32 mmol/L Normal 21-32 [facility] Comment on above: Performed By: #### P 8 #### [place] [address] Urea nitrogen [Mass/Vol] 24 mg/dL High 7-18 [facility] Comment on above: Performed By: #### P 8 #### [facility] [address] [place], [place] [address] Calcium [Mass/Vol] 9.1 mg/dL Normal 8.5-10.1 [facility] Comment on above: Performed By: #### P 8 #### [facility] [address] [place], [place] [address] Chloride [Moles/Vol] 106 mmol/L Normal 98-107 [facility] Comment on above: Performed By: #### P 8 #### [facility] [address] [place], [place] [address] Potassium [Moles/Vol] 3.6 mmol/L Normal 3.5-5.1 [facility] Comment on above: Performed By: #### P 8 #### [facility] [address] [place] [address] Sodium [Moles/Vol] 140 mmol/L Normal 136-145 [facility] Comment on above: Performed By: #### P 8 #### [facility] [address] [place] [address] Hemogramon 02-27-2019 Erythrocyte distribution width (RBC) [Ratio] 13.0 % Normal 11.6-14.4 [facility] Comment on above: Performed By: #### C BC1 #### [facility] [address] [place] [address] Hematocrit (Bld) [Volume fraction] 42.2 % Normal 40.1-51.0 [facility] Comment on above: Performed By: #### C BC1 #### [facility] [address] [place], [place] [address] Hemoglobin (Bld) [Mass/Vol] 14.7 g/dL Normal 13.7-17.5 [facility] Comment on above: Performed By: #### C BC1 #### [facility] [address] [place], [place] [address] MCH (RBC) [Entitic mass] 32.7 pg High 25.7-32.2 [facility] Comment on above: Performed By: #### C BC1 #### [facility] [address] [place], [place] [address] MCHC (RBC) [Mass/Vol] 34.8 % Normal 32.3-36.5 [facility] Comment on above: Performed By: #### C BC1 #### [facility] [address] [place], [place] [address] MCV (RBC) [Entitic vol] 94.0 fL Normal 83.2-95.6 [facility] Comment on above: Performed By: #### C BC1 #### [facility] [address] [place], [place] [address] Platelet mean volume (Bld) [Entitic vol] 10.2 fL Normal 8.7-12.0 [facility] Comment on above: Performed By: #### C BC1 #### [facility] [address] [place], [place] [address] Platelets (Bld) [#/Vol] 267 thou/cmm Normal 141-365 [facility] Comment on above: Performed By: #### C BC1 #### [facility] [address] [place], [place] [address] RBC (Bld) [#/Vol] 4.49 mil/cmm Low 4.63-6.08 [facility] Comment on above: Performed By: #### C BC1 #### [facility] [address] [place], [place] [address] RDW SD 43.0 fl Normal 36.1-45.8 [facility] Comment on above: Performed By: #### C BC1 #### [facility] [address] [place], [place] [address] WBC (Bld) [#/Vol] 7.27 thou/cmm Normal 4.23-9.07 [facility] Comment on above: Performed By: #### C BC1 #### [facility] [address] [place], [place] [address] MDRD GFRon 02-27-2019 GFR/1.73 sq M predicted among non-blacks MDRD (S/P/Bld) [Vol rate/Area] mL/min/{1.73_m2} Normal >60mL/min/1.7 3m2 [facility] Comment on above: Result Comment: If t he patient is , multiply the result by 1.210. Performed By: #### G #### [facility] [address] [place] [address] CNOVon 02-20-2017 CNOV Office Visit (AGVASACC) --BROOKESIMONE Todd ([id number]) 1950 MDate Time Provider Department02/20/17 1:00 PM ASA HERNANDEZ VASACC During your visit today, we recorded the following information about you: Pulse Respiration Blood pressure Weight 72/minute 16/minute 110/70 83.5 kg Height 1.803 Luisana Hernandez MD 02/20/2017 1:39 PM SignedSubjective ANDquot;here for CT resultsANDquot;HPI:Eliezer Arreaga is a 67 year old year old male that returns to the office todayfor continued follow-up for a localized ANDquot;outpouchingAND quot; on the proximaldescending thoracic aorta for which he recently underwent a follow-up CT scanof the chest down in [place] per his preference. This study was performed 2016 and shows this area to be ANDquot;stableANDquot; . Diameter measurement atthe level of this ANDquot;outpouchingAND quot; was not given and will be requested.The patient remains asymptomatic.Current Outpatient Prescriptions:fluticas one-salmeterol (ADVAIR DISKUS) 100-50 mcg/dose dsdv Inhale 1 Puff asinstructed twice daily.CALCIUM CARBONATE/VITAMIN D3 (VITAMIN D-3 ORAL) Take by mouth.albuterol HFA (VENTOLIN HFA) 90 mcg/actuation inhaler 1 or 2 inhalation(s) [place] Every 6 Hours prnfluticasone-salmete rol (ADVAIR DISKUS) 250-50 mcg/dose dsdv 1 puff(s) By mouth2 Times A DayAscorbic Acid-Bioflavonoids (PAKO C WITH BIOFLAVONOIDS) 500-200 mg tab Takeby mouth.VITAMIN E-400 ORAL Take by mouth. 1 capsule(s) By mouth DailyALBUTEROL INHALATION Inhale as instructed.albuterol 2.5 mg /3 mL (0.083 %) nebulizer solution Use 3 mL via nebulizerevery 6 hours as needed for Wheezing/Shortness of Breath. 1 vial contains 3 ml.benzonatate (TESSALON PERLES) 100 mg capsule Take 1 capsule by mouth threetimes daily as needed for Cough.No current facility-administered medications for this visit.DustOBJECTIVEPHY SICAL EXAM:BP 110/70 (BP Site: Right Arm, BP Position: Sitting) Pulse 72 Resp 16 Ht5' 11ANDquot; (1.803 m) Wt 184 lb (83.5 kg) SpO2 97% BMI 25.66 kg/m2Body mass index is 25.66 kg/(m2).Body surface area is 2.05 meters squared.General Appearance: well appearing, in no acute distress, alert and oriented.Lungs: Lungs clear to auscultation. No wheezing, rhonchi, rales, perhapsslightly prolonged expiratory phase..Heart: Regular Rhythm .ASSESSMENT/PLAN:1. 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 Stable with good blood pressure control.- CT CHEST WO CONT (AG,EU,FV,HL,JERRY,MM,SP) Asa Hernandez MDIMPRESSION: Simone Arreaga has evidence of localized dilated desending aorta.The maximum dimension is not obtainable from this CD disc and not in the reportfrom [place]. Surgical resection or endovascular repair is not indicated atthis time. I recommend serial surveillance of the aorta with periodic CT scansof the chest, the next scan to be performed in 12 months. Addition of a betablocker to the medical regimen should be considered. He has been advised toavoid strenuous heavy lifting; to seek immediate medical attention for anyepisode of severe chest or back pain; and to advise caregivers of the presenceof an enlarged thoracic aorta. My office will request a diameter measurementon the current scan. My office will schedule the next chest CT. He wasadvised to follow-up with his primary care physician on a regular basis.Referring Provider: SHERITA PASCAL [[id number]]Allergies As of Date: 02/20/2017 Noted Allergy ReactionDUST 01/20/2016 14 - Other: See Comments Comments: Shortness of breathDate Reviewed: 02/20/2017Reviewed by: Asa Hernandez - Fully AssessedReason for Visit: Aneurysm [496] Cmt: SIMONE IS HERE FOR YEARLY FOLLOW UP TAA. CT CHEST DONE 01/30/17Primary Visit Diagnosis:Descending thoracic aortic aneurysm (HCC) [I71.2]Order(s):CT CHEST WO CONT (AG,EU,FV,HL,JERRY,MM,SP) [[id number]] Order #: [id number] s as of 02/20/2017 Sig: FLUTICASONE 100 MCG-SALMETERO* Inhale 1 Puff as instructed t* VITAMIN D-3 ORAL Take by mouth. ALBUTEROL SULFATE HFA 90 MCG/* 1 or 2 inhalation(s) By mouth* FLUTICASONE 250 MCG-SALMETERO* 1 puff(s) By mouth 2 Times A * ASCORBIC ACID-BIOFLAVONOIDS 5* Take by mouth. VITAMIN E-400 ORAL Take by mouth. 1 capsule(s) * ALBUTEROL INHALATION Inhale as instructed. ALBUTEROL SULFATE 2.5 MG/3 ML* Use 3 mL via nebulizer every * BENZONATATE 100 MG CAPSULE Take 1 capsule by mouth three*Medication notes this encounter ASCORBIC ACID-BIOFLAVONOIDS 500 MG-200 MG TABLET >> Tamera Maldonado LPN 02/20/2017 1:04 PM >> TAMERA MALDONADO LPN jose carlos Feb 20, 2017 1:04 PM NOT TAKING VITAMIN E-400 ORAL >> Tamera Maldonado LPN 02/20/2017 1:04 PM >> TAMERA MALDONADO LPN jose carlos Feb 20, 2017 1:04 PM NOT TAKING ALBUTEROL INHALATION >> Tamera Maldonado LPN 02/20/2017 1:03 PM >> TAMERA MALDONADO LPN jose carlos Feb 20, 2017 1:03 PM DUPLICATEProblem List As Of Date 02/20/2017 Noted Resolved CHRONIC AIRWAY OBSTRUCTION NEC [J44.9] Descending thoracic aortic aneurysm (HCC) [I71.*INVALID FOR*Disposition: Return in about 1 year (around 02/20/2018), or ct chest results.Follow-up and Disposition History RecordedLetter TextEncounter Number: [id number] Status:Closed by ASA HERNANDEZ MD on 02/20/17 [facility] PROGRESSon 02-20-2017 PROGRESS HNO ID: [id number]: Asa Lepeervice: (none)Author Type: PhysicianType: Progress NotesFiled: 02/20/2017 1:39 PMNote Text:Subjective here for CT resultsHPI:Simone Arreaga is a 67 year old year old male that returns to the officetoday for continued follow-up for a localized outpouching on theproximal descending thoracic aorta for which he recently underwent afollow-up CT scan of the chest down in [place] per his preference. Thisstudy was performed January 30, 2017 and shows this area to be stable.Diameter measurement at the level of this outpouching was not given andwill be requested. The patient remains asymptomatic.Current Outpatient Prescriptions:fluticas one-salmeterol (ADVAIR DISKUS) 100-50 mcg/dose dsdv Inhale 1 Puffas instructed twice daily.CALCIUM CARBONATE/VITAMIN D3 (VITAMIN D-3 ORAL) Take by mouth.albuterol HFA (VENTOLIN HFA) 90 mcg/actuation inhaler 1 or 2 inhalation(s)By mouth Every 6 Hours prnfluticasone-salmete rol (ADVAIR DISKUS) 250-50 mcg/dose dsdv 1 puff(s) [place] 2 Times A DayAscorbic Acid-Bioflavonoids (PAKO C WITH BIOFLAVONOIDS) 500-200 mg tabTake by mouth.VITAMIN E-400 ORAL Take by mouth. 1 capsule(s) By mouth DailyALBUTEROL INHALATION Inhale as instructed.albuterol 2.5 mg /3 mL (0.083 %) nebulizer solution Use 3 mL via nebulizerevery 6 hours as needed for Wheezing/Shortness of Breath. 1 vial contains3 ml.benzonatate (TESSALON PERLES) 100 mg capsule Take 1 capsule by mouth threetimes daily as needed for Cough.No current facility-administered medications for this visit.DustOBJECTIVEPHY SICAL EXAM:BP 110/70 (BP Site: Right Arm, BP Position: Sitting) Pulse 72 Resp 16 Ht 5' 11 (1.803 m) Wt 184 lb (83.5 kg) SpO2 97% BMI 25.66 kg/m2Body mass index is 25.66 kg/(m2).Body surface area is 2.05 meters squared.General Appearance: well appearing, in no acute distress, alert andoriented.Lungs: Lungs clear to auscultation. No wheezing, rhonchi, rales, perhapsslightly prolonged expiratory phase..Heart: Regular Rhythm .ASSESSMENT/PLAN:1. 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 Stable with good blood pressure control.- CT CHEST WO CONT (AG,EU,FV,HL,JERRY,MM,SP) Asa Hernandez MDIMPRESSION: Simone Arreaga has evidence of localized dilated desendingaorta. The maximum dimension is not obtainable from this CD disc and notin the report from [place]. Surgical resection or endovascular repair isnot indicated at this time. I recommend serial surveillance of the aortawith periodic CT scans of the chest, the next scan to be performed in 12months. Addition of a beta leigh to the medical regimen should beconsidered. He has been advised to avoid strenuous heavy lifting; [facility] any episode of severe chest or back pain;and to advise caregivers of the presence of an enlarged thoracic aorta.My office will request a diameter measurement on the current scan. Tere will schedule the next chest CT. He was advised to follow-up withhis primary care physician on a regular basis. Normal [facility] Vital Signs Date Time Vital Sign Value Performing Clinician Facility 12-25-2024 09:53-0400 Body mass index (BMI) [Ratio] 27.16 kg/m2 Tosha Elliott MD Work Phone: [facility] 12-25-2024 09:53-0400 Body temperature 97.81 [degF] Tosha Elliott MD Work Phone: [facility] 12-25-2024 09:53-0400 Body weight 84.6 kg Tosha Elliott MD Work Phone: [facility] 12-25-2024 09:53-0400 Diastolic blood pressure 69 mm[Hg] Tosha Elliott MD Work Phone: [facility] 12-25-2024 09:53-0400 Heart rate 77 /min Tosha Elliott MD Work Phone: [facility] 12-25-2024 09:53-0400 Respiratory rate 16 /min Tosha Elliott MD Work Phone: [facility] 12-25-2024 09:53-0400 SaO2% (BldA) [Mass fraction] 93 % Tosha Elliott MD Work Phone: [facility] 12-25-2024 09:53-0400 Systolic blood pressure 127 mm[Hg] Tosha Elliott MD Work Phone: [facility] 12-05-2024 10:56-0400 Body height 180.[address] Alexander Perales MD Work Phone: [facility] 12-05-2024 10:56-0400 Body mass index (BMI) [Ratio] 25.9 kg/m2 Dr. Alexander Perales MD Work Phone: [facility] 12-05-2024 10:56-0400 Body weight 84.[address] Alexander Perales MD Work Phone: [facility] 11-06-2024 07:25-0400 Body mass index (BMI) [Ratio] 25.9 kg/m2 Dr. Alexander Perales MD Work Phone: [facility] 11-06-2024 07:25-0400 Body weight 84.[address] Alexander Perales MD Work Phone: [facility] 10-08-2024 11:37-0400 Body height 180.[address] Alexander Perales MD Work Phone: [facility] 10-08-2024 11:37-0400 Body mass index (BMI) [Ratio] 25.9 kg/m2 Dr. Alexander Perales MD Work Phone: [facility] 10-08-2024 11:37-0400 Body weight 84.[address] Alexander Perales MD Work Phone: [facility] 09-11-2024 09:19-0500 Body mass index (BMI) [Ratio] 26.3 kg/m2 Dr. Alexander Perales MD Work Phone: [facility] 09-11-2024 09:19-0500 Body weight 85.[address] Alexander Perales MD Work Phone: [facility] 08-14-2024 09:36-0500 Body mass index (BMI) [Ratio] 21.4 kg/m2 Dr. Alexander Perales MD Work Phone: [facility] 08-14-2024 09:04-0500 Diastolic blood pressure 62 mm[Hg] Dr. Alexander Perales MD Work Phone: [facility] 08-14-2024 09:04-0500 Heart rate 70 /min Dr. Alexander Perales MD Work Phone: [facility] 08-14-2024 09:04-0500 SaO2% (BldA) [Mass fraction] 93 % Dr. Alexander Perales MD Work Phone: [facility] 08-14-2024 09:04-0500 Systolic blood pressure 104 mm[Hg] Dr. Alexander Perales MD Work Phone: [facility] 08-14-2024 08:26-0500 Body weight 69.[address] Alexander Perales MD Work Phone: [facility] 06-03-2024 10:58-0500 Body mass index (BMI) [Ratio] 27.7 kg/m2 Pulm 5 Work Phone: [facility] 06-03-2024 10:58-0500 Body temperature 97.3 [degF] Darby Maxwell MD Work Phone: [facility] 06-03-2024 10:58-0500 Body weight 86.3 kg Pulm 5 Work Phone: [facility] 06-03-2024 10:58-0500 Diastolic blood pressure 79 mm[Hg] Darby Maxwell MD Work Phone: [facility] 06-03-2024 10:58-0500 Heart rate 69 /min Darby Maxwell MD Work Phone: [facility] 06-03-2024 10:58-0500 Respiratory rate 16 /min Darby Maxwell MD Work Phone: [facility] 06-03-2024 10:58-0500 SaO2% (BldA) [Mass fraction] 93 % Darby Maxwell MD Work Phone: [facility] 06-03-2024 10:58-0500 Systolic blood pressure 144 mm[Hg] Darby Maxwell MD Work Phone: [facility] 06-03-2024 10:00-0500 Body height 176.5 cm Pulm 5 Work Phone: [facility] 10-29-2022 12:20-0400 Body height 180.[address] Alexander Perales Work Phone: [facility] 10-29-2022 12:20-0400 Body mass index (BMI) [Ratio] 25.7 kg/m2 Dr. Alexander Perales Work Phone: [facility] 10-29-2022 12:20-0400 Body temperature 97.4 [degF] Dr. Alexander Perales Work Phone: [facility] 10-29-2022 12:20-0400 Body weight 83.[address] Alexander Perales Work Phone: [facility] 10-29-2022 12:20-0400 Diastolic blood pressure 50 mm[Hg] Dr. Alexander Perales Work Phone: [facility] 10-29-2022 12:20-0400 Heart rate 94 /min Dr. Alexander Perales Work Phone: [facility] 10-29-2022 12:20-0400 Respiratory rate 16 /min Dr. Alexander Perales Work Phone: [facility] 10-29-2022 12:20-0400 SaO2% (BldA) [Mass fraction] 94 % Dr. Alexander Perales Work Phone: [facility] 10-29-2022 12:20-0400 Systolic blood pressure 140 mm[Hg] Dr. Alexander Perales Work Phone: [facility] 11-17-2021 13:16-0400 Body height 180.3 cm Blanca Hensley AUTOMOBILE RENTAL REPRESENTATIVE.CARDIOLOGY SPECIALIST Work Phone: [facility] 11-17-2021 13:16-0400 Body weight 85.28 kg Blanca Hensley AUTOMOBILE RENTAL REPRESENTATIVE.CARDIOLOGY SPECIALIST Work Phone: [facility] 11-17-2021 13:16-0400 Diastolic blood pressure 68 mm[Hg] Blanca Hensley AUTOMOBILE RENTAL REPRESENTATIVE.CARDIOLOGY SPECIALIST Work Phone: [facility] 11-17-2021 13:16-0400 Heart rate 70 /min Blanca Hensley AUTOMOBILE RENTAL REPRESENTATIVE.CARDIOLOGY SPECIALIST Work Phone: [facility] 11-17-2021 13:16-0400 Respiratory rate 16 /min Blanca Hensley AUTOMOBILE RENTAL REPRESENTATIVE.CARDIOLOGY SPECIALIST Work Phone: [facility] 11-17-2021 13:16-0400 SaO2% (BldA) [Mass fraction] 95 % Blanca Hensley AUTOMOBILE RENTAL REPRESENTATIVE.CARDIOLOGY SPECIALIST Work Phone: [facility] 11-17-2021 13:16-0400 Systolic blood pressure 118 mm[Hg] Blanca Hensley AUTOMOBILE RENTAL REPRESENTATIVE.CARDIOLOGY SPECIALIST Work Phone: [facility] Encounters Encounter Date Encounter Type Care Provider Facility Start: 02-10-2025 Non-patient / Non-visit Dr. Sanjana AYALA -[facility] Start: 02-10-2025 End: 02-10-[address] Alexander Perales MD Work Phone: -Cardiovascular Services Start: 02-10-2025 End: 02-10-[address] Hugo Torres DO -Cardiovascular Services Work Phone: Start: 02-10-2025 End: 02-10-2025 ambulatory Alexander Perales Facility:[facility] Start: 01-19-2025 End: 01-19-2025 Orders Only Blanca Cravenews AUTOMOBILE RENTAL REPRESENTATIVE.CARDIOLOGY SPECIALIST Work Phone: [facility] Comment on above: History of abdominal aortic aneurysm (AAA) repair (Primary Dx); History of thoracic aortic aneurysm repair; Infrarenal abdominal aortic aneurysm (AAA) without rupture; Pararenal abdominal aortic aneurysm (AAA) without rupture; Aneurysm of descending thoracic aorta without rupture Start: 01-06-2025 End: 01-06-2025 Telephone encounter [facility] Comment on above: Outside Results Start: 12-31-2024 End: 12-31-2024 Telephone encounter Anna K[facility] Comment on above: Insurance Cards Faxe d Start: 12-31-2024 ambulatory Fabien James ty:[facility] Start: 12-25-2024 End: 12-25-2024 Patient encounter procedure Tosha Elliott MD Work Phone: Pulmonary Medicine Comment on above: Centrilobular emphys beti (HCC) (Primary Dx); Lung nodule seen on imaging study; Other specified chronic obstructive pulmonary disease (HCC) Start: 12-25-2024 End: 12-25-2024 ambulatory TOSHA ELLIOTT Facility:[facility] Start: 12-22-2024 End: 12-22-2024 [facility] encounter [facility] Comment on above: Appointment (SM : Pt accepted 12/25/24 at 10 am w/Dr MARI) Start: 12-17-2024 End: 12-20-[address] Alexander Perales MD Work Phone: [facility] Work Phone: Start: 12-17-2024 End: 12-20-[address] Fabien Mas MD -Pulmonary Rehab Work Phone: Start: 11-12-2024 End: 11-19-2024 ambulatory [facility] Facility:[facility] Start: 11-12-2024 End: 11-19-[address] Fabien Mas MD -Pulmonary Rehab Work Phone: Start: 10-15-2024 End: 10-15-2024 Telephone encounter Darby Maxwell MD Work Phone: Pulmonary Medicine Comment on above: Pulmonary Rehab Repo rt Start: 10-03-2024 End: 10-20-[address] Alexander Perales MD Work Phone: [facility] Work Phone: Start: 10-03-2024 End: 10-20-[address] Fabien Mas MD -Pulmonary Rehab Work Phone: Start: 09-17-2024 End: 09-23-2024 Telephone encounter Darby Maxwell MD Work Phone: Pulmonary Medicine Comment on above: Pulmonary Rehab Note s Start: 09-17-2024 End: 09-19-2024 ambulatory [facility] Facility:[facility] Start: 09-17-2024 End: 09-19-[address] Fabien Mas MD -Pulmonary Rehab Work Phone: Start: 08-22-2024 End: 08-22-2024 ambulatory [facility] Facility:[facility] Start: 08-22-2024 End: 08-22-[address] Fabien Mas MD -Pulmonary Rehab Work Phone: Start: 08-14-2024 End: 08-14-[address] Fabien Mas MD -Pulmonary Rehab Work Phone: Start: 08-14-2024 End: 08-14-2024 ambulatory [facility] Facility:[facility] Start: 08-07-2024 End: 08-07-2024 Patient encounter procedure Blacna KEITAC -Laboratory Work Phone: Start: 08-07-2024 End: 08-07-2024 ambulatory Alexander Perales Facility:[facility] Start: 08-04-2024 End: 08-04-2024 Orders Only Abril Freitas PA-C Work Phone: Pulmonary Medicine Comment on above: Preop testing [Z01.8 18] (Primary Dx) Orders Start: 08-04-2024 End: 08-04-2024 Patient encounter status Abril Fortino JIMENEZ Work Phone: [facility] Work Phone: Start: 07-29-2024 End: 07-29-2024 Patient encounter procedure Blanca Hensley KNIFE GRINDER-C -Cat Scan, [facility] Work Phone: Start: 07-29-2024 End: 07-29-2024 Telephone encounter Darby Maxwell MD Work Phone: Pulmonary Medicine Comment on above: Orders Faxed Start: 07-29-2024 End: 07-29-2024 ambulatory [facility] Facility:[facility] Start: 07-18-2024 End: 07-18-2024 Telephone encounter Darby Maxwell MD Work Phone: Pulmonary Medicine Comment on above: Orders Start: 07-07-2024 End: 07-07-2024 Telephone encounter Darby Maxwell MD Work Phone: Pulmonary Medicine Comment on above: Orders Start: 07-02-2024 End: 07-03-2024 Orders Only Blanca Hensley AUTOMOBILE RENTAL REPRESENTATIVE.CARDIOLOGY SPECIALIST Work Phone: [facility] Comment on above: History of AAA (abdo bessy aortic aneurysm) repair (Primary Dx); Abdominal aortic aneurysm (AAA) without rupture, unspecified part (HCC) Appointment (Appoint ment ) Simone Arreaga [birth year] Start: 06-03-2024 End: 06-03-2024 Patient encounter procedure [facility] Work Phone: Pulmonary Medicine Comment on above: Spirometry Start: 06-03-2024 End: 06-03-2024 ambulatory [facility] Medicine Comment on above: Spirometry Start: 06-03-2024 End: 06-03-2024 Patient encounter procedure [facility] Comment on above: Centrilobular emphys beti (HCC) (Primary Dx); Lung nodule seen on imaging study Start: 05-27-2024 End: 05-27-2024 Telephone encounter Darby Maxwell MD Work Phone: Pulmonary Medicine Comment on above: Images Update Start: 05-21-2024 End: 05-21-2024 ambulatory [facility] Facility:[facility] Start: 04-22-2024 End: 04-23-2024 Orders Only Darby Maxwell MD Work Phone: Pulmonary Medicine Comment on above: 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 rick obstructive pulmonary disease (HCC) (Primary Dx) Start: 04-18-2024 End: 04-24-2024 Telephone encounter Darby Maxwell MD Work Phone: Pulmonary Medicine Start: 08-27-2023 End: 08-27-2023 ambulatory [facility] Work Phone: Start: 08-27-2023 End: 08-27-2023 Patient encounter procedure [facility] Work Phone: Start: 07-31-2023 End: 07-31-2023 ambulatory [facility] Work Phone: Start: 07-31-2023 End: 07-31-2023 Patient encounter procedure [facility], [facility] Work Phone: Start: 04-17-2023 End: 04-17-2023 ambulatory [facility] Work Phone: Start: 04-17-2023 End: 04-17-2023 Patient encounter procedure [facility] Start: 04-06-2023 Telephone encounter Stacy Donovan APRN.CARDIOLOGY SPECIALIST Work Phone: [facility] Comment on above: Opened In Error (/) Start: 03-29-2023 Telephone encounter Asa Hernandez MD Work Phone: [facility] Comment on above: Patient Update Start: 03-16-2023 Telephone encounter Stacy Donovan APRN.CARDIOLOGY SPECIALIST Work Phone: [facility] Comment on above: Results Start: 11-11-2022 End: 11-11-[address] Alexander Perales Work Phone: [facility] Work Phone: Start: 11-11-2022 End: 11-11-[address] [facility]eral[facility] Start: 10-29-2022 End: 10-29-[address] Alexander Perales Work Phone: [facility] Start: 10-17-2022 End: 10-17-2022 ambulatory [facility] Work Phone: Start: 10-17-2022 End: 10-17-[address] [facility] Start: 09-25-2022 Telephone encounter Ronni fan MD Work Phone: [facility] Comment on above: Patient Update Start: 07-14-2022 End: 07-14-2022 ambulatory [facility] Work Phone: Start: 07-14-2022 End: 07-14-2022 Patient encounter procedure [facility] Start: 05-03-2022 End: 05-03-2022 ambulatory [facility] Work Phone: Start: 05-03-2022 End: 05-03-2022 Patient encounter procedure [facility] Start: 03-06-2022 End: 03-06-[address] [facility]eral[facility] Start: 12-01-2021 End: 12-01-[address] 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 Thee Perales Work Phone: [facility] Start: 11-10-2021 End: 11-10-[address] Alexander Perales Work Phone: [facility] Start: 10-28-2021 Telephone encounter Asa Hernandez MD Work Phone: [facility] Comment on above: Received Outside [facility] Records; Future Appointment Start: 10-21-2021 End: 10-21-[address] Alexander Perales Work Phone: [facility] Procedures Date Procedure Procedure Detail Performing Clinician Start: 07-29-2024 Computed tomography of abdomen and pelvis with contrast Dr. Alexander Perales MD Work Phone: Start: 06-03-2024 Pulmonary stress testing Darby Maxwell MD Work Phone: Start: 06-03-2024 Plethysmography lung volumes w/wo airway resist Darby Maxwell MD Work Phone: Start: 07-31-2023 CT of chest without contrast Start: 04-17-2023 Positron emission to mography with computed tomography Start: 11-11-2022 CT of chest without contrast Dr. Alexander Perales Work Phone: Start: 10-17-2022 CT of thorax, abdome n and pelvis with contrast Start: 07-14-2022 X-ray of rib Start: 12-01-2021 Computed tomography of abdomen and pelvis with contrast Dr. Alexander Perales Work Phone: Start: 11-10-2021 Cardiovascular stres s test using pharmacologic stress agent Dr. Alexander Perales Work Phone: Start: 10-21-2021 Computed tomography angiography of abdominal and/or pelvic blood vessel Dr. Alexander Perales Work Phone: Start: 10-21-2021 CT of chest without contrast Dr. Alexander Perales Work Phone: Start: 02-28-2019 Antibody screen Comment on above: Performed By: #### T &S #### [place] [address] Plan of Treatment Date Care Activity Detail Author Start: 10-20-2031 Urine microalbumin profile DTaP,Tdap,Td Vaccine (3 - Td or Tdap) [facility] Start: 06-21-2025 End: 02-18-2026 CTA Abdominal vessels and Pelvis vessels WO and W contrast IV CTA ABD/PEL WO/W IVCON Radiology Routine History of abdominal aortic aneurysm (AAA) repair Infrarenal abdominal aortic aneurysm (AAA) without rupture Expected: 06/21/2025, Expires: 02/18/2026 [facility] Work Phone: Comment on above: Expected: 06/21/2025 , Expires: 02/18/2026 Start: 06-21-2025 End: 02-18-2026 CTA Chest vessels WO and W contrast IV CTA CHEST (NONGATED) WO/W IVCON Radiology Routine History of thoracic aortic aneurysm repair Expected: 06/21/2025, Expires: 02/18/2026 [facility] Comment on above: Expected: 06/21/2025 , Expires: 02/18/2026 Start: 03-23-2025 Influenza vaccination Influenza Vacc ine (#1) [facility] Start: 01-19-2025 End: 04-20-2025 Creatinine and Glomerular filtration rate.predicted panel - Serum, Plasma or Blood CREATININE BLD Lab Routine History of abdominal aortic aneurysm (AAA) repair History of thoracic aortic aneurysm repair Infrarenal abdominal aortic aneurysm (AAA) without rupture Pararenal abdominal aortic aneurysm (AAA) without rupture Aneurysm of descending thoracic aorta without rupture Expected: 01/19/2025, Expires: 04/20/2025 [facility] Comment on above: Expected: 01/19/2025 , Expires: 04/20/2025 Start: 12-25-2024 End: 12-25-2024 Patient encounter procedure 12/25/2024 10:00 AM EDT Office Visit Pulmonary Medicine [address] [place] [address] Tosha Elliott MD [address] [place] [address] EST LVR in 60 min slot w/ Dr Maxwell (former [facility] pt) [facility] Comment on above: EST LVR in 60 min sl ot w/ Dr Maxwell (former [facility] pt) Start: 07-23-2024 Advance Directive Discussion Advance Directive Discussion [facility] Start: 07-03-2024 End: 07-03-[address] [facility] Start: 07-02-2024 End: 10-01-2024 CREATININE BLD CREATININE BLD Lab Routine History of AAA (abdominal aortic aneurysm) repair Abdominal aortic aneurysm (AAA) without rupture, unspecified part (HCC) Expected: 07/02/2024, Expires: 10/01/2024 [facility] Comment on above: Expected: 07/02/2024 , Expires: 10/01/2024 Start: 06-03-2024 End: 09-02-2024 ALPHA 1 ANTITRYP PHEN/GENOTYPE ALPHA 1 ANTITRYP PHEN/GENOTYPE Lab Routine Centrilobular emphysema (HCC) Expected: 06/03/2024, Expires: 09/02/2024 [facility] Comment on above: Expected: 06/03/2024 , Expires: 09/02/2024 Start: 06-03-2024 End: 06-03-2024 Patient encounter procedure [facility] Comment on above: 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 rick obstructive pulmonary disease COPD/Emphysema Lung Volume Reduction Evaluation/NEW/Staff Message Start: 06-03-2024 End: 06-03-2024 ambulatory [facility] Comment on above: 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 rick obstructive pulmonary disease Start: 03-23-2024 Covid-19 Vaccine ( season) Covid-19 Vaccine () [facility] Start: 03-23-2024 Influenza vaccination Influenza Vacc ine (#1) [facility] Start: 07-23-2023 Advance Directive Discussion Advance Directive Discussion [facility] Start: 04-17-2023 Positron emission tomography with computed tomography [facility] Start: 03-23-2023 Influenza vaccination C [facility] Start: 03-16-2023 End: 04-14-2024 Ct thorax w/o contrast material CT CHEST WO IVCON Radiology Routine Lung nodule Expected: 03/16/2023, Expires: 04/14/2024 [facility] Work Phone: Comment on above: Expected: 03/16/2023 , Expires: 04/14/2024 Start: 01-12-2023 RSV Vaccine (1 - 1-d ose 75+ series) RSV Vaccine (1 - 1-dose 75+ series) [facility] Start: 11-17-2022 End: 12-17-2022 Ct angio abd&plvis cntrst mtrl w/wo cntrst img CTA ABD/PEL WO/W IVCON Radiology Routine History of AAA (abdominal aortic aneurysm) repair 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) History of repair of thoracic aortic aneurysm Expected: 11/17/2022, Expires: 12/17/2022 [facility] Work Phone: Comment on above: Expected: 11/17/2022 , Expires: 12/17/2022 Start: 11-17-2022 End: 12-17-2022 Ct angiography chest w/contrast/noncontrast CTA CHEST (NONGATED) WO/W IVCON Radiology Routine History of AAA (abdominal aortic aneurysm) repair 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) History of repair of thoracic aortic aneurysm Ascending aorta dilatation (HCC) Expected: 11/17/2022, Expires: 12/17/2022 [facility] Work Phone: Comment on above: Expected: 11/17/2022 , Expires: 12/17/2022 Start: 07-23-2022 ADVANCE DIRECTIVE DISCUSSION ADVANCE DIRECTIVE DISCUSSION [facility] Start: 07-23-2022 DEPRESSION ASSESSMENT DEPRESSION ASS ESSMENT [facility] Start: 03-28-2022 DIABETES SCREEN [facility] Start: 03-28-2022 Diabetes Screening Diabetes Screenin g [facility] Start: 03-23-2022 Influenza vaccination C [facility] Start: 07-23-2021 ADVANCE DIRECTIVE DISCUSSION ADVANCE DIRECTIVE DISCUSSION [facility] Start: 04-06-2021 COVID-19 VACCINE (3 - Booster for Moderna series) COVID-19 VACCINE (3 - Booster for Moderna series) [facility] Start: 12-30-2020 COVID-19 VACCINE (3 - Booster for Moderna series) COVID-19 VACCINE (3 - Booster for Moderna series) [facility] Start: 12-30-2020 COVID-19 VACCINE (3 - Moderna series) COVID-19 VACCINE (3 - Moderna series) [facility] Start: 01-12-2013 PNEUMOVAX AGE 65 AND OVER WITH 5YR LOOKBACK (#1) PNEUMOVAX AGE 65 AND OVER WITH 5YR LOOKBACK (#1) [facility] Start: 12-21-2012 Medicare Annual Well ness Visit Medicare Annual Wellness Visit [facility] Start: 01-12-1998 SHINGRIX VACCINE (1 of 2) SHINGRIX VACCINE (1 of 2) [facility] Start: 01-12-1993 COLOGUARD (FIT-DNA) COLOGUARD (FIT-D NA) [facility] Start: 01-12-1993 Colonoscopy COLONOSCOPY [facility] Start: 01-12-1993 COLORECTAL CANCER SCREENING COLORECTAL CANCER SCREENING [facility] Start: 01-12-[address] COLONOGRAPHY [facility] Start: 01-12-1993 FECAL OCCULT BLOOD FECAL OCCULT BLOO D [facility] Start: 01-12-1993 SIGMOIDOSCOPY SIGMOIDOSCOPY [facility] Start: 01-12-1983 Lipid 1996 panel - S bettye or Plasma Lipid Screening [facility] Start: 01-12-1983 LIPID SCREEN LIPID SCREEN [facility] Start: 01-12-1978 Zoledronic acid therapy ALPHA- 1 ANTITRYPSIN DEFICIENCY SCREENING [facility] Start: 01-12-1967 Pneumococcal Vaccine : 50+ (1 of 2 - PCV) Pneumococcal Vaccine: 50+ (1 of 2 - PCV) [facility] Start: 01-12-1967 Urine microalbumin profile [facility] Start: 01-12-1966 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 RICK DISEASE VISIT ANNUAL PCP TEAM CHRONIC DISEASE VISIT [facility] Start: 01-12-1966 Anxiety Screening Anxiety Screening [facility] Start: 01-12-1966 Depression Screening Depression Scre ening [facility] Start: 01-12-1966 HEPATITIS C SCREENING HEPATITIS C [facility] Start: 01-12-1966 Hepatitis C screening Hepatitis C [facility] Start: 01-12-1966 SPIROMETRY SPIROMETRY [facility] Start: 1960 Adult depression screening assessment DEPRESSION SCREENING [facility] Start: 01-12-1954 Pneumococcal Vaccine : 65+ (1 - PCV) Pneumococcal Vaccine: 65+ (1 - PCV) [facility] Start: 01-12-1954 Pneumococcal Vaccine : 65+ (1 of 2 - PCV) Pneumococcal Vaccine: 65+ (1 of 2 - PCV) [facility] Start: 01-12-1954 PNEUMOCOCCAL: 65+ (1 - PCV) PNEUMOCOCCAL: 65+ (1 - PCV) [facility] Start: 01-12-1953 COVID-19 VACCINE (1) COVID-19 VACCIN E (1) [facility] Start: 1950 ABDOMINAL AORTIC ANEURYSM SCREENING ABDOMINAL AORTIC ANEURYSM SCREENING [facility] End: 05-22-2025 ARTERIAL BLOOD GAS, ROOM AIR ARTERIAL BLOOD GAS, ROOM AIR PFT Routine Other specified chronic obstructive pulmonary disease (HCC) 1 Occurrences starting 04/23/2024 until 05/22/2025 [facility] Comment on above: 1 Occurrences starti ng 04/23/2024 until 05/22/2025 End: 05-22-2025 CT Chest WO contrast CT CHEST WO IVCON Radiology Routine Other specified chronic obstructive pulmonary disease (HCC) 1 Occurrences starting 04/23/2024 until 05/22/2025 [facility] Comment on above: 1 Occurrences starti ng 04/23/2024 until 05/22/2025 End: 01-24-2026 CT Chest WO contrast CT CHEST WO IVCON Radiology Routine Centrilobular emphysema (HCC) Lung nodule seen on imaging study 1 Occurrences starting 12/25/2024 until 01/24/2026 [facility] Work Phone: Comment on above: 1 Occurrences starti ng 12/25/2024 until 01/24/2026 End: 08-01-2025 CTA Abdominal vessels and Pelvis vessels WO and W contrast IV CTA ABD/PEL WO/W IVCON Radiology Routine History of AAA (abdominal aortic aneurysm) repair Abdominal aortic aneurysm (AAA) without rupture, unspecified part (HCC) 1 Occurrences starting 07/02/2024 until 08/01/2025 [facility] Work Phone: Comment on above: 1 Occurrences starti ng 07/02/2024 until 08/01/2025 End: 05-22-2025 LUNG DIFFUSION CAPACITY (DLCO) LUNG DIFFUSION CAPACITY (DLCO) PFT Routine Other specified chronic obstructive pulmonary disease (HCC) 1 Occurrences starting 04/23/2024 until 05/22/2025 [facility] Comment on above: 1 Occurrences starti ng 04/23/2024 until 05/22/2025 LUNG DIFFUSION CAPAC ITY (DLCO) LUNG DIFFUSION CAPACITY (DLCO) PFT Routine Other specified chronic obstructive pulmonary disease (HCC) 06/03/2024 9:01 AM Shidonni [facility] Work Phone: End: 05-22-2025 LUNG VOLUMES LUNG VOLUMES PFT Routine Other specified chronic obstructive pulmonary disease (HCC) 1 Occurrences starting 04/23/2024 until 05/22/2025 [facility] Comment on above: 1 Occurrences starti ng 04/23/2024 until 05/22/2025 LUNG VOLUMES LUNG VOLUMES PFT Routine Other specified chronic obstructive pulmonary disease (HCC) 06/03/2024 9:01 AM Shidonni [facility] Work Phone: End: 07-03-2025 NM Lung Perfusion quantitative NM LUNG QUANT PERFUSION Radiology Routine Centrilobular emphysema (HCC) 1 Occurrences starting 06/03/2024 until 07/03/2025 [facility] Comment on above: 1 Occurrences starti ng 06/03/2024 until 07/03/2025 Pulmonary rehabilita tion pro CONSULT PULMONARY REHABILITATION PROGRAM Procedures Routine Centrilobular emphysema (HCC) Ordered: 06/03/2024 [facility] Work Phone: Comment on above: Ordered: 06/03/2024 End: 05-22-2025 SIX MINUTE WALK SIX MINUTE WALK PFT Routine Other specified chronic obstructive pulmonary disease (HCC) 1 Occurrences starting 04/23/2024 until 05/22/2025 [facility] Comment on above: 1 Occurrences starti ng 04/23/2024 until 05/22/2025 End: 05-22-2025 SPIROMETRY - BASELINE AND POST DILATOR SPIROMETRY - BASELINE AND POST DILATOR PFT Routine Other specified chronic obstructive pulmonary disease (HCC) 1 Occurrences starting 04/23/2024 until 05/22/2025 [facility] Work Phone: Comment on above: 1 Occurrences starti ng 04/23/2024 until 05/22/2025 SPIROMETRY - BASELIN E AND POST DILATOR SPIROMETRY - BASELINE AND POST DILATOR PFT Routine Other specified chronic obstructive pulmonary disease (HCC) 06/03/2024 9:01 AM EST [facility] Work Phone: [facility] c Immunizations Immunization Date Immunization Notes Care Provider Fa cility 06-27-2024 influenza virus vacc ine, unspecified formulation Tosha Elliott MD Work Phone: [facility] 07-29-2019 influenza virus vacc ine, unspecified formulation Stacy Donovan AUTOMOBILE RENTAL REPRESENTATIVE.CARDIOLOGY SPECIALIST Work Phone: [facility] Payers Date Payer Category Payer Unknown [id number] 2024 Self-pay [id number] 2022 Private Health Insurance [id number] 2022 Unknown [id number] 2019 Unknown MMO MMO TPA [id number] 2019-Present [address] [place] [address] PPO [id number] 2016 Unknown [id number] 2012 Medicare MEDICARE MEDICAR E A [id number] 2012-Present [phone] [address] [place] [address] Medicare [id number] 2012 Medicare MEDICARE PAOLAAR Jose Carlos A [id number] 2012-Present [phone] [address] [place] [address] Medicare [id number] Unknown [id number] 62 Unknown [id number] 62 Unknown [id number] 62 Unknown [id number] 62 Unknown [id number] 62 Unknown [id number] 62 Unknown [id number] 62 Unknown [id number] 62 Unknown [id number] 62 Unknown [id number] 62 Unknown [id number] 62 Unknown [id number] 62 Social History Date Type Detail Facility Start: 02-14-2018 End: 08-14-2024 Tobacco smoking status NHIS Ex-smoker [facility] Start: 02-20-1963 End: 02-21-2004 History of tobacco use Current smoker [facility] Start: 02-20-1963 End: 02-21-2004 History of tobacco use Cigarette Smoker [facility] Start: 01-28-2021 End: 12-25-2024 Alcohol intake Current drinker of alcohol (finding) [facility] Start: 02-21-2016 History SDOH Alcohol Comment rarely [facility] Start: 1950 Sex Assigned At Not on file [facility] Start: 11-07-2021 End: 11-17-2021 Exposure to SARS-CoV-2 (event) Not sure [facility] Start: 07-21-2019 End: 10-29-2022 Tobacco smoking status NHIS Unknown if ever smoked [facility] Start: 07-21-2019 None [facility] Start: 07-21-2019 With Family [facility] Start: 1950 Sex Assigned At Male W [facility] Start: 02-14-2018 End: 12-05-2022 Cigarettes smoked current (pack per day) - Reported 1.5 [facility] Start: 02-14-2018 End: 06-03-2024 Tobacco use and exposure Smokeless tobacco non-user [facility] Start: 03-26-2019 End: 12-05-2022 Tobacco use panel [facility] PHQ2 Score [address] [facility] Start: 12-05-2022 Tobacco Comment December 2004 [facility] Start: 10-21-2024 Sex Male (finding) [facility] Medical Equipment Procedure Code Equipment Code Equipment Origin al Text Equipment Identifier Dates Graft Endurant I i 16-13mm 14fr Polyester Nitinol 124mm Stent System - [id number] Start: 11-18-2018 Wdt-Wg-J-Kind Implant - [id number] Start: 11-18-2018 Comment on above: Description: ENDURAN T IIs STENT GRAFT SYSTEM Fwa-Nu-D-Kind Implant - [id number] Start: 03-26-2019 Graft Endurant I i 16-16mm 14fr Polyester Nitinol 124mm Stent System - [id number] Start: 11-18-2018 Functional Status Date Assessment Result Facility 03-28-2019 Are you deaf, or do you have serious difficulty hearing No 03/28/2019 6:36 PM EDHunter Juarez RN No [facility] 03-28-2019 Are you blind, or do you have serious difficulty seeing, even when wearing glasses No 03/28/2019 6:36 PM EDT Hunter Mooney RN No [facility] 03-28-2019 Do you have serious difficulty walking or climbing stairs No 03/28/2019 6:36 PM EDT Hunter Mooney RN No [facility] 03-28-2019 Do you have difficul ty dressing or bathing No 03/28/2019 6:36 PM EDT Hunter Mooney RN No [facility] 03-28-2019 Because of a physica l, mental, or emotional condition, do you have difficulty doing errands alone such as visiting a physician's office or shopping No 03/28/2019 6:36 PM EDT Hunter Mooney RN No [facility] Mental Status Date Assessment Result Facility 03-28-2019 Because of a physica l, mental, or emotional condition, do you have serious difficulty concentrating, remembering, or making decisions No 03/28/2019 6:36 PM EDT Hunter Mooney RN No [facility] Clinical Notes 10-31-2021 to 01-06-2025 Telephone Encounter - Anna Kahn - 01/06/2025 10:04 AM EDTTelephone Encounter - Anna Kahn - 01/06/2025 10:04 AM EDTTelephone Encounter - Anna Kahn - 12/31/2024 11:03 AM EDT Note Date & Type Note Facility 01-06-2025 Telephone encounter Note [employer] Report received and scanned in [facility] 01-06-2025 Miscellaneous Notes [employer] Report received and scanned in documented in this encounter [facility] 12-31-2024 Telephone encounter Note Facesheet and insurance card faxed to Rachio at [phone] [facility] 12-31-2024 Miscellaneous Notes Facesheet and insurance card faxed to Rachio at [phone] documented in this encounter [facility] 12-25-2024 Note HNO ID: [id number] Author: TOSHA ELLIOTT MD Service: ? Author Type: Physician Type: Progress Notes Filed: 01/26/2025 20:36 Note Text: INTERVENTIONAL PULMONARY MEDICINE FOLLOW UP PATIENT VISIT Patient Name: Simone Arreaga PRIMARY CARE PHYSICIAN: Alexander Perales MD CHIEF COMPLAINT: BLVR assessment HISTORY OF PRESENT ILLNESS: Mr. Arreaga presents for evaluation of COPD/emphysema to consider bronchoscopic lung volume reduction. Has known aortic vascular disease, including a thoracic aortic aneurysm and a history of endovascular repair of an abdominal aortic aneurysm in 2019. Reports progressive dyspnea on exertion as his primary concern, limiting his daily activities significantly. Wants to be able to get back to golfing. Reports daily production of small amounts of sputum - mostly at night. Has difficulty taking a deep breath in and notices chest tightness with activity. No chest pain/pressure at rest. He completed 36 sessions of pulm rehab. He has not noticed a significant change since completing rehab. However, his spouse mentioned that she has noticed a considerable improvement and thinks he is able to walk for longer distances without having to stop and while he still has to stop frequently, does not seem to be as often. Per previously documentation; has a history of traumatic lung injury approximately 50 years ago, presumed to be a pneumothorax (PTX) that resolved spontaneously without surgical intervention. He has no history of nicotine use beyond quitting smoking in 2003. He smoked 1.5 packs per day for 35 years, resulting in a smoking history of >20 pack-years. He denies recent COPD exacerbations or hospital admissions. He denies any history of mechanical ventilation or chronic prednisone use. Uses 2L nasal cannula (NC) oxygen at night, started 2023 He denies fevers, chills, night sweats, weight loss, exertional chest pain, or palpitations. 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 He does report possible exposure to [place] during service in [facility]. PMHx/PSHx: PAST MEDICAL HISTORY Diagnosis Date AAA (abdominal aortic aneurysm) Acute maxillary sinusitis Acute upper respiratory infection of multiple sites Aneurysm of thoracic aorta proximal,focal, descending stable 01/15/15 Chronic airway obstruction, not elsewhere classified COPD (chronic obstructive pulmonary disease) ([facility]) Displacement of lumbar intervertebral disc without myelopathy Dysfunction of eustachian tube Emphysema lung (HCC) History of repair of aneurysm of abdominal aorta using endovascular stent graft 11/18/2018 at [facility] by Dr. Romero Spasm of back muscles PAST SURGICAL HISTORY Procedure Laterality Date ENDOVASC AAA STENT REPAIR 11/18/2018 at [facility] by Dr. Romero PAST SURGICAL HISTORY OF Left 2017 index finger FAMILY HISTORY: FAMILY HISTORY Problem Relation Age of Onset Asthma Father Coronary Artery Disease Father Breast Cancer Sister Prostate Cancer Brother SOCIAL HISTORY: Social History Tobacco Use Smoking status: Former Current packs/day: 0.00 Average packs/day: 1.5 packs/day for 44.0 years (66.0 ttl pk-yrs) Types: Cigarettes Start date: 02/20/1963 Quit date: 02/21/2004 Years since quittin.8 Smokeless tobacco: Never Tobacco comments: December 2004 Vaping Use Vaping status: Never Used Substance Use Topics Alcohol use: Yes Comment: rarely Drug use: No ALLERGIES: ALLERGIES No Active Allergies CURRENT OUTPATIENT MEDICATIONS: cyanocobalamin, vitamin B-12, 2,000 mcg tab Take by mouth. gabapentin (NEURONTIN) 300 mg capsule Take 300 mg by mouth three times daily. tadalafil (CIALIS ORAL) Take by mouth. efljtloyolj-oqnddeaso-rbpuvorg (TRELEGY ELLIPTA) 100-62.5-25 mcg Inhale 1 Puff as instructed once daily. aspirin, enteric coated (ASPIR-LOW) 81 mg EC tablet Take 1 tablet by mouth once daily. albuterol HFA (PROVENTIL HFA, VENTOLIN HFA) 90 mcg/actuation inhaler 1 or 2 inhalation(s) By mouth Every 6 Hours prn REVIEW OF SYSTEMS GENERAL: No weight loss, malaise or fevers HEENT: Negative for frequent or significant headaches, No changes in hearing or vision NECK: Negative for lumps, pain and significant neck swelling RESPIRATORY: See HPI CARDIOVASCULAR: See HPI GI: No nausea, vomiting, or diarrhea MUSCULOSKELETAL: Negative for joint pain or swelling, back pain or muscle pain SKIN: Negative for lesions, rash, and itching The remainder of the ROS was negative. PHYSICAL EXAMINATION: VITAL SIGNS: BP 127/69 Pulse 77 Temp (Src) 97.8 (Temporal) Resp 16 Wt 186 lb 8.2 oz (84.6kg) SpO2 93% General appearance: Well appearing, alert, in no acute distress Skin: warm, dry Head: Normocephalic, no masses, lesions, tenderness or abnormalities Eyes: Anicteric sclera. (more content not included)... [facility] 12-25-2024 History of Presen t illness Narrative Images from the original note were not included. INTERVENTIONAL PULMONARY MEDICINE FOLLOW UP PATIENT VISIT Patient Name: Simone Arreaga PRIMARY CARE PHYSICIAN: Alexander Perales MD CHIEF COMPLAINT: BLVR assessment HISTORY OF PRESENT ILLNESS: Mr. Arreaga presents for evaluation of COPD/emphysema to consider bronchoscopic lung volume reduction. Has known aortic vascular disease, including a thoracic aortic aneurysm and a history of endovascular repair of an abdominal aortic aneurysm in 2019. Reports progressive dyspnea on exertion as his primary concern, limiting his daily activities significantly. Wants to be able to get back to golfing. Reports daily production of small amounts of sputum - mostly at night. Has difficulty taking a deep breath in and notices chest tightness with activity. No chest pain/pressure at rest. He completed 36 sessions of pulm rehab. He has not noticed a significant change since completing rehab. However, his spouse mentioned that she has noticed a considerable improvement and thinks he is able to walk for longer distances without having to stop and while he still has to stop frequently, does not seem to be as often. Per previously documentation; has a history of traumatic lung injury approximately 50 years ago, presumed to be a pneumothorax (PTX) that resolved spontaneously without surgical intervention. He has no history of nicotine use beyond quitting smoking in 2004. He smoked 1.5 packs per day for 35 years, resulting in a smoking history of >20 pack-years. He denies recent COPD exacerbations or hospital admissions. He denies any history of mechanical ventilation or chronic prednisone use. Uses 2L nasal cannula (NC) oxygen at night, started 2023 He denies fevers, chills, night sweats, weight loss, exertional chest pain, or palpitations. 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 He does report possible exposure to Agent [place] during service in [facility]. PMHx/PSHx: PAST MEDICAL HISTORY Diagnosis Date AAA (abdominal aortic aneurysm) Acute maxillary sinusitis Acute upper respiratory infection of multiple sites Aneurysm of thoracic aorta proximal,focal, descending stable 01/15/15 Chronic airway obstruction, not elsewhere classified COPD (chronic obstructive pulmonary disease) ([facility]) Displacement of lumbar intervertebral disc without myelopathy Dysfunction of eustachian tube Emphysema lung ([facility]) History of repair of aneurysm of abdominal aorta using endovascular stent graft 11/18/2018 at [facility] by Dr. Romero Spasm of back muscles PAST SURGICAL HISTORY Procedure Laterality Date ENDOVASC AAA STENT REPAIR 11/18/2018 at [facility] by Dr. Romero PAST SURGICAL HISTORY OF Left 2017 index finger FAMILY HISTORY: FAMILY HISTORY Problem Relation Age of Onset Asthma Father Coronary Artery Disease Father Breast Cancer Sister Prostate Cancer Brother SOCIAL HISTORY: Social History Tobacco Use Smoking status: Former Current packs/day: 0.00 Average packs/day: 1.5 packs/day for 44.0 years (66.0 ttl pk-yrs) Types: Cigarettes Start date: 02/20/1963 Quit date: 02/21/2004 Years since quittin.8 Smokeless tobacco: Never Tobacco comments: December 2004 Vaping Use Vaping status: Never Used Substance Use Topics Alcohol use: Yes Comment: rarely Drug use: No ALLERGIES: ALLERGIES No Active Allergies CURRENT OUTPATIENT MEDICATIONS: cyanocobalamin, vitamin B-12, 2,000 mcg tab Take by mouth. gabapentin (NEURONTIN) 300 mg capsule Take 300 mg by mouth three times daily. tadalafil (CIALIS ORAL) Take by mouth. fruaiygmqso-uggijrasn-abpdxtaw (TRELEGY ELLIPTA) 100-62.5-25 mcg Inhale 1 Puff as instructed once daily. aspirin, enteric coated (ASPIR-LOW) 81 mg EC tablet Take 1 tablet by mouth once daily. albuterol HFA (PROVENTIL HFA, VENTOLIN HFA) 90 mcg/actuation inhaler 1 or 2 inhalation(s) By mouth Every 6 Hours prn REVIEW OF SYSTEMS GENERAL: No weight loss, malaise or fevers HEENT: Negative for frequent or significant headaches, No changes in hearing or vision NECK: Negative for lumps, pain and significant neck swelling RESPIRATORY: See HPI CARDIOVASCULAR: See HPI GI: No nausea, vomiting, or diarrhea MUSCULOSKELETAL: Negative for joint pain or swelling, back pain or muscle pain SKIN: Negative for lesions, rash, and itching The remainder of the ROS was negative. PHYSICAL EXAMINATION: VITAL SIGNS: BP 127/69 Pulse 77 Temp (Src) 97.8 (Temporal) Resp 16 Wt 186 lb 8.2 oz (84.6kg) SpO2 93% General appearance: Well appearing, alert, in no acute distress Skin: warm, dry Head: Normocephalic, no masses, lesions, tenderness or abnormalities Eyes: Anicteric sclera. Extraocular movements are intact. Neck: Supple, no adenopathy; thyroid symmetric, normal size, no bruits Lungs: Significantly diminished bilaterally, no additional breat sounds (wheeze/rhonchi/rales), on RA, no conversational dyspnea. Heart: RRR without murmur Abdomen: Normal abdominal exam, Abdomen soft, non-tender. Bowel sounds normal. Extremities: No deformities, edema, skin discoloration, clubbing or cyanosis. Good capillary refill. Neuro: Gait normal. LAST LAB RESULTS: Personally reviewed. See EHR for full details HGB (g/dL) Date Value 03/28/2019 11.9 Hematocrit (%) Date Value 03/28/2019 36.7 WBC (thou/cmm) Date Value 03/28/2019 7.94 Platelet Count (thou/cmm) Date Value 03/28/2019 217 CMP: Glucose 98 03/28/2019 BUN 12 03/28/2019 Creatinine 0.68 03/28/2019 Sodium 134 03/28/2019 Potassium 4.2 03/28/2019 Chloride 99 03/28/2019 CO2 30 03/28/2019 Calcium 8.4 03/28/2019 Alpha-1 antitrypsin: testing on 08/21/2024 152mg/dl (WNL) MM AB06/03/2024 7.41/43.6/70.4 on RA IMAGING/STUDIES: Personally reviewed, agree with interpretation of most recent/pertinent studies below. CT Chest 05/21/2024 New Right upper lobe linear opacities (3-4mm) Right lower lobe 6-7mm nodule (radiology reported as stable) Left lower lobe nodules CT chest 11/11/2022 6.4mm RLL nodule LLL nodule PFTs Latest Ref Rng & Units 06/03/2024 Lung Volumes FRC Box (L) L 7.44 RV Box (L) L 6.46 ERV BOX (L) L 0.97 VC (L) BOX L 3.33 IC BOX (L) L 2.23 TLC Box (L) L 9.66 RV/TLC Box (%) % 67 Latest Ref Rng & Units 06/03/2024 Spirometry Data FVC PRE (L) L 3.18 FVC POST (L) L 3.33 FEV1 PRE (L) L 1.02 FEV1_POST (L) L 1.02 FEV1/FVC PRE (%) % 32 FEV1/FVC POST (%) % 31 ECU61-55% PRE (L/S) L/S 0.25 KLA61-06% POST (L/S) L/S 0.29 PEF PRE (L/S) L/S 3.26 PEF POST (L/S) L/S 3.13 VC (L) BOX L 3.33 IC BOX (L) L 2.23 ERV BOX (L) L 0.97 DLCO (ml/min/mmHg) ml/min/mmHg 10.48 FRC Box (L) L 7.44 RV Box (L) L 6.46 TLC Box (L) L 9.66 RV/TLC Box (%) % 67 VA (L) L 4.64 DLCO/VA (ml/min/mmHg/L) ml/min/mmHg/L 2.79 DLCOcor (ml/min/mmHg) ml/min/mmHg 10.45 06/03/2024 Six Minute Walk Distance Walked (meters) 309.37 SPO2 At End Of Walk 85 % O2 Device at End of Walk R/A Latest Ref Rng & Units 06/03/2024 Lung Diffusion DLCO (ml/min/mmHg) ml/min/mmHg 10.48 DLCO/VA (ml/min/mmHg/L) ml/min/mmHg/L 2.79 VA (L) L 4.64 No data to display IMPRESSIONS: # COPD/Emphysema -PFTs indicate a residual volume of 253% of predicted with an FEV1 of 36% of predicted (1.02 L) and a FVC of 87% of predicted (3.33 L). Total lung capacity is 139 % of predicted (9.66 L). - NL A1AT -Completed pulmonary rehab. # Nodule s New RUL nodule since 11/11/2022 RLL and LLL nodules stable RECOMMENDATION/PLAN: - Needs quantitative CT with StratX as well as perfusion study - they will check with insurance and if feasible will need to have completed here - Will check nodify to risk stratify the pulmonary nodule - Needs cardiac evaluation - can be completed locally Electronically Signed: Aníbal Lambert DO IP fellow Interventional Pulmonology December 25, 2024 11:42 AM STAFF: Patient seen and examined. Agree with fellows note as outlined above. At this time he needs a quantitative CT with StratX as well as perfusion study - they will check with insurance and if feasible will need to have completed at [facility]. They are going to check with their insurance company and reach back out if they would like to proceed with testing at [facility]. Tosha Elliott MD documented in this encounter [facility] 10-15-2024 Telephone encounter Note Pulmonary Rehab Report received and uploaded [facility] 10-15-2024 Miscellaneous Notes Pulmonary Rehab Report received and uploaded documented in this encounter [facility] 09-17-2024 Telephone encounter Note External Pulmonary Rehab Notes received and uploaded [facility] 09-17-2024 Miscellaneous Notes External Pulmonary Rehab Notes received and uploaded documented in this encounter [facility] 08-04-2024 Telephone encounter Note Per [employer] message from patient, pulmonary rehab and lab orders faxed to [phone] [facility] 08-04-2024 Miscellaneous Notes Per MyChart message from patient, pulmonary rehab and lab orders faxed to [phone] documented in this encounter [facility] 07-29-2024 Telephone encounter Note Pulmonary rehab and lab orders faxed to [facility] at [phone] [facility] 07-29-2024 Miscellaneous Notes Pulmonary rehab and lab orders faxed to [facility] at [phone] documented in this encounter [facility] 07-18-2024 Telephone encounter Note Pulmonary rehab and lab orders faxed to [facility] at [phone] [facility] 07-18-2024 Miscellaneous Notes Pulmonary rehab and lab orders faxed to [facility] at [phone] documented in this encounter [facility] 07-07-2024 Telephone encounter Note Orders faxed to [facility] per request from , Maci. Fax number [phone] Labs Image Orders Consult to Pulmonary Rehab [facility] 07-07-2024 Miscellaneous Notes Orders faxed to [facility] per request from , Maci. Fax number [phone] Labs Image Orders Consult to Pulmonary Rehab documented in this encounter [facility] 07-02-2024 Telephone encounter Note Spoke to Pt, he'll get the testing scheduled then give us a call to schedule office visit with JM on LM day. Annual F/up - History of AAA (abdominal aortic aneurysm) repair *CTA A/P PRIOR* [facility] 07-02-2024 Miscellaneous Notes Spoke to Pt, he'll get the testing scheduled then give us a call to schedule office visit with JM on LM day. Annual F/up - History of AAA (abdominal aortic aneurysm) repair *CTA A/P PRIOR* documented in this encounter [facility] 06-03-2024 Note HNO ID: [id number] Author: DARBY MAXWELL MD Service: ? Author Type: Physician Type: Progress Notes Filed: 06/03/2024 13:00 Note Text: INTERVENTIONAL PULMONARY MEDICINE PLEASE DO NOT REMOVE FROM THE CHART OR MODIFY PRINTED COPY Patient Name: Simone Arreaga : 1950 PCP: Alexander Perales MD Chief Complaint: SOB/Emphysema Visit Type: This is an in-person visit. Consultation requested by Dr. Mas for an opinion regarding LVRS. My final recommendations will be communicated back to the requesting physician by way of shared Medical record or letter to requesting physician via US mail. Here for evaluaton of COPD/Emphysema to consider BLVR Former smoker Uses 2L NC at night Had recent PSG- not BILL Has daily small volume sputum production. No exacerbations, no hospital admits Interesting history of traumatic lung injury but did not require any surgery 50 years ago. (Presume PTX that resolved without intervention) Now main issue is BARKER Never completed rehab Never been tested for AATD No Nicotine Has known aortic vascular diisease (not CAD) stent in the aortia We are missing some recent notes in CareEverywhere. 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 Romero Spasm of back muscles PAST SURGICAL HISTORY Procedure Laterality Date ENDOVASC AAA STENT REPAIR 11/18/2018 at [facility] by Dr. Romero PAST SURGICAL HISTORY OF Left 2017 index finger Family History There is no history of lung disease Social History Mr. Arreaga smoked 1.5 packs a day for 35 years, but quit in 2003. There is no history of drug or alcohol abuse. 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 There are no significant occupational exposures to inhaled toxins or irritants. There was possible post exposure to Agent orange in [facility] Review of Symptoms See HPI. There are no fevers, chills, night sweats or weight loss. There is no exertional chest pain or palpations. Not known to snore and has no daytime somnolence. There are no arthralgias or myalgias. No trouble moving bowels or bladder noted. No new rashes noted. No inappropriate bleeding noted. The patient has no headaches. Review of systems is otherwise negative. Medications Current Outpatient Medications Medication Sig gabapentin (NEURONTIN) 300 mg capsule Take 300 mg by mouth three times daily. tadalafil (CIALIS ORAL) Take by mouth. kbpearztdfj-ngrmbqkit-fwzkulsk (TRELEGY ELLIPTA) 100-62.5-25 mcg Inhale 1 Puff as instructed once daily. albuterol HFA (PROVENTIL HFA, VENTOLIN HFA) 90 mcg/actuation inhaler 1 or 2 inhalation(s) By mouth Every 6 Hours prn aspirin, enteric coated (ASPIR-LOW) 81 mg EC tablet Take 1 tablet by mouth once daily. No current facility-administered medications for this visit. Allergy ALLERGIES Allergen Reactions Dust Other: See Comments Shortness of breath Vital Signs BP 144/79 Pulse 69 Temp 36.3 ?C (97.3 ?F) (Temporal) Resp 16 Wt 86.3 kg (190 lb 4.1 oz) SpO2 93% BMI 27.70 kg/m? Physical Examination On my physical examination today, Mr. Arreaga appears in no respiratory distress. No new skin rashes or lesions are apparent. The nose is patent. Neck is supple and without jugular venous distention. No palpable lymph nodes were appreciated in the cervical, supraclavicular or axillary positions. The trachea is midline. There is no asymmetric dullness to percussion. Lungs are clear on auscultation. Heart sounds are regular. Normal muscle strength and motion. [place] and station are normal. Extremities are without cyanosis, clubbing, or edema. Fully alert and interactive. Normal affect. Data Latest Ref Rng AND Units 06/03/2024 Lung Volumes FRC Box (L) L 7.44 P RV Box (L) L 6.46 P ERV BOX (L) L 0.97 P VC (L) BOX L 3.33 P IC BOX (L) L 2.23 P TLC Box (L) L 9.66 P RV/TLC Box (%) % 67 P P Preliminary result Latest Ref Rng AND Units 06/03/2024 Spirometry Data FVC PRE (L) L 3.18 P FVC POST (L) L 3.33 P FEV1 PRE (L) L 1.02 P FEV1_POST (L) L 1.02 P FEV1/FVC PRE (%) % 32 P FEV1/FVC POST (%) % 31 P IJM65-22% PRE (L/S) L/S 0.25 P AVB42-29% POST (L/S) L/S 0.29 P PEF PRE (L/S) L/S 3.26 P PEF POST (L/S) L/S 3.13 P VC (L) BOX L 3.33 P IC BOX (L) L 2.23 P ERV BOX (L) L 0.97 P DLCO (ml/min/mmHg) ml/min/mmHg 10.48 P FRC Box (L) L 7.44 P RV Box (L) L 6.46 P TLC Box ( (more content not included)... [facility] 06-03-2024 History of Presen t illness Narrative Images from the original note were not included. INTERVENTIONAL PULMONARY MEDICINE PLEASE DO NOT REMOVE FROM THE CHART OR MODIFY PRINTED COPY Patient Name: Simone Arreaga : 1950 PCP: Alexander Perales MD Chief Complaint: SOB/Emphysema Visit Type: This is an in-person visit. Consultation requested by Dr. Mas for an opinion regarding LVRS. My final recommendations will be communicated back to the requesting physician by way of shared Medical record or letter to requesting physician via US mail. Here for evaluaton of COPD/Emphysema to consider BLVR Former smoker Uses 2L NC at night Had recent PSG- not BILL Has daily small volume sputum production. No exacerbations, no hospital admits Interesting history of traumatic lung injury but did not require any surgery 50 years ago. (Presume PTX that resolved without intervention) Now main issue is BARKER Never completed rehab Never been tested for AATD No Nicotine Has known aortic vascular diisease (not CAD) stent in the aortia We are missing some recent notes in CareEverywhere. Past Medical and Surgical History PAST MEDICAL HISTORY Diagnosis Date AAA (abdominal [...] aorta using endovascular stent graft 11/18/2018 at [facility] by Dr. Romero Spasm of back muscles PAST SURGICAL HISTORY Procedure Laterality Date ENDOVASC AAA STENT REPAIR 11/18/2018 at [facility] by Dr. Romero PAST SURGICAL HISTORY OF Left 2017 index finger Family History There is no history of lung disease Social History Mr. Arreaga smoked 1.5 packs a day for 35 years, but quit in 2004. There is no history of drug or alcohol abuse. 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 There are no significant occupational exposures to inhaled toxins or irritants. There was possible post exposure to Agent orange in [facility] Review of Symptoms See HPI. There are no fevers, chills, night sweats or weight loss. There is no exertional chest pain or palpations. Not known to snore and has no daytime somnolence. There are no arthralgias or myalgias. No trouble moving bowels or bladder noted. No new rashes noted. No inappropriate bleeding noted. The patient has no headaches. Review of systems is otherwise negative. Medications Current Outpatient Medications Medication Sig gabapentin (NEURONTIN) 300 mg capsule Take 300 mg by mouth three times daily. tadalafil (CIALIS ORAL) Take by mouth. ezdydtewpfx-uqppgxbmh-bxctbkqb (TRELEGY ELLIPTA) 100-62.5-25 mcg Inhale 1 Puff as instructed once daily. albuterol HFA (PROVENTIL HFA, VENTOLIN HFA) 90 mcg/actuation inhaler 1 or 2 inhalation(s) By mouth Every 6 Hours prn aspirin, enteric coated (ASPIR-LOW) 81 mg EC tablet Take 1 tablet by mouth once daily. No current facility-administered medications for this visit. Allergy ALLERGIES Allergen Reactions Dust Other: See Comments Shortness of breath Vital Signs BP 144/79 Pulse 69 Temp 36.3 C (97.3 F) (Temporal) Resp 16 Wt 86.3 kg (190 lb 4.1 oz) SpO2 93% BMI 27.70 kg/m Physical Examination On my physical examination today, Mr. Arreaga appears in no respiratory distress. No new skin rashes or lesions are apparent. The nose is patent. Neck is supple and without jugular venous distention. No palpable lymph nodes were appreciated in the cervical, supraclavicular or axillary positions. The trachea is midline. There is no asymmetric dullness to percussion. Lungs are clear on auscultation. Heart sounds are regular. Normal muscle strength and motion. [place] and station are normal. Extremities are without cyanosis, clubbing, or edema. Fully alert and interactive. Normal affect. Data Latest Ref Rng & Units 06/03/2024 Lung Volumes FRC Box (L) L 7.44 P RV Box (L) L 6.46 P ERV BOX (L) L 0.97 P VC (L) BOX L 3.33 P IC BOX (L) L 2.23 P TLC Box (L) L 9.66 P RV/TLC Box (%) % 67 P P Preliminary result Latest Ref Rng & Units 06/03/2024 Spirometry Data FVC PRE (L) L 3.18 P FVC POST (L) L 3.33 P FEV1 PRE (L) L 1.02 P FEV1_POST (L) L 1.02 P FEV1/FVC PRE (%) % 32 P FEV1/FVC POST (%) % 31 P PME87-10% PRE (L/S) L/S 0.25 P JWL40-17% POST (L/S) L/S 0.29 P PEF PRE (L/S) L/S 3.26 P PEF POST (L/S) L/S 3.13 P VC (L) BOX L 3.33 P IC BOX (L) L 2.23 P ERV BOX (L) L 0.97 P DLCO (ml/min/mmHg) ml/min/mmHg 10.48 P FRC Box (L) L 7.44 P RV Box (L) L 6.46 P TLC Box (L) L 9.66 P RV/TLC Box (%) % 67 P VA (L) L 4.64 P DLCO/VA (ml/min/mmHg/L) ml/min/mmHg/L 2.79 P DLCOcor (ml/min/mmHg) ml/min/mmHg 10.45 P P Preliminary result 06/03/2024 Six Minute Walk Distance Walked (meters) 309.37 SPO2 At End Of Walk 85 % O2 Device Patient Ended Walk On R/A Latest Ref Rng & Units 06/03/2024 Lung Diffusion DLCO (ml/min/mmHg) ml/min/mmHg 10.48 P DLCO/VA (ml/min/mmHg/L) ml/min/mmHg/L 2.79 P VA (L) L 4.64 P P Preliminary result I reviewed his most recent chest radiographic image and report, dated 05/21/24. 11/11/22 10/21/21 and . I agree with the following assessment. The radiologist notes: Several nodules, some stable some new small nodules to be followed. Some resolved. Significant emphysema- fairly diffuse to my eye. . ABG- Room air COPD REVIEW AND ASSESSMENT Smoking history: former and > 20 pack years Hospitalizations due to COPD exacerbation No History of mechanical ventilation (noninvasive): No History of mechanical ventilation (invasive): No CPAP/BIPAP: No Home O2 since: 2023 on 2 Liters/minute at HS Prednisone: Chronic No Pulmonary rehabilitation: No A1AT Deficiency: unknown Lung surgery/biopsy: No Had a fall and broke rib with lung puncture- healed spontaneously- left side.50 years ago. Concomitant lung disease: NO Modified Medical Research [place] Dyspnea Scale (MMRC) On level ground I walk slower than people of the same age because of breathlessness, or have to stop for breath when walking at my own pace 2 COPD Assessment Test (CAT) Scale: 0 being the least and 5 the worse Score I never cough 0 1 2 3 4 5 I cough all the time 2 I have no mucus at all 0 1 2 3 4 5 My chest is completely full of mucus 3 My chest does not feel tight at all 0 1 2 3 4 5 My chest feels very tight 3 When I walk up a hill or a flight of stairs, I am not breathless 0 1 2 3 4 5 When I walk up a hill or flight of stairs, I am very breathless 5 I am not limited doing any activities at home 0 1 2 3 4 5 I am very limited doing any activities at home 4 I am confident leaving home despite my lung disease 0 1 2 3 4 5 I am not confident leaving home because of my lung disease 0 I sleep soundly 0 1 2 3 4 5 I don't sleep soundly because of my lung disease 0 I have lots of energy 0 1 2 3 4 5 I have no energy at all 4 TOTAL SCORE 21 SARC-F Questionnaire This questionnaire will help you and your provider determine if you have evidence of skeletal muscle loss (also known as sarcopenia). Component Question Response Score Strength How much difficulty do you have lifting and carrying 10 pounds? None = 0 Some = 1 A lot of the time or I am unable to do = 2 0 Assistance in walking How much difficulty do you have walking across a room? None = 0 Some = 1 A lot of the time or I am unable to do = 2 0 Rise from a chair How much difficulty do you have transferring from a chair or bed? None = 0 Some = 1 A lot of the time or I am unable to do = 2 0 Climb stairs How much difficulty do you have climbing a flight of 10 stairs? None = 0 Some = 1 A lot of the time or I am unable to do = 2 2 Falls How many times have you fallen in the past year? None = 0 1-3 falls = 1 4+ falls = 2 0 Score >4 concerning for sarcopenia Total Score 2 Exacerbations Less or equal to one per year SEVERITY OF OBSTRUCTION (GOLD STAGE): 3 Severe: R< 70%, FEV1 30-50% Combined Assessment of COPD Group B More symptoms (CAT>or =10 or mMRC>or =2) Low risk (exacerbations 0-1/year) Impression Consider bronchoscopic lung volume reduction with total lobar occlusion. Simone Arreaga has advanced emphysema with air trapping and appears physiologically to be a candidate. PFTs indicate a residual volume of 253% of predicted with an FEV1 of 36% of predicted (1.02 L) and a FVC of 87% of predicted (3.33 L). Total lung capacity is 139 % of predicted (9.66 L). The details of bronchoscopic lung volume reduction, risks and benefits were discussed in detail with the patient. I explained that prior to insertion of valves, the Chartis system will be used to establish the absence of collateral ventilation (CV-) in the zone targeted for treatment. The patient is aware that should the Chartis evaluation identify that the patient is collateral ventilation positive (CV+) endobronchial valves (EBV) will not be placed. The potential benefit of EBV's in only actualized in CV - patients. If that is the case the procedure will be terminated and the patient will be discharged home that day and other treatments will be considered. We reviewed some of the associated data including: In the Liberate study, 65% of patients have clinically significant improvements in lung function, exercise tolerance and quality of life. If the patient is CV - and valves are placed the patient will remain in the hospital for at least 3 nights to observe for pneumothorax. We specifically discussed the risks including the major complications of pneumothorax, COPD exacerbation, respiratory failure, pneumonia and overall mortality. Pneumothorax occurred in 26.6% of the treatment population, 82% required a chest tube. 76 % of the pneumothoraces occurred in the first three days post procedure. COPD exacerbation occurred in approximately 8.4% of the treatment population in the first 45 days post procedure. Respiratory failure was seen in about 1.6% in the first 45 days post procedure Pneumonia was seen in about 7% within the first 45 days, typically in untreated regions. Mortality is 3.3% at 1 year compared to 2.8% in the group receiving optimal medical care. The patient also is aware that after 45 days, the risk of COPD exacerbation, pneumonia, as well as respiratory failure is less in the group that received EBV's compared to those receiving traditional optimized standard of care. All of his questions were answered to the best of my ability. He is willing to proceed with further assessment. Plan CT quantitative and Stratx analysis, Quant Perfusion study AATD testing Pulm Rehab- docena Get cardiology assessment at home Darby Maxwell MD I spent a total of 60 minutes on the date of the service which included preparing to see the patient, gooy-qn-mper patient care, completing clinical documentation, performing a medically appropriate examination, counseling and educating the patient/family/caregiver, ordering medications, tests, or procedures, independently interpreting results (not separately reported), and care coordination (not separately reported). documented in this encounter [facility] 06-03-2024 Note HNO ID: [id number] Author: LUKAS OH MD Service: ? Author Type: Registered Resp Therapist Type: Procedures Filed: 06/03/2024 10:14 Note Text: RESPIRATORY THERAPY SIX MINUTE WALK TEST OXIMETRY REPORT Six Minute Walk Test for This Encounter Oxygen Device Liters FIO2 SpO2% HR Activity Feet Speed (MPH) Flag R/A 97 74 Resting R/A 85 91 Six Minute Walk 1015 1.9 R/A 94 87 Recovery 1 minute post R/A 97 80 Recovery 2 minute post R/A 99 80 Recovery 3 minute post General Information Height Weight Pulse Oximetry Site Oximeter Pre Blood Pressure Post Blood Pressure Total Time Spent (min) 176.5 cm (5' 9.49) 86.3 kg (190 lb 4.1 oz) Forehead Masimo 137/89 150/78 30 _ Distance Walked (meters) Distance Walked (feet) Male Predicted Walk Distance (feet) Male Lower Limit of Normal (feet) Male % Predicted Total Duration Of The Stops (seconds) 309.37 1015 1619.75 1117.75 62.7 -- _ Lowest SpO2 During 6 Minute Walk Pre-Dinorah Dyspnea Rating Pre-Dinorah Fatigue Rating Post Dinorah Dyspnea Rating Post Dinorah Fatigue Rating 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 . The patient required Room Air to complete the test. The distance the patient walked in six minutes is moderately reduced. This is the first time patient takes the six minute walk test. The patient perceived their dyspnea during the six minute walk test to be 5-Severe on the modified Dinorah scale. The patient perceived their fatigue during the six minute walk test to be 7-Very severe on the modified Dinorah scale. I have reviewed the findings and made appropriate revisions as needed. SIGNATURE: Lukas Oh MD PATIENT NAME: Simone Arreaga DATE: June 03, 2024 TIME: 10:14 AM [facility] 06-03-2024 Procedure note Associated Ord er(s): SIX MINUTE WALK RESPIRATORY THERAPY SIX MINUTE WALK TEST OXIMETRY REPORT Six Minute Walk Test for This Encounter Oxygen Device Liters FIO2 SpO2% HR Activity Feet Speed (MPH) Flag R/A 97 74 Resting R/A 85 91 Six Minute Walk 1015 1.9 R/A 94 87 Recovery 1 minute post R/A 97 80 Recovery 2 minute post R/A 99 80 Recovery 3 minute post General Information Height Weight Pulse Oximetry Site Oximeter Pre Blood Pressure Post Blood Pressure Total Time Spent (min) 176.5 cm (5' 9.49) 86.3 kg (190 lb 4.1 oz) Forehead Masimo 137/89 150/78 30 _ Distance Walked (meters) Distance Walked (feet) Male Predicted Walk Distance (feet) Male Lower Limit of Normal (feet) Male % Predicted Total Duration Of The Stops (seconds) 309.37 1015 1619.75 1117.75 62.7 -- _ Lowest SpO2 During 6 Minute Walk Pre-Dinorah Dyspnea Rating Pre-Dinorah Fatigue Rating Post Dinorah Dyspnea Rating Post Dinorah Fatigue Rating 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 . The patient required Room Air to complete the test. The distance the patient walked in six minutes is moderately reduced. This is the first time patient takes the six minute walk test. The patient perceived their dyspnea during the six minute walk test to be 5-Severe on the modified Dinorah scale. The patient perceived their fatigue during the six minute walk test to be 7-Very severe on the modified Dinorah scale. I have reviewed the findings and made appropriate revisions as needed. SIGNATURE: Lukas Oh MD PATIENT NAME: Simone Arreaga DATE: June 03, 2024 TIME: 10:14 AM [facility] 06-03-2024 Procedure note Associated Ord er(s): SIX MINUTE WALK RESPIRATORY THERAPY SIX MINUTE WALK TEST OXIMETRY REPORT Six Minute Walk Test for This Encounter Oxygen Device Liters FIO2 SpO2% HR Activity Feet Speed (MPH) Flag R/A 97 74 Resting R/A 85 91 Six Minute Walk 1015 1.9 R/A 94 87 Recovery 1 minute post R/A 97 80 Recovery 2 minute post R/A 99 80 Recovery 3 minute post General Information Height Weight Pulse Oximetry Site Oximeter Pre Blood Pressure Post Blood Pressure Total Time Spent (min) 176.5 cm (5' 9.49) 86.3 kg (190 lb 4.1 oz) Forehead Masimo 137/89 150/78 30 _ Distance Walked (meters) Distance Walked (feet) Male Predicted Walk Distance (feet) Male Lower Limit of Normal (feet) Male % Predicted Total Duration Of The Stops (seconds) 309.37 1015 1619.75 1117.75 62.7 -- _ Lowest SpO2 During 6 Minute Walk Pre-Dinorah Dyspnea Rating Pre-Dinorah Fatigue Rating Post Dinorah Dyspnea Rating Post Dinorah Fatigue Rating 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 . The patient required Room Air to complete the test. The distance the patient walked in six minutes is moderately reduced. This is the first time patient takes the six minute walk test. The patient perceived their dyspnea during the six minute walk test to be 5-Severe on the modified Dinorah scale. The patient perceived their fatigue during the six minute walk test to be 7-Very severe on the modified Dinorah scale. I have reviewed the findings and made appropriate revisions as needed. SIGNATURE: Lukas Oh MD PATIENT NAME: Simone Arreaga DATE: June 03, 2024 TIME: 10:14 AM documented in this encounter [facility] 06-03-2024 Note HNO ID: [id number] Author: HOPE HOBBS RRT Service: ? Author Type: Registered Resp Therapist Type: Progress Notes Filed: 06/03/2024 10:07 Note Text: PULM FUNCTION: Provider: Darby Maxwell MD Spirometry w/BD: 1 DLCO: 1 LV - Box: 1 AB 6 MW: 1 System: [employer] - [id number] [facility] 06-03-2024 History of Presen t illness Narrative PULM FUNCTION: Provider: Darby Maxwell MD Spirometry w/BD: 1 DLCO: 1 LV - Box: 1 AB 6 MW: 1 System: [employer] - [id number] documented in this encounter [facility] 05-27-2024 Telephone encounter Note Per [facility], images pushed today at 1:15 p.m. [facility] 05-27-2024 Miscellaneous Notes Per [facility], images pushed today at 1:15 p.m. documented in this encounter [facility] 04-18-2024 Telephone encounter Note Referring Physician: Dr Fabien Mas Address: [address] [place] [address] Phone #: Fax #: Reason for referral: Dawson Valve Is there CareEverywhere Records: Yes Is there Imaging available: Yes - Recent CT: Yes - Date of CT: 04/04/2023 Admin will request images [facility] 04-18-2024 Miscellaneous Notes Referring Physician: Dr Fabien Mas Address: [address] [place] [address] Phone #: Fax #: Reason for referral: Dawson Valve Is there CareEverywhere Records: Yes Is there Imaging available: Yes - Recent CT: Yes - Date of CT: 04/04/2023 Admin will request images documented in this encounter [facility] 04-06-2023 Miscellaneous Notes . documented in this encounter [facility] 04-06-2023 Miscellaneous Notes 03/16: Received phone call from reading radiologist, Dr. Clyde Stapleton ([place]). He called to updated on ammended results [...] CT chest ordered as recommended. Our office cruise counselor called the patient to relay the order for repeat CT chest. 03/29: pt called in stating he wanted the CT chest to be performed at [facility] for insurance reasons. Order was faxed to their centralized scheduling. TODAY: Called pt to inquire if he was able to get the CT chest done yet. He passed the phone onto his immediately, who questioned why this was ordered and necessity. I explained all of the above. She reports that the pt continues to follow with his wastewater treatment operator Dr. Mas at [facility], and he has a PET scan scheduled for 04/16. At this point I told the patient's that I would call to discuss with Dr. Mas before proceeding further. Phone call placed to Dr. Mas [phone]. Discussed with his RN and requested call back. Provided my [facility] work phone for communication. Received phone call back from Dr. Mas who reports he was aware of the 1.7 spiculated posterior left lower lobe nodule because he personally reviewed the films from 11/11/22, and pt is actually scheduled for PET and CXR at [place] 04/16/23, and continues to follow with him as his wastewater treatment operator. No need for repeat CT chest at this time. Messaged Dr. Clyde Stapleton to provide update, awaiting return call. Called pt/and his to discuss the above and will DC CT chest. They verbalized understanding. Stacy Donovan APRN.CNP documented in this encounter [facility] 03-29-2023 Miscellaneous Notes Pt wants CT Chest wo contrast performed at [facility] for insurance reasons. I faxed order to their Centralized Scheduling [phone] on 03/29/23. They will contact pt for scheduling. [phone] states no prior auth required for CPT 13529 documented in this encounter [facility] 03-16-2023 Miscellaneous Notes Received phone call from reading radiologist, Dr. Clyde Stapleton ([place]). He called to updated on ammended results [...] and share the above with Dr. Hernandez. Stacy Donovan APRN.DOROTHY documented in this encounter [facility] 09-25-2022 Miscellaneous Notes CTA Chest, Abdomen, & Pelvis orders faxed to Central Scheduling at [facility] fax [phone]. [facility] not able to schedule these test at their location. Central Scheduling at [facility] protocol is to receive orders and they will contact pt to schedule testing. 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 Romero. No new vascular problems have occurred since that time, and he now returns for his annual follow-up exam. Pt just had office visit with Dr. Hernandez for his ascending aorta dilation, and was advised that it is stable and is recommended continued annual surveillance. PAST MEDICAL HISTORY Diagnosis Date AAA (abdominal aortic aneurysm) ([facility]) Acute maxillary sinusitis Acute upper respiratory infection of multiple sites Aneurysm of thoracic aorta (HCC) proximal,focal, descending stable 01/15/15 Chronic airway obstruction, not elsewhere classified COPD (chronic obstructive pulmonary disease) ([facility]) Displacement of lumbar intervertebral disc without myelopathy Dysfunction of eustachian tube Emphysema lung ([facility]) History of repair of aneurysm of abdominal aorta using endovascular stent graft 11/18/2018 at [facility] by Dr. Romero Spasm of back muscles PAST SURGICAL HISTORY Procedure Laterality Date ENDOVASC AAA STENT REPAIR 11/18/2018 at [facility] by Dr. Romero PAST SURGICAL HISTORY OF Left 2017 index finger Current Outpatient Medications on File Prior to Visit Medication Sig wfnyidezrxm-gmvuoegok-dipgejst (TRELEGY ELLIPTA) 100-62.5-25 mcg Inhale 1 Puff [...] There are stable bilateral pulmonary nodules. 69mm belkofski abdominal aortic aneurysm. There are multiple colonic [...] with radiology test) in 1 year FOLLOW-UP: Simone will follow-up in 1 year, after testing. Encouraged pt to call with any question, problems, concerns, or changes. The patient is currently taking a statin: No. Reason: Refer to PCP to initiate and monitor therapy The patient is currently taking aspirin: Yes I spent 20 minutes in the visit, with more than 50% of the total jyll-vk-hcay time of the visit in counseling / coordination of care. Blanca Hensley APRN.DOROTHY documented in this encounter [facility] 10-31-2021 Miscellaneous Notes Left detailed message regarding future appt. Office visit 11/08/21 1:30pm with Dr. Hernandez. Received 10/21/21 CT Chest report and images from [facility]. Report scanned into chart. 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) Ascending aorta dilatation (HCC) Thoracic aortic ectasia [facility]No assessment information availableWK[facility] Work Phone: Evaluation note* Diagnosis Onset Date Resolution Status Shingles acute [facility] Work Phone: Evaluation note* Diagnosis Lung nodule- Primary Solitary pulmonary nodule documented in this encounter [facility] note* Diagnosis Other specified chronic obstructive pulmonary disease (HCC)- Primary documented in this encounter [facility] note* Diagnosis Other specified chronic obstructive pulmonary disease (HCC) [facility]* Diagnosis Other specified chronic obstructive pulmonary disease (HCC) [facility]* Diagnosis Other specified chronic obstructive pulmonary disease (HCC) documented in this encounter [facility] note* Diagnosis Centrilobular emphysema (HCC)- Primary Other emphysema Lung nodule seen on imaging study Solitary pulmonary nodule documented in this encounter [facility] note* Diagnosis History of AAA (abdominal aortic aneurysm) repair- Primary Other postprocedural status Abdominal aortic aneurysm (AAA) without rupture, unspecified part (HCC) documented in this encounter [facility] note* Diagnosis Preop testing [Z01.818]- Primary Preoperative examination, unspecified documented in this encounter [facility] note* Diagnosis History of abdominal aortic aneurysm (AAA) repair- Primary History of thoracic aortic aneurysm repair Other postprocedural status Infrarenal abdominal aortic aneurysm (AAA) without rupture Pararenal abdominal aortic aneurysm (AAA) without rupture Aneurysm of descending thoracic aorta without rupture documented in this encounter [facility] note* Diagnosis Centrilobular emphysema (HCC)- Primary Other emphysema Lung nodule seen on imaging study Solitary pulmonary nodule Other specified chronic obstructive pulmonary disease (HCC) documented in this encounter [facility] for referral (narrative)* Diagnostic Procedure Only (Routine) - New Request Specialty Diagnoses / Procedures Referred By Pricila t Referred To Contact MOLECULAR & FUNCTIONAL IMAGING Diagnoses Centrilobular emphysema (HCC) Procedures NM LUNG QUANT PERFUSION QUANT DIFFERENTIAL PULM PERFUSION W/WO IMAGING Darby Maxwell MD [address] [place] [address] Molecular & Functional Imaging [address] [place] [address] Referral ID Status Reason Start Date Expiration Date Visits Requested Visits Authorized [id number] New Request Auto-Generat ed Referral 07/03/2025 1 1 [facility] for referral (narrative)No reason for referral information availableWKettering Health [facility] Work Phone: Summary Purpose Family History No Family History Records FoundNo Family History Records FoundNo Family History Records FoundNo Family History Records FoundNo Family History Records FoundNo Family History Records Found Advance Directives No Advanced Directives Records FoundDocuments on File Type Date Recorded 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 Advance Directive(s) 03/26/2019 6:12 AM Documents on File Type Date Recorded 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) History of repair of thoracic aortic aneurysm Procedures CTA ABD/PEL WO/W IVCON CT ANGIO ABD&PLVIS CNTRST MTRL W/WO CNTRST IMGES Blanca Hensley, AUTOMOBILE RENTAL REPRESENTATIVE.CARDIOLOGY SPECIALIST 1 [facility] [address] [place] [address] Ct Imaging Referral ID Status Reason Start Date Expiration Date Visits Requested Visits Authorized [id number] Pending Review Auto-Generat ed Referral 11/17/2022 12/17/2022 1 1 Specialty Diagnoses / Procedures Referred By Contac t Referred To Contact CT IMAGING Diagnoses History of AAA (abdominal aortic aneurysm) repair 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) History of repair of thoracic aortic aneurysm Ascending aorta dilatation (HCC) Procedures CTA CHEST (NONGATED) WO/W IVCON CT ANGIOGRAPHY CHEST W/CONTRAST/NONCONTRAST Blanca Hensley, AUTOMOBILE RENTAL REPRESENTATIVE.CARDIOLOGY SPECIALIST 1 [facility] [address] [place] [address] [address] [address] Imaging Referral ID Status Reason Start Date Expiration Date Visits Requested Visits Authorized [id number] Pending Review Auto-Generat ed Referral 11/17/2022 12/17/2022 1 1 Specialty Diagnoses / Procedures Referred By Contac t Referred To Contact CT IMAGING Diagnoses Lung nodule Procedures CT CHEST WO IVCON DIAGNOSTIC COMPUTED TOMOGRAPHY THORAX W/O CNTRST Stacy Donovan, AUTOMOBILE RENTAL REPRESENTATIVE.CARDIOLOGY SPECIALIST 1 [facility] [address] [place] [address] [place] [address] Referral ID Status Reason Start Date Expiration Date Visits Requested Visits Authorized [id number] Pending Review Auto-Generat ed Referral 03/16/2023 04/14/2024 1 1 Specialty Diagnoses / Procedures Referred By Contac t Referred To Contact CT IMAGING Diagnoses Other specified chronic obstructive pulmonary disease (HCC) Procedures CT CHEST WO IVCON DIAGNOSTIC COMPUTED TOMOGRAPHY THORAX W/O CNTRST Darby Maxwell MD [address] [place] [address] [place] [address] Referral ID Status Reason Start Date Expiration Date Visits Requested Visits Authorized [id number] New Request Auto-Generat ed Referral 04/23/2024 05/22/2025 1 1 Specialty Diagnoses / Procedures Referred By Contac t Referred To [facility] Diagnoses Other specified chronic obstructive pulmonary disease (HCC) Procedures ARTERIAL BLOOD GAS, ROOM AIR GASES BLOOD PH DIRECT APPLE XCPT PULSE OXIMITRY Darby Maxwell MD [address] [place] [address] [address] Referral ID Status Reason Start Date Expiration Date Visits Requested Visits Authorized [id number] New Request Auto-Generat ed Referral 04/23/2024 05/22/2025 1 1 Specialty Diagnoses / Procedures Referred By Contac t Referred To [facility] Diagnoses Other specified chronic obstructive pulmonary disease (HCC) Procedures SIX MINUTE WALK CARDIOPULMONARY [place] [address] [place] [address] [address] Referral ID Status Reason Start Date Expiration Date Visits Requested Visits Authorized [id number] New Request Auto-Generat ed Referral 04/23/2024 05/22/2025 1 1 Specialty Diagnoses / Procedures Referred By Contac t Referred To [facility] Diagnoses Other specified chronic obstructive pulmonary disease (HCC) Procedures LUNG DIFFUSION CAPACITY (DLCO) DIFFUSING CAPACITY Darby Maxwell MD [address] [place] [address] [address] Referral ID Status Reason Start Date Expiration Date Visits Requested Visits Authorized [id number] New Request Auto-Generat ed Referral 04/23/2024 05/22/2025 1 1 Specialty Diagnoses / Procedures Referred By Contac t Referred To [facility] Diagnoses Other specified chronic obstructive pulmonary disease (HCC) Procedures LUNG VOLUMES Darby Maxwell MD [address] [place] [address] [address] Referral ID Status Reason Start Date Expiration Date Visits Requested Visits Authorized [id number] New Request Auto-Generat ed Referral 04/23/2024 05/22/2025 1 1 Specialty Diagnoses / Procedures Referred By Contac t Referred [facility] Diagnoses Other specified chronic obstructive pulmonary disease (HCC) Procedures SPIROMETRY - BASELINE AND POST DILATOR BRNCDILAT RSPSE SPMTRY PRE&POST-BRNCDILAT ADMN Darby Maxwell MD [address] [place] [address] [facility] [address] [place], [place] [id number] Referral ID Status Reason Start Date Expiration Date Visits Requested Visits Authorized [id number] New Request Auto-Generat ed Referral 04/23/2024 05/22/2025 1 1 Specialty Diagnoses / Procedures Referred By Contac t Referred To Contact CT IMAGING Diagnoses History of AAA (abdominal aortic aneurysm) repair Abdominal aortic aneurysm (AAA) without rupture, unspecified part (HCC) Procedures CTA ABD/PEL WO/W IVCON CT ANGIO ABD&PLVIS CNTRST MTRL W/WO CNTRST Blanca Maria, AUTOMOBILE RENTAL REPRESENTATIVE.CARDIOLOGY SPECIALIST 1 [facility] [address] [place] [address] Ct Imaging [place] [address] Referral ID Status Reason Start Date Expiration Date Visits Requested Visits Authorized [id number] New Request Auto-Generat ed Referral 08/01/2025 1 1 Chief Complaint and Reason for Visit Chief Complaint SOB ON EXERTION SOB ON EXERTION LLQ ABDOMINAL PAIN Chief Complaint HX OF AAA Chief Complaint HX OF AAA SHINGLES Thoracic aortic ectasia Reason for Visit Shingles Chief Complaint SOLITARY PULMONARY N ODULE Chief Complaint SOLITARY PULMONARY N ODULE Solitary pulmonary nodule Chief Complaint Solitary pulmonary n odule HYPERSOMNIA Chief Complaint Admit Date AAA, POST OP July 29, 2024 5: 49pm COPD August 14, 2024 7 :57am COPD August 22, 2024 1 :00pm COPD September 17, 2024 1:00pm COPD October 03, 2024 1:0 0pm Chief Complaint Admit Date COPD September 17, 2024 1:00pm COPD October 03, 2024 1:0 0pm COPD November 12, 2024 1:0 0pm COPD December 17, 2024 1:00p m Chief Complaint Admit Date COPD November 12, 2024 1:0 0pm COPD December 17, 2024 1:00p m HEART DISEASE February 10, 2025 1:50 pm Additional Source Comments (unrecognized sect ion and content) No Status Records FoundNo Status Records FoundNo Status Records FoundNo Status Records FoundNo Status Records FoundNo Status Records Found INFORMATION SOURCE (unrecogn ized section and content) DATE CREATED AUTHOR 01/16/2018 [facility] DATE CREATED AUTHOR AUTHOR'S ORGANIZ ATION 10/09/2019 [facility] ([place]) DATE CREATED AUTHOR AUTHOR'S ORGANIZ ATION 02/27/2020 [facility] DATE CREATED AUTHOR AUTHOR'S ORGANIZ ATION 07/05/2024 [facility] DATE CREATED AUTHOR AUTHOR'S ORGANIZ ATION 01/30/2025 [facility] DATE CREATED AUTHOR AUTHOR'S ORGANIZ ATION 02/17/2025 [facility] Source Comments (unrecognize d section and content) In the event this informatio n is protected by the Federal Confidentiality of Alcohol and Drug Abuse Patient Records regulations: The Federal rules restrict any use of the information to criminally investigate or prosecute any alcohol or drug abuse patient.[facility] the event this information is protected by the Federal Confidentiality of Alcohol and Drug Abuse Patient Records regulations: The Federal rules restrict any use of the information to criminally investigate or prosecute any alcohol or drug abuse patient.[facility] Hospital[facility] the event this information is protected by the Federal Confidentiality of Alcohol and Drug Abuse Patient Records regulations: The Federal rules restrict any use of the information to criminally investigate or prosecute any alcohol or drug abuse patient.[facility] Hospital[facility] the event this information is protected by the Federal Confidentiality of Alcohol and Drug Abuse Patient Records regulations: The Federal rules restrict any use of the information to criminally investigate or prosecute any alcohol or drug abuse patient.[facility] HospitalIn the event this information is protected by the Federal Confidentiality of Alcohol and Drug Abuse Patient Records regulations: The Federal rules restrict any use of the information to criminally investigate or prosecute any alcohol or drug abuse patient.[facility] HospitalIn the event this information is protected by the Federal Confidentiality of Alcohol and Drug Abuse Patient Records regulations: The Federal rules restrict any use of the information to criminally investigate or prosecute any alcohol or drug abuse patient.[facility] HospitalIn the event this information is protected by the Federal Confidentiality of Alcohol and Drug Abuse Patient Records regulations: The Federal rules restrict any use of the information to criminally investigate or prosecute any alcohol or drug abuse patient.[facility] HospitalIn the event this information is protected by the Federal Confidentiality of Alcohol and Drug Abuse Patient Records regulations: The Federal rules restrict any use of the information to criminally investigate or prosecute any alcohol or drug abuse patient.[facility] HospitalIn the event this information is protected by the Federal Confidentiality of Alcohol and Drug Abuse Patient Records regulations: The Federal rules restrict any use of the information to criminally investigate or prosecute any alcohol or drug abuse patient.[facility] HospitalIn the event this information is protected by the Federal Confidentiality of Alcohol and Drug Abuse Patient Records regulations: The Federal rules restrict any use of the information to criminally investigate or prosecute any alcohol or drug abuse patient.[facility] HospitalIn the event this information is protected by the Federal Confidentiality of Alcohol and Drug Abuse Patient Records regulations: The Federal rules restrict any use of the information to criminally investigate or prosecute any alcohol or drug abuse patient.[facility] HospitalIn the event this information is protected by the Federal Confidentiality of Alcohol and Drug Abuse Patient Records regulations: The Federal rules restrict any use of the information to criminally investigate or prosecute any alcohol or drug abuse patient.[facility] HospitalIn the event this information is protected by the Federal Confidentiality of Alcohol and Drug Abuse Patient Records regulations: The Federal rules restrict any use of the information to criminally investigate or prosecute any alcohol or drug abuse patient.[facility] HospitalIn the event this information is protected by the Federal Confidentiality of Alcohol and Drug Abuse Patient Records regulations: The Federal rules restrict any use of the information to criminally investigate or prosecute any alcohol or drug abuse patient.[facility] HospitalIn the event this information is protected by the Federal Confidentiality of Alcohol and Drug Abuse Patient Records regulations: The Federal rules restrict any use of the information to criminally investigate or prosecute any alcohol or drug abuse patient.[facility] HospitalIn the event this information is protected by the Federal Confidentiality of Alcohol and Drug Abuse Patient Records regulations: The Federal rules restrict any use of the information to criminally investigate or prosecute any alcohol or drug abuse patient.[facility] HospitalIn the event this information is protected by the Federal Confidentiality of Alcohol and Drug Abuse Patient Records regulations: The Federal rules restrict any use of the information to criminally investigate or prosecute any alcohol or drug abuse patient.[facility] HospitalIn the event this information is protected by the Federal Confidentiality of Alcohol and Drug Abuse Patient Records regulations: The Federal rules restrict any use of the information to criminally investigate or prosecute any alcohol or drug abuse patient.[facility] HospitalIn the event this information is protected by the Federal Confidentiality of Alcohol and Drug Abuse Patient Records regulations: The Federal rules restrict any use of the information to criminally investigate or prosecute any alcohol or drug abuse patient.[facility] HospitalIn the event this information is protected by the Federal Confidentiality of Alcohol and Drug Abuse Patient Records regulations: The Federal rules restrict any use of the information to criminally investigate or prosecute any alcohol or drug abuse patient.[facility] HospitalIn the event this information is protected by the Federal Confidentiality of Alcohol and Drug Abuse Patient Records regulations: The Federal rules restrict any use of the information to criminally investigate or prosecute any alcohol or drug abuse patient.[facility] HospitalIn the event this information is protected by the Federal Confidentiality of Alcohol and Drug Abuse Patient Records regulations: The Federal rules restrict any use of the information to criminally investigate or prosecute any alcohol or drug abuse patient.[facility] HospitalIn the event this information is protected by the Federal Confidentiality of Alcohol and Drug Abuse Patient Records regulations: The Federal rules restrict any use of the information to criminally investigate or prosecute any alcohol or drug abuse patient.[facility] HospitalIn the event this information is protected by the Federal Confidentiality of Alcohol and Drug Abuse Patient Records regulations: The Federal rules restrict any use of the information to criminally investigate or prosecute any alcohol or drug abuse patient.[facility] HospitalIn the event this information is protected by the Federal Confidentiality of Alcohol and Drug Abuse Patient Records regulations: The Federal rules restrict any use of the information to criminally investigate or prosecute any alcohol or drug abuse patient.[facility] HospitalIn the event this information is protected by the Federal Confidentiality of Alcohol and Drug Abuse Patient Records regulations: The Federal rules restrict any use of the information to criminally investigate or prosecute any alcohol or drug abuse patient.[facility] HospitalIn the event this information is protected by the Federal Confidentiality of Alcohol and Drug Abuse Patient Records regulations: The Federal rules restrict any use of the information to criminally investigate or prosecute any alcohol or drug abuse patient.[facility] HospitalIn the event this information is protected by the Federal Confidentiality of Alcohol and Drug Abuse Patient Records regulations: The Federal rules restrict any use of the information to criminally investigate or prosecute any alcohol or drug abuse patient.[facility] HospitalIn the event this information is protected by the Federal Confidentiality of Alcohol and Drug Abuse Patient Records regulations: The Federal rules restrict any use of the information to criminally investigate or prosecute any alcohol or drug abuse patient.[facility] HospitalIn the event this information is protected by the Federal Confidentiality of Alcohol and Drug Abuse Patient Records regulations: The Federal rules restrict any use of the information to criminally investigate or prosecute any alcohol or drug abuse patient.[facility] HospitalIn the event this information is protected by the Federal Confidentiality of Alcohol and Drug Abuse Patient Records regulations: The Federal rules restrict any use of the information to criminally investigate or prosecute any alcohol or drug abuse patient.[facility] Reason for Visit (unrecogniz ed section and content) Reason Comments Received Outside Medical Records Future Appointment Reason Comments Follow Up Tests Results Specialty Diagnoses / Procedures Referred By Contac t Referred To Contact Vascular Surgery / [facility] Diagnoses Follow-up exam AAA 10/21/21 CTA A/P @ [place] images were sent electronically Procedures OFFICE/OUTPATIENT ESTABLISHED MOD MDM 30-39 MIN EST PATIENT Lamont Pereira [address] [place] [address] Blanca Hensley, MARIA LUZ.CARDIOLOGY SPECIALIST 1 [facility] [address] [place] [address] Referral ID Status Reason Start Date Expiration Date Visits Re quested Visits Authorized [id number] Closed 07/23/2021 07/22/2022 1 1 Reason Comments Patient Update Reason Comments Results Reason Comments Opened In Error Reason Comments Images Update Reason Comments Spirometry Specialty Diagnoses / Procedures Referred By Contac t Ref[facility] Diagnoses Other specified chronic obstructive pulmonary disease (HCC) Procedures LUNG VOLUMES Darby Maxwell MD [address] [place] [address] [address] Referral ID Status Reason Start Date Expiration Date V isits Requested Visits Authorized [id number] Closed Auto-Generate d Referral 04/23/2024 05/22/2025 1 1 Specialty Diagnoses / Procedures Referred By Contac t Referred To [facility] Diagnoses Other specified chronic obstructive pulmonary disease (HCC) Procedures SPIROMETRY - BASELINE AND POST DILATOR BRNCDILAT RSPSE SPMTRY PRE&POST-BRNCDILAT ADMN Darby Maxwell MD [address] [place] [address] [address] [address] [address] Referral ID Status Reason Start Date Expiration Date V isits Requested Visits Authorized [id number] Closed Auto-Generate d Referral 04/23/2024 05/22/2025 1 1 Specialty Diagnoses / Procedures Referred By Contac t Referred To [facility] [place] Diagnoses Other specified chronic obstructive pulmonary disease (HCC) Procedures ARTERIAL BLOOD GAS, ROOM AIR GASES BLOOD PH DIRECT APPLE XCPT PULSE OXIMITRY Darby Maxwell MD [address] [place] [address] [address] [address] [address] Referral ID Status Reason Start Date Expiration Date V isits Requested Visits Authorized [id number] Closed Auto-Generate d Referral 04/23/2024 05/22/2025 1 1 Specialty Diagnoses / Procedures Referred By Contac t Referred To [facility] [place] Diagnoses Other specified chronic obstructive pulmonary disease (HCC) Procedures SIX MINUTE WALK CARDIOPULMONARY EXERCISE STRESS Darby Maxwell MD [address] [place] [address] [address] Referral ID Status Reason Start Date Expiration Date V isits Requested Visits Authorized [id number] Closed Auto-Generate d Referral 04/23/2024 05/22/2025 1 1 Specialty Diagnoses / Procedures Referred By Contac t Referred To [facility] Diagnoses Other specified chronic obstructive pulmonary disease (HCC) Procedures LUNG DIFFUSION CAPACITY (DLCO) DIFFUSING CAPACITY Darby Maxwell MD [address] [place] [address] [facility] [address] [place] [address] Referral ID Status Reason Start Date Expiration Date V isits Requested Visits Authorized [id number] Closed Auto-Generate d Referral 04/23/2024 05/22/2025 1 1 Reason Comments new Reason Comments Appointment Appointment Reason Comments Orders Reason Comments Orders Faxed Reason Comments Pulmonary Rehab Notes Reason Comments Pulmonary Rehab Report Reason Comments Appointment SM 12/22/24: Pt accept ed 12/25/24 at 10 am w/Dr MORTON. Reason Comments Insurance Cards Faxed Reason Comments Outside Results Reason Comments New Patient Care Teams (unrecognized sec tion and content) Day Care Provider Relationship Specialty Start Date End Date Lamont Pereira DO [address] [place] [address] PCP - General Family Practice 01/16/20 Asa Hernandez MD [address] [address] [place] [phone] Thoracic Surgery 02/21/16 Day Care Provider Relationship Specialty Start Date End Date Alexander Perales MD [address] [facility] [address] [place], [place] [id number] PCP - General Family Practice 11/17/21 Asa Hernandez MD [address] [place] [address] Thoracic Surgery 02/21/16 Day Care Provider Relationship Specialty Start Date End Date Alexander Perales MD [address] [facility] [address] [place], [place] [id number] PCP - General Family Medicine 11/17/21 Asa Hernandez MD [address] [address] [place] [address] Thoracic Surgery 02/21/16 Team Status: Active Member Role Status Dates Dr. Pipe Fernandes DO Family Provider Active Dr. Alexander Perales MD Primary Care Provider Active Team Status: Inactive Member Role Status Dates Dr. Alexander Perales MD Primary Care Provi melinda, Attending Provider, Referring Provider Active Team Status: Inactive Member Role Status Dates Dr. Alexander Perales MD Primary Care Provider Active Balnca Hensley KNIFE GRINDER, KNIFE GRINDER-C Attending Provider Active Team Status: Inactive Member Role Status Dates Dr. Alexander Perales MD Primary Care Provider, Referring Provider Active Bambi Beavers KNIFE GRINDER, KNIFE GRINDER-C Attending Provider Active Team Status: Inactive Member Role Status Dates Dr. Alexander Perales MD Primary Care Provider Active Dr. Asa Hernandez MD Attending Provider, Referring Provider Active Day Care Provider Relationship Specialty Start Date End Date Alexander Perales MD [address] [place] [address] [address] [place], [place] [address] PCP - General Family Medicine 11/17/21 Asa Hernandez MD [address] [place] [phone] Thoracic Surgery 02/21/16 Day Care Provider Relationship Specialty Start Date End Date Alexander Perales MD [address] [place] [address] [address] [place], [place] [address] PCP - General Family Medicine 11/17/21 Asa Hernandez MD [address] [place] [address] [place] [address] Thoracic Surgery 02/21/16 Day Care Provider Relationship Specialty Start Date End Date Alexander Perales MD [address] [place] [address] [address] [place] [address] PCP - General Family Medicine 11/17/21 Asa Hernandez MD [address] [place] [address] [place] [phone] Thoracic Surgery 02/21/16 Team Status: Inactive Member Role Status Dates Dr. Alexander Perales MD Primary Care Provider Active Shelley Alfonso KNIFE GRINDER, KNIFE GRINDER-C Attending Provider, Pierce chavez Provider Active Team Status: Inactive Member Role Status Dates Dr. Alexander Perales MD Primary Care Provider Active Dr. Fabien Mas MD Attending Provider, Pierce chavez Provider Active Day Care Provider Relationship Specialty Start Date End Date Alexander Perales MD [address] [facility] [address] [place], [place] [address] PCP - General Family Medicine 11/17/21 Asa Hernandez MD [address] [place] [address] [place] [phone] Thoracic Surgery 02/21/16 Day Care Provider Relationship Specialty Start Date End Date Alexander Perales MD [address] [facility] [address] [place], [place] [address] PCP - General Family Medicine 11/17/21 Asa Hernandez MD [address] [place] [address] [place] [phone] Thoracic Surgery 02/21/16 Day Care Provider Relationship Specialty Start Date End Date Alexander Perales MD [address] [facility] [address] [place], [place] [address] PCP - General Family Medicine 11/17/21 Asa Hernandez MD [address] [place] [address] [place] [address] Thoracic Surgery 02/21/16 Day Care Provider Relationship Specialty Start Date End Date Alexander Perales MD [address] [facility] [address] [place], [place] [address] PCP - General Family Medicine 11/17/21 Asa Hernandez MD [address] [place] [address] [place] [address] Thoracic Surgery 02/21/16 Day Care Provider Relationship Specialty Start Date End Date Alexander Perales MD [address] [facility] [address] [place] [address] PCP - General Family Medicine 11/17/21 Asa Hernandez MD [address] [place] [address] [place] [phone] Thoracic Surgery 02/21/16 Day Care Provider Relationship Specialty Start Date End Date Alexander Perales MD [address] [facility] [address] [place] [address] PCP - General Family Medicine 11/17/21 Asa Hernandez MD [address] [place] [address] [place] [phone] Thoracic Surgery 02/21/16 Day Care Provider Relationship Specialty Start Date End Date Alexander Perales MD [address] [facility] [address] [place], [place] [address] PCP - General Family Medicine 11/17/21 Asa Hernandez MD [address] [place] [address] [place] [address] Thoracic Surgery 02/21/16 Day Care Provider Relationship Specialty Start Date End Date Alexander Perales MD [address] [facility] [address] [place], [place] [address] PCP - General Family Medicine 11/17/21 Asa Hernandez MD [address] [place] [address] [place] [address] Thoracic Surgery 02/21/16 Day Care Provider Relationship Specialty Start Date End Date Alexander Perales MD [address] [facility] [address] [place] [address] PCP - General Family Medicine 11/17/21 Asa Hernandez MD [address] [place] [address] [place] [phone] Thoracic Surgery 02/21/16 Day Care Provider Relationship Specialty Start Date End Date Alexander Perales MD [address] [facility] [address] [place] [address] PCP - General Family Medicine 11/17/21 Asa Hernandez MD [address] [place] [address] [place] [phone] Thoracic Surgery 02/21/16 Day Care Provider Relationship Specialty Start Date End Date Alexander Perales MD [address] [facility] [address] [place], [place] [address] PCP - General Family Medicine 11/17/21 Asa Hernandez MD [address] [place] [address] [place] [address] Thoracic Surgery 02/21/16 Day Care Provider Relationship Specialty Start Date End Date Alexander Perales MD [address] [place] [address] [place] [address] PCP - General Family Medicine 11/17/21 Asa Hernandez MD [address] [facility] [address] [place] [phone] Thoracic Surgery 02/21/16 Team Status: Active Member Role Status Dates Dr. Alexander Perales MD Primary Care Provider Active Team Status: Inactive Member Role Status Dates Dr. Alexander Perales MD Primary Care Provider Active Start: July 29, 2024 End: July 29, 2024 Blanca Hensley KNIFE GRINDER, KNIFE GRINDER-C Attending Provider Active Start: July 29, 2024 End: July 29, 2024 Blanca Hensley KNIFE GRINDER, KNIFE GRINDER-C Referring Provider Active Start: July 29, 2024 End: July 29, 2024 Team Status: Inactive Member Role Status Dates Dr. Alexander Perales MD Primary Care Provider Active Start: August 07, 2024 End: August 07, 2024 Blanca Hensley KNIFE GRINDER, KNIFE GRINDER-C Attending Provider Active Start: August 07, 2024 End: August 07, 2024 Blanca Hensley KNIFE GRINDER, KNIFE GRINDER-C Referring Provider Active Start: August 07, 2024 End: August 07, 2024 Team Status: Inactive Member Role Status Dates Dr. Alexander Perales MD Primary Care Provider Active Start: August 14, 2024 End: August 14, 2024 Dr. Fabien Mas MD Attending Provider Active Start: August 14, 2024 End: August 14, 2024 Dr. Fabien Mas MD Referring Provider Active Start: August 14, 2024 End: August 14, 2024 Team Status: Inactive Member Role Status Dates Dr. Alexander Perales MD Primary Care Provider Active Start: August 22, 2024 End: August 22, 2024 Dr. Fabien Mas MD Attending Provider Active Start: August 22, 2024 End: August 22, 2024 Dr. Fabien Mas MD Referring Provider Active Start: August 22, 2024 End: August 22, 2024 Team Status: Inactive Member Role Status Dates Dr. Alexander Perales MD Primary Care Provider Active Start: September 17, 2024 End: September 19, 2024 Dr. Fabien Mas MD Attending Provider Active Start: September 17, 2024 End: September 19, 2024 Dr. Fabien Mas MD Referring Provider Active Start: September 17, 2024 End: September 19, 2024 Team Status: Inactive Member Role Status Dates Dr. Alexander Perales MD Primary Care Provider Active Start: October 03, 2024 End: October 20, 2024 Dr. Fabien Mas MD Attending Provider Active Start: October 03, 2024 End: October 20, 2024 Dr. Fabien Mas MD Referring Provider Active Start: October 03, 2024 End: October 20, 2024 Team Status: Inactive Member Role Status Dates Dr. Alexander Perales MD Primary Care Provider Active Start: November 12, 2024 End: November 19, 2024 Dr. Fabien Mas MD Attending Provider Active Start: November 12, 2024 End: November 19, 2024 Dr. Fabien Mas MD Referring Provider Active Start: November 12, 2024 End: November 19, 2024 Team Status: Inactive Member Role Status Dates Dr. Alexander Perales MD Primary Care Provider Active Start: December 17, 2024 End: December 20, 2024 Dr. Fabien Mas MD Attending Provider Active Start: December 17, 2024 End: December 20, 2024 Dr. Fabien Mas MD Referring Provider Active Start: December 17, 2024 End: December 20, 2024 Day Care Provider Relationship Specialty Start Date End Date Alexander Perales MD [address] [place] [address] [address] [place] [address] PCP - General Family Medicine 11/17/21 Asa Hernandez MD Thoracic Surgery 02/21/16 Day Care Provider Relationship Specialty Start Date End Date Alexander Perales MD [address] [facility] [address] [place] [address] PCP - General Family Medicine 11/17/21 Asa Hernandez MD Thoracic Surgery 02/21/16 Day Care Provider Relationship Specialty Start Date End Date Alexander Perales MD [address] [facility] [address] [place] [address] PCP - General Family Medicine 11/17/21 Asa Hernandez MD Thoracic Surgery 02/21/16 Day Care Provider Relationship Specialty Start Date End Date Alexander Perales MD [address] [facility] [address] [place], [place] [address] PCP - General Family Medicine 11/17/21 Asa Hernandez MD Thoracic Surgery 02/21/16 Team Status: Active Member Role/Relationship Status Dates Dr. Alexander Perales MD Primary Care Provider Active Team Status: Inactive Member Role/Relationship Status Dates Dr. Alexander Perales MD Primary Care Provider Active Start: November 12, 2024 End: November 19, 2024 Dr. Fabien Mas MD Attending Provider Active Start: November 12, 2024 End: November 19, 2024 Dr. Fabien Mas MD Referring Provider Active Start: November 12, 2024 End: November 19, 2024 Team Status: Inactive Member Role/Relationship Status Dates Dr. Alexander Perales MD Primary Care Provider Active Start: December 17, 2024 End: December 20, 2024 Dr. Fabien Mas MD Attending Provider Active Start: December 17, 2024 End: December 20, 2024 Dr. Fabien Mas MD Referring Provider Active Start: December 17, 2024 End: December 20, 2024 Team Status: Inactive Member Role/Relationship Status Dates Dr. Alexander Perales MD Primary Care Provider Active Start: February 10, 2025 End: February 10, 2025 Dr. Hugo Torres DO Attending Provider Active Start: February 10, 2025 End: February 10, 2025 Dr. Hugo Torres DO Referring Provider Active Start: February 10, 2025 End: February 10, 2025 Team Status: Active Member Role/Relationship Status Dates Dr. Alexander Perales MD Primary Care Provider Active Start: February 10, 2025 Dr. Paul Molina MD Attending Provider Active S tart: February 10, 2025 Goals (unrecognized section and content) Goals may be documented in a n alternate sectionGoals may be documented in an alternate sectionGoals may be documented in an alternate sectionGoals may be documented in an alternate sectionGoals may be documented in an alternate sectionGoals may be documented in an alternate sectionGoals may be documented in an alternate sectionGoals may be documented in an alternate sectionGoals may be documented in an alternate sectionGoals may be documented in an alternate sectionGoals may be documented in an alternate sectionGoals may be documented in an alternate sectionGoals may be documented in an alternate section FOR RECORDS PERTAINING TO PATIENTS WHO ARE [...] BE BASED ON THE PRIMARY CLINICAL RECORDS. [employer] provides no warranty or guarantee of the accuracy or completeness of information in this document.
--- NOTE | 2025-07-15 13:40 | CT_ITS ---
PROCEDURE: CTA CHST, ABD, PEL W AND/OR WO 07/15/2025 REASON FOR EXAM: AAA POST OP TECHNIQUE: Procedure Code: [id number].CHAP.2 Modality: CT Procedure: CTA CHST, ABD, PEL W AND/OR WO Coronal and Sagittal reconstruction series were provided. One or more dose reduction techniques were used (e.g., Automated exposure control, adjustment of the mA and/or kV according to patient size, use of iterative reconstruction technique. CONTRAST: Isovue 370 VOLUME: 100 mL RADIATION DOSE SUMMARY: CTDlvol: 15.4 mGy DLP: 1269.30 mGycm COMPARISON: CTA abdomen and pelvis 07/29/2024. CT chest 11/09/2022. FINDINGS: CHEST: Lines and tubes: None Mediastinum and pulmonary arteries: Unremarkable. No evidence of pulmonary embolism. Heart: No cardiomegaly. Atherosclerotic calcifications of the coronary arteries. Thoracic Aorta: Status post descending aorta endograft stent placement which is unremarkable. Lungs and Airways: Pulmonary emphysema. A 7 mm nodule in the right lower lobe. A 3 mm nodule and 5 mm nodule in the left lower lobe. Pleura: No pleural effusion or pneumothorax. Bones: An indeterminate lytic lesion measures 2 cm at the left femoral head. An indeterminate sclerotic lesion at the left femoral head measures 1 cm. ABDOMEN AND PELVIS: Liver: Unremarkable. Gallbladder: Status post cholecystectomy. No biliary dilation. Spleen: Unremarkable. Pancreas: Unremarkable. Adrenals: Unremarkable. Kidneys: No hydronephrosis. No nephrolithiasis. Bladder: Unremarkable. Reproductive Organs: The prostate is enlarged measures 5.3 cm. Bowel: No bowel wall thickening. No bowel obstruction. Vasculature: Status post aorto bi-iliac stent placement. Stable size of the thrombosed infrarenal aortic aneurysm measures 7.3 cm in transverse diameter compared to CTA 07/29/2024. No evidence of endoleak. Peritoneum / Retroperitoneum: No free air or free fluid. Bones: No acute bony abnormalities. CT/CTA Chst, Abd, Pel W and/or WO IMPRESSION: Status post aorto bi-iliac stent placement. Stable size of the thrombosed infra renal aortic aneurysm measures 7.3 cm in transverse diameter compared to CTA 07/29/2024. No evidence of endoleak. Status post descending aorta stent endograft placement which is unremarkable. Status post descending aorta endograft stent placement which is unremarkable. Overall, decrease in size and number of pulmonary nodules compared to the most remote CT chest November 11, 2022 as detailed An indeterminate lytic lesion measures 2 cm at the left femoral head. An indet erminate sclerotic lesion at the left femoral head measures 1 cm. Reading Location: [id number]
== END | disposition home or self-care (01) ==
LOC: CT 13:22
PROVIDERS: PCP Family Medicine; Referring Provider Nurse Practitioner Primary Care; Visit Provider Nurse Practitioner Primary Care
DX: I71.43 Infrarenal abdominal aortic aneurysm, without rupture (principal); Z98.890 Other specified postprocedural states
CPT/HCPCS: 71275; 74174; Q9967